=== PATIENT | male | born 1985 | race Caucasian/White ===

== ENCOUNTER 2017-09-29 12:03 | Emergency (ER) | payer MEDICARE, MEDICAID ==
[~2017-09-29] VITALS: Ht 172.7 cm; Wt 54.4 kg
[~2017-09-29 12:03] MED LIST: GABA-549 PO; HYDR-385 PO; INSU100V24 SQ; KET10 PO; LANI SUBQ; METR-1 PO; OMEP40CA48 PO; ONDA4TAB PO; PROM25SU9 RC; SUCR1TAB85 PO
[2017-09-29] MEDS ORDERED: NS(*) 0.9% 1000 ML BAG 1,000 ML IV ONE (12:09)
--- NOTE | 2017-09-29 12:09 | ER Report ---
History and Physical Time Seen By MD: 12:09 [facility] CHIEF COMPLAINT: Nausea, vomiting, diarrhea HISTORY OF PRESENT ILLNESS: 32-year-old male patient presents to emergency room with complaint of nausea, vomiting and diarrhea. Patient states that this started this morning. He states he's been having vomiting as well as diarrhea. He states that he does have a history of diabetes and is concerned that he is having some flareup of his gastroparesis. Patient states that he's not had any fevers or chills. He states that he has not taken any medication for this. He states that he ate his roommates cooking last night, which was a roast carrots which were well cooked. REVIEW OF SYSTEMS: Respiratory: No cough, no dyspnea. Cardiovascular: No chest pain, no palpitations. Gastrointestinal: As noted above Musculoskeletal: No back pain. Allergies: Coded Allergies: acetaminophen (Verified Allergy, Unknown, 09/29/17) hydrocodone (Verified Allergy, Unknown, 09/29/17) oxycodone (Verified Allergy, Unknown, 09/29/17) Uncoded Allergies: beestings (Adverse Reaction, Unknown, 08/11/17) Home Meds Active Scripts Promethazine Hcl (PROMETHAZINE HCL) 25 Mg Tablet, 25 MG PO Q8H Y for NAUSEA/ VOMITING, #12 TAB Prov:ELIZABETH CONNORS [facility] 09/29/17 Ondansetron (ZOFRAN ODT) 4 Mg Tab.rapdis, 4 MG PO Q6H Y for NAUSEA/VOMITING, # 20 TAB.JANIE Prov:ELIZABETH CONNORS [facility] 09/29/17 Reported Medications Insulin Glargine (LANTUS) 100 Unit/Ml Soln, 34 UNIT SUBQ, ML 08/11/17 Insulin Lispro (HUMALOG) 100 Unit/1 Ml Vial, 100 UNIT SQ, VIAL 08/11/17 Gabapentin (GABAPENTIN) 300 Mg Capsule, 300 MG PO TID, CAPSULE 08/11/17 Discontinued Scripts Omeprazole (OMEPRAZOLE) 40 Mg Capsule.dr, 40 MG PO QDAY, #30 CAP Prov:ELIZABETH CONNORS [facility] 08/12/17 Sucralfate (CARAFATE) 1 Gm Tablet, 1 GM PO QID, #60 TAB Take before meals and at bedtime. Crush the tablet and mix with water before taking. Prov:ELIZABETH CONNORS [facility] 08/12/17 Promethazine Hcl (PROMETHAZINE HCL) 25 Mg Supp.rect, 25 MG RC Q8H Y for NAUSEA/ VOMITING, #12 SUPP.RECT Prov:ELIZABETH CONNORS [facility] 08/12/17 Ketorolac Tromethamine (KETOROLAC TROMETHAMINE) 10 Mg Tab, 10 MG PO Q6H, #20 TAB Prov:ELIZABETH CONNORS [facility] 08/12/17 Metronidazole (FLAGYL) 500 Mg Tablet, 500 MG PO TID, #30 TAB Prov:ELIZABETH CONNORS [facility] 08/12/17 Hydrocodone Bit/Acetaminophen (HYDROCODON-ACETAMINOPHEN 5-325) 1 Each Tablet, 1 EACH PO Q4-6H Y for PAIN, #12 TAB Prov:ELIZABETH CONNORS [facility] 08/11/17 Ondansetron (ZOFRAN ODT) 4 Mg Tab.rapdis, 4 MG PO Q6H Y for NAUSEA/VOMITING, # 20 TAB.JANIE Prov:ELIZABETH CONNORS [facility] 08/11/17 Past Medical/Surgical History Patient has a past medical history of diabetes, gastroparesis, substance abuse. Patient has a surgical history of right hand surgery. Reviewed Nurses Notes: Yes Hx Substance Use Disorder: Yes Hx Alcohol Use: No Constitutional Vital Sign - Last 24 Hours 09/29/17 09/29/17 09/29/17 09/29/17 12:03 12:10 12:15 12:18 Temp 96.1 Pulse ??? 98 98 Resp 22 B/P (MAP) 161/103 161/103 (122) Pulse Ox 98 99 O2 Delivery Room Air 09/29/17 09/29/17 09/29/17 09/29/17 12:32 12:33 12:48 13:00 Pulse 100 97 Resp 7 B/P (MAP) 143/101 (115) ???/??? (1665) Pulse Ox 97 83 09/29/17 09/29/17 09/29/17 09/29/17 13:03 13:18 13:30 13:31 Pulse ??? 96 B/P (MAP) 163/112 (129) 159/105 (123) Pulse Ox 93 09/29/17 13:34 Temp 97.7 Intake and Output 09/29/17 09/29/17 09/30/17 15:00 23:00 07:00 Intake Total 1000 ml Balance 1000 ml Physical Exam General Appearance: The patient is alert, has no immediate need for airway protection and no current signs of toxicity. Respiratory: Chest is non tender, lungs are clear to auscultation. Cardiac: regular rate and rhythm Gastrointestinal: Abdomen is soft and diffusely tender, no masses, bowel sounds normal. Musculoskeletal: Neck: Neck is supple and non tender. Extremities have full range of motion and are non tender. Skin: No rashes or lesions. DIFFERENTIAL DIAGNOSIS: After history and physical exam differential diagnosis was considered for abdominal pain including but not limited to appendicitis, cholecystitis, gastritis and urinary tract infection. Medical Decision Making Data Points Result Diagram: 09/29/17 1230 09/29/17 1230 Laboratory Hematology Test 09/29/17 12:13 09/29/17 12:30 09/29/17 12:35 Urine Color Yellow Urine Clarity Clear Urine pH 6.0 pH (4.8-9.5) Urine Specific [place] 1.036 Urine Protein 100 mg/dL (NEGATIVE) Urine Glucose (UA) 500 mg/dL (NEGATIVE) Urine Ketones 20 mg/dL (NEGATIVE) Urine Blood Small (NEGATIVE) Urine Nitrite Negative (NEGATIVE) Urine Bilirubin Negative (NEGATIVE) Urine Urobilinogen Negative mg/dL (0.2-1.9) Urine Leukocyte Esterase Negative (NEGATIVE) Urine RBC 4 /HPF (0-2/HPF) Urine WBC 2 /HPF (0-5/HPF) Urine Squamous Epithelial Cells Few /LPF (</=FEW) Urine Bacteria Negative /HPF (NONE-FEW) Urine Mucus None /HPF (NONE-FEW) Red Blood Count 5.44 M/uL (4.00-5.60) Mean Corpuscular Volume 92.2 fL (80.0-96.0) Mean Corpuscular Hemoglobin 32.3 pg (26.0-33.0) Mean Corpuscular Hemoglobin Concent 35.0 g/dL (32.0-36.0) Red Cell Distribution Width 12.9 % (11.5-14.5) Mean Platelet Volume 7.8 fL (7.2-11.1) Neutrophils (%) (Auto) 77.9 % (39.4-72.5) Lymphocytes (%) (Auto) 16.8 % (17.6-49.6) Monocytes (%) (Auto) 4.0 % (4.1-12.4) Eosinophils (%) (Auto) 0.5 % (0.4-6.7) Basophils (%) (Auto) 0.8 % (0.3-1.4) Nucleated RBC Relative Count (auto) 0.1 /100WBC Neutrophils # (Auto) 7.0 K/uL (2.0-7.4) Lymphocytes # (Auto) 1.5 K/uL (1.3-3.6) Monocytes # (Auto) 0.4 K/uL (0.3-1.0) Eosinophils # (Auto) 0.0 K/uL (0.0-0.5) Basophils # (Auto) 0.1 K/uL (0.0-0.1) Nucleated RBC Absolute Count (auto) 0.01 K/uL Sodium Level 141 mmol/L (137-145) Potassium Level 3.8 mmol/L (3.5-5.0) Chloride Level 100 mmol/L (98-107) Carbon Dioxide Level 28 mmol/L (22-30) Blood Urea Nitrogen 12 mg/dl (9-21) Creatinine 0.60 mg/dl (0.66-1.25) Glomerular Filtration Rate Calc > 60.0 Random Glucose 259 mg/dl (75-110) Osmolality 300 mOSM/K (275-295) Calcium Level 9.8 mg/dl (8.4-10.2) Total Bilirubin 0.7 mg/dl (0.2-1.3) Aspartate Amino Transf (AST/SGOT) 36 U/L (0-35) Alanine Aminotransferase (ALT/SGPT) 45 U/L (0-56) Alkaline Phosphatase 83 U/L (0-126) Total Protein 8.1 gm/dl (6.3-8.2) Albumin 4.5 g/dl (3.5-5.0) Urine Opiates Screen Negative Urine Barbiturates Screen Negative Ur Tricyclic Antidepressants Screen Negative Urine Phencyclidine Screen Negative Urine Amphetamines Screen Negative Urine Benzodiazepines Screen Negative Urine Cocaine Screen Negative Urine Cannabinoids Screen Positive Acetone, Qualitative Negative Blood Gas Puncture Site Left radial Blood Gas Patient Temperature 96.1 DEGREES Arterial Blood pH 7.45 (7.35-7.45) Arterial Blood Partial Pressure CO2 26 mmHg (32-37) Arterial Blood Partial Pressure O2 78 mmHg (60-80) Arterial Blood HCO3 19 mmol/L (20-26) Arterial Blood Oxygen Saturation 97 % (92-100) Arterial Blood Base Excess -6.0 mmol/L Boy Test Acceptable Oxygen Liters/Minute Room air Chemistry Test 09/29/17 12:13 09/29/17 12:30 09/29/17 12:35 Urine Color Yellow Urine Clarity Clear Urine pH 6.0 pH (4.8-9.5) Urine Specific [place] 1.036 Urine Protein 100 mg/dL (NEGATIVE) Urine Glucose (UA) 500 mg/dL (NEGATIVE) Urine Ketones 20 mg/dL (NEGATIVE) Urine Blood Small (NEGATIVE) Urine Nitrite Negative (NEGATIVE) Urine Bilirubin Negative (NEGATIVE) Urine Urobilinogen Negative mg/dL (0.2-1.9) Urine Leukocyte Esterase Negative (NEGATIVE) Urine RBC 4 /HPF (0-2/HPF) Urine WBC 2 /HPF (0-5/HPF) Urine Squamous Epithelial Cells Few /LPF (</=FEW) Urine Bacteria Negative /HPF (NONE-FEW) Urine Mucus None /HPF (NONE-FEW) White Blood Count 9.0 k/uL (4.5-11.0) Red Blood Count 5.44 M/uL (4.00-5.60) Hemoglobin 17.6 g/dL (14.0-18.0) Hematocrit 50.1 % (42.0-52.0) Mean Corpuscular Volume 92.2 fL (80.0-96.0) Mean Corpuscular Hemoglobin 32.3 pg (26.0-33.0) Mean Corpuscular Hemoglobin Concent 35.0 g/dL (32.0-36.0) Red Cell Distribution Width 12.9 % (11.5-14.5) Platelet Count 322 K/uL (150-450) Mean Platelet Volume 7.8 fL (7.2-11.1) Neutrophils (%) (Auto) 77.9 % (39.4-72.5) Lymphocytes (%) (Auto) 16.8 % (17.6-49.6) Monocytes (%) (Auto) 4.0 % (4.1-12.4) Eosinophils (%) (Auto) 0.5 % (0.4-6.7) Basophils (%) (Auto) 0.8 % (0.3-1.4) Nucleated RBC Relative Count (auto) 0.1 /100WBC Neutrophils # (Auto) 7.0 K/uL (2.0-7.4) Lymphocytes # (Auto) 1.5 K/uL (1.3-3.6) Monocytes # (Auto) 0.4 K/uL (0.3-1.0) Eosinophils # (Auto) 0.0 K/uL (0.0-0.5) Basophils # (Auto) 0.1 K/uL (0.0-0.1) Nucleated RBC Absolute Count (auto) 0.01 K/uL Glomerular Filtration Rate Calc > 60.0 Osmolality 300 mOSM/K (275-295) Calcium Level 9.8 mg/dl (8.4-10.2) Total Bilirubin 0.7 mg/dl (0.2-1.3) Aspartate Amino Transf (AST/SGOT) 36 U/L (0-35) Alanine Aminotransferase (ALT/SGPT) 45 U/L (0-56) Alkaline Phosphatase 83 U/L (0-126) Total Protein 8.1 gm/dl (6.3-8.2) Albumin 4.5 g/dl (3.5-5.0) Urine Opiates Screen Negative Urine Barbiturates Screen Negative Ur Tricyclic Antidepressants Screen Negative Urine Phencyclidine Screen Negative Urine Amphetamines Screen Negative Urine Benzodiazepines Screen Negative Urine Cocaine Screen Negative Urine Cannabinoids Screen Positive Acetone, Qualitative Negative Blood Gas Puncture Site Left radial Blood Gas Patient Temperature 96.1 DEGREES Arterial Blood pH 7.45 (7.35-7.45) Arterial Blood Partial Pressure CO2 26 mmHg (32-37) Arterial Blood Partial Pressure O2 78 mmHg (60-80) Arterial Blood HCO3 19 mmol/L (20-26) Arterial Blood Oxygen Saturation 97 % (92-100) Arterial Blood Base Excess -6.0 mmol/L Boy Test Acceptable Oxygen Liters/Minute Room air Toxicology Test 09/29/17 12:30 Urine Opiates Screen Negative Urine Barbiturates Screen Negative Ur Tricyclic Antidepressants Screen Negative Urine Phencyclidine Screen Negative Urine Amphetamines Screen Negative Urine Benzodiazepines Screen Negative Urine Cocaine Screen Negative Urine Cannabinoids Screen Positive Acetone, Qualitative Negative Urinalysis Test 09/29/17 12:13 Urine Color Yellow Urine Clarity Clear Urine pH 6.0 pH (4.8-9.5) Urine Specific [place] 1.036 Urine Protein 100 mg/dL (NEGATIVE) Urine Glucose (UA) 500 mg/dL (NEGATIVE) Urine Ketones 20 mg/dL (NEGATIVE) Urine Blood Small (NEGATIVE) Urine Nitrite Negative (NEGATIVE) Urine Bilirubin Negative (NEGATIVE) Urine Urobilinogen Negative mg/dL (0.2-1.9) Urine Leukocyte Esterase Negative (NEGATIVE) Urine RBC 4 /HPF (0-2/HPF) Urine WBC 2 /HPF (0-5/HPF) Urine Squamous Epithelial Cells Few /LPF (</=FEW) Urine Bacteria Negative /HPF (NONE-FEW) Urine Mucus None /HPF (NONE-FEW) EKG/Imaging Imaging ACUTE ABDOMEN SERIES 3 VIEW Indication: n/v/d Comparison: None. Findings: Lungs are clear. Heart size and the pulmonary vasculature are normal. Normal bowel gas pattern is seen. Bones are unremarkable. IMPRESSION: 1. Normal chest radiograph. 2. Normal abdomen and pelvis radiograph. Report Dictated By: Esteban Zhu at 09/29/2017 2:28 PM Report E-Signed By: Esteban Zhu at 09/29/2017 2:29 PM ED Course/Re-evaluation ED Course Patient was admitted to exam room, history and physical were obtained. Differential diagnoses were considered. On examination patient had diffuse tenderness, bowel sounds were active. A CBC, CMP, urinalysis, acute abdominal x- ray, osmolality, acetone, ABG, bedside glucose were done. Patient had a bedside glucose of 240, CBC, CMP, urinalysis were unremarkable. Osmolality was slightly elevated at 300, acetone was negative, acute abdominal x-ray showed no acute findings. Patient received 2 doses of Zofran while here in the emergency room. Patient requested narcotic pain medication on numerous occasions. I was unable to ascertain a cause of his pain and so opted to go ahead and treat with antibiotics and fluids. Patient received a liter of normal saline here in the emergency room. The patient will be discharged with what appears to be a gastroenteritis. Patient is to be on a clear liquid diet, get plenty of rest, increase fluid intake. He is to follow-up with his primary care provider in the next week. Patient verbalized understanding and agreement with plan. Decision to Disposition Date: Sep 29, 2017 Decision to Disposition Time: 14:12 Depart Departure Latest Vital Signs Vital Signs Date Time Temp Pulse Resp B/P (MAP) Pulse Ox O2 Delivery O2 Flow Rate FiO2 09/29/17 13:34 97.7 09/29/17 13:31 159/105 (123) 09/29/17 13:18 96 93 09/29/17 12:48 7 09/29/17 12:10 Room Air Impression: Primary Impression: Gastroenteritis Condition: Improved Disposition: HOME OR SELF-CARE New Scripts Promethazine Hcl (PROMETHAZINE HCL) 25 Mg Tablet 25 MG PO Q8H Y for NAUSEA/VOMITING, #12 TAB Prov: ELIZABETH CONNORS 09/29/17 Ondansetron (ZOFRAN ODT) 4 Mg Tab.rapdis 4 MG PO Q6H Y for NAUSEA/VOMITING, #20 TAB.JANIE Prov: ELIZABETH CONNORS 09/29/17 Patient Instructions: Gastroenteritis (ED) Additional Instructions: Increase fluid intake. Clear liquid diet for the next 24-48 hours. After that you may advance diet as tolerated starting with complex carbohydrates ; rice, bread or pasta. Follow up with your primary care provider in the next week. Return to the ER if condition worsens. You may take over the counter Pepto Bismol as needed for cramping, diarrhea and discomfort. ELIZABETH CONNORS Sep 29, 2017 12:09
[2017-09-29] MEDS ORDERED: ONDANSETRON 4 MG/2 ML VIAL IVP ONE ×2 (12:35→14:05)
[2017-09-29 12:49] LABS: PLATELET COUNT, AUTOMATED 322 K/uL (150-450)
[2017-09-29 13:31] VITALS: BP 159/105
[2017-09-29] MEDS ORDERED: ONDA4TAB PO (14:13)
[2017-09-29] MEDS ORDERED: PROM-110 PO (14:13)
--- NOTE | 2017-09-29 14:34 | RADIOLOGY IMAGING REPORT ---
FACILITY: [facility] [place] PATIENT NAME: Terrence Carson : 1985 MR: [id number] V: [id number] EXAM DATE: ORDERING PHYSICIAN: ELIZABETH CONNORS TECHNOLOGIST: Location: [facility] [place] Patient: Terrence Carson : 1985 Visit/Account:[id number] Date of Sevice: 09/29/2017 ACUTE ABDOMEN SERIES 3 VIEW Indication: n/v/d Comparison: None. Findings: Lungs are clear. Heart size and the pulmonary vasculature are normal. Normal bowel gas pattern is seen. Bones are unremarkable. IMPRESSION: 1. Normal chest radiograph. 2. Normal abdomen and pelvis radiograph. Report Dictated By: Esteban Zhu at 09/29/2017 2:28 PM Report E-Signed By: Esteban Zhu at 09/29/2017 2:29 PM WSN:[id number]
== END 2017-09-29 14:35 | disposition home or self-care (01) ==
LOC: ER 12:39
DX: K52.9 Noninfective gastroenteritis and colitis, unspecified (principal)
CPT/HCPCS: 36600; 74022; 80305; 81001; 82009; 82803; 83930; 85025; 87088; 96361; 96374; 96375; 96376; 99284; J2405; J7030; 82040; 82247; 82310; 82374; 82435; 82565; 82947; 84075; 84132; 84155; 84295; 84450; 84460; 84520

== ENCOUNTER 2017-10-01 21:44 | Inpatient (IN) | payer MEDICARE, MEDICAID ==
[~2017-10-01] VITALS: Ht 177.8 cm; Wt 54.9 kg
[~2017-10-01 21:44] MED LIST changes: +PROM-110 PO
--- NOTE | 2017-10-01 21:47 | ER Report ---
History and Physical Time Seen By MD: 21:46 HPI/ROS CHIEF COMPLAINT: Nausea, vomiting, insulin-dependent diabetic HISTORY OF PRESENT ILLNESS: 32-year-old male presents ambulatory to the ER complaining of continued vomiting. He's been taking Zofran without improvement. He was seen here on 09/29/17. Diagnosed with gastroenteritis. Patient is insulin dependent diabetic with a history of gastroparesis. Patient states his sugars at home or in the 200s. Patient states the promethazine and Zofran have not been controlling his nausea. Patient denies fevers or hematemesis. Patient notes decreased urine output REVIEW OF SYSTEMS: Respiratory: No cough, no dyspnea. Cardiovascular: No chest pain, no palpitations. Gastrointestinal: As above Musculoskeletal: No back pain. Allergies: Coded Allergies: acetaminophen (Verified Allergy, Unknown, 10/02/17) hydrocodone (Verified Allergy, Unknown, 10/02/17) oxycodone (Verified Allergy, Unknown, 10/02/17) Uncoded Allergies: beestings (Adverse Reaction, Unknown, 08/11/17) Home Meds Active Scripts Promethazine Hcl (PROMETHAZINE HCL) 25 Mg Tablet, 25 MG PO Q8H Y for NAUSEA/ VOMITING, #12 TAB Prov:ELIZABETH CONNORS [facility] 09/29/17 Ondansetron (ZOFRAN ODT) 4 Mg Tab.rapdis, 4 MG PO Q6H Y for NAUSEA/VOMITING, # 20 TAB.JANIE Prov:ELIZABETH CONNORS [facility] 09/29/17 Reported Medications Insulin Lispro (HUMALOG) 100 Unit/1 Ml Vial, 0 SQ Y for SLIDING SCALE INSULIN, VIAL takes Humalog Insulin at Home as per SS 10/02/17 Insulin Glargine (LANTUS) 100 Unit/Ml Soln, 34 UNIT SUBQ QDAY, ML MIDMORNING 10/02/17 Gabapentin (GABAPENTIN) 300 Mg Capsule, 300 MG PO TID, CAPSULE 08/11/17 Discontinued Scripts Omeprazole (OMEPRAZOLE) 40 Mg Capsule.dr, 40 MG PO QDAY, #30 CAP Prov:ELIZABETH CONNORS [facility] 08/12/17 Sucralfate (CARAFATE) 1 Gm Tablet, 1 GM PO QID, #60 TAB Take before meals and at bedtime. Crush the tablet and mix with water before taking. Prov:ELIZABETH CONNORS [facility] 08/12/17 Promethazine Hcl (PROMETHAZINE HCL) 25 Mg Supp.rect, 25 MG RC Q8H Y for NAUSEA/ VOMITING, #12 SUPP.RECT Prov:ELIZABETH CONNORS [facility] 08/12/17 Ketorolac Tromethamine (KETOROLAC TROMETHAMINE) 10 Mg Tab, 10 MG PO Q6H, #20 TAB Prov:ELIZABETH CONNORS [facility] 08/12/17 Metronidazole (FLAGYL) 500 Mg Tablet, 500 MG PO TID, #30 TAB Prov:ELIZABETH CONNORS [facility] 08/12/17 Hydrocodone Bit/Acetaminophen (HYDROCODON-ACETAMINOPHEN 5-325) 1 Each Tablet, 1 EACH PO Q4-6H Y for PAIN, #12 TAB Prov:ELIZABETH CONNORS [facility] 08/11/17 Ondansetron (ZOFRAN ODT) 4 Mg Tab.rapdis, 4 MG PO Q6H Y for NAUSEA/VOMITING, # 20 TAB.JANIE Prov:ELIZABETH CONNORS [facility] 08/11/17 Past Medical/Surgical History Patient has a past medical history of diabetes, gastroparesis, substance abuse. Patient has a surgical history of right hand surgery. Reviewed Nurses Notes: Yes Old Medical Records Reviewed: Yes Hx Substance Use Disorder: Yes Hx Alcohol Use: No Constitutional Vital Sign - Last 24 Hours 10/01/17 10/01/17 10/01/17 10/01/17 21:48 21:48 22:14 22:44 Pulse 137 126 128 Resp 22 B/P (MAP) 155/129 155/129 (138) Pulse Ox 96 97 94 10/01/17 10/01/17 10/01/17 10/01/17 22:49 23:16 23:19 23:30 Pulse 128 124 B/P (MAP) 158/108 (125) 159/106 (123) Pulse Ox 95 96 10/01/17 10/02/17 10/02/17 10/02/17 23:49 00:00 00:19 00:30 Pulse 122 129 B/P (MAP) 160/103 (122) 160/101 (120) Pulse Ox 96 96 10/02/17 10/02/17 10/02/17 00:35 01:00 01:05 Pulse 125 128 B/P (MAP) 153/103 (120) Pulse Ox 95 97 Physical Exam Vital signs stable, afebrile, pulse ox normal General Appearance: The patient is alert, has no immediate need for airway protection and no current signs of toxicity. Moderate distress, rapid breathing HEENT: Pupils equal and round no injection. TMs normal, oropharynx with dry mucous membranes, mild erythema, fruity odor, very poor dentition,? Previous substance abuse Respiratory: Chest is non tender, lungs are clear to auscultation. Cardiac: regular rate and rhythm Gastrointestinal: Abdomen is soft, mild epigastric tenderness, no masses, bowel sounds normal. Musculoskeletal: Neck: Neck is supple and non tender. No JVD, no lymphadenopathy Extremities have full range of motion and are non tender. Skin: No rashes or lesions. DIFFERENTIAL DIAGNOSIS: After history and physical exam differential diagnosis was considered for abdominal pain including but not limited to appendicitis, cholecystitis, gastritis, diabetic ketoacidosis and urinary tract infection. Medical Decision Making Data Points Result Diagram: 10/01/17 2213 10/02/17 0150 Laboratory Hematology Test 10/01/17 22:13 Red Blood Count 5.77 M/uL (4.00-5.60) Mean Corpuscular Volume 94.1 fL (80.0-96.0) Mean Corpuscular Hemoglobin 32.1 pg (26.0-33.0) Mean Corpuscular Hemoglobin Concent 34.1 g/dL (32.0-36.0) Red Cell Distribution Width 12.9 % (11.5-14.5) Mean Platelet Volume 7.5 fL (7.2-11.1) Neutrophils (%) (Auto) 89.8 % (39.4-72.5) Lymphocytes (%) (Auto) 6.9 % (17.6-49.6) Monocytes (%) (Auto) 3.1 % (4.1-12.4) Eosinophils (%) (Auto) 0.0 % (0.4-6.7) Basophils (%) (Auto) 0.2 % (0.3-1.4) Nucleated RBC Relative Count (auto) 0.0 /100WBC Neutrophils # (Auto) 12.6 K/uL (2.0-7.4) Lymphocytes # (Auto) 1.0 K/uL (1.3-3.6) Monocytes # (Auto) 0.4 K/uL (0.3-1.0) Eosinophils # (Auto) 0.0 K/uL (0.0-0.5) Basophils # (Auto) 0.0 K/uL (0.0-0.1) Nucleated RBC Absolute Count (auto) 0.00 K/uL Urine Color Straw Urine Clarity Clear Urine pH 5.0 pH (4.8-9.5) Urine Specific [place] 1.025 Urine Protein 100 mg/dL (NEGATIVE) Urine Glucose (UA) 500 mg/dL (NEGATIVE) Urine Ketones 80 mg/dL (NEGATIVE) Urine Blood Moderate (NEGATIVE) Urine Nitrite Negative (NEGATIVE) Urine Bilirubin Negative (NEGATIVE) Urine Urobilinogen Negative mg/dL (0.2-1.9) Urine Leukocyte Esterase Negative (NEGATIVE) Urine RBC 1 /HPF (0-2/HPF) Urine WBC 1 /HPF (0-5/HPF) Urine Squamous Epithelial Cells None /LPF (</=FEW) Urine Bacteria Negative /HPF (NONE-FEW) Urine Mucus None /HPF (NONE-FEW) Total Bilirubin 0.9 mg/dl (0.2-1.3) Aspartate Amino Transf (AST/SGOT) 21 U/L (0-35) Alanine Aminotransferase (ALT/SGPT) 40 U/L (0-56) Alkaline Phosphatase 100 U/L (0-126) C-Reactive Protein < 0.5 mg/dl (<1.0) Total Protein 8.7 gm/dl (6.3-8.2) Albumin 5.2 g/dl (3.5-5.0) Amylase Level 88 U/L (0-110) Lipase 155 U/L (23-300) Chemistry Test 10/01/17 22:13 White Blood Count 14.0 k/uL (4.5-11.0) Red Blood Count 5.77 M/uL (4.00-5.60) Hemoglobin 18.5 g/dL (14.0-18.0) Hematocrit 54.3 % (42.0-52.0) Mean Corpuscular Volume 94.1 fL (80.0-96.0) Mean Corpuscular Hemoglobin 32.1 pg (26.0-33.0) Mean Corpuscular Hemoglobin Concent 34.1 g/dL (32.0-36.0) Red Cell Distribution Width 12.9 % (11.5-14.5) Platelet Count 367 K/uL (150-450) Mean Platelet Volume 7.5 fL (7.2-11.1) Neutrophils (%) (Auto) 89.8 % (39.4-72.5) Lymphocytes (%) (Auto) 6.9 % (17.6-49.6) Monocytes (%) (Auto) 3.1 % (4.1-12.4) Eosinophils (%) (Auto) 0.0 % (0.4-6.7) Basophils (%) (Auto) 0.2 % (0.3-1.4) Nucleated RBC Relative Count (auto) 0.0 /100WBC Neutrophils # (Auto) 12.6 K/uL (2.0-7.4) Lymphocytes # (Auto) 1.0 K/uL (1.3-3.6) Monocytes # (Auto) 0.4 K/uL (0.3-1.0) Eosinophils # (Auto) 0.0 K/uL (0.0-0.5) Basophils # (Auto) 0.0 K/uL (0.0-0.1) Nucleated RBC Absolute Count (auto) 0.00 K/uL Urine Color Straw Urine Clarity Clear Urine pH 5.0 pH (4.8-9.5) Urine Specific [place] 1.025 Urine Protein 100 mg/dL (NEGATIVE) Urine Glucose (UA) 500 mg/dL (NEGATIVE) Urine Ketones 80 mg/dL (NEGATIVE) Urine Blood Moderate (NEGATIVE) Urine Nitrite Negative (NEGATIVE) Urine Bilirubin Negative (NEGATIVE) Urine Urobilinogen Negative mg/dL (0.2-1.9) Urine Leukocyte Esterase Negative (NEGATIVE) Urine RBC 1 /HPF (0-2/HPF) Urine WBC 1 /HPF (0-5/HPF) Urine Squamous Epithelial Cells None /LPF (</=FEW) Urine Bacteria Negative /HPF (NONE-FEW) Urine Mucus None /HPF (NONE-FEW) Total Bilirubin 0.9 mg/dl (0.2-1.3) Aspartate Amino Transf (AST/SGOT) 21 U/L (0-35) Alanine Aminotransferase (ALT/SGPT) 40 U/L (0-56) Alkaline Phosphatase 100 U/L (0-126) C-Reactive Protein < 0.5 mg/dl (<1.0) Total Protein 8.7 gm/dl (6.3-8.2) Albumin 5.2 g/dl (3.5-5.0) Amylase Level 88 U/L (0-110) Lipase 155 U/L (23-300) Urinalysis Test 10/01/17 22:13 Urine Color Straw Urine Clarity Clear Urine pH 5.0 pH (4.8-9.5) Urine Specific [place] 1.025 Urine Protein 100 mg/dL (NEGATIVE) Urine Glucose (UA) 500 mg/dL (NEGATIVE) Urine Ketones 80 mg/dL (NEGATIVE) Urine Blood Moderate (NEGATIVE) Urine Nitrite Negative (NEGATIVE) Urine Bilirubin Negative (NEGATIVE) Urine Urobilinogen Negative mg/dL (0.2-1.9) Urine Leukocyte Esterase Negative (NEGATIVE) Urine RBC 1 /HPF (0-2/HPF) Urine WBC 1 /HPF (0-5/HPF) Urine Squamous Epithelial Cells None /LPF (</=FEW) Urine Bacteria Negative /HPF (NONE-FEW) Urine Mucus None /HPF (NONE-FEW) ED Course/Re-evaluation Clinical Indication for ER IV: Hydration, IV Access ED Course Patient was admitted to an examination room. H&P was done. The differential diagnosis was considered. Patient with intractable vomiting. He's insulin- dependent diabetic. Diagnostic studies returned with gross hyperglycemia. 436. His bicarbonate is low to 10. He is consistent with DKA. His urinalysis shows ketones. Patient's treated with IV fluid hydration 1 L normal saline bolus, Zofran, Phenergan and fentanyl. Patient's given 10 units of regular insulin IV push. Repeat glucose in one hour shows glucose down to 362. An insulin drip was initiated at 5 units per hour. Patient was given a 2nd bolus of 1 L of normal saline. Repeat basic metabolic profile and venous blood gas show pH of 7.25, showing mild acidosis. A chest x-ray was performed to rule out pneumonia. His white blood cell count is mildly elevated to 14,000. 10/02/2017 1:11:45 am case discussed with Dr. Andria Hamilton hospitalist excepts the patient for admission to ICU Decision to Disposition Date: Oct 01, 2017 Decision to Disposition Time: 23:30 Critical Care Time I spent a total of 60 minutes of critical care time in obtaining history, performing a physical exam, bedside monitoring of interventions, collecting and interpreting tests and discussion with consultants but not including time spent performing procedures. Depart Departure Latest Vital Signs Vital Signs Date Time Temp Pulse Resp B/P (MAP) Pulse Ox O2 Delivery O2 Flow Rate FiO2 10/02/17 01:05 128 97 10/02/17 01:00 153/103 (120) 10/01/17 21:48 22 Impression: Primary Impression: DKA (diabetic ketoacidoses) Additional Impressions: Nausea & vomiting History of diabetic gastroparesis Condition: Improved Disposition: Admitted from ER Problem Qualifiers Primary Impression: DKA (diabetic ketoacidoses) Diabetes mellitus type: type 1 Diabetes mellitus complication detail: without coma Qualified Codes: E10.10 - Type 1 diabetes mellitus with ketoacidosis without coma Additional Impressions: Nausea & vomiting Vomiting type: unspecified Vomiting Intractability: intractable Qualified Codes: R11.2 - Nausea with vomiting, unspecified NOELLE DE LA CRUZ DO Oct 01, 2017 21:47
[2017-10-01] MEDS ORDERED: NS(*) 0.9% 1000 ML BAG 1,000 ML IV ONE (22:08)
[2017-10-01] MEDS ORDERED: ONDANSETRON 4 MG/2 ML VIAL IVP ONE (22:10)
[2017-10-01] MEDS ORDERED: PROMETHAZINE 25 MG/ML 1 ML AMP IVP ONE (22:10)
[2017-10-01] MEDS ORDERED: fentaNYL CITR 100 MCG/2 ML AMP IVP ONE (22:10)
[2017-10-01 22:21] LABS: PLATELET COUNT, AUTOMATED 367 K/uL (150-450)
[2017-10-01] MEDS ORDERED: INSU HUM REG 100 U/ML(ER ONLY) 10 ML VIAL IVP ONE (23:35)
[2017-10-02] VITALS (21 sets, daily range): BP systolic 105–170; BP diastolic 77–117; Ht 177.8 cm; Wt 54.9 kg
[2017-10-02] MEDS ORDERED: INS HUM REG* 100 U/ML(ER ONLY) 100 UNIT in NS(*) 0.9% 100 ML BAG 99 ML IV SCH ×3 (01:10→05:30)
[2017-10-02] MEDS ORDERED: NS(*) 0.9% 100 ML BAG 100 ML ONE (01:22)
[2017-10-02] MEDS ORDERED: NS(*) 0.9% 1000 ML BAG 1,000 ML IV ONE (01:25)
[2017-10-02] MEDS ORDERED: SODIUM BICAR(* 8.4% 50 ML SYR 50 ML SYR IVP ONE (02:25)
--- NOTE | 2017-10-02 02:29 | RADIOLOGY IMAGING REPORT ---
FACILITY: [facility] PATIENT NAME: Terrence Carson : 1985 MR: [id number] V: [id number] EXAM DATE: ORDERING PHYSICIAN: NOELLE DE LA CRUZ [place]CHN[place] [facility] [place] : 1985 Visit/Account:[id number] Date of Sevice: 10/02/2017 CHEST SINGLE AP Additional pertinent History: DKA COMPARISON STUDIES: none FINDINGS: Support lines and catheters: None Lungs and Pleura: Lung [place] well expanded with no infiltrates or consolidations. No parenchymal ma ss lesions are seen. There are no effusions Heart and vasculature: Negative. Atiya and Mediastinum: Negative. Bones and Chest wall: Negative. Upper Abdomen: Negative. IMPRESSION: 1. Negative chest for acute cardiopulmonary disease Report Dictated By: Crow Herndon MD at 10/02/2017 2:20 AM Report E-Signed By: Crow Herndon MD at 10/02/2017 2:24 AM WSN:[id number]
[2017-10-02] MEDS ORDERED: fentaNYL CITR 100 MCG/2 ML AMP IVP PRN (02:40)
[2017-10-02] MEDS ORDERED: KCL/NS* 20 MEQ/1000 ML PREMIX 1,000 ML IV ONE (03:25)
[2017-10-02] MEDS ORDERED: INSULIN HUM REG 100 UN/ML 3 ML 100 UNIT in NS(*) 0.9% 100 ML BAG 100 ML IV SCH (03:32)
[2017-10-02] MEDS ORDERED: HYDROmorphone HCL 2 MG/ML SDV IVP PRN ×2 (03:35→08:25)
[2017-10-02] MEDS ORDERED: PROMETHAZINE 25 MG/ML 1 ML AMP IVP PRN ×2 (03:40→21:10)
[2017-10-02] MEDS ORDERED: ONDANSETRON 4 MG/2 ML VIAL IVP PRN (03:40)
[2017-10-02] MEDS ORDERED: INFLUENZA VIRUS VAC 0.5 ML SYR IM ONLY ONE (03:45)
[2017-10-02] MEDS ORDERED: LANI SUBQ (04:01)
[2017-10-02] MEDS ORDERED: INSU100V24 SQ (04:06)
--- NOTE | 2017-10-02 04:13 | History & Physical ---
History of Present Illness Chief Complaint The patient is a 32 year old male with PMH significant for type I DM with complications including neuropathy (legs) and gastroparesis. He presents with several days of intractable nausea and vomiting. History of Present Illness The patient was diagnosed with type I DM at age 13. He has developed complications including gastroparesis and neuropathy of his lower extremities. He has had multiple hospitalizations for DKA in the past. He currently uses Lantus 34 units mid morning and Humalog per sliding scale before meals. The patient recently moved to [place] from [place]. He states that he has been using marijuana daily for treatment of chronic pain. He denies any history of other substance use or abuse. He states he only uses pain medications when he is in the hospital with DKA. He does not drink alcohol. He is on Medicare and has been disabled due to his diabetes and neuropathy. He has not yet established with a primary care provider in [place]. The patient notes that he developed nausea and vomiting 2-3 days ago. He was seen in [facility] 234 BEDS AT THE [facility] ER on 09/29 and sent home with Phenergan and Zofran. He states these medications have not controlled his nausea and vomiting. He has had upper abdominal pain as well. He has not been able to eat or drink and has noticed decreased urine output. He has not had fever or chills. He has not had hematemesis. He denies diarrhea or melena. History Problems: (1) Wrist fracture, right Comment: With ORIF, pinning. Pins subsequently removed. (2) Diabetic neuropathy Status: Chronic (3) Diabetic gastroparesis Status: Chronic (4) Type I diabetes mellitus Status: Chronic Home Meds Active Scripts Promethazine Hcl (PROMETHAZINE HCL) 25 Mg Tablet, 25 MG PO Q8H Y for NAUSEA/ VOMITING, #12 TAB Prov:ELIZABETH CONNORS [facility] 09/29/17 Ondansetron (ZOFRAN ODT) 4 Mg Tab.rapdis, 4 MG PO Q6H Y for NAUSEA/VOMITING, # 20 TAB.JANIE Prov:ELIZABETH CONNORS [facility] 09/29/17 Reported Medications Insulin Glargine (LANTUS) 100 Unit/Ml Soln, 34 UNIT SUBQ, ML 08/11/17 Insulin Lispro (HUMALOG) 100 Unit/1 Ml Vial, 100 UNIT SQ, VIAL 11/11/17 Gabapentin (GABAPENTIN) 300 Mg Capsule, 300 MG PO TID, CAPSULE 08/11/17 Discontinued Scripts Omeprazole (OMEPRAZOLE) 40 Mg Capsule.dr, 40 MG PO QDAY, #30 CAP Prov:ELIZABETH CONNORS [facility] 08/12/17 Sucralfate (CARAFATE) 1 Gm Tablet, 1 GM PO QID, #60 TAB Take before meals and at bedtime. Crush the tablet and mix with water before taking. Prov:ELIZABETH CONNORS [facility] 08/12/17 Promethazine Hcl (PROMETHAZINE HCL) 25 Mg Supp.rect, 25 MG RC Q8H Y for NAUSEA/ VOMITING, #12 SUPP.RECT [facility] 08/12/17 Ketorolac Tromethamine (KETOROLAC TROMETHAMINE) 10 Mg Tab, 10 MG PO Q6H, #20 TAB Prov:ELIZABETH CONNORS [facility] 08/12/17 Metronidazole (FLAGYL) 500 Mg Tablet, 500 MG PO TID, #30 TAB [facility] 08/12/17 Hydrocodone Bit/Acetaminophen (HYDROCODON-ACETAMINOPHEN 5-325) 1 Each Tablet, 1 EACH PO Q4-6H Y for PAIN, #12 TAB Prov:ELIZABETH CONNORS [facility] 08/11/17 Ondansetron (ZOFRAN ODT) 4 Mg Tab.rapdis, 4 MG PO Q6H Y for NAUSEA/VOMITING, # 20 TAB.JANIE Prov:ELIZABETH CONNORS [facility] 08/11/17 Allergies: Coded Allergies: acetaminophen (Verified Allergy, Unknown, 10/02/17) hydrocodone (Verified Allergy, Unknown, 10/02/17) oxycodone (Verified Allergy, Unknown, 10/02/17) Uncoded Allergies: beestings (Adverse Reaction, Unknown, 08/11/17) Patient History: CVA FATHER (STROKE), MOTHER (STROKE) Diabetes mellitus type II FATHER (STROKE), MOTHER (STROKE) Hx Smoking: Yes Smoking Status: Former Smoker Tobacco Used: Cigarette Hx Alcohol Use: No Hx Substance Use Disorder: No Social Drug Use: Currently Social Drugs: Marijuana (Daily for chronic neuropathic pain.) History of IV Drug Use: No Review of Systems All Systems Reviewed/Normal: Yes, Except as Noted Constitutional: No Chills Neurological: Weakness Cardiovascular: No Chest Pain Respiratory: No Shortness of Breath Gastrointestinal: Nausea, Vomiting, No Diarrhea, No Hematemesis Genitourinary: No Dysuria Musculoskeletal: Pain (Neuropathic pain, LE.) Psychiatric: No Depression Exam Vital Signs Vital Signs Date Time Temp Pulse Resp B/P (MAP) Pulse Ox O2 Delivery O2 Flow Rate FiO2 10/02/17 02:55 98.3 133 20 170/117 (134) 96 Room Air General Appearance: Alert, Awake, Other (Appears ill.) Eyes: PERRLA ENT: Other (Missing several teeth.) Neck: No Masses Cardiovascular: Other (Tachycardic, regular.) Respiratory: Clear to Auscultation (Anteriorly.) Chest: Other (Negative except for tattoos.) GI: Other (Abdomen soft, diffusely tender to palpation without masses or organomegaly.) Lymph: Cervical Nodes Benign Extremities: Warm, Perfused, Other (R foot with callous/scab over bony prominence laterally. No redness or drainage.) Integumentary: Skin Intact without Lesion / Mass, Other (Multiple tattoos.) Psych: Appropriate Mood & Affect Medical Decision Making Data Points Result Diagram: 10/01/17221210/02/17 0150 Item Value Date Time Blood Gas Patient Temperature 98.1 DEGREES 10/02/17 0120 Venous Blood pH 7.25 L 10/02/17 0120 Venous Blood Partial Pressure CO2 26 mmHg 10/02/17 0120 Venous Blood Partial Pressure O2 52 mmHg 10/02/17 0120 Venous Blood HCO3 12 mmol/L 10/02/17 0120 Venous Blood Oxygen Saturation 82 % 10/02/17 0120 Venous Blood Base Excess -16 mmol/L 10/02/17 0120 Oxygen Liters/Minute Room air 10/02/17 0120 Urine Color Straw 10/01/172212 Urine Clarity Clear 10/01/172212 Urine pH 5.0 pH 10/01/17 221 Urine Specific [place] 1.025 10/01/172212 Urine Protein 100 mg/dL 10/01/172212 Urine Glucose (UA) 500 mg/dL 10/01/172212 Urine Ketones 80 mg/dL H 10/01/172212 Urine Blood Moderate 10/01/172212 Urine Nitrite Negative 10/01/172212 Urine Bilirubin Negative 10/01/172212 Urine Urobilinogen Negative mg/dL 10/01/172212 Urine Leukocyte Esterase Negative 10/01/172212 Urine RBC 1 /HPF 10/01/172212 Urine WBC 1 /HPF 10/01/172212 Urine Squamous Epithelial Cells None /LPF 10/01/172212 Urine Bacteria Negative /HPF 10/01/172212 Urine Mucus None /HPF 10/01/172212 [facility] *LIVE* [address] [place] [address] WAN RILEY M.D., DIRECTOR OF LABORATORY SERVICES AQUILES BUSBY M.D., PATHOLOGIST RUN DATE: 10/01/17 Specimen Inquiry Report PAGE 1 RUN TIME: 1526 PATIENT: TERRENCE CARSON ACCT: [id number] LOC: [facility] U : [id number] AGE/SX: 32/M ROOM: REG : 09/29/[address]: ELIZABETH CONNORS : 1985 BED: DIS : STATUS: ERIC ALEXANDER TLOC: SPEC #: [id number] SLOAN: 09/29/17-1213 STATUS: COMP REQ #: [id number] RECD: 09/29/17-[address]: ELIZABETH CONNORS SOURCE: CCMS ENTR: 09/29/17-[address]: SPDES: ORDERED: CULT URINE Procedure Result Verified URINE CULTURE Final 10/01/17-1526 NO GROWTH AFTER 2 DAYS END OF REPORT EKG / Imaging Monitor Interpretation: Sinus Tachycardia [place] [facility] [place] NAME: Terrence Carson : 1985 MR: [id number] V: [id number] EXAM DATE: ORDERING PHYSICIAN: NOELLE DE LA CRUZ TECHNOLOGIST: Location: [facility] [place] Patient: Terrence Carson : 1985 Visit/Account:[id number] Date of Sevice: 10/02/2017 CHEST SINGLE AP Additional pertinent History: DKA COMPARISON STUDIES: none FINDINGS: Support lines and catheters: None Lungs and Pleura: Lung [place] well expanded with no infiltrates or consolidations. No parenchymal mass lesions are seen. There are no effusions Heart and vasculature: Negative. Atiya and Mediastinum: Negative. Bones and Chest wall: Negative. Upper Abdomen: Negative. IMPRESSION: 1. Negative chest for acute cardiopulmonary disease Report Dictated By: Crow Herndon MD at 10/02/2017 2:20 AM Report E-Signed By: Crow Herndon MD at 10/02/2017 2:24 AM WSN:[id number] Pre-Admit Course ED Medications Reviewed. Multiple. See ER record. Medical Record Review: Yes Assessment and Plan Problems: (1) DKA (diabetic ketoacidoses) Status: Acute Assessment & Plan: Will place in ICU and aggressively hydrate with NS/KCl 20meq at 200 ml/hr. Hourly glucose checks. When glucose falls below 200, switch fluid to D51/2NS with KCl 20meq until acidosis has resolved. Place on insulin gtt. Recheck BMP q 4 hours to monitor electrolytes and CO2. Place on telemetry. (2) Nausea & vomiting Status: Acute Assessment & Plan: Will order IV promethazine and Zofran prn. Dilaudid prn for abdominal discomfort. (3) Type I diabetes mellitus Status: Chronic Assessment & Plan: Hold Lantus for now. Continue insulin gtt. (4) Diabetic gastroparesis Status: Chronic Assessment & Plan: Phenergan and Zofran prn. (5) Diabetic neuropathy Status: Chronic Assessment & Plan: Hold gabapentin for now as the patient is NPO. Dilaudid prn for pain. (6) Hiccups Status: Acute Assessment & Plan: Will monitor for now. If persistent, consider a dose of Thorazine. Time Spent on Plan of Care: < 30 min Venous Thromboembolism VTE Risk Physician Assess for VTE Risk: Yes Patient's VTE Risk: Low VTE Diagnostic Test 2 Days Prior to Admit: No Antithrombotics Is Pt On Any Antithrombotics?: Yes Exam Sepsis Risk: No Definite Risk Problem Qualifiers (1) DKA (diabetic ketoacidoses): Diabetes mellitus type: type 1 Diabetes mellitus complication detail: without coma Qualified Codes: E10.10 - Type 1 diabetes mellitus with ketoacidosis without coma (2) Nausea & vomiting: Vomiting type: unspecified Vomiting Intractability: intractable Qualified Codes: R11.2 - Nausea with vomiting, unspecified (3) Type I diabetes mellitus: Diabetes mellitus complication status: with neurologic complications Diabetes mellitus complication detail: with polyneuropathy Qualified Codes: E10.42 - Type 1 diabetes mellitus with diabetic polyneuropathy (4) Diabetic neuropathy: Diabetes mellitus type: type 1 BRADLEY FRANCOIS MD Oct 02, 2017 04:13
[2017-10-02] MEDS ORDERED: KCL/D1/2NS 20 MEQ 1000 ML 1,000 ML IV SCH (04:30)
[2017-10-02 06:48] LABS: PLATELET COUNT, AUTOMATED 315 K/uL (150-450)
[2017-10-02] MEDS ORDERED: INSULIN HUM LISPRO 100 UN/ML 3 ML VIAL SUBQ PRN (08:15)
[2017-10-02] MEDS ORDERED: NS 0.9% 50 ML VIAL 50 ML ONE (08:48)
[2017-10-02] MEDS ORDERED: IOPAMIDOL 76% 75 ML INFUS BTL 75 ML ONE (08:48)
[2017-10-02] MEDS: ENOXAPARIN 40 MG/0.4ML SYR SC SCH (09:30)
[2017-10-02] MEDS: INSULIN GLARGINE 100 U/ML 3 ML PEN SUBQ SCH (09:30)
[2017-10-02] MEDS: GABAPENTIN 300 MG CAP PO SCH ×3 (09:35→20:01)
--- NOTE | 2017-10-02 11:14 | RADIOLOGY IMAGING REPORT ---
[facility] PATIENT NAME: Terrence Carson : 1985 MR: [id number] V: [id number] EXAM DATE: ORDERING PHYSICIAN: YOAV MCLEOD TECHNOLOGIST: [place] [facility] [place] Terrence Carson : 1985 Visit/Account:[id number] Date of Sevice: 10/02/2017 ABDOMEN/PELVIS WITH and without CONTRAST HISTORY: abd pain TECHNIQUE: Pre and post administration of IV contrast contiguous axial images acquired through the ab domen/pelvis. Coronal and sagittal reformatting also performed. Dose Lowering Technique One of the following dose optimization techniques was utilized in the performance of this exam: Autom ated exposure control; adjustment of the mA and/or kV according to the patient's size; or use of an i terative reconstruction technique. Specific details can be referenced in the facility's radiology C T exam operational policy. The examination was performed with and without contrast however on the noncontrast portion examinatio n there was an extensive amount of contrast in the renal collecting systems and ureters bilaterally. This may have been secondary to a test injection of contrast or possibly related to a prior study. Clinical correlation needed CONTRAST: 75 mL Isovue-370 COMPARISON: August 12, 2017 FINDINGS: Visualized lung bases: Negative. Hepatobiliary: Negative. Spleen: Negative. Adrenals: Negative. Pancreas: Pancreas appears small Kidneys ureters or bladder: Negative. Genitalia: Negative. GI: The colon appears decompressed therefore not ideally evaluated particularly in the absence of or al contrast. . The appendix is visualized and does not appear inflamed. Vessels/spaces/nodes: Negative. Bones/soft tissues: Mild disc space narrowing L5-S1 moderate disc space narrowing T9-10 Additional findings: None pertinent. IMPRESSION: The appendix is visualized and does not appear inflamed The colon appears decompressed although not ideally evaluated particularly in the absence of oral con trast Report Dictated By: Danielle Lozano MD at 10/02/2017 10:09 AM Report E-Signed By: Danielle Lozano MD at 10/02/2017 11:10 AM WSN:[id number]
--- NOTE | 2017-10-02 11:47 | RADIOLOGY IMAGING REPORT ---
FACILITY: [facility] [place] PATIENT NAME: Terrence Carson : 1985 MR: [id number] V: [id number] EXAM DATE: ORDERING PHYSICIAN: YOAV MCLEOD TECHNOLOGIST: Location: [facility] Patient: Terrence Carson : 1985 Visit/Account:[id number] Date of Sevice: 10/02/2017 ABDOMEN/PELVIS WITH and without CONTRAST HISTORY: abd pain TECHNIQUE: Pre and post administration of IV contrast contiguous axial images acquired through the ab domen/pelvis. Coronal and sagittal reformatting also performed. Dose Lowering Technique One of the following dose optimization techniques was utilized in the performance of this exam: Autom ated exposure control; adjustment of the mA and/or kV according to the patient's size; or use of an i terative reconstruction technique. Specific details can be referenced in the facility's radiology C T exam operational policy. The examination was performed with and without contrast however on the noncontrast portion examinatio n there was an extensive amount of contrast in the renal collecting systems and ureters bilaterally. This may have been secondary to a test injection of contrast or possibly related to a prior study. Clinical correlation needed CONTRAST: 75 mL Isovue-370 COMPARISON: August 12, 2017 FINDINGS: Visualized lung bases: Negative. Hepatobiliary: Negative. Spleen: Negative. Adrenals: Negative. Pancreas: Pancreas appears small Kidneys ureters or bladder: Negative. Genitalia: Negative. GI: The colon appears decompressed therefore not ideally evaluated particularly in the absence of or al contrast. . The appendix is visualized and does not appear inflamed. Vessels/spaces/nodes: Negative. Bones/soft tissues: Mild disc space narrowing L5-S1 moderate disc space narrowing T9-10 Additional findings: None pertinent. IMPRESSION: The appendix is visualized and does not appear inflamed The colon appears decompressed although not ideally evaluated particularly in the absence of oral con trast Report Dictated By: Danielle Lozano MD at 10/02/2017 10:09 AM Report E-Signed By: Danielle Lozano MD at 10/02/2017 11:10 AM WSN:RG
--- NOTE | 2017-10-02 13:54 | Hospitalist Progress Note ---
Subjective Progress Notes Subjective He is reporting continued RUQ pain. No more vomiting. Physical Exam Vital Signs Date Time Temp Pulse Resp B/P (MAP) Pulse Ox O2 Delivery O2 Flow Rate FiO2 10/02/17 13:02 122 16 149/112 (124) 99 Nasal Cannula 1.0 10/02/17 11:00 97.9 Intake and Output 10/03/17 07:00 Intake Total 1110 ml Output Total 675 ml Balance 435 ml Intake Oral 720 ml IV Total 390 ml Output Urine Total 675 ml # Voids 2 General Appearance: Alert, Awake, No Acute Distress Cardiovascular: Other (Tachy, regular.) Respiratory: Clear to Auscultation GI: Other (Soft, non-distended. Voluntary guarding on LUQ with palpation. ) Result Diagram: 10/02/17 0642 10/02/17 06 Monitor Interpretation: Sinus Tachycardia Assessment and Plan Problems: (1) DKA (diabetic ketoacidoses) Status: Acute Assessment & Plan: Much improved with hydration and IV insulin. AG is closed. Will switch back to Lantus and SSI. Will follow closely. (2) Nausea & vomiting Status: Acute Assessment & Plan: Etiology unclear. The CT of the abd/pelvis is without any acute abnormalities. He is reporting severe LUQ pain. If the pain persists, will ask surgery to evaluate. Will start Protonix and try prn GI cocktail. Will check an H. Pylori. (3) Type I diabetes mellitus Status: Chronic Assessment & Plan: Restart Lantus as above. (4) Diabetic gastroparesis Status: Chronic Assessment & Plan: Phenergan and Zofran prn. (5) Diabetic neuropathy Status: Chronic Assessment & Plan: Restart Gabapentin (6) Hiccups Status: Acute Assessment & Plan: Will monitor for now. If persistent, consider a dose of Thorazine. Exam Sepsis Risk: No Definite Risk Problem Qualifiers (1) DKA (diabetic ketoacidoses): Diabetes mellitus type: type 1 Diabetes mellitus complication detail: without coma Qualified Codes: E10.10 - Type 1 diabetes mellitus with ketoacidosis without coma (2) Nausea & vomiting: Vomiting type: unspecified Vomiting Intractability: intractable Qualified Codes: R11.2 - Nausea with vomiting, unspecified (3) Type I diabetes mellitus: Diabetes mellitus complication status: with neurologic complications Diabetes mellitus complication detail: with polyneuropathy Qualified Codes: E10.42 - Type 1 diabetes mellitus with diabetic polyneuropathy (4) Diabetic neuropathy: Diabetes mellitus type: type 1 YOAV MCLEOD MD Oct 02, 2017 13:54
[2017-10-02] MEDS ORDERED: GI COCKTAIL 60 ML BTL PO PRN (13:55)
[2017-10-02] MEDS ORDERED: PANTOPRAZOLE SOD 40 MG IV VIAL IVP ONE (13:55)
--- NOTE | 2017-10-02 16:21 | Medical Nutrition Therapy ---
Nutrition Anthropometrics Height (Inches): 70.00 Height (Calculated Centimeters: 177.703670 Weight (Pounds): 121 Weight (Calculated Kilograms): 54.885 BMI Calculated: 17.36 Karl Nutrition Score: Probably Inadequate Karl Nutrition Risk Score: 21 Dietary Referral Nutrition Risk Factors: Nutrition Risk Comment: Physical Findings Physical Appearance: Underweight BMI<19 Skin Appearance Skin Appearance: Edema Edema Location Modifier: Edema Location: Type of Edema: Degree of Edema: Gastrointestinal Symptoms GI Symtoms: Nausea Tube Present: Bowel Sounds: Recent Bowel Pattern: Stool Characteristics: Nutritional Diagnosis Nutritional Risk Acuity 1: %IBW < 74% Nutritional Risk Acuity 2: DKA Nutritional Risk Acuity 3: Nausea Past Medical History: gastroparesis, neuropathy, type 1 DM, DKA Nutritional Acuity: 1-High Nutrition Diagnosis: Altered GI Function Nutrition Etiology: Physiological Causes Nutrition Problem/Etiology/Sym: Altered GI function r/t diabetic related gastroparesis AEB abd pain and vomiting. Energy Requirement: 1950 ([place] [employer] Jeor) Protein Requirement: 55 (1 g/g) Fluid Requirement: 1620 (30 ml/kg) Diet Type: Diabetic Nutrition Intervention: Cont diet as ordered, Encourage intake Diet Comment To RSA: PLEASE OFFER DIABETIC NUTR SUPPLEMENT Nutritional Education Nutrition Education Topic: Other (Gastroparesis diet) Learning Readiness: Interested Teaching Methods: Discussion, Handout Response to Teaching: Verbalize understanding Teaching Recipient: Patient Nutrition Counseling: Provided pt with gastroparesis diet education. Discussed liquid diet during flare ups and pointed out foods to avoid such as high fat/high fiber foods. Nutrition Monitoring & Eval Nutrition Goals: Eat 50-100% Meal RD Patient Assessment Time: [address] Assessment Type: RD Assessment Patient Nutrition Acuity: 1-High Follow Up Date: Oct 04, 2017 Nutritional Comment: 10/02/17 Pt admitted for continued vomiting and hyperglycemia of 436. Diagnosed with DKA. Pt is type 1 diabetic on insulin with hx of DKA. Pt is NPO for now, but will offer nutr supplements as diet progresses. Pt is underweight with BMI of 17. Has dx gastoparesis. Notable labs include BUN 31 and glucose 204. Alb and total pro WNL. Will continue to monitor and encourage intake when diet progresses. 10/02 Spoke to pt in his room. Provided gastroparesis education and discussed possibility of insulin pump. Pt states wt has always been around 120 lbs and he hasn't noticed any loss recently. Pt carb counts and eats what he can tolerate due to gastroparesis. Pt was willing to try diabetic nutrition supplement. Diet also upgraded to ADA. Will continue to offer supplement and encourage intake. PIYUSH MENESES Oct 02, 2017 15:52
[2017-10-02] MEDS: traMADol 50 MG TAB PO PRN ×2 (17:26→22:54)
[2017-10-03 04:24] VITALS: BP 121/82
[2017-10-03 06:56] LABS: PLATELET COUNT, AUTOMATED 278 K/uL (150-450)
[2017-10-03 07:11] VITALS: BP 141/94
[2017-10-03] MEDS: GABAPENTIN 300 MG CAP PO SCH (07:49)
[2017-10-03] MEDS: ENOXAPARIN 40 MG/0.4ML SYR SC SCH (07:49)
[2017-10-03] MEDS: INSULIN GLARGINE 100 U/ML 3 ML PEN SUBQ SCH (08:22)
[2017-10-03] MEDS ORDERED: PANTOPRAZOLE SOD 40 MG TABEC PO SCH (09:00)
[2017-10-03] MEDS ORDERED: PANT40TA65 PO (10:06)
[2017-10-03] MEDS ORDERED: METO5TAB75 PO (10:06)
--- NOTE | 2017-10-03 10:17 | Hospitalist Depart ---
Discharge Summary Reason for Hosp/Final Diag: (1) DKA (diabetic ketoacidoses) Status: Acute Hospital Course & Plan: He was initially admitted to the ICU and placed on IV hydration and IV insulin. His acidosis/anion gap closed. His nausea and vomiting resolved. He was able to begin taking oral food and fluids. We did switch back to subcutaneous Lantus and SSI, which he tolerated well. (2) Type I diabetes mellitus Status: Chronic Hospital Course & Plan: He will restart his usual regimen with Lantus and Humalog. (3) Nausea & vomiting Status: Acute Hospital Course & Plan: CT of the abd/pelvis is without any acute abnormalities. He reported LUQ pain. We started Protonix and GI cocktail with some improvements. He does have a history of gastroparesis, but has not been on any treatment up to this point. We will have him do a trial with Reglan 5mg PO TID with meals. (4) Diabetic gastroparesis Status: Chronic Hospital Course & Plan: Will DC Phenergan and Zofran. He will try Reglan 5mg PO TID with meals. (5) Diabetic neuropathy Status: Chronic Hospital Course & Plan: Continue Gabapentin. Departure Weight (Pounds): 121 Result Diagram: 10/03/17 0640 10/03/17 0640 Item Value Date Time Blood Gas Patient Temperature 98.1 DEGREES 10/02/17 0120 Venous Blood pH 7.25 L 10/02/17 0120 Venous Blood Partial Pressure CO2 26 mmHg 10/02/17 0120 Venous Blood Partial Pressure O2 52 mmHg 10/02/17 0120 Venous Blood HCO3 12 mmol/L 10/02/17 0120 Venous Blood Oxygen Saturation 82 % 10/02/17 0120 Venous Blood Base Excess -16 mmol/L 10/02/17 0120 Oxygen Liters/Minute Room air 10/02/17 0120 Sodium Level 139 mmol/L 10/01/17 2213 Potassium Level 5.3 mmol/L H 10/01/17 2213 Chloride Level 99 mmol/L 10/01/17 2213 Carbon Dioxide Level 10 mmol/L *L 10/01/17 2213 Blood Urea Nitrogen 34 mg/dl H 10/01/17 2213 Creatinine 1.00 mg/dl 10/01/17 2213 Glomerular Filtration Rate Calc > 60.0 10/01/17 221 Random Glucose 437 mg/dl H 10/01/173 Calcium Level 10.2 mg/dl 10/01/17 2213 Aspartate Amino Transf (AST/SGOT) 21 U/L 10/01/17 2213 Total Bilirubin 0.9 mg/dl 10/01/17 2213 Alanine Aminotransferase (ALT/SGPT) 40 U/L 10/01/173 Alkaline Phosphatase 100 U/L 10/01/173 C-Reactive Protein < 0.5 mg/dl 10/01/17 2213 Total Protein 8.7 gm/dl H 10/01/17 2213 Albumin 5.2 g/dl H 10/01/173 Amylase Level 88 U/L 10/01/17 2213 Lipase 155 U/L 10/01/17 2213 Sodium Level 142 mmol/L 10/02/17 0642 Potassium Level 4.6 mmol/L 10/02/17 0642 Chloride Level 110 mmol/L H 10/02/17 0642 Carbon Dioxide Level 21 mmol/L L 10/02/17 0642 Blood Urea Nitrogen 31 mg/dl H 10/02/17 0642 Creatinine 0.80 mg/dl 10/02/17 0642 Glomerular Filtration Rate Calc > 60.0 10/02/17 0642 Random Glucose 204 mg/dl H 10/02/17 0642 Calcium Level 8.9 mg/dl 10/02/17 0642 Total Bilirubin 0.7 mg/dl 10/02/17 0642 Aspartate Amino Transf (AST/SGOT) 14 U/L 10/02/17 0642 Alanine Aminotransferase (ALT/SGPT) 34 U/L 10/02/17 0642 Alkaline Phosphatase 71 U/L 10/02/17 0642 Total Protein 6.3 gm/dl 10/02/17 0642 Albumin 3.6 g/dl 10/02/17 0642 Urine Color Straw 10/01/173 Urine Clarity Clear 10/01/172212 Urine pH 5.0 pH 10/01/173 Urine Specific [place] 1.025 10/01/173 Urine Protein 100 mg/dL 10/01/172212 Urine Glucose (UA) 500 mg/dL 10/01/17 2213 Urine Ketones 80 mg/dL H 10/01/173 Urine Nitrite Negative 10/01/172212 Urine Blood Moderate 1/1/18 2213 Urine Bilirubin Negative 10/01/17 2213 Urine Urobilinogen Negative mg/dL 10/01/17 2213 Urine Leukocyte Esterase Negative 10/01/173 Urine RBC 1 /HPF 10/01/173 Urine WBC 1 /HPF 10/01/173 Urine Bacteria Negative /HPF 10/01/17 2213 Urine Mucus None /HPF 10/01/17 2213 Urine Squamous Epithelial Cells None /LPF 10/01/17 2213 White Blood Count 14.0 k/uL H 10/01/17 2213 Hemoglobin 18.5 g/dL H 10/01/17 2213 Hematocrit 54.3 % H 10/01/17 2213 Platelet Count 367 K/uL 10/01/17 2213 Platelet Count 315 K/uL 10/02/17 0642 Hematocrit 46.9 % 10/02/17 0642 Hemoglobin 16.4 g/dL 10/02/17 0642 White Blood Count 14.3 k/uL H 10/02/17 0642 Imaging PATIENT NAME: Terrence Carson : 1985 MR: [id number] V: [id number] EXAM DATE: ORDERING PHYSICIAN: YOAV MCLEOD TECHNOLOGIST: Location: [facility] Patient: Terrence Carson : 1985 Visit/Account:[id number] Date of Sevice: 10/02/2017 ABDOMEN/PELVIS WITH and without CONTRAST HISTORY: abd pain TECHNIQUE: Pre and post administration of IV contrast contiguous axial images acquired through the abdomen/pelvis. Coronal and sagittal reformatting also performed. Dose Lowering Technique One of the following dose optimization techniques was utilized in the performance of this exam: Automated exposure control; adjustment of the mA and/ or kV according to the patient's size; or use of an iterative reconstruction technique. Specific details can be referenced in the facility's radiology CT exam operational policy. The examination was performed with and without contrast however on the noncontrast portion examination there was an extensive amount of contrast in the renal collecting systems and ureters bilaterally. This may have been secondary to a test injection of contrast or possibly related to a prior study. Clinical correlation needed CONTRAST: 75 mL Isovue-370 COMPARISON: August 12, 2017 FINDINGS: Visualized lung bases: Negative. Hepatobiliary: Negative. Spleen: Negative. Adrenals: Negative. Pancreas: Pancreas appears small Kidneys ureters or bladder: Negative. Genitalia: Negative. GI: The colon appears decompressed therefore not ideally evaluated particularly in the absence of oral contrast. . The appendix is visualized and does not appear inflamed. Vessels/spaces/nodes: Negative. Bones/soft tissues: Mild disc space narrowing L5-S1 moderate disc space narrowing T9-10 Additional findings: None pertinent. IMPRESSION: The appendix is visualized and does not appear inflamed The colon appears decompressed although not ideally evaluated particularly in the absence of oral contrast Report Dictated By: Danielle Lozano MD at 10/02/2017 10:09 AM Report E-Signed By: Danielle Lozano MD at 10/02/2017 11:10 AM WSN:[id number] PATIENT NAME: Terrence Carosn : 1985 MR: [id number] V: [id number] EXAM DATE: ORDERING PHYSICIAN: NOELLE DE LA CRUZ TECHNOLOGIST: Location: [facility] Patient: Terrence Carson : 1985 Visit/Account:[id number] Date of Sevice: 10/02/2017 CHEST SINGLE AP Additional pertinent History: DKA COMPARISON STUDIES: none FINDINGS: Support lines and catheters: None Lungs and Pleura: Lung [place] well expanded with no infiltrates or consolidations. No parenchymal mass lesions are seen. There are no effusions Heart and vasculature: Negative. Atiya and Mediastinum: Negative. Bones and Chest wall: Negative. Upper Abdomen: Negative. IMPRESSION: 1. Negative chest for acute cardiopulmonary disease Report Dictated By: Crow Herndon MD at 10/02/2017 2:20 AM Report E-Signed By: Crow Herndon MD at 10/02/2017 2:24 AM WSN:[id number] Condition: Improved Discharge: Home, Self Care Follow-Up Labs: Finger Sticks (QID (AC and HS) - keep diary and bring to all appointments.) Time Spent: > 30 min Discharge Instructions Home Meds Active Scripts Pantoprazole Sodium (PANTOPRAZOLE SODIUM) 40 Mg Tablet., 40 MG PO QDAY, #14 TAB 1 Refill Prov:LEIGH FRANCOIS MD 10/03/17 Metoclopramide Hcl (METOCLOPRAMIDE HCL) 5 Mg Tablet, 5 MG PO TIDAC Y for nausea/ pain, #30 TAB 1 Refill Prov:LEIGH FRANCOIS MD 10/03/17 Reported Medications Insulin Lispro (HUMALOG) 100 Unit/1 Ml Vial, 0 SQ Y for SLIDING SCALE INSULIN, VIAL takes Humalog Insulin at Home as per SS 10/02/17 Insulin Glargine (LANTUS) 100 Unit/Ml Soln, 34 UNIT SUBQ QDAY, ML MIDMORNING 10/02/17 Gabapentin (GABAPENTIN) 300 Mg Capsule, 300 MG PO TID, CAPSULE 08/11/17 Discontinued Scripts Promethazine Hcl (PROMETHAZINE HCL) 25 Mg Tablet, 25 MG PO Q8H Y for NAUSEA/ VOMITING, #12 TAB Prov:[facility] 09/29/17 Ondansetron (ZOFRAN ODT) 4 Mg Tab.rapdis, 4 MG PO Q6H Y for NAUSEA/VOMITING, # 20 TAB.JANIE Prov:[facility] 09/29/17 Omeprazole (OMEPRAZOLE) 40 Mg Capsule.dr, 40 MG PO QDAY, #30 CAP Prov:[facility] 08/12/17 Sucralfate (CARAFATE) 1 Gm Tablet, 1 GM PO QID, #60 TAB Take before meals and at bedtime. Crush the tablet and mix with water before taking. Prov:[facility] 08/12/17 Promethazine Hcl (PROMETHAZINE HCL) 25 Mg Supp.rect, 25 MG RC Q8H Y for NAUSEA/ VOMITING, #12 SUPP.RECT Prov:[facility] 08/12/17 Ketorolac Tromethamine (KETOROLAC TROMETHAMINE) 10 Mg Tab, 10 MG PO Q6H, #20 TAB Prov:[facility] 08/12/17 Metronidazole (FLAGYL) 500 Mg Tablet, 500 MG PO TID, #30 TAB Prov:[facility] 08/12/17 Hydrocodone Bit/Acetaminophen (HYDROCODON-ACETAMINOPHEN 5-325) 1 Each Tablet, 1 EACH PO Q4-6H Y for PAIN, #12 TAB Prov:[facility] 08/11/17 Ondansetron (ZOFRAN ODT) 4 Mg Tab.rapdis, 4 MG PO Q6H Y for NAUSEA/VOMITING, # 20 TAB.JANIE Prov:[facility] 08/11/17 Diet: Diabetic Activity: As Tolerated, No Exertion Special Instructions: Follow up with Internal Medicine or Family Practice Provider of choice in next 5-10 days. Return to ER if any problems. Venous Thromboembolism Antithrombotics Is Pt On Any Antithrombotics?: Yes Problem Qualifiers (1) DKA (diabetic ketoacidoses): Diabetes mellitus type: type 1 Diabetes mellitus complication detail: without coma Qualified Codes: E10.10 - Type 1 diabetes mellitus with ketoacidosis without coma (2) Type I diabetes mellitus: Diabetes mellitus complication status: with neurologic complications Diabetes mellitus complication detail: with polyneuropathy Qualified Codes: E10.42 - Type 1 diabetes mellitus with diabetic polyneuropathy (3) Nausea & vomiting: Vomiting type: unspecified Vomiting Intractability: intractable Qualified Codes: R11.2 - Nausea with vomiting, unspecified (4) Diabetic neuropathy: Diabetes mellitus type: type 1 LEIGH FRANCOIS MD Oct 03, 2017 10:17
== END 2017-10-03 11:05 | disposition home or self-care (01) | DRG 639 ==
LOC: ER 21:59 → ICU 10-02 01:07 → MED 10-02 13:40
PROVIDERS: ADMIT Internal Medicine; ATTEND Internal Medicine
DX: E10.10 Type 1 diabetes mellitus with ketoacidosis without coma (principal); E10.43 Type 1 diabetes mellitus with diabetic autonomic (poly)neuropathy; K31.84 Gastroparesis; R06.6 Hiccough; Z79.4 Long term (current) use of insulin; Z88.5 Allergy status to narcotic agent; Z88.8 Allergy status to other drugs, medicaments and biological substances; Z87.891 Personal history of nicotine dependence
CPT/HCPCS: 36415; 36416; 36600; 71045; 74022; 74177; 80305; 81001; 82009; 82040; 82150; 82247; 82310; 82374; 82435; 82565; 82803; 82947; 82948; 83690; 83930; 84075; 84132; 84155; 84295; 84450; 84460; 84520; 85025; 86140; 87088; 96361; 96365; 96374; 96375; 96376; 99284; 99285; 99291; C9113; J1170; J1650; J1815; J2405; J2550; J3010; J3480; J7030; J7050; Q9967

== ENCOUNTER 2017-10-07 18:51 | Emergency (ER) | payer MEDICARE, MEDICAID ==
[2017-10-02 08:32] VITALS: Ht 172.7 cm; Wt 58.1 kg
[~2017-10-07] VITALS: Ht 172.7 cm; Wt 58.1 kg
[~2017-10-07 18:51] MED LIST changes: +METO5TAB75 PO; +PANT40TA65 PO
--- NOTE | 2017-10-07 18:55 | ER Report ---
History and Physical Time Seen By MD: 18:53 HPI/ROS CHIEF COMPLAINT: Vomiting HISTORY OF PRESENT ILLNESS: 32-year-old male presents to the ER with vomiting since this morning. Patient states he ate sushi last night. He is an insulin- dependent diabetic, recently admitted for DKA to the ICU back on 10/02/17 for 2 days. Patient states her sugars have been good. He last checked her sugar this morning at 165. Patient doesn't think he is in DKA. REVIEW OF SYSTEMS: Respiratory: No cough, no dyspnea. Cardiovascular: No chest pain, no palpitations. Gastrointestinal: As above Musculoskeletal: No back pain. Allergies: Coded Allergies: acetaminophen (Verified Allergy, Unknown, 10/07/17) hydrocodone (Verified Allergy, Unknown, 10/07/17) oxycodone (Verified Allergy, Unknown, 10/07/17) Uncoded Allergies: beestings (Adverse Reaction, Unknown, 08/11/17) Home Meds Active Scripts Promethazine Hcl (PROMETHAZINE HCL) 25 Mg Tablet, 25 MG PO Q8H Y for NAUSEA/ VOMITING, #10 TAB Prov:NOELLE DE LA CRUZ DO 10/07/17 Ondansetron (ZOFRAN ODT) 4 Mg Tab.rapdis, 4 MG PO Q6H Y for NAUSEA/VOMITING, # 10 TAB.JANIE Prov:NOELLE DE LA CRUZ DO 10/07/17 Reported Medications Insulin Lispro (HUMALOG) 100 Unit/1 Ml Vial, 0 SQ Y for SLIDING SCALE INSULIN, VIAL takes Humalog Insulin at Home as per SS 10/02/17 Insulin Glargine (LANTUS) 100 Unit/Ml Soln, 34 UNIT SUBQ QDAY, ML MIDMORNING 10/02/17 Gabapentin (GABAPENTIN) 300 Mg Capsule, 300 MG PO TID, CAPSULE 08/11/17 Discontinued Scripts Pantoprazole Sodium (PANTOPRAZOLE SODIUM) 40 Mg Tablet.dr, 40 MG PO QDAY, #14 TAB 1 Refill Prov:LEIGH FRANCOIS MD 10/03/17 Metoclopramide Hcl (METOCLOPRAMIDE HCL) 5 Mg Tablet, 5 MG PO TIDAC Y for nausea/ pain, #30 TAB 1 Refill Prov:LEIGH FRANCOIS MD 10/03/17 Promethazine Hcl (PROMETHAZINE HCL) 25 Mg Tablet, 25 MG PO Q8H Y for NAUSEA/ VOMITING, #12 TAB Prov:ELIZABETH CONNORS [employer] 09/29/17 Ondansetron (ZOFRAN ODT) 4 Mg Tab.rapdis, 4 MG PO Q6H Y for NAUSEA/VOMITING, # 20 TAB.JANIE Prov:ELIZABETH CONNORS [employer] 09/29/17 Past Medical/Surgical History DKA, history of substance abuse Reviewed Nurses Notes: Yes Old Medical Records Reviewed: Yes Hx Smoking: Yes Smoking Status: Former Smoker Hx Substance Use Disorder: Yes Hx Alcohol Use: No Constitutional Vital Sign - Last 24 Hours 10/07/17 10/07/17 10/07/17 10/07/17 18:56 19:06 19:21 19:30 Temp 97.9 Pulse 126 118 118 Resp 24 B/P (MAP) 156/102 (120) Pulse Ox 99 96 90 O2 Delivery Room Air 10/07/17 10/07/17 10/07/17 10/07/17 19:36 19:37 19:51 20:00 Pulse 113 ??? B/P (MAP) 153/104 (120) Pulse Ox 97 100 O2 Flow Rate 2.0 10/07/17 10/07/17 10/07/17 10/07/17 20:06 20:11 20:26 20:30 Pulse 114 113 115 B/P (MAP) 147/103 (118) Pulse Ox 100 99 93 10/07/17 10/07/17 10/07/17 20:35 20:50 21:00 Pulse 116 118 85 Resp 16 B/P (MAP) 145/88 (107) Pulse Ox 93 91 92 O2 Delivery Room Air Physical Exam General Appearance: The patient is alert, has no immediate need for airway protection and no current signs of toxicity. Vital signs stable, afebrile, pulse ox normal HEENT: Pupils equal and round no injection. Oropharynx with mild erythema, no exudate or petechiae Respiratory: Chest is non tender, lungs are clear to auscultation. Cardiac: regular rate and rhythm Gastrointestinal: Abdomen is soft, mild left upper quadrant tenderness, no rebound or guarding, no masses, bowel sounds normal. Musculoskeletal: Neck: Neck is supple and non tender. Extremities have full range of motion and are non tender. Skin: No rashes or lesions. DIFFERENTIAL DIAGNOSIS: After history and physical exam differential diagnosis was considered for abdominal pain including but not limited to appendicitis, cholecystitis, gastritis, gastritis, viral syndrome, food poisoning, DKA and urinary tract infection. Medical Decision Making Data Points Result Diagram: 10/07/17191310/07/171913 Laboratory Hematology Test 10/07/17 19:14 10/07/17 20:16 Red Blood Count 5.59 M/uL (4.00-5.60) Mean Corpuscular Volume 91.3 fL (80.0-96.0) Mean Corpuscular Hemoglobin 31.6 pg (26.0-33.0) Mean Corpuscular Hemoglobin Concent 34.6 g/dL (32.0-36.0) Red Cell Distribution Width 12.8 % (11.5-14.5) Mean Platelet Volume 7.8 fL (7.2-11.1) Neutrophils (%) (Auto) 89.5 % (39.4-72.5) Lymphocytes (%) (Auto) 6.7 % (17.6-49.6) Monocytes (%) (Auto) 3.2 % (4.1-12.4) Eosinophils (%) (Auto) 0.2 % (0.4-6.7) Basophils (%) (Auto) 0.4 % (0.3-1.4) Nucleated RBC Relative Count (auto) 0.0 /100WBC Neutrophils # (Auto) 14.6 K/uL (2.0-7.4) Lymphocytes # (Auto) 1.1 K/uL (1.3-3.6) Monocytes # (Auto) 0.5 K/uL (0.3-1.0) Eosinophils # (Auto) 0.0 K/uL (0.0-0.5) Basophils # (Auto) 0.1 K/uL (0.0-0.1) Nucleated RBC Absolute Count (auto) 0.00 K/uL Venous Blood pH 7.44 (7.31-7.41) Sodium Level 141 mmol/L (137-145) Potassium Level 3.7 mmol/L (3.5-5.0) Chloride Level 103 mmol/L (98-107) Carbon Dioxide Level 25 mmol/L (22-30) Blood Urea Nitrogen 14 mg/dl (9-21) Creatinine 0.60 mg/dl (0.66-1.25) Glomerular Filtration Rate Calc > 60.0 Random Glucose 163 mg/dl (75-110) Calcium Level 9.4 mg/dl (8.4-10.2) Total Bilirubin 0.6 mg/dl (0.2-1.3) Aspartate Amino Transf (AST/SGOT) 25 U/L (0-35) Alanine Aminotransferase (ALT/SGPT) 40 U/L (0-56) Alkaline Phosphatase 74 U/L (0-126) Total Protein 7.3 gm/dl (6.3-8.2) Albumin 4.1 g/dl (3.5-5.0) Amylase Level 112 U/L (0-110) Lipase 21 U/L (23-300) Urine Color Yellow Urine Clarity Slightly-cloudy Urine pH 7.0 pH (4.8-9.5) Urine Specific [place] 1.027 Urine Protein 500 mg/dL (NEGATIVE) Urine Glucose (UA) 500 mg/dL (NEGATIVE) Urine Ketones 80 mg/dL (NEGATIVE) Urine Blood Negative (NEGATIVE) Urine Nitrite Negative (NEGATIVE) Urine Bilirubin Negative (NEGATIVE) Urine Urobilinogen Negative mg/dL (0.2-1.9) Urine Leukocyte Esterase Negative (NEGATIVE) Urine RBC 8 /HPF (0-2/HPF) Urine WBC 1 /HPF (0-5/HPF) Urine Squamous Epithelial Cells None /LPF (</=FEW) Urine Bacteria Negative /HPF (NONE-FEW) Urine Mucus Few /HPF (NONE-FEW) Urine Opiates Screen Negative Urine Barbiturates Screen Positive Ur Tricyclic Antidepressants Screen Negative Urine Phencyclidine Screen Negative Urine Amphetamines Screen Negative Urine Benzodiazepines Screen Negative Urine Cocaine Screen Negative Urine Cannabinoids Screen Positive Chemistry Test 10/07/17 19:14 10/07/17 20:16 White Blood Count 16.3 k/uL (4.5-11.0) Red Blood Count 5.59 M/uL (4.00-5.60) Hemoglobin 17.7 g/dL (14.0-18.0) Hematocrit 51.0 % (42.0-52.0) Mean Corpuscular Volume 91.3 fL (80.0-96.0) Mean Corpuscular Hemoglobin 31.6 pg (26.0-33.0) Mean Corpuscular Hemoglobin Concent 34.6 g/dL (32.0-36.0) Red Cell Distribution Width 12.8 % (11.5-14.5) Platelet Count 316 K/uL (150-450) Mean Platelet Volume 7.8 fL (7.2-11.1) Neutrophils (%) (Auto) 89.5 % (39.4-72.5) Lymphocytes (%) (Auto) 6.7 % (17.6-49.6) Monocytes (%) (Auto) 3.2 % (4.1-12.4) Eosinophils (%) (Auto) 0.2 % (0.4-6.7) Basophils (%) (Auto) 0.4 % (0.3-1.4) Nucleated RBC Relative Count (auto) 0.0 /100WBC Neutrophils # (Auto) 14.6 K/uL (2.0-7.4) Lymphocytes # (Auto) 1.1 K/uL (1.3-3.6) Monocytes # (Auto) 0.5 K/uL (0.3-1.0) Eosinophils # (Auto) 0.0 K/uL (0.0-0.5) Basophils # (Auto) 0.1 K/uL (0.0-0.1) Nucleated RBC Absolute Count (auto) 0.00 K/uL Venous Blood pH 7.44 (7.31-7.41) Glomerular Filtration Rate Calc > 60.0 Calcium Level 9.4 mg/dl (8.4-10.2) Total Bilirubin 0.6 mg/dl (0.2-1.3) Aspartate Amino Transf (AST/SGOT) 25 U/L (0-35) Alanine Aminotransferase (ALT/SGPT) 40 U/L (0-56) Alkaline Phosphatase 74 U/L (0-126) Total Protein 7.3 gm/dl (6.3-8.2) Albumin 4.1 g/dl (3.5-5.0) Amylase Level 112 U/L (0-110) Lipase 21 U/L (23-300) Urine Color Yellow Urine Clarity Slightly-cloudy Urine pH 7.0 pH (4.8-9.5) Urine Specific [place] 1.027 Urine Protein 500 mg/dL (NEGATIVE) Urine Glucose (UA) 500 mg/dL (NEGATIVE) Urine Ketones 80 mg/dL (NEGATIVE) Urine Blood Negative (NEGATIVE) Urine Nitrite Negative (NEGATIVE) Urine Bilirubin Negative (NEGATIVE) Urine Urobilinogen Negative mg/dL (0.2-1.9) Urine Leukocyte Esterase Negative (NEGATIVE) Urine RBC 8 /HPF (0-2/HPF) Urine WBC 1 /HPF (0-5/HPF) Urine Squamous Epithelial Cells None /LPF (</=FEW) Urine Bacteria Negative /HPF (NONE-FEW) Urine Mucus Few /HPF (NONE-FEW) Urine Opiates Screen Negative Urine Barbiturates Screen Positive Ur Tricyclic Antidepressants Screen Negative Urine Phencyclidine Screen Negative Urine Amphetamines Screen Negative Urine Benzodiazepines Screen Negative Urine Cocaine Screen Negative Urine Cannabinoids Screen Positive Toxicology Test 10/07/17 20:16 Urine Opiates Screen Negative Urine Barbiturates Screen Positive Ur Tricyclic Antidepressants Screen Negative Urine Phencyclidine Screen Negative Urine Amphetamines Screen Negative Urine Benzodiazepines Screen Negative Urine Cocaine Screen Negative Urine Cannabinoids Screen Positive Urinalysis Test 10/07/17 20:16 Urine Color Yellow Urine Clarity Slightly-cloudy Urine pH 7.0 pH (4.8-9.5) Urine Specific [place] 1.027 Urine Protein 500 mg/dL (NEGATIVE) Urine Glucose (UA) 500 mg/dL (NEGATIVE) Urine Ketones 80 mg/dL (NEGATIVE) Urine Blood Negative (NEGATIVE) Urine Nitrite Negative (NEGATIVE) Urine Bilirubin Negative (NEGATIVE) Urine Urobilinogen Negative mg/dL (0.2-1.9) Urine Leukocyte Esterase Negative (NEGATIVE) Urine RBC 8 /HPF (0-2/HPF) Urine WBC 1 /HPF (0-5/HPF) Urine Squamous Epithelial Cells None /LPF (</=FEW) Urine Bacteria Negative /HPF (NONE-FEW) Urine Mucus Few /HPF (NONE-FEW) ED Course/Re-evaluation Clinical Indication for ER IV: Hydration, IV Access ED Course Patient was admitted to an examination room. H&P was done. The dental diagnoses was considered. On clinical examination. Patient has mild left upper quadrant tenderness. He's been vomiting likely secondary to consuming sushi last night. His doctor tox screen is positive for cannabis and barbiturates. Patient's medicated with IV Zofran and Phenergan with improvement of his vomiting. His venous pH shows no evidence of acidosis. His bicarbonate is normal. His glucose is 165. His urinalysis does show some ketones and glucose. But I do not think he is in DKA. Patient's discharged home and advised clear liquid diet. He is to closely monitor his glucoses. He is given a prescription for Zofran and Phenergan to control his nausea and vomiting. Decision to Disposition Date: Oct 07, 2017 Decision to Disposition Time: 21:55 Depart Departure Latest Vital Signs Vital Signs Date Time Temp Pulse Resp B/P (MAP) Pulse Ox O2 Delivery O2 Flow Rate FiO2 10/07/17 21:00 85 16 145/88 (107) 92 Room Air 10/07/17 19:37 2.0 10/07/17 18:56 97.9 Impression: Primary Impression: Food poisoning Additional Impression: Vomiting Condition: Improved Disposition: HOME OR SELF-CARE Referrals: RAVIN CHAMBERS MD, FARRUKH MD New Scripts Promethazine Hcl (PROMETHAZINE HCL) 25 Mg Tablet 25 MG PO Q8H Y for NAUSEA/VOMITING, #10 TAB Prov: NOELLE DE LA CRUZ DO 10/07/17 Ondansetron (ZOFRAN ODT) 4 Mg Tab.rapdis 4 MG PO Q6H Y for NAUSEA/VOMITING, #10 TAB.JANIE Prov: NOELLE DE LA CRUZ DO 10/07/17 Patient Instructions: Clear Liquid Diet (ED), Food Poisoning (ED) Additional Instructions: Follow clear liquid diet for 24 hours Follow-up with your primary care if unimproved in 2-3 days Return to the ER for any worsening Problem Qualifiers Primary Impression: Food poisoning Encounter type: initial encounter Injury intent: accidental or unintentional Qualified Codes: T62.91XA - Toxic effect of unspecified noxious substance eaten as food, accidental (unintentional), initial encounter Additional Impression: Vomiting Vomiting type: unspecified Vomiting Intractability: non-intractable Nausea presence: with nausea Qualified Codes: R11.2 - Nausea with vomiting, unspecified NOELLE DE LA CRUZ DO Oct 07, 2017 18:55
[2017-10-07] MEDS ORDERED: NS(*) 0.9% 1000 ML BAG 1,000 ML IV ONE (18:58)
[2017-10-07] MEDS ORDERED: ONDANSETRON 4 MG/2 ML VIAL IVP ONE (19:00)
[2017-10-07] MEDS ORDERED: PROMETHAZINE 25 MG/ML 1 ML AMP IVP ONE (19:00)
[2017-10-07 19:19] LABS: PLATELET COUNT, AUTOMATED 316 K/uL (150-450)
[2017-10-07] MEDS ORDERED: fentaNYL CITR 100 MCG/2 ML AMP IVP ONE (19:20)
[2017-10-07] MEDS ORDERED: ONDA4TAB PO (20:51)
[2017-10-07] MEDS ORDERED: PROM-110 PO (20:51)
[2017-10-07] MEDS ORDERED: ONDANSETRON 4 MG ODT TH SL ONE (20:55)
[2017-10-07] MEDS ORDERED: PROMETHAZINE HCL 25 MG TAB TH 2 TAB/BOTTLE PO ONE (20:55)
[2017-10-07 21:00] VITALS: BP 145/88
== END 2017-10-07 20:58 | disposition home or self-care (01) ==
LOC: ER 18:56
DX: T62.91XA Toxic effect of unspecified noxious substance eaten as food, accidental (unintentional), initial encounter (principal)
CPT/HCPCS: 36415; 80305; 81001; 82150; 82800; 83690; 85025; 96361; 96374; 96375; 99284; J2405; J2550; J3010; J7030; Q0162; 82040; 82247; 82310; 82374; 82435; 82565; 82947; 84075; 84132; 84155; 84295; 84450; 84460; 84520; S0119

== ENCOUNTER 2017-10-10 05:51 | Emergency (ER) | payer MEDICARE, MEDICAID ==
[2017-10-02 08:32] VITALS: Ht 172.7 cm; Wt 58.1 kg
[~2017-10-10] VITALS: Ht 172.7 cm; Wt 58.1 kg
--- NOTE | 2017-10-10 05:55 | ER Report ---
History and Physical Time Seen By MD: 05:55 HPI/ROS CHIEF COMPLAINT: Vomiting and abdominal pain HISTORY OF PRESENT ILLNESS: 32-year-old type I diabetic presents with sudden onset of epigastric pain and vomiting since approximately 2 AM. Patient was seen on 10/07/17 with similar presentation. He was admitted on 10/02/17 with DKA and vomiting. At that time with left upper quadrant abdominal pain. Patient admits he was feeling well all day yesterday. The impression on 10/07/17 was that the patient had food poisoning from eating sushi the night before. There is a concern that the patient has a history of substance abuse. That he is coming in, drug-seeking. Drug tox screen on 10/07/17 visit was positive for barbiturates and cannabis. REVIEW OF SYSTEMS: Respiratory: No cough, no dyspnea. Cardiovascular: No chest pain, no palpitations. Gastrointestinal: As above Musculoskeletal: No back pain. Allergies: Coded Allergies: acetaminophen (Verified Allergy, Unknown, 10/10/17) hydrocodone (Verified Allergy, Unknown, 10/10/17) oxycodone (Verified Allergy, Unknown, 10/10/17) Uncoded Allergies: beestings (Adverse Reaction, Unknown, 08/11/17) Home Meds Active Scripts Metoclopramide Hcl (METOCLOPRAMIDE HCL) 10 Mg Tablet, 10 MG PO QID Y for NAUSEA/ VOMITING, #12 Prov:NOELLE DE LA CRUZ DO 10/10/17 Promethazine Hcl (PROMETHAZINE HCL) 25 Mg Tablet, 25 MG PO Q8H Y for NAUSEA/ VOMITING, #10 TAB Prov:NOELLE DE LA CRUZ DO 10/07/17 Ondansetron (ZOFRAN ODT) 4 Mg Tab.rapdis, 4 MG PO Q6H Y for NAUSEA/VOMITING, # 10 TAB.JANIE Prov:NOELLE DE LA CRUZ DO 10/07/17 Reported Medications Insulin Lispro (HUMALOG) 100 Unit/1 Ml Vial, 0 SQ Y for SLIDING SCALE INSULIN, VIAL takes Humalog Insulin at Home as per SS 10/02/17 Insulin Glargine (LANTUS) 100 Unit/Ml Soln, 34 UNIT SUBQ QDAY, ML MIDMORNING 10/02/17 Gabapentin (GABAPENTIN) 300 Mg Capsule, 300 MG PO TID, CAPSULE 08/11/17 Discontinued Scripts Pantoprazole Sodium (PANTOPRAZOLE SODIUM) 40 Mg Tablet.dr, 40 MG PO QDAY, #14 TAB 1 Refill Prov:LEIGH FRANCOIS MD 10/03/17 Metoclopramide Hcl (METOCLOPRAMIDE HCL) 5 Mg Tablet, 5 MG PO TIDAC Y for nausea/ pain, #30 TAB 1 Refill Prov:LEIGH FRANCOIS MD 10/03/17 Past Medical/Surgical History Patient has a past medical history of diabetes, gastroparesis, substance abuse. Patient has a surgical history of right hand surgery. Reviewed Nurses Notes: Yes Old Medical Records Reviewed: Yes Hx Smoking: Yes Smoking Status: Former Smoker Hx Substance Use Disorder: No Hx Alcohol Use: No Constitutional Vital Sign - Last 24 Hours 10/10/17 10/10/17 10/10/17 10/10/17 05:58 06:00 06:15 06:20 Temp 97.5 Pulse 115 119 104 105 Resp 20 B/P (MAP) 149/126 162/118 (133) Pulse Ox 98 99 90 91 O2 Delivery Room Air 10/10/17 10/10/17 10/10/17 10/10/17 06:30 06:35 06:42 06:50 Pulse 101 102 103 Resp 14 B/P (MAP) 158/103 (121) 158/103 (121) Pulse Ox 92 92 93 O2 Delivery Room Air 10/10/17 10/10/17 10/10/17 07:00 07:05 07:14 Pulse 103 B/P (MAP) 156/103 (120) 151/108 (122) Pulse Ox 92 Physical Exam General Appearance: The patient is alert, has no immediate need for airway protection and no current signs of toxicity. HEENT: Pupils equal and round no injection. Oropharynx with mild redness, no exudate or petechiae, mucous. Membranes are moist, teeth are in advanced state of dental decay consistent with substance abuse Respiratory: Chest is non tender, lungs are clear to auscultation. Cardiac: regular rate and rhythm Gastrointestinal: Abdomen is soft and non tender, no masses, bowel sounds normal. Musculoskeletal: Neck: Neck is supple and non tender. Extremities have full range of motion and are non tender. Skin: No rashes or lesions. DIFFERENTIAL DIAGNOSIS: After history and physical exam differential diagnosis was considered for abdominal pain including but not limited to appendicitis, cholecystitis, gastritis, gastroparesis, gastroenteritis, food poisoning, substance withdrawal, and urinary tract infection. Medical Decision Making Data Points Result Diagram: 10/10/17 0606 10/10/17 0606 Laboratory Hematology Test 10/10/17 05:56 10/10/17 06:05 10/10/17 06:06 10/10/17 06:26 Urine Color Yellow Urine Clarity Clear Urine pH 8.0 pH (4.8-9.5) Urine Specific [place] 1.031 Urine Protein 100 mg/dL (NEGATIVE) Urine Glucose (UA) 500 mg/dL (NEGATIVE) Urine Ketones 20 mg/dL (NEGATIVE) Urine Blood Negative (NEGATIVE) Urine Nitrite Negative (NEGATIVE) Urine Bilirubin Negative (NEGATIVE) Urine Urobilinogen Negative mg/dL (0.2-1.9) Urine Leukocyte Esterase Negative (NEGATIVE) Urine RBC 3 /HPF (0-2/HPF) Urine WBC 4 /HPF (0-5/HPF) Urine Squamous Epithelial Cells None /LPF (</=FEW) Urine Bacteria Negative /HPF (NONE-FEW) Urine Mucus None /HPF (NONE-FEW) Whole Blood Glucose 253 mg/DL (75-110) Red Blood Count 5.84 M/uL (4.00-5.60) Mean Corpuscular Volume 91.7 fL (80.0-96.0) Mean Corpuscular Hemoglobin 31.8 pg (26.0-33.0) Mean Corpuscular Hemoglobin Concent 34.6 g/dL (32.0-36.0) Red Cell Distribution Width 12.6 % (11.5-14.5) Mean Platelet Volume 7.2 fL (7.2-11.1) Neutrophils (%) (Auto) 78.9 % (39.4-72.5) Lymphocytes (%) (Auto) 13.7 % (17.6-49.6) Monocytes (%) (Auto) 5.9 % (4.1-12.4) Eosinophils (%) (Auto) 1.0 % (0.4-6.7) Basophils (%) (Auto) 0.5 % (0.3-1.4) Nucleated RBC Relative Count (auto) 0.1 /100WBC Neutrophils # (Auto) 8.6 K/uL (2.0-7.4) Lymphocytes # (Auto) 1.5 K/uL (1.3-3.6) Monocytes # (Auto) 0.6 K/uL (0.3-1.0) Eosinophils # (Auto) 0.1 K/uL (0.0-0.5) Basophils # (Auto) 0.1 K/uL (0.0-0.1) Nucleated RBC Absolute Count (auto) 0.01 K/uL Sodium Level 135 mmol/L (137-145) Potassium Level 3.6 mmol/L (3.5-5.0) Chloride Level 97 mmol/L (98-107) Carbon Dioxide Level 28 mmol/L (22-30) Blood Urea Nitrogen 9 mg/dl (9-21) Creatinine 0.60 mg/dl (0.66-1.25) Glomerular Filtration Rate Calc > 60.0 Random Glucose 253 mg/dl (75-110) Calcium Level 9.4 mg/dl (8.4-10.2) Total Bilirubin 0.8 mg/dl (0.2-1.3) Aspartate Amino Transf (AST/SGOT) 23 U/L (0-35) Alanine Aminotransferase (ALT/SGPT) 40 U/L (0-56) Alkaline Phosphatase 77 U/L (0-126) C-Reactive Protein < 0.5 mg/dl (<1.0) Total Protein 7.4 gm/dl (6.3-8.2) Albumin 4.2 g/dl (3.5-5.0) Amylase Level 121 U/L (0-110) Lipase 31 U/L (23-300) Venous Blood pH 7.45 (7.31-7.41) Chemistry Test 10/10/17 05:56 10/10/17 06:05 10/10/17 06:06 10/10/17 06:26 Urine Color Yellow Urine Clarity Clear Urine pH 8.0 pH (4.8-9.5) Urine Specific [place] 1.031 Urine Protein 100 mg/dL (NEGATIVE) Urine Glucose (UA) 500 mg/dL (NEGATIVE) Urine Ketones 20 mg/dL (NEGATIVE) Urine Blood Negative (NEGATIVE) Urine Nitrite Negative (NEGATIVE) Urine Bilirubin Negative (NEGATIVE) Urine Urobilinogen Negative mg/dL (0.2-1.9) Urine Leukocyte Esterase Negative (NEGATIVE) Urine RBC 3 /HPF (0-2/HPF) Urine WBC 4 /HPF (0-5/HPF) Urine Squamous Epithelial Cells None /LPF (</=FEW) Urine Bacteria Negative /HPF (NONE-FEW) Urine Mucus None /HPF (NONE-FEW) Whole Blood Glucose 253 mg/DL (75-110) White Blood Count 10.9 k/uL (4.5-11.0) Red Blood Count 5.84 M/uL (4.00-5.60) Hemoglobin 18.6 g/dL (14.0-18.0) Hematocrit 53.6 % (42.0-52.0) Mean Corpuscular Volume 91.7 fL (80.0-96.0) Mean Corpuscular Hemoglobin 31.8 pg (26.0-33.0) Mean Corpuscular Hemoglobin Concent 34.6 g/dL (32.0-36.0) Red Cell Distribution Width 12.6 % (11.5-14.5) Platelet Count 363 K/uL (150-450) Mean Platelet Volume 7.2 fL (7.2-11.1) Neutrophils (%) (Auto) 78.9 % (39.4-72.5) Lymphocytes (%) (Auto) 13.7 % (17.6-49.6) Monocytes (%) (Auto) 5.9 % (4.1-12.4) Eosinophils (%) (Auto) 1.0 % (0.4-6.7) Basophils (%) (Auto) 0.5 % (0.3-1.4) Nucleated RBC Relative Count (auto) 0.1 /100WBC Neutrophils # (Auto) 8.6 K/uL (2.0-7.4) Lymphocytes # (Auto) 1.5 K/uL (1.3-3.6) Monocytes # (Auto) 0.6 K/uL (0.3-1.0) Eosinophils # (Auto) 0.1 K/uL (0.0-0.5) Basophils # (Auto) 0.1 K/uL (0.0-0.1) Nucleated RBC Absolute Count (auto) 0.01 K/uL Glomerular Filtration Rate Calc > 60.0 Calcium Level 9.4 mg/dl (8.4-10.2) Total Bilirubin 0.8 mg/dl (0.2-1.3) Aspartate Amino Transf (AST/SGOT) 23 U/L (0-35) Alanine Aminotransferase (ALT/SGPT) 40 U/L (0-56) Alkaline Phosphatase 77 U/L (0-126) C-Reactive Protein < 0.5 mg/dl (<1.0) Total Protein 7.4 gm/dl (6.3-8.2) Albumin 4.2 g/dl (3.5-5.0) Amylase Level 121 U/L (0-110) Lipase 31 U/L (23-300) Venous Blood pH 7.45 (7.31-7.41) Urinalysis Test 10/10/17 05:56 Urine Color Yellow Urine Clarity Clear Urine pH 8.0 pH (4.8-9.5) Urine Specific [place] 1.031 Urine Protein 100 mg/dL (NEGATIVE) Urine Glucose (UA) 500 mg/dL (NEGATIVE) Urine Ketones 20 mg/dL (NEGATIVE) Urine Blood Negative (NEGATIVE) Urine Nitrite Negative (NEGATIVE) Urine Bilirubin Negative (NEGATIVE) Urine Urobilinogen Negative mg/dL (0.2-1.9) Urine Leukocyte Esterase Negative (NEGATIVE) Urine RBC 3 /HPF (0-2/HPF) Urine WBC 4 /HPF (0-5/HPF) Urine Squamous Epithelial Cells None /LPF (</=FEW) Urine Bacteria Negative /HPF (NONE-FEW) Urine Mucus None /HPF (NONE-FEW) ED Course/Re-evaluation Clinical Indication for ER IV: Hydration, IV Access ED Course Patient was admitted to an examination room. H&P was done. The differential diagnoses was considered. On clinical examination. Patient has profuse vomiting. He is a diabetic with a history of gastroparesis. Patient notes no inciting factors. Patient was recently admitted for DKA. Diagnostic laboratory studies show no evidence of DKA. History with IV fluids, Zofran, Phenergan, Toradol. He's discharged home with a prescription for Reglan in addition to the prescription he was given a week ago for Zofran and Phenergan. He is advised clear liquid diet for 24 hours. He is advised to watch his sugars closely. Patient is encouraged to follow-up with his primary care for better management of his diabetes. This is his 3rd visit in approximately 2 weeks. His tox screen from 3 days ago showed cannabis and barbiturates. Patient has a history of substance abuse. Decision to Disposition Date: Oct 10, 2017 Decision to Disposition Time: 06:46 Depart Departure Latest Vital Signs Vital Signs Date Time Temp Pulse Resp B/P (MAP) Pulse Ox O2 Delivery O2 Flow Rate FiO2 10/10/17 07:14 151/108 (122) 10/10/17 07:05 103 92 10/10/17 06:42 14 Room Air 10/10/17 05:58 97.5 Impression: Primary Impression: Vomiting Additional Impressions: Abdominal pain Diabetic gastroparesis Type I diabetes mellitus Condition: Improved Disposition: HOME OR SELF-CARE New Scripts Metoclopramide Hcl (METOCLOPRAMIDE HCL) 10 Mg Tablet 10 MG PO QID Y for NAUSEA/VOMITING, #12 Prov: NOELLE DE LA CRUZ DO 10/10/17 Patient Instructions: Acute Nausea and Vomiting (ED), Gastroparesis (ED) Additional Instructions: Follow-up with your primary care physician Problem Qualifiers Primary Impression: Vomiting Vomiting type: unspecified Vomiting Intractability: unspecified Nausea presence: with nausea Qualified Codes: R11.2 - Nausea with vomiting, unspecified Additional Impressions: Abdominal pain Abdominal location: epigastric Qualified Codes: R10.13 - Epigastric pain Type I diabetes mellitus Diabetes mellitus complication status: with unspecified complications Qualified Codes: E10.8 - Type 1 diabetes mellitus with unspecified complications NOELLE DE LA CRUZ DO Oct 10, 2017 05:55
[2017-10-10] MEDS ORDERED: NS(*) 0.9% 1000 ML BAG 1,000 ML IV ONE (06:00)
[2017-10-10] MEDS ORDERED: PROMETHAZINE 25 MG/ML 1 ML AMP IVP ONE (06:00)
[2017-10-10] MEDS ORDERED: ONDANSETRON 4 MG/2 ML VIAL IVP ONE (06:00)
[2017-10-10] MEDS ORDERED: LIDOCAINE 2% VISC SLN 15ML UDC PO ONE (06:10)
[2017-10-10] MEDS ORDERED: MAG HYD/AL HYD/SIMETH 30ML UDC PO ONE (06:10)
[2017-10-10] MEDS ORDERED: KETOROLAC 30 MG/ML VIAL IVP ONE (06:10)
[2017-10-10 06:17] LABS: PLATELET COUNT, AUTOMATED 363 K/uL (150-450)
[2017-10-10] MEDS ORDERED: METO-224 PO (06:48)
[2017-10-10 07:14] VITALS: BP 151/108
== END 2017-10-10 07:19 | disposition home or self-care (01) ==
LOC: ER 05:59
DX: E10.43 Type 1 diabetes mellitus with diabetic autonomic (poly)neuropathy (principal); K31.84 Gastroparesis
CPT/HCPCS: 36415; 36416; 81001; 82150; 82800; 82948; 83690; 85025; 86140; 96361; 96374; 96375; 99283; A9270; J1885; J2405; J2550; J7030; 82040; 82247; 82310; 82374; 82435; 82565; 82947; 84075; 84132; 84155; 84295; 84450; 84460; 84520

== ENCOUNTER 2017-10-10 13:39 | Emergency (ER) | payer MEDICARE, MEDICAID ==
[2017-10-02 08:32] VITALS: BMI 17.4
[~2017-10-10 13:39] MED LIST changes: +METO-224 PO
[2017-10-10] MEDS ORDERED: ONDANSETRON 4 MG ODT TABDP SL ONE (14:00)
--- NOTE | 2017-10-10 14:02 | ER Report ---
History and Physical Time Seen By MD: 13:55 Hx. of Stated Complaint: Patient reporting vominting. HPI/ROS CHIEF COMPLAINT: Persistent vomiting HISTORY OF PRESENT ILLNESS: 32-year-old male comes emergency Department today with a complaint of persistent vomiting was discharged 5 hours ago this is 4th visit in the last 10 days all for vomiting he is been has a history of DKA in the past he was medically cleared prior to presentation and his last visit without having DKA was discharged with prescription for by mouth antibiotics primary care follow-up and none of his visits as he ever follow-up with primary care he failed to fill his prescription this morning when normal cup vomiting a few more times and came back to the emergency room. Patient is nonlocalized non- focal abdominal pain or discomfort no additional complaints noted REVIEW OF SYSTEMS: Respiratory: No cough, no dyspnea. Cardiovascular: No chest pain, no palpitations. Gastrointestinal: Vomiting mild abdominal pain Musculoskeletal: No back pain. Remainder of the 14 system rev: Yes Allergies: Coded Allergies: acetaminophen (Verified Allergy, Unknown, 10/10/17) hydrocodone (Verified Allergy, Unknown, 10/10/17) oxycodone (Verified Allergy, Unknown, 10/10/17) Uncoded Allergies: beestings (Adverse Reaction, Unknown, 08/11/17) Home Meds Active Scripts Metoclopramide Hcl (METOCLOPRAMIDE HCL) 10 Mg Tablet, 10 MG PO QID Y for NAUSEA/ VOMITING, #12 Prov:DOROTHYNOELLE DO 10/10/17 Promethazine Hcl (PROMETHAZINE HCL) 25 Mg Tablet, 25 MG PO Q8H Y for NAUSEA/ VOMITING, #10 TAB Prov:NOELLE DE LA CRUZ DO 10/07/17 Ondansetron (ZOFRAN ODT) 4 Mg Tab.rapdis, 4 MG PO Q6H Y for NAUSEA/VOMITING, # 10 TAB.JANIE Prov:NOELLE DE LA CRUZ DO 10/07/17 Reported Medications Insulin Lispro (HUMALOG) 100 Unit/1 Ml Vial, 0 SQ Y for SLIDING SCALE INSULIN, VIAL takes Humalog Insulin at Home as per SS 10/02/17 Insulin Glargine (LANTUS) 100 Unit/Ml Soln, 34 UNIT SUBQ QDAY, ML MIDMORNING 10/02/17 Gabapentin (GABAPENTIN) 300 Mg Capsule, 300 MG PO TID, CAPSULE 08/11/17 Discontinued Scripts Pantoprazole Sodium (PANTOPRAZOLE SODIUM) 40 Mg Tablet.dr, 40 MG PO QDAY, #14 TAB 1 Refill Prov:LEIGH FRANCOIS MD 10/03/17 Metoclopramide Hcl (METOCLOPRAMIDE HCL) 5 Mg Tablet, 5 MG PO TIDAC Y for nausea/ pain, #30 TAB 1 Refill Prov:LEIGH FRANCOIS MD 10/03/17 Promethazine Hcl (PROMETHAZINE HCL) 25 Mg Tablet, 25 MG PO Q8H Y for NAUSEA/ VOMITING, #12 TAB Prov:ELIZABETH CONNORS [facility] 09/29/17 Ondansetron (ZOFRAN ODT) 4 Mg Tab.rapdis, 4 MG PO Q6H Y for NAUSEA/VOMITING, # 20 TAB.JANIE Prov:ELIZABETH CONNORS [facility] 09/29/17 Reviewed Nurses Notes: Yes Hx Smoking: Yes Smoking Status: Former Smoker Hx Substance Use Disorder: No Hx Alcohol Use: No Constitutional Vital Sign - Last 24 Hours 10/10/17 10/10/17 10/10/17 10/10/17 13:51 13:53 13:54 13:59 Temp 97.9 Pulse 116 117 106 Resp 20 B/P (MAP) 151/123 (132) 151/123 Pulse Ox 98 98 84 O2 Delivery Room Air 10/10/17 10/10/17 10/10/17 10/10/17 14:09 14:19 14:24 14:29 Pulse 104 103 101 102 Pulse Ox 90 89 90 91 10/10/17 14:34 Pulse 101 Pulse Ox 92 Physical Exam General Appearance: [The patient is alert, has no immediate need for airway protection and no current signs of toxicity.] [ ] Eyes: Pupils equal and round no injection. Respiratory: Chest is non tender, lungs are clear to auscultation. Cardiac: regular rate and rhythm [ ] Gastrointestinal: Abdomen is soft and non tender, no masses, bowel sounds normal. Musculoskeletal: Neck: Neck is supple and non tender. Extremities have full range of motion and are non tender. Skin: No rashes or lesions. [ ] DIFFERENTIAL DIAGNOSIS: After history and physical exam differential diagnosis was considered for chronic vomiting cyclical vomiting DKA Medical Decision Making Data Points Result Diagram: 10/10/17 1408 10/10/17 1408 Laboratory Hematology Test 1/10/18 14:08 Red Blood Count 5.73 M/uL (4.00-5.60) Mean Corpuscular Volume 91.4 fL (80.0-96.0) Mean Corpuscular Hemoglobin 32.4 pg (26.0-33.0) Mean Corpuscular Hemoglobin Concent 35.5 g/dL (32.0-36.0) Red Cell Distribution Width 12.8 % (11.5-14.5) Mean Platelet Volume 7.6 fL (7.2-11.1) Neutrophils (%) (Auto) 75.6 % (39.4-72.5) Lymphocytes (%) (Auto) 17.2 % (17.6-49.6) Monocytes (%) (Auto) 4.9 % (4.1-12.4) Eosinophils (%) (Auto) 1.2 % (0.4-6.7) Basophils (%) (Auto) 1.1 % (0.3-1.4) Nucleated RBC Relative Count (auto) 0.0 /100WBC Neutrophils # (Auto) 8.5 K/uL (2.0-7.4) Lymphocytes # (Auto) 1.9 K/uL (1.3-3.6) Monocytes # (Auto) 0.5 K/uL (0.3-1.0) Eosinophils # (Auto) 0.1 K/uL (0.0-0.5) Basophils # (Auto) 0.1 K/uL (0.0-0.1) Nucleated RBC Absolute Count (auto) 0.00 K/uL Sodium Level 137 mmol/L (137-145) Potassium Level 4.1 mmol/L (3.5-5.0) Chloride Level 99 mmol/L (98-107) Carbon Dioxide Level 27 mmol/L (22-30) Blood Urea Nitrogen 10 mg/dl (9-21) Creatinine 0.70 mg/dl (0.66-1.25) Glomerular Filtration Rate Calc > 60.0 Random Glucose 234 mg/dl (75-110) Calcium Level 8.9 mg/dl (8.4-10.2) Total Bilirubin 0.8 mg/dl (0.2-1.3) Aspartate Amino Transf (AST/SGOT) 25 U/L (0-35) Alanine Aminotransferase (ALT/SGPT) 36 U/L (0-56) Alkaline Phosphatase 75 U/L (0-126) Total Protein 7.3 gm/dl (6.3-8.2) Albumin 4.0 g/dl (3.5-5.0) Chemistry Test 10/10/17 14:08 White Blood Count 11.3 k/uL (4.5-11.0) Red Blood Count 5.73 M/uL (4.00-5.60) Hemoglobin 18.6 g/dL (14.0-18.0) Hematocrit 52.4 % (42.0-52.0) Mean Corpuscular Volume 91.4 fL (80.0-96.0) Mean Corpuscular Hemoglobin 32.4 pg (26.0-33.0) Mean Corpuscular Hemoglobin Concent 35.5 g/dL (32.0-36.0) Red Cell Distribution Width 12.8 % (11.5-14.5) Platelet Count 349 K/uL (150-450) Mean Platelet Volume 7.6 fL (7.2-11.1) Neutrophils (%) (Auto) 75.6 % (39.4-72.5) Lymphocytes (%) (Auto) 17.2 % (17.6-49.6) Monocytes (%) (Auto) 4.9 % (4.1-12.4) Eosinophils (%) (Auto) 1.2 % (0.4-6.7) Basophils (%) (Auto) 1.1 % (0.3-1.4) Nucleated RBC Relative Count (auto) 0.0 /100WBC Neutrophils # (Auto) 8.5 K/uL (2.0-7.4) Lymphocytes # (Auto) 1.9 K/uL (1.3-3.6) Monocytes # (Auto) 0.5 K/uL (0.3-1.0) Eosinophils # (Auto) 0.1 K/uL (0.0-0.5) Basophils # (Auto) 0.1 K/uL (0.0-0.1) Nucleated RBC Absolute Count (auto) 0.00 K/uL Glomerular Filtration Rate Calc > 60.0 Calcium Level 8.9 mg/dl (8.4-10.2) Total Bilirubin 0.8 mg/dl (0.2-1.3) Aspartate Amino Transf (AST/SGOT) 25 U/L (0-35) Alanine Aminotransferase (ALT/SGPT) 36 U/L (0-56) Alkaline Phosphatase 75 U/L (0-126) Total Protein 7.3 gm/dl (6.3-8.2) Albumin 4.0 g/dl (3.5-5.0) ED Course/Re-evaluation ED Course ED clinical course 32-year-old male returns for his 4th visit for vomiting patient is not in DKA he had labs drawn this morning repeat labs drawn this afternoon he has not vomited since his arrival here he is not fill his prescriptions as private previously ordered he has never followed up with primary care advised him to follow up with primary care advised him to fill his prescriptions as ordered and to follow accordingly Decision to Disposition Date: Oct 10, 2017 Decision to Disposition Time: 15:22 Depart Departure Latest Vital Signs Vital Signs Date Time Temp Pulse Resp B/P (MAP) Pulse Ox O2 Delivery O2 Flow Rate FiO2 10/10/17 14:34 101 92 10/10/17 13:53 97.9 20 151/123 Room Air Impression: Primary Impression: Vomiting Condition: Improved Disposition: HOME OR SELF-CARE Referrals: GALE KLEIN DNP, PRINCIPAL ACCOUNTS CLERK-BC 5 Days Patient Instructions: Acute Nausea and Vomiting (DC) ROSANNE MELISSA MD Oct 10, 2017 14:02
[2017-10-10 14:21] LABS: PLATELET COUNT, AUTOMATED 349 K/uL (150-450)
[2017-10-10 15:24] VITALS: BP 109/86
== END 2017-10-10 15:30 | disposition home or self-care (01) ==
LOC: ER 13:51
DX: R11.10 Vomiting, unspecified (principal)
CPT/HCPCS: 36415; 85025; 99283; Q0162; 82040; 82247; 82310; 82374; 82435; 82565; 82947; 84075; 84132; 84155; 84295; 84450; 84460; 84520; S0119

== ENCOUNTER → 2017-10-16 | Outpatient (CLI) | payer MEDICARE, MEDICAID ==
[2017-10-02 08:32] VITALS: BMI 17.4
[2017-10-16 16:07] LABS: PLATELET COUNT, AUTOMATED 299 K/uL (150-450)
== END ==
LOC: LAB 15:21
PROVIDERS: ATTEND Nurse Practitioner Primary Care
DX: R10.9 Unspecified abdominal pain (principal); R11.2 Nausea with vomiting, unspecified
CPT/HCPCS: 36415; 82040; 82150; 82247; 82310; 82374; 82435; 82565; 82947; 83010; 83516; 83690; 84075; 84132; 84155; 84295; 84450; 84460; 84520; 85025

== ENCOUNTER → 2017-10-18 | Outpatient (CLI) | payer MEDICARE, MEDICAID ==
[2017-10-02 08:32] VITALS: BMI 17.4
== END ==
LOC: LAB 08:29
PROVIDERS: ATTEND Nurse Practitioner Primary Care
DX: E10.9 Type 1 diabetes mellitus without complications (principal)
CPT/HCPCS: 36415; 82465; 83036; 83718; 84478

== ENCOUNTER 2017-10-19 08:00 | Outpatient (RCR) | payer MEDICARE, MEDICAID ==
[2017-10-02 08:32] VITALS: BMI 17.4
--- NOTE | 2017-10-25 15:29 | Transitional Care Management ---
Assessment Visit Type: Telephone Visit Spoke with: Terrence Cardiac: WNL Respiratory: WNL GI: Nutrition: WNL Except GI Comment: 10/25 Continual nausea and abdominal pain. blood sugars are in the low 200's, which he states is where they usually run. Wt Gain/Loss: WNL Weight Comment: 10/25 Losing weight, because he can't eat due to the nausea, and eating increases the pain. 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 He is catious of them and moves safely. Integumentary: WNL Feeling of Well Being: WNL Except Feeling of Well Being Comment: 10/25 He is very upset, says the hospital is treating him like "some kind of druggy". Socialization: WNL Pain/Management: WNL Except Pain/Management Comment: 10/25 Abdominal pain is continual, and aggrevated by eating. Scheduled Follow-Up with Provi: Yes (10/[address] Bacon on 10/[address] Schwab on 11/06) Primary Care Provider Visits: Yes (10/[address] Bacon) Needed or Pending Tests: Yes Following Discharge Instructio: Yes TCM Discharge Criteria Transitional Care Comment: 10/25 Initial contact, he was very upset by the letter from the hospital, "I am being treated like some kind of druggy". After talking through that, we discussed his medical issues, and the current plans for diagnosis and treatment. I explained the transitional care role, and he was grateful. He is agreeable to follow up calls. I let him know we would call after his next appt with Dr Klein on 10/31, and provided our office number if he has questions. Copies to: GALE KLEIN DNP, PIE FILLER-BC MATTY PEACOCK Oct 25, 2017 15:29
--- NOTE | 2017-11-01 13:11 | Transitional Care Management ---
Assessment Cardiac: WNL Respiratory: WNL GI: Nutrition: WNL Except GI Comment: 10/25 Continual nausea and abdominal pain. blood sugars are in the low 200's, which he states is where they usually run. Wt Gain/Loss: WNL Weight Comment: 10/25 Losing weight, because he can't eat due to the nausea, and eating increases the pain. 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 He is catious of them and moves safely. Integumentary: WNL Feeling of Well Being: WNL Except Feeling of Well Being Comment: 10/25 He is very upset, says the hospital is treating him like "some kind of druggy". Socialization: WNL Pain/Management: WNL Except Pain/Management Comment: 10/25 Abdominal pain is continual, and aggrevated by eating. Scheduled Follow-Up with Provi: Yes (10/[address] Bacon on 10/[address] Schwab on 11/06) Primary Care Provider Visits: Yes (10/[address] Bacon) Needed or Pending Tests: Yes Following Discharge Instructio: Yes TCM Discharge Criteria Transitional Care Comment: 10/25 Initial contact, he was very upset by the letter from the hospital, "I am being treated like some kind of druggy". After talking through that, we discussed his medical issues, and the current plans for diagnosis and treatment. I explained the transitional care role, and he was grateful. He is agreeable to follow up calls. I let him know we would call after his next appt with Dr Klein on 10/31, and provided our office number if he has questions. 11/01 Unable to contact X2 attempts. Copies to: GALE KLEIN DNP, POULTRY HUSBANDMAN-BC DEVANTE SANABRIA Nov 01, 2017 13:11
--- NOTE | 2017-11-02 16:30 | Transitional Care Management ---
Assessment Visit Type: Telephone Visit Spoke with: Terrence Cardiac: WNL Respiratory: WNL GI: Nutrition: WNL Except GI Comment: 10/25 Continual nausea and abdominal pain. blood sugars are in the low 200's, which he states is where they usually run. 2/2 review A1C 8.9, not eating much, drinks broths and Ensure. had episode of low bs, felt multiple s/s and states he didn't eat much at hs . Suggest small meals, blended food, less fat. Denies soda etoh or smoking. Recomend he ask for diet consult if needed after testing Wt Gain/Loss: WNL Weight Comment: 10/25 Losing weight, because he can't eat due to the nausea, and eating increases the pain. 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 He is catious of them and moves safely. Integumentary: WNL Feeling of Well Being: WNL Except Feeling of Well Being Comment: 10/25 He is very upset, says the hospital is treating him like "some kind of druggy". Socialization: WNL Pain/Management: WNL Except Pain/Management Comment: 10/25 Abdominal pain is continual, and aggrevated by eating. 2/2 states "feels pretty good" but has intermit abd pain, N,V Scheduled Follow-Up with Provi: Yes (10/[address] Bacon on 10/[address] Schwab on 11/06) Primary Care Provider Visits: Yes (10/[address] Bacon) Questions for Future PCP Visit: tx for gastroparesis, need for frame aligner Needed or Pending Tests: Yes Following Discharge Instructio: Yes TCM Discharge Criteria Disease Management/Concern/Wha: s/s hypoglycemia with poor po intake Transitional Care Comment: 10/25 Initial contact, he was very upset by the letter from the hospital, "I am being treated like some kind of druggy". After talking through that, we discussed his medical issues, and the current plans for diagnosis and treatment. I explained the transitional care role, and he was grateful. He is agreeable to follow up calls. I let him know we would call after his next appt with Dr Alarcon on 10/31, and provided our office number if he has questions. 11/01 Unable to contact X2 attempts. 11/02 states been a DM since `13yo. know s/s low bs and management. review info for gastroparesis to include frequent small meals/intake, blended foods. less fat (check fat in Ensure) has f/u with Josselin 11/06 to plan testing MACARIO OBRIEN Nov 02, 2017 16:30
--- NOTE | 2017-11-10 13:19 | Transitional Care Management ---
Assessment Visit Type: Telephone Visit Spoke with: Terrence Cardiac: WNL Respiratory: WNL GI: Nutrition: WNL Except GI Comment: 10/25 Continual nausea and abdominal pain. blood sugars are in the low 200's, which he states is where they usually run. 11/02 review A1C 8.9, not eating much, drinks broths and Ensure. had episode of low bs, felt multiple s/s and states he didn't eat much at hs . Suggest small meals, blended food, less fat. Denies soda etoh or smoking. Recomend he ask for diet consult if needed after testing 11/10 Pain and nausea have reduced since seeing Dr Yates. He is able to eat more. Wt Gain/Loss: WNL Weight Comment: 10/25 Losing weight, because he can't eat due to the nausea, and eating increases the pain. 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 He is catious of them and moves safely. Integumentary: WNL Feeling of Well Being: WNL Except Feeling of Well Being Comment: 10/25 He is very upset, says the hospital is treating him like "some kind of druggy". 11/10 "There is a light at the end of the tunnel, and it is getting brighter." He is very excited that improvements have been made in his symptoms. Socialization: WNL Pain/Management: WNL Except Pain/Management Comment: 10/25 Abdominal pain is continual, and aggrevated by eating. 11/02 states "feels pretty good" but has intermit abd pain, N,V Scheduled Follow-Up with Provi: Yes (11/10 Upper GI with small bowel series and Gallbladder US ordered for 11/12) Primary Care Provider Visits: Yes (10/[address] Bacon) Questions for Future PCP Visit: 11/02 tx for gastroparesis, need for medical technologist clinical Needed or Pending Tests: Yes Following Discharge Instructio: Yes TCM Discharge Criteria Disease Management/Concern/Wha: s/s hypoglycemia with poor po intake Transitional Care Comment: 10/25 Initial contact, he was very upset by the letter from the hospital, "I am being treated like some kind of druggy". After talking through that, we discussed his medical issues, and the current plans for diagnosis and treatment. I explained the transitional care role, and he was grateful. He is agreeable to follow up calls. I let him know we would call after his next appt with Dr Klein on 10/31, and provided our office number if he has questions. 11/01 Unable to contact X2 attempts. 11/02 states been a DM since `13yo. know s/s low bs and management. review info for gastroparesis to include frequent small meals/intake, blended foods. 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 He has procedures scheduled for 11/12. I will call him on 11/13 to follow up. Copies to: GALE KLEIN DNP, KITCHEN CLERK-BC; BRANDY YATES MD, MICHAEL K Nov 10, 2017 13:19
--- NOTE | 2017-11-13 10:20 | Transitional Care Management ---
Assessment Visit Type: Telephone Visit Cardiac: WNL Respiratory: WNL GI: Nutrition: WNL Except GI Comment: 10/25 Continual nausea and abdominal pain. blood sugars are in the low 200's, which he states is where they usually run. 11/02 review A1C 8.9, not eating much, drinks broths and Ensure. had episode of low bs, felt multiple s/s and states he didn't eat much at hs . Suggest small meals, blended food, less fat. Denies soda etoh or smoking. Recomend he ask for diet consult if needed after testing 11/10 Pain and nausea have reduced since seeing Dr Schwab. He is able to eat more. Wt Gain/Loss: WNL Weight Comment: 10/25 Losing weight, because he can't eat due to the nausea, and eating increases the pain. 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 He is catious of them and moves safely. Integumentary: WNL Feeling of Well Being: WNL Except Feeling of Well Being Comment: 10/25 He is very upset, says the hospital is treating him like "some kind of druggy". 11/10 "There is a light at the end of the tunnel, and it is getting brighter." He is very excited that improvements have been made in his symptoms. Socialization: WNL Pain/Management: WNL Except Pain/Management Comment: 10/25 Abdominal pain is continual, and aggrevated by eating. 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 After talking through that, we discussed his medical issues, and the current plans for diagnosis and treatment. I explained the transitional care role, and he was grateful. He is agreeable to follow up calls. I let him know we would call after his next appt with Dr Alarcon on 10/31, and provided our office number if he has questions. 11/01 Unable to contact X2 attempts. 11/02 states been a DM since `13yo. know s/s low bs and management. review info for gastroparesis to include frequent small meals/intake, blended foods. 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 He has procedures scheduled for 11/12. I will call him on 11/13 to follow up. 11/13 Unable to contact. MATTY PEACOCK Nov 13, 2017 10:20
[2017-11-15] MEDS ORDERED: PROM-110 PO (14:02)
[2017-11-21] MEDS ORDERED: INSU100I30 SUBQ (11:16)
--- NOTE | 2017-11-24 13:56 | Transitional Care Management ---
Assessment Cardiac: WNL Respiratory: WNL GI: Nutrition: WNL Except GI Comment: 10/25 Continual nausea and abdominal pain. blood sugars are in the low 200's, which he states is where they usually run. 2 review A1C 8.9, not eating much, drinks broths and Ensure. had episode of low bs, felt multiple s/s and states he didn't eat much at hs . Suggest small meals, blended food, less fat. Denies soda etoh or smoking. Recomend he ask for diet consult if needed after testing 11/10 Pain and nausea have reduced since seeing Dr Yates. He is able to eat more. 11/24 pain has decreased to tolerable. Has been able to tolerate his diabetic diet. Wt Gain/Loss: WNL Weight Comment: 10/25 Losing weight, because he can't eat due to the nausea, and eating increases the pain. 11/10 He has gained 4 pounds in the last two weeks/ 11/24 maintaining weight. Has been eating and feels somewhat better. 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 He is catious of them and moves safely. Integumentary: WNL Feeling of Well Being: WNL Except Feeling of Well Being Comment: 10/25 He is very upset, says the hospital is treating him like "some kind of druggy". 11/10 "There is a light at the end of the tunnel, and it is getting brighter." He is very excited that improvements have been made in his symptoms. Socialization: WNL Pain/Management: WNL Except Pain/Management Comment: 10/25 Abdominal pain is continual, and aggrevated by eating. 11/02 states "feels pretty good" but has intermit abd pain, N,11/24 Pain has improved and does have intermittant pain but is tolerable. 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 Disease Management/Concern/Wha: s/s hypoglycemia with poor po intake 11/24 went over red flags of hypo/hyperglycemia and he states he is aware as he has been a diabetic for a long tie. Transitional Care Comment: 10/25 Initial contact, he was very upset by the letter from the hospital, "I am being treated like some kind of druggy". After talking through that, we discussed his medical issues, and the current plans for diagnosis and treatment. I explained the transitional care role, and he was grateful. He is agreeable to follow up calls. I let him know we would call after his next appt with Dr Alarcon on 10/31, and provided our office number if he has questions. 11/01 Unable to contact X2 attempts. 11/02 states been a DM since `13yo. know s/s low bs and management. review info for gastroparesis to include frequent small meals/intake, blended foods. 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 He has procedures scheduled for 11/12. I will call him on 11/13 to follow up. 11/13 Unable to contact. 11/22 unable to contact 11/24 states he's " doing pretty good" pain is tolerable. Doesn't see Dr until December 12. Enc him to call Dr Yates if he has any quetions. Copies to: BRANDY YATES MD, JOAN Nov 24, 2017 13:56
--- NOTE | 2017-12-01 13:51 | Transitional Care Management ---
Assessment Visit Type: Telephone Visit Spoke with: Terrence Cardiac: WNL Respiratory: WNL GI: Nutrition: WNL Except GI Comment: 10/25 Continual nausea and abdominal pain. blood sugars are in the low 200's, which he states is where they usually run. 2 review A1C 8.9, not eating much, drinks broths and Ensure. had episode of low bs, felt multiple s/s and states he didn't eat much at hs . Suggest small meals, blended food, less fat. Denies soda etoh or smoking. Recomend he ask for diet consult if needed after testing 11/10 Pain and nausea have reduced since seeing Dr Schwab. He is able to eat more. 11/24 pain has decreased to tolerable. Has been able to tolerate his diabetic diet. 3/ Reduced nausea, no vomiting. Wt Gain/Loss: WNL Weight Comment: 10/25 Losing weight, because he can't eat due to the nausea, and eating increases the pain. 11/10 He has gained 4 pounds in the last two weeks/ 11/24 maintaining weight. Has been eating and feels somewhat better. 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 He is catious of them and moves safely. Integumentary: WNL Feeling of Well Being: WNL Except Feeling of Well Being Comment: 10/25 He is very upset, says the hospital is treating him like "some kind of druggy". 11/10 "There is a light at the end of the tunnel, and it is getting brighter." He is very excited that improvements have been made in his symptoms. Socialization: WNL Pain/Management: WNL Except Pain/Management Comment: 10/25 Abdominal pain is continual, and aggrevated by eating. 11/02 states "feels pretty good" but has intermit abd pain, N, 11/24 Pain hasimproved and does have intermittant pain but is tolerable. "Nothing like I was having" 3/3 minimal pain. 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 Disease Management/Concern/Wha: s/s hypoglycemia with poor po intake 11/24 went over red flags of hypo/hyperglycemia and he states he is aware as he has been a diabetic for a long tie. Transitional Care Comment: 10/25 Initial contact, he was very upset by the letter from the hospital, "I am being treated like some kind of druggy". After talking through that, we discussed his medical issues, and the current plans for diagnosis and treatment. I explained the transitional care role, and he was grateful. He is agreeable to follow up calls. I let him know we would call after his next appt with Dr Alarcon on 10/31, and provided our office number if he has questions. 11/01 Unable to contact X2 attempts. / states been a DM since `13yo. know s/s low bs and management. review info for gastroparesis to include frequent small meals/intake, blended foods. 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 He has procedures scheduled for 11/12. I will call him on 11/13 to follow up. 11/13 Unable to contact. 11/22 unable to contact 11/24 states he's " doing pretty good" pain is tolerable. Doesn't see Dr until December 12. Enc him to call Dr Schwab if he has any quetions. 12/01 Blood sugars stable, reduced pain and nausea, no vomiting. MATTY PEACOCK Dec 01, 2017 13:50
--- NOTE | 2017-12-08 13:26 | Transitional Care Management ---
Assessment Cardiac: WNL Respiratory: WNL GI: Nutrition: WNL Except GI Comment: 10/25 Continual nausea and abdominal pain. blood sugars are in the low 200's, which he states is where they usually run. 11/02 review A1C 8.9, not eating much, drinks broths and Ensure. had episode of low bs, felt multiple s/s and states he didn't eat much at hs . Suggest small meals, blended food, less fat. Denies soda etoh or smoking. Recomend he ask for diet consult if needed after testing 11/10 Pain and nausea have reduced since seeing Dr Schwab. He is able to eat more. 11/24 pain has decreased to tolerable. Has been able to tolerate his diabetic diet. 12/01 Reduced nausea, no vomiting. 12/08 Home on 25Unit of Lantus, states hes back on 38 Unit but has not seen MD. Woke up with BS 300 felt sick and vomiting. Denies sweets recently but getting over cold, no other s/s infection, took his insulin and isnow shaky with BS 67, will eat now. Wt Gain/Loss: WNL Weight Comment: 10/25 Losing weight, because he can't eat due to the nausea, and eating increases the pain. 11/10 He has gained 4 pounds in the last two weeks/ 11/24 maintaining weight. Has been eating and feels somewhat better. 12/08 able to eat more and is drinking more ensure as able. 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 He is catious of them and moves safely. Integumentary: WNL Feeling of Well Being: WNL Except Feeling of Well Being Comment: 10/25 He is very upset, says the hospital is treating him like "some kind of druggy". 11/10 "There is a light at the end of the tunnel, and it is getting brighter." He is very excited that improvements have been made in his symptoms. Socialization: WNL Pain/Management: WNL Except Pain/Management Comment: 10/25 Abdominal pain is continual, and aggrevated by eating. 11/02 states "feels pretty good" but has intermit abd pain, N, 11/24 Pain hasimproved and does have intermittant pain but is tolerable. "Nothing like I was having" minimal pain. 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 Disease Management/Concern/Wha: s/s hypoglycemia with poor po intake 11/24 went over red flags of hypo/hyperglycemia and he states he is aware as he has been a diabetic for a long time. Transitional Care Comment: 10/25 Initial contact, he was very upset by the letter from the hospital, "I am being treated like some kind of druggy". After talking through that, we discussed his medical issues, and the current plans for diagnosis and treatment. I explained the transitional care role, and he was grateful. He is agreeable to follow up calls. I let him know we would call after his next appt with Dr Alarcon on 10/31, and provided our office number if he has questions. 11/01 Unable to contact X2 attempts. / states been a DM since `13yo. know s/s low bs and management. review info for gastroparesis to include frequent small meals/intake, blended foods. 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 He has procedures scheduled for 11/12. I will call him on 11/13 to follow up. 11/13 Unable to contact. 11/22 unable to contact 11/24 states he's " doing pretty good" pain is tolerable. Doesn't see Dr until December 12. Enc him to call Dr Schwab if he has any quetions. 12/01 Blood sugars stable, reduced pain and nausea, no vomiting. 12/08 still with abd pain but considerably less, will f/u 12/11 with Josselin for further tx. BS 300 to 67 today; took insulin this am but then unable to eat. Is drinking ensure now and without nausea. reports was feeling better and more stable until ks bs today MACARIO OBRIEN Dec 08, 2017 13:26
[2017-12-10] MEDS ORDERED: ONDA4TAB PO (01:47)
--- NOTE | 2017-12-11 13:00 | Transitional Care Management ---
Assessment Visit Type: Telephone Visit Spoke with: Trev Cardiac: WNL Respiratory: WNL GI: Nutrition: WNL Except GI Comment: 10/25 Continual nausea and abdominal pain. blood sugars are in the low 200's, which he states is where they usually run. 11/02 review A1C 8.9, not eating much, drinks broths and Ensure. had episode of low bs, felt multiple s/s and states he didn't eat much at hs . Suggest small meals, blended food, less fat. Denies soda etoh or smoking. Recomend he ask for diet consult if needed after testing 11/10 Pain and nausea have reduced since seeing Dr Schwab. He is able to eat more. 11/24 pain has decreased to tolerable. Has been able to tolerate his diabetic diet. 12/01 Reduced nausea, no vomiting. 12/08 Home on 25Unit of Lantus, states hes back on 38 Unit but has not seen MD. Woke up with BS 300 felt sick and vomiting. Denies sweets recently but getting over cold, no other s/s infection, took his insulin and isnow bobbyky with BS 67, will eat now. 12/11 Went to ER on 12/09 for hyperglycemia, abd pain. States he was still nauseated at [place] and has been unable to eat since then. BS were less than 200 yesterday but he has vomiting even after just sips of water. Has EGD tomorrow with Josselin Wt Gain/Loss: WNL Weight Comment: 10/25 Losing weight, because he can't eat due to the nausea, and eating increases the pain. 11/10 He has gained 4 pounds in the last two weeks/ 11/24 maintaining weight. Has been eating and feels somewhat better. 12/08 able to eat more and is drinking more ensure as able. Constipation?: No : WNL Except Comment: 12/11 dark. 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 He is catious of them and moves safely. Integumentary: WNL Feeling of Well Being: WNL Except Feeling of Well Being Comment: 10/25 He is very upset, says the hospital is treating him like "some kind of druggy". 11/10 "There is a light at the end of the tunnel, and it is getting brighter." He is very excited that improvements have been made in his symptoms. 12/11 states he feels so bad he doesn't know what to do. feels like he cant go back to ER Socialization: WNL Pain/Management: WNL Except Pain/Management Comment: 10/25 Abdominal pain is continual, and aggrevated by eating. 11/02 states "feels pretty good" but has intermit abd pain, N, 11/24 Pain hasimproved and does have intermittant pain but is tolerable. "Nothing like I was having" minimal pain. 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 Disease Management/Concern/Wha: s/s hypoglycemia with poor po intake 11/24 went over red flags of hypo/hyperglycemia and he states he is aware as he has been a diabetic for a long time. Transitional Care Comment: 10/25 Initial contact, he was very upset by the letter from the hospital, "I am being treated like some kind of druggy". After talking through that, we discussed his medical issues, and the current plans for diagnosis and treatment. I explained the transitional care role, and he was grateful. He is agreeable to follow up calls. I let him know we would call after his next appt with Dr Alarcon on 10/31, and provided our office number if he has questions. 11/01 Unable to contact X2 attempts. 2/2 states been a DM since `13yo. know s/s low bs and management. review info for gastroparesis to include frequent small meals/intake, blended foods. 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 He has procedures scheduled for 2/12. I will call him on 11/13 to follow up. 11/13 Unable to contact. 11/22 unable to contact 11/24 states he's " doing pretty good" pain is tolerable. Doesn't see Dr until December 12. Enc him to call Dr Schwab if he has any quetions. 12/01 Blood sugars stable, reduced pain and nausea, no vomiting. 12/08 still with abd pain but considerably less, will f/u 12/11 with Josselin for further tx. BS 300 to 67 today; took insulin this am but then unable to eat. Is drinking ensure now and without nausea. reports was feeling better and more stable until hi bs today 12/11 reports still nauseated and vomiting with attempts even to drink water. he has cont. pain. Gave him number for Dorian and ivan to call today for sick day appt to be seen in clinic since he doesn't think he can go to ER. Asked him if he knew the pot inceasednausea and vomiting like the ER MD told him and he stated it helped himmuch more than the meds he was given. MACARIO OBRIEN Dec 11, 2017 13:00
[2017-12-11] MEDS ORDERED: FAMO20TA28 PO (16:31)
[2017-12-12] MEDS ORDERED: SUCR1ORA13 PO (08:30)
[2017-12-12] MEDS ORDERED: PANT40TA65 PO (08:30)
--- NOTE | 2017-12-17 12:29 | Transitional Care Management ---
Assessment Visit Type: Telephone Visit Spoke with: Terrence Cardiac: WNL Respiratory: WNL GI: Nutrition: WNL Except GI Comment: 10/25 Continual nausea and abdominal pain. blood sugars are in the low 200's, which he states is where they usually run. 11/02 review A1C 8.9, not eating much, drinks broths and Ensure. had episode of low bs, felt multiple s/s and states he didn't eat much at hs . Suggest small meals, blended food, less fat. Denies soda etoh or smoking. Recomend he ask for diet consult if needed after testing 11/10 Pain and nausea have reduced since seeing Dr Yates. He is able to eat more. 11/24 pain has decreased to tolerable. Has been able to tolerate his diabetic diet. 12/01 Reduced nausea, no vomiting. 12/08 Home on 25Unit of Lantus, states hes back on 38 Unit but has not seen MD. Woke up with BS 300 felt sick and vomiting. Denies sweets recently but getting over cold, no other s/s infection, took his insulin and isnow shaky with BS 67, will eat now. 12/11 Went to ER on 12/09 for hyperglycemia, abd pain. States he was still nauseated at nd and has been unable to eat since then. BS were less than 200 yesterday but he has vomiting even after just sips of water. Has EGD tomorrow with Josselin 12/17 minimal N/V after starting Protonix and carafate. He is able to eat small meals. Wt Gain/Loss: WNL Weight Comment: 10/25 Losing weight, because he can't eat due to the nausea, and eating increases the pain. 11/10 He has gained 4 pounds in the last two weeks/ 11/24 maintaining weight. Has been eating and feels somewhat better. 12/08 able to eat more and is drinking more ensure as able. Constipation?: No : WNL Except Comment: 12/11 dark. 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 He is catious of them and moves safely. Integumentary: WNL Feeling of Well Being: WNL Except Feeling of Well Being Comment: 10/25 He is very upset, says the hospital is treating him like "some kind of druggy". 11/10 "There is a light at the end of the tunnel, and it is getting brighter." He is very excited that improvements have been made in his symptoms. 12/11 states he feels so bad he doesn't know what to do. feels like he cant go back to ER 12/17 He is excited that progress in his diagnosis and treatment is being made. Socialization: WNL Pain/Management: WNL Except Pain/Management Comment: 10/25 Abdominal pain is continual, and aggrevated by eating. 11/02 states "feels pretty good" but has intermit abd pain, N, 11/24 Pain hasimproved and does have intermittant pain but is tolerable. "Nothing like I was having" minimal pain. 12/11 increased abd pain 12/17 minimal pain. Scheduled Follow-Up with Provi: Yes (12/17 Hida scan tomorrow.) Primary Care Provider Visits: Yes (10/[address] Bacon) Questions for Future PCP Visit: 11/02 tx for gastroparesis, need for mop man Needed or Pending Tests: Yes Following Discharge Instructio: Yes TCM Discharge Criteria Medication Knowledge: 11/24 went over medications. Disease Management/Concern/Wha: s/s hypoglycemia with poor po intake 11/24 went over red flags of hypo/hyperglycemia and he states he is aware as he has been a diabetic for a long time. Transitional Care Comment: 10/25 Initial contact, he was very upset by the letter from the hospital, "I am being treated like some kind of druggy". After talking through that, we discussed his medical issues, and the current plans for diagnosis and treatment. I explained the transitional care role, and he was grateful. He is agreeable to follow up calls. I let him know we would call after his next appt with Dr Alarcon on 10/31, and provided our office number if he has questions. 11/01 Unable to contact X2 attempts. 2/2 states been a DM since `13yo. know s/s low bs and management. review info for gastroparesis to include frequent small meals/intake, blended foods. 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 He has procedures scheduled for 11/12. I will call him on 11/13 to follow up. 11/13 Unable to contact. 11/22 unable to contact 11/24 states he's " doing pretty good" pain is tolerable. Doesn't see Dr until December 12. Enc him to call Dr Yates if he has any quetions. 12/01 Blood sugars stable, reduced pain and nausea, no vomiting. 12/08 still with abd pain but considerably less, will f/u 12/11 with Josselin for further tx. BS 300 to 67 today; took insulin this am but then unable to eat. Is drinking ensure now and without nausea. reports was feeling better and more stable until hi bs today 12/11 reports still nauseated and vomiting with attempts even to drink water. he has cont. pain. Gave him number for Dorian and enc to call today for sick day appt to be seen in clinic since he doesn't think he can go to ER. Asked him if he knew the pot inceasednausea and vomiting like the ER MD told him and he stated it helped him much more than the meds he was given. 12/17 He is doing well, minimal N/V. Hida scan scheduled for tomorrow. Copies to: BRANDY YATES MD, MICHAEL K Dec 17, 2017 12:29
--- NOTE | 2017-12-26 16:19 | Transitional Care Management ---
Assessment Visit Type: Telephone Visit Spoke with: Terrence Cardiac: WNL Respiratory: WNL GI: Nutrition: WNL Except GI Comment: 10/25 Continual nausea and abdominal pain. blood sugars are in the low 200's, which he states is where they usually run. 11/02 review A1C 8.9, not eating much, drinks broths and Ensure. had episode of low bs, felt multiple s/s and states he didn't eat much at hs . Suggest small meals, blended food, less fat. Denies soda etoh or smoking. Recomend he ask for diet consult if needed after testing 11/10 Pain and nausea have reduced since seeing Dr Schwab. He is able to eat more. 11/24 pain has decreased to tolerable. Has been able to tolerate his diabetic diet. 12/01 Reduced nausea, no vomiting. 12/08 Home on 25Unit of Lantus, states hes back on 38 Unit but has not seen MD. Woke up with BS 300 felt sick and vomiting. Denies sweets recently but getting over cold, no other s/s infection, took his insulin and isnow shaky with BS 67, will eat now. 12/11 Went to ER on 12/09 for hyperglycemia, abd pain. States he was still nauseated at mt and has been unable to eat since then. BS were less than 200 yesterday but he has vomiting even after just sips of water. Has EGD tomorrow with Josselin 12/17 minimal N/V after starting Protonix and carafate. He is able to eat small meals. 3.28 Minimal N/V. He will try a gluten free diet for the next 30 days, then see Dr Schwab on 01/28 to discuss options. Wt Gain/Loss: WNL Weight Comment: 10/25 Losing weight, because he can't eat due to the nausea, and eating increases the pain. 11/10 He has gained 4 pounds in the last two weeks/ 11/24 maintaining weight. Has been eating and feels somewhat better. 12/08 able to eat more and is drinking more ensure as able. Constipation?: No : WNL Except Comment: 12/11 dark. 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 He is catious of them and moves safely. Integumentary: WNL Feeling of Well Being: WNL Except Feeling of Well Being Comment: 10/25 He is very upset, says the hospital is treating him like "some kind of druggy". 11/10 "There is a light at the end of the tunnel, and it is getting brighter." He is very excited that improvements have been made in his symptoms. 12/11 states he feels so bad he doesn't know what to do. feels like he cant go back to ER 12/17 He is excited that progress in his diagnosis and treatment is being made. Socialization: WNL Pain/Management: WNL Except Pain/Management Comment: 10/25 Abdominal pain is continual, and aggrevated by eating. 11/02 states "feels pretty good" but has intermit abd pain, N, 11/24 Pain hasimproved and does have intermittant pain but is tolerable. "Nothing like I was having" minimal pain. 12/11 increased abd pain 12/17 minimal pain. 12/26 Minimal pain Scheduled Follow-Up with Provi: Yes (12/[address] Schwab on 01/28, and will call Dr Alarcon for an appt this week.) Primary Care Provider Visits: Yes (10/[address] Bacon) Questions for Future PCP Visit: 11/02 tx for gastroparesis, need for rotary soil stabilizer Needed or Pending Tests: Yes Following Discharge Instructio: Yes TCM Discharge Criteria Medication Knowledge: 11/24 went over medications. Disease Management/Concern/Wha: s/s hypoglycemia with poor po intake 11/24 went over red flags of hypo/hyperglycemia and he states he is aware as he has been a diabetic for a long time. Transitional Care Comment: 10/25 Initial contact, he was very upset by the letter from the hospital, "I am being treated like some kind of druggy". After talking through that, we discussed his medical issues, and the current plans for diagnosis and treatment. I explained the transitional care role, and he was grateful. He is agreeable to follow up calls. I let him know we would call after his next appt with Dr Alarcon on 10/31, and provided our office number if he has questions. 11/01 Unable to contact X2 attempts. 2/2 states been a DM since `13yo. know s/s low bs and management. review info for gastroparesis to include frequent small meals/intake, blended foods. 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 He has procedures scheduled for 11/12. I will call him on 11/13 to follow up. 11/13 Unable to contact. 11/22 unable to contact 11/24 states he's " doing pretty good" pain is tolerable. Doesn't see Dr until December 12. Enc him to call Dr Schwab if he has any quetions. 12/01 Blood sugars stable, reduced pain and nausea, no vomiting. 12/08 still with abd pain but considerably less, will f/u 12/11 with Josselin for further tx. BS 300 to 67 today; took insulin this am but then unable to eat. Is drinking ensure now and without nausea. reports was feeling better and more stable until hi bs today 12/11 reports still nauseated and vomiting with attempts even to drink water. he has cont. pain. Gave him number for Dorian and enc to call today for sick day appt to be seen in clinic since he doesn't think he can go to ER. Asked him if he knew the pot inceasednausea and vomiting like the ER MD told him and he stated it helped him much more than the meds he was given. 12/17 He is doing well, minimal N/V. Hida scan scheduled for tomorrow. 12/26 Minimal symptoms, trying gluten free diet, I educated him on dietary changes affecting blood sugar, he will be vigilant. MATTY PEACOCK Dec 26, 2017 16:19
[2018-01-04] MEDS ORDERED: PROM-110 PO (19:20)
[2018-01-04] MEDS ORDERED: ONDA4TAB PO (19:20)
[2018-01-04] MEDS ORDERED: PROM50SU6 PR (19:20)
--- NOTE | 2018-01-07 13:57 | Transitional Care Management ---
Assessment Visit Type: Telephone Visit Spoke with: Trev Cardiac: WNL Respiratory: WNL GI: Nutrition: WNL Except GI Comment: 10/25 Continual nausea and abdominal pain. blood sugars are in the low 200's, which he states is where they usually run. 11/02 review A1C 8.9, not eating much, drinks broths and Ensure. had episode of low bs, felt multiple s/s and states he didn't eat much at hs . Suggest small meals, blended food, less fat. Denies soda etoh or smoking. Recomend he ask for diet consult if needed after testing 11/10 Pain and nausea have reduced since seeing Dr Schwab. He is able to eat more. 11/24 pain has decreased to tolerable. Has been able to tolerate his diabetic diet. 12/01 Reduced nausea, no vomiting. 12/08 Home on 25Unit of Lantus, states hes back on 38 Unit but has not seen MD. Woke up with BS 300 felt sick and vomiting. Denies sweets recently but getting over cold, no other s/s infection, took his insulin and isannette martell with BS 67, will eat now. 12/11 Went to ER on 12/09 for hyperglycemia, abd pain. States he was still nauseated at wa and has been unable to eat since then. BS were less than 200 yesterday but he has vomiting even after just sips of water. Has EGD tomorrow with Josselin 12/17 minimal N/V after starting Protonix and carafate. He is able to eat small meals. 3.28 Minimal N/V. He will try a gluten free diet for the next 30 days, then see Dr Schwab on 01/28 to discuss options. 01/07 Was in ER 01/04 and states hes feeling better finally today. is still on clearsmostly and just taking meds. BS get as low as the 70's and he can feel this then drinks more carb fluids. review gluten free diet and restrictions; states he will follow this until f/u wt Josselin. Wt Gain/Loss: WNL Weight Comment: 10/25 Losing weight, because he can't eat due to the nausea, and eating increases the pain. 11/10 He has gained 4 pounds in the last two weeks/ 11/24 maintaining weight. Has been eating and feels somewhat better. 12/08 able to eat more and is drinking more ensure as able. Constipation?: No : WNL Except Comment: 12/11 dark. 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 He is catious of them and moves safely. Integumentary: WNL Feeling of Well Being: WNL Except Feeling of Well Being Comment: 10/25 He is very upset, says the hospital is treating him like "some kind of druggy". 11/10 "There is a light at the end of the tunnel, and it is getting brighter." He is very excited that improvements have been made in his symptoms. 12/11 states he feels so bad he doesn't know what to do. feels like he cant go back to ER 12/17 He is excited that progress in his diagnosis and treatment is being made. 01/07 frustrated he still has abd pain, NVD prn Socialization: WNL Pain/Management: WNL Except Pain/Management Comment: 10/25 Abdominal pain is continual, and aggrevated by eating. 11/02 states "feels pretty good" but has intermit abd pain, N, 11/24 Pain hasimproved and does have intermittant pain but is tolerable. "Nothing like I was having" minimal pain. 12/11 increased abd pain 12/17 minimal pain. 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 checking ketones, having antiemetic available, standing order for fluids at [facility] Needed or Pending Tests: Yes Following Discharge Instructio: Yes TCM Discharge Criteria Medication Knowledge: 11/24 went over medications. Disease Management/Concern/Wha: s/s hypoglycemia with poor po intake 11/24 went over red flags of hypo/hyperglycemia and he states he is aware as he has been a diabetic for a long time. Transitional Care Comment: 10/25 Initial contact, he was very upset by the letter from the hospital, "I am being treated like some kind of druggy". After talking through that, we discussed his medical issues, and the current plans for diagnosis and treatment. I explained the transitional care role, and he was grateful. He is agreeable to follow up calls. I let him know we would call after his next appt with Dr Alarcon on 10/31, and provided our office number if he has questions. 11/01 Unable to contact X2 attempts. 11/02 states been a DM since `13yo. know s/s low bs and management. review info for gastroparesis to include frequent small meals/intake, blended foods. 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 He has procedures scheduled for 11/12. I will call him on 11/13 to follow up. 11/13 Unable to contact. 11/22 unable to contact 11/24 states he's " doing pretty good" pain is tolerable. Doesn't see Dr until December 12. Enc him to call Dr Schwab if he has any quetions. 12/01 Blood sugars stable, reduced pain and nausea, no vomiting. 12/08 still with abd pain but considerably less, will f/u 12/11 with Josselin for further tx. BS 300 to 67 today; took insulin this am but then unable to eat. Is drinking ensure now and without nausea. reports was feeling better and more stable until hi bs today 12/11 reports still nauseated and vomiting with attempts even to drink water. he has cont. pain. Gave him number for Dorian and ivan to call today for sick day appt to be seen in clinic since he doesn't think he can go to ER. Asked him if he knew the pot inceasednausea and vomiting like the ER MD told him and he stated it helped him much more than the meds he was given. 12/17 He is doing well, minimal N/V. Hida scan scheduled for tomorrow. 12/26 Minimal symptoms, trying gluten free diet, I educated him on dietary changes affecting blood sugar, he will be vigilant. 01/07 Symptoms persist. Will consider cholecystectomy at next visit to [facility] if sx not improved.Having low BS sincenot able to eat a lot and doing clear liquids.States taking protonix and carafate. Will make appt with LABEL MACHINE OPERATOR to discuss a sick day plan to avoid ER when symptoms recurr. MACARIO OBRIEN Jan 07, 2018 13:57
--- NOTE | 2018-01-14 14:00 | Transitional Care Management ---
Assessment Visit Type: Telephone Visit Spoke with: Terrence Cardiac: WNL Respiratory: WNL GI: Nutrition: WNL Except GI Comment: 10/25 Continual nausea and abdominal pain. blood sugars are in the low 200's, which he states is where they usually run. 11/02 review A1C 8.9, not eating much, drinks broths and Ensure. had episode of low bs, felt multiple s/s and states he didn't eat much at hs . Suggest small meals, blended food, less fat. Denies soda etoh or smoking. Recomend he ask for diet consult if needed after testing 11/10 Pain and nausea have reduced since seeing Dr Yates. He is able to eat more. 11/24 pain has decreased to tolerable. Has been able to tolerate his diabetic diet. 12/01 Reduced nausea, no vomiting. 12/08 Home on 25Unit of Lantus, states hes back on 38 Unit but has not seen MD. Woke up with BS 300 felt sick and vomiting. Denies sweets recently but getting over cold, no other s/s infection, took his insulin and islisandraw jasbir with BS 67, will eat now. 12/11 Went to ER on 12/09 for hyperglycemia, abd pain. States he was still nauseated at nc and has been unable to eat since then. BS were less than 200 yesterday but he has vomiting even after just sips of water. Has EGD tomorrow with Josselin 12/17 minimal N/V after starting Protonix and carafate. He is able to eat small meals. 3.28 Minimal N/V. He will try a gluten free diet for the next 30 days, then see Dr Yates on 01/28 to discuss options. 01/07 Was in ER / and states hes feeling better finally today. is still on clearsmostly and just taking meds. BS get as low as the 70's and he can feel this then drinks more carb fluids. review gluten free diet and restrictions; states he will follow this until f/u wth Josselin. 01/14 He was in the ER 01/09 for N/V. Symptoms have been manageable since. He is doing ok with the gluten free diet. Abstaining from marijuana for 30 days. F/U with Josselin on 01/28. Wt Gain/Loss: WNL Weight Comment: 10/25 Losing weight, because he can't eat due to the nausea, and eating increases the pain. 11/10 He has gained 4 pounds in the last two weeks/ 11/24 maintaining weight. Has been eating and feels somewhat better. 12/08 able to eat more and is drinking more ensure as able. Constipation?: No : WNL Except Comment: 12/11 dark. 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 He is catious of them and moves safely. Integumentary: WNL Feeling of Well Being: WNL Except Feeling of Well Being Comment: 10/25 He is very upset, says the hospital is treating him like "some kind of druggy". 11/10 "There is a light at the end of the tunnel, and it is getting brighter." He is very excited that improvements have been made in his symptoms. 12/11 states he feels so bad he doesn't know what to do. feels like he cant go back to ER 12/17 He is excited that progress in his diagnosis and treatment is being made. 01/07 frustrated he still has abd pain, NVD prn Socialization: WNL Pain/Management: WNL Except Pain/Management Comment: 10/25 Abdominal pain is continual, and aggrevated by eating. 11/02 states "feels pretty good" but has intermit abd pain, N, 11/24 Pain hasimproved and does have intermittant pain but is tolerable. "Nothing like I was having" minimal pain. 12/11 increased abd pain 12/17 minimal pain. 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 checking ketones, having antiemetic available, standing order for fluids at [facility] Following Discharge Instructio: Yes TCM Discharge Criteria Medication Knowledge: 11/24 went over medications. Disease Management/Concern/Wha: s/s hypoglycemia with poor po intake 11/24 went over red flags of hypo/hyperglycemia and he states he is aware as he has been a diabetic for a long time. Transitional Care Comment: 10/25 Initial contact, he was very upset by the letter from the hospital, "I am being treated like some kind of druggy". After talking through that, we discussed his medical issues, and the current plans for diagnosis and treatment. I explained the transitional care role, and he was grateful. He is agreeable to follow up calls. I let him know we would call after his next appt with Dr Alarcon on 10/31, and provided our office number if he has questions. 11/01 Unable to contact X2 attempts. 11/02 states been a DM since `13yo. know s/s low bs and management. review info for gastroparesis to include frequent small meals/intake, blended foods. 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 He has procedures scheduled for 11/12. I will call him on 11/13 to follow up. 11/13 Unable to contact. 11/22 unable to contact 11/24 states he's " doing pretty good" pain is tolerable. Doesn't see Dr until December 12. Enc him to call Dr Yates if he has any quetions. 12/01 Blood sugars stable, reduced pain and nausea, no vomiting. 12/08 still with abd pain but considerably less, will f/u 12/11 with Josselin for further tx. BS 300 to 67 today; took insulin this am but then unable to eat. Is drinking ensure now and without nausea. reports was feeling better and more stable until hi bs today 12/11 reports still nauseated and vomiting with attempts even to drink water. he has cont. pain. Gave him number for Dorian and ivan to call today for sick day appt to be seen in clinic since he doesn't think he can go to ER. Asked him if he knew the pot inceasednausea and vomiting like the ER MD told him and he stated it helped him much more than the meds he was given. 12/17 He is doing well, minimal N/V. Hida scan scheduled for tomorrow. 12/26 Minimal symptoms, trying gluten free diet, I educated him on dietary changes affecting blood sugar, he will be vigilant. 01/07 Symptoms persist. Will consider cholecystectomy at next visit to Josselin if sx not improved.Having low BS sincenot able to eat a lot and doing clear liquids.States taking protonix and carafate. Will make appt with HEATER OPERATOR to discuss a sick day plan to avoid ER when symptoms recurr. 01/14 N/V manageable with PRN meds. He is abstaining from Marijuana for 30 days to see if it affects his symptoms. He is eager for his appt with Dr Yates on 01/28, feeling answers and a successful plan are coming. We reviewed a gluten free diet. Copies to: GALE ALARCON DNP, HEATER OPERATOR-BC; BRANDY YATES MD, MICHAEL K Jan 14, 2018 14:00
[2018-01-15] MEDS ORDERED: SCOP1PAT16 TD (09:37)
[2018-01-25] MEDS ORDERED: INSU100I30 SUBQ (13:28)
[2018-01-25] MEDS ORDERED: GABA-547 PO (16:41)
--- NOTE | 2018-01-29 15:29 | Transitional Care Management ---
Assessment Cardiac: WNL Respiratory: WNL GI: Nutrition: WNL Except GI Comment: 10/25 Continual nausea and abdominal pain. blood sugars are in the low 200's, which he states is where they usually run. 11/02 review A1C 8.9, not eating much, drinks broths and Ensure. had episode of low bs, felt multiple s/s and states he didn't eat much at hs . Suggest small meals, blended food, less fat. Denies soda etoh or smoking. Recomend he ask for diet consult if needed after testing 11/10 Pain and nausea have reduced since seeing Dr Schwab. He is able to eat more. 11/24 pain has decreased to tolerable. Has been able to tolerate his diabetic diet. 12/01 Reduced nausea, no vomiting. 12/08 Home on 25Unit of Lantus, states hes back on 38 Unit but has not seen MD. Woke up with BS 300 felt sick and vomiting. Denies sweets recently but getting over cold, no other s/s infection, took his insulin and isannette martell with BS 67, will eat now. 12/11 Went to ER on 12/09 for hyperglycemia, abd pain. States he was still nauseated at dc and has been unable to eat since then. BS were less than 200 yesterday but he has vomiting even after just sips of water. Has EGD tomorrow with Josselin 12/17 minimal N/V after starting Protonix and carafate. He is able to eat small meals. 3.28 Minimal N/V. He will try a gluten free diet for the next 30 days, then see Dr Schwab on 01/28 to discuss options. 01/07 Was in ER 01/04 and states hes feeling better finally today. is still on clearsmostly and just taking meds. BS get as low as the 70's and he can feel this then drinks more carb fluids. review gluten free diet and restrictions; states he will follow this until f/u wt Josselin. 01/14 He was in the ER 01/09 for N/V. Symptoms have been manageable since. He is doing ok with the gluten free diet. Abstaining from marijuana for 30 days. F/U with Josselin on 01/28. Wt Gain/Loss: WNL Weight Comment: 10/25 Losing weight, because he can't eat due to the nausea, and eating increases the pain. 11/10 He has gained 4 pounds in the last two weeks/ 11/24 maintaining weight. Has been eating and feels somewhat better. 12/08 able to eat more and is drinking more ensure as able. Constipation?: No : WNL Except Comment: 12/11 dark. 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 He is catious of them and moves safely. Integumentary: WNL Feeling of Well Being: WNL Except Feeling of Well Being Comment: 10/25 He is very upset, says the hospital is treating him like "some kind of druggy". 11/10 "There is a light at the end of the tunnel, and it is getting brighter." He is very excited that improvements have been made in his symptoms. 12/11 states he feels so bad he doesn't know what to do. feels like he cant go back to ER 12/17 He is excited that progress in his diagnosis and treatment is being made. 01/07 frustrated he still has abd pain, NVD prn Socialization: WNL Pain/Management: WNL Except Pain/Management Comment: 10/25 Abdominal pain is continual, and aggrevated by eating. 11/02 states "feels pretty good" but has intermit abd pain, N, 11/24 Pain hasimproved and does have intermittant pain but is tolerable. "Nothing like I was having" minimal pain. 12/11 increased abd pain 12/17 minimal pain. 12/26 Minimal pain Scheduled Follow-Up with Provi: Yes (01/14He will see Dr Schwab on 01/28, and Dr Alarcon on 01/25) Primary Care Provider Visits: Yes Questions for Future PCP Visit: 11/02 tx for gastroparesis, need for engravings polisher 01/07 Sick day plan for home to avoid ER, i.e. checking ketones, having antiemetic available, standing order for fluids at [facility] Following Discharge Instructio: Yes TCM Discharge Criteria Medication Knowledge: 11/24 went over medications. Disease Management/Concern/Wha: s/s hypoglycemia with poor po intake 11/24 went over red flags of hypo/hyperglycemia and he states he is aware as he has been a diabetic for a long time. Transitional Care Comment: 10/25 Initial contact, he was very upset by the letter from the hospital, "I am being treated like some kind of druggy". After talking through that, we discussed his medical issues, and the current plans for diagnosis and treatment. I explained the transitional care role, and he was grateful. He is agreeable to follow up calls. I let him know we would call after his next appt with Dr Alarcon on 10/31, and provided our office number if he has questions. 11/01 Unable to contact X2 attempts. 11/02 states been a DM since `13yo. know s/s low bs and management. review info for gastroparesis to include frequent small meals/intake, blended foods. 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 He has procedures scheduled for 11/12. I will call him on 11/13 to follow up. 11/13 Unable to contact. 11/22 unable to contact 11/24 states he's " doing pretty good" pain is tolerable. Doesn't see Dr until December 12. Enc him to call Dr Schwab if he has any quetions. 12/01 Blood sugars stable, reduced pain and nausea, no vomiting. 12/08 still with abd pain but considerably less, will f/u 12/11 with Josselin for further tx. BS 300 to 67 today; took insulin this am but then unable to eat. Is drinking ensure now and without nausea. reports was feeling better and more stable until hi bs today 12/11 reports still nauseated and vomiting with attempts even to drink water. he has cont. pain. Gave him number for Dorian and ivan to call today for sick day appt to be seen in clinic since he doesn't think he can go to ER. Asked him if he knew the pot inceasednausea and vomiting like the ER MD told him and he stated it helped him much more than the meds he was given. 12/17 He is doing well, minimal N/V. Hida scan scheduled for tomorrow. 12/26 Minimal symptoms, trying gluten free diet, I educated him on dietary changes affecting blood sugar, he will be vigilant. 01/07 Symptoms persist. Will consider cholecystectomy at next visit to Josselin if sx not improved.Having low BS sincenot able to eat a lot and doing clear liquids.States taking protonix and carafate. Will make appt with [employer] ACCESS DEVELOPER to discuss a sick day plan to avoid ER when symptoms recurr. 01/14 N/V manageable with PRN meds. He is abstaining from Marijuana for 30 days to see if it affects his symptoms. He is eager for his appt with Dr Schwab on 01/28, feeling answers and a successful plan are coming. We reviewed a gluten free diet. 01/[address] Mercado yesterday and has an appt to have GB and Appendex removed on 02/07. He's feeling relieved and hopeful that will be the answer to his abd px. He is 1 wk without marjaunia but states he doesn't really notice any difference but he's ok with out it. Encouraged him to stay on the gluten free diet until past surgery and talking with Dr Miranda again. He was agreeable to that DEVANTE SANABRIA January 29, 2018 15:29
[2018-02-04] MEDS ORDERED: GABA-549 PO (09:37)
--- NOTE | 2018-02-05 13:11 | Transitional Care Management ---
Assessment Visit Type: Telephone Visit Spoke with: Terrence Cardiac: WNL Respiratory: WNL GI: Nutrition: WNL Except GI Comment: 10/25 Continual nausea and abdominal pain. blood sugars are in the low 200's, which he states is where they usually run. 11/02 review A1C 8.9, not eating much, drinks broths and Ensure. had episode of low bs, felt multiple s/s and states he didn't eat much at hs . Suggest small meals, blended food, less fat. Denies soda etoh or smoking. Recomend he ask for diet consult if needed after testing 11/10 Pain and nausea have reduced since seeing Dr Schwab. He is able to eat more. 11/24 pain has decreased to tolerable. Has been able to tolerate his diabetic diet. 12/01 Reduced nausea, no vomiting. 12/08 Home on 25Unit of Lantus, states hes back on 38 Unit but has not seen MD. Woke up with BS 300 felt sick and vomiting. Denies sweets recently but getting over cold, no other s/s infection, took his insulin and islisandraw jasbir with BS 67, will eat now. 12/11 Went to ER on 12/09 for hyperglycemia, abd pain. States he was still nauseated at wv and has been unable to eat since then. BS were less than 200 yesterday but he has vomiting even after just sips of water. Has EGD tomorrow with Josselin 12/17 minimal N/V after starting Protonix and carafate. He is able to eat small meals. 3.28 Minimal N/V. He will try a gluten free diet for the next 30 days, then see Dr Schwab on 01/28 to discuss options. 01/07 Was in ER / and states hes feeling better finally today. is still on clearsmostly and just taking meds. BS get as low as the 70's and he can feel this then drinks more carb fluids. review gluten free diet and restrictions; states he will follow this until f/u wth Josselin. 01/14 He was in the ER 01/09 for N/V. Symptoms have been manageable since. He is doing ok with the gluten free diet. Abstaining from marijuana for 30 days. F/U with Josselin on 01/28. 02/05 minimal N/V. Wt Gain/Loss: WNL Weight Comment: 10/25 Losing weight, because he can't eat due to the nausea, and eating increases the pain. 11/10 He has gained 4 pounds in the last two weeks/ 11/24 maintaining weight. Has been eating and feels somewhat better. 12/08 able to eat more and is drinking more ensure as able. Constipation?: No : WNL Except Comment: 12/11 dark. 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 He is catious of them and moves safely. Integumentary: WNL Feeling of Well Being: WN Except Feeling of Well Being Comment: 10/25 He is very upset, says the hospital is treating him like "some kind of druggy". 11/10 "There is a light at the end of the tunnel, and it is getting brighter." He is very excited that improvements have been made in his symptoms. 12/11 states he feels so bad he doesn't know what to do. feels like he cant go back to ER 12/17 He is excited that progress in his diagnosis and treatment is being made. 01/07 frustrated he still has abd pain, NVD prn 02/05 Nervous about 02/07 procedure. Socialization: WN Pain/Management: WN Except Pain/Management Comment: 10/25 Abdominal pain is continual, and aggrevated by eating. 11/02 states "feels pretty good" but has intermit abd pain, N, 11/24 Pain hasimproved and does have intermittant pain but is tolerable. "Nothing like I was having" minimal pain. 12/11 increased abd pain 12/17 minimal pain. 12/26 Minimal pain Scheduled Follow-Up with Provi: Yes (02/05 OR on 02/07 for appy and choli.) Primary Care Provider Visits: Yes Questions for Future PCP Visit: 11/02 tx for gastroparesis, need for car blocker 01/07 Sick day plan for home to avoid ER, i.e. checking ketones, having antiemetic available, standing order for fluids at [facility] Following Discharge Instructio: Yes TCM Discharge Criteria Medication Knowledge: 11/24 went over medications. Disease Management/Concern/Wha: s/s hypoglycemia with poor po intake 11/24 went over red flags of hypo/hyperglycemia and he states he is aware as he has been a diabetic for a long time. Transitional Care Comment: 10/25 Initial contact, he was very upset by the letter from the hospital, "I am being treated like some kind of druggy". After talking through that, we discussed his medical issues, and the current plans for diagnosis and treatment. I explained the transitional care role, and he was grateful. He is agreeable to follow up calls. I let him know we would call after his next appt with Dr Alarcon on 10/31, and provided our office number if he has questions. 11/01 Unable to contact X2 attempts. 11/02 states been a DM since `13yo. know s/s low bs and management. review info for gastroparesis to include frequent small meals/intake, blended foods. 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 He has procedures scheduled for 11/12. I will call him on 11/13 to follow up. 11/13 Unable to contact. 11/22 unable to contact 11/24 states he's " doing pretty good" pain is tolerable. Doesn't see Dr until December 12. Enc him to call Dr Schwab if he has any quetions. 12/01 Blood sugars stable, reduced pain and nausea, no vomiting. 12/08 still with abd pain but considerably less, will f/u 12/11 with Josselin for further tx. BS 300 to 67 today; took insulin this am but then unable to eat. Is drinking ensure now and without nausea. reports was feeling better and more stable until hi bs today 12/11 reports still nauseated and vomiting with attempts even to drink water. he has cont. pain. Gave him number for Dorian and ivan to call today for sick day appt to be seen in clinic since he doesn't think he can go to ER. Asked him if he knew the pot inceasednausea and vomiting like the ER MD told him and he stated it helped him much more than the meds he was given. 12/17 He is doing well, minimal N/V. Hida scan scheduled for tomorrow. 12/26 Minimal symptoms, trying gluten free diet, I educated him on dietary changes affecting blood sugar, he will be vigilant. 01/07 Symptoms persist. Will consider cholecystectomy at next visit to Josselin if sx not improved.Having low BS sincenot able to eat a lot and doing clear liquids.States taking protonix and carafate. Will make appt with MEDIC TECHNICIAN to discuss a sick day plan to avoid ER when symptoms recurr. 01/14 N/V manageable with PRN meds. He is abstaining from Marijuana for 30 days to see if it affects his symptoms. He is eager for his appt with Dr Schwab on 01/28, feeling answers and a successful plan are coming. We reviewed a gluten free diet. 01/[address] Mercado yesterday and has an appt to have GB and Appendex removed on 02/07. He's feeling relieved and hopeful that will be the answer to his abd px. He is 1 wk without marjaunia but states he doesn't really notice any difference but he's ok with out it. Encouraged him to stay on the gluten free diet until past surgery and talking with Dr Miranda again. He was agreeable to that 02/05 Following his diet and abstaining from marijuana, minimal N/V and pain. He is having his GB and appendix removed on 02/07. MATTY PEACOCK February 05, 2018 13:11
[2018-02-07] MEDS ORDERED: TRAM-420 PO (13:53)
[2018-02-07] MEDS ORDERED: DOCU-416 PO (13:53)
[2018-02-08] MEDS ORDERED: PROM-110 PO (13:36)
--- NOTE | 2018-02-11 14:35 | Transitional Care Management ---
Assessment Visit Type: Telephone Visit (02/11 Trev) Cardiac: WNL Respiratory: WNL GI: Nutrition: WNL Except GI Comment: 10/25 Continual nausea and abdominal pain. blood sugars are in the low 200's, which he states is where they usually run. 11/02 review A1C 8.9, not eating much, drinks broths and Ensure. had episode of low bs, felt multiple s/s and states he didn't eat much at hs . Suggest small meals, blended food, less fat. Denies soda etoh or smoking. Recomend he ask for diet consult if needed after testing 11/10 Pain and nausea have reduced since seeing Dr Yates. He is able to eat more. 11/24 pain has decreased to tolerable. Has been able to tolerate his diabetic diet. 12/01 Reduced nausea, no vomiting. 12/08 Home on 25Unit of Lantus, states hes back on 38 Unit but has not seen MD. Woke up with BS 300 felt sick and vomiting. Denies sweets recently but getting over cold, no other s/s infection, took his insulin and islisandraw bobbyky with BS 67, will eat now. 12/11 Went to ER on 12/09 for hyperglycemia, abd pain. States he was still nauseated at ar and has been unable to eat since then. BS were less than 200 yesterday but he has vomiting even after just sips of water. Has EGD tomorrow with Josselin 12/17 minimal N/V after starting Protonix and carafate. He is able to eat small meals. 3.28 Minimal N/V. He will try a gluten free diet for the next 30 days, then see Dr Yates on 01/28 to discuss options. 01/07 Was in ER 01/04 and states hes feeling better finally today. is still on clearsmostly and just taking meds. BS get as low as the 70's and he can feel this then drinks more carb fluids. review gluten free diet and restrictions; states he will follow this until f/u wt Josselin. 01/14 He was in the ER 01/09 for N/V. Symptoms have been manageable since. He is doing ok with the gluten free diet. Abstaining from marijuana for 30 days. F/U with Josselin on 01/28. 02/05 minimal N/V. 02/11 Pt had kat/appendectomy on 02/07 had been ER 2 post OR for NV but states he "has been feeling imporved the last several days and I hope to continue improving." Wt Gain/Loss: WNL Weight Comment: 10/25 Losing weight, because he can't eat due to the nausea, and eating increases the pain. 11/10 He has gained 4 pounds in the last two weeks/ 11/24 maintaining weight. Has been eating and feels somewhat better. 12/08 able to eat more and is drinking more ensure as able. Constipation?: No : WNL Except Comment: 12/11 dark. 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 He is catious of them and moves safely. 02/11 "trying to increase activity, wasnt't feeling very the first couple of days d/t nausea but feeling somewhat better" Integumentary: WNL Feeling of Well Being: WNL Except Feeling of Well Being Comment: 10/25 He is very upset, says the hospital is treating him like "some kind of druggy". 11/10 "There is a light at the end of the tunnel, and it is getting brighter." He is very excited that improvements have been made in his symptoms. 12/11 states he feels so bad he doesn't know what to do. feels like he cant go back to ER 12/17 He is excited that progress in his diagnosis and treatment is being made. 01/07 frustrated he still has abd pain, NVD prn 02/05 Nervous about 02/07 procedure. Socialization: WNL Pain/Management: WNL Except Pain/Management Comment: 10/25 Abdominal pain is continual, and aggrevated by eating. 11/02 states "feels pretty good" but has intermit abd pain, N, 11/24 Pain hasimproved and does have intermittant pain but is tolerable. "Nothing like I was having" minimal pain. 12/11 increased abd pain 12/17 minimal pain. 12/26 Minimal pain 02/11 "pain is improvimg. I'm trying really hard to be optimistic" Scheduled Follow-Up with Provi: Yes (02/05 OR on 02/07 for appy and choli. 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 checking ketones, having antiemetic available, standing order for fluids at [facility] Following Discharge Instructio: Yes TCM Discharge Criteria Medication Knowledge: 11/24 went over medications. Disease Management/Concern/Wha: s/s hypoglycemia with poor po intake 11/24 went over red flags of hypo/hyperglycemia and he states he is aware as he has been a diabetic for a long time. Transitional Care Comment: 10/25 Initial contact, he was very upset by the letter from the hospital, "I am being treated like some kind of druggy". After talking through that, we discussed his medical issues, and the current plans for diagnosis and treatment. I explained the transitional care role, and he was grateful. He is agreeable to follow up calls. I let him know we would call after his next appt with Dr Alarcon on 10/31, and provided our office number if he has questions. 11/01 Unable to contact X2 attempts. 11/02 states been a DM since `13yo. know s/s low bs and management. review info for gastroparesis to include frequent small meals/intake, blended foods. 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 He has procedures scheduled for 11/12. I will call him on 11/13 to follow up. 11/13 Unable to contact. 11/22 unable to contact 11/24 states he's " doing pretty good" pain is tolerable. Doesn't see Dr until December 12. Enc him to call Dr Yates if he has any quetions. 12/01 Blood sugars stable, reduced pain and nausea, no vomiting. 12/08 still with abd pain but considerably less, will f/u 12/11 with Josselin for further tx. BS 300 to 67 today; took insulin this am but then unable to eat. Is drinking ensure now and without nausea. reports was feeling better and more stable until hi bs today 12/11 reports still nauseated and vomiting with attempts even to drink water. he has cont. pain. Gave him number for Dorian and ivan to call today for sick day appt to be seen in clinic since he doesn't think he can go to ER. Asked him if he knew the pot inceasednausea and vomiting like the ER MD told him and he stated it helped him much more than the meds he was given. 12/17 He is doing well, minimal N/V. Hida scan scheduled for tomorrow. 12/26 Minimal symptoms, trying gluten free diet, I educated him on dietary changes affecting blood sugar, he will be vigilant. 01/07 Symptoms persist. Will consider cholecystectomy at next visit to Josselin if sx not improved.Having low BS sincenot able to eat a lot and doing clear liquids.States taking protonix and carafate. Will make appt with PLANT PROTECTION SUPERINTENDENT to discuss a sick day plan to avoid ER when symptoms recurr. 01/14 N/V manageable with PRN meds. He is abstaining from Marijuana for 30 days to see if it affects his symptoms. He is eager for his appt with Dr Yates on 01/28, feeling answers and a successful plan are coming. We reviewed a gluten free diet. 01/[address] Mercado yesterday and has an appt to have GB and Appendex removed on 02/07. He's feeling relieved and hopeful that will be the answer to his abd px. He is 1 wk without marjaunia but states he doesn't really notice any difference but he's ok with out it. Encouraged him to stay on the gluten free diet until past surgery and talking with Dr Miranda again. He was agreeable to that 02/05 Following his diet and abstaining from marijuana, minimal N/V and pain. He is having his GB and appendix removed on 02/07. 02/11 "Had a little rough start past OR but I think I'm improving at this time. Trying to eat soft frequent small amounts of meals" "Still not using marjiania_doing OK" Copies to: BRANDY YATES MD, JOAN February 11, 2018 14:35
--- NOTE | 2018-02-18 11:48 | Transitional Care Management ---
Assessment Visit Type: Telephone Visit Cardiac: WNL Respiratory: WNL GI: Nutrition: WNL Except GI Comment: 10/25 Continual nausea and abdominal pain. blood sugars are in the low 200's, which he states is where they usually run. 11/02 review A1C 8.9, not eating much, drinks broths and Ensure. had episode of low bs, felt multiple s/s and states he didn't eat much at hs . Suggest small meals, blended food, less fat. Denies soda etoh or smoking. Recomend he ask for diet consult if needed after testing 11/10 Pain and nausea have reduced since seeing Dr Schwab. He is able to eat more. 11/24 pain has decreased to tolerable. Has been able to tolerate his diabetic diet. 12/01 Reduced nausea, no vomiting. 12/08 Home on 25Unit of Lantus, states hes back on 38 Unit but has not seen MD. Woke up with BS 300 felt sick and vomiting. Denies sweets recently but getting over cold, no other s/s infection, took his insulin and islisandraw bobbyky with BS 67, will eat now. 12/11 Went to ER on 12/09 for hyperglycemia, abd pain. States he was still nauseated at dc and has been unable to eat since then. BS were less than 200 yesterday but he has vomiting even after just sips of water. Has EGD tomorrow with Josselin 12/17 minimal N/V after starting Protonix and carafate. He is able to eat small meals. 3.28 Minimal N/V. He will try a gluten free diet for the next 30 days, then see Dr Schwab on 01/28 to discuss options. 01/07 Was in ER 01/04 and states hes feeling better finally today. is still on clearsmostly and just taking meds. BS get as low as the 70's and he can feel this then drinks more carb fluids. review gluten free diet and restrictions; states he will follow this until f/u wt Josselin. 01/14 He was in the ER 01/09 for N/V. Symptoms have been manageable since. He is doing ok with the gluten free diet. Abstaining from marijuana for 30 days. F/U with Josselin on 01/28. 02/05 minimal N/V. 05/14 Pt had kat/appendectomy on 02/07 had been ER 2 post OR for NV but states he "has been feeling imporved the last several days and I hope to continue improving." 02/18 BS low 200's on average. Eating solids with occasional nausea Wt Gain/Loss: WNL Weight Comment: 10/25 Losing weight, because he can't eat due to the nausea, and eating increases the pain. 11/10 He has gained 4 pounds in the last two weeks/ 11/24 maintaining weight. Has been eating and feels somewhat better. 12/08 able to eat more and is drinking more ensure as able. Constipation?: No : WNL Except Comment: 12/11 dark. 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 He is catious of them and moves safely. 02/11 "trying to increase activity, wasnt't feeling very the first couple of days d/t nausea but feeling somewhat better" Integumentary: WNL Feeling of Well Being: WNL Except Feeling of Well Being Comment: 10/25 He is very upset, says the hospital is treating him like "some kind of druggy". 11/10 "There is a light at the end of the tunnel, and it is getting brighter." He is very excited that improvements have been made in his symptoms. 12/11 states he feels so bad he doesn't know what to do. feels like he cant go back to ER 12/17 He is excited that progress in his diagnosis and treatment is being made. 01/07 frustrated he still has abd pain, NVD prn 02/05 Nervous about 02/07 procedure. Socialization: WNL Pain/Management: WNL Except Pain/Management Comment: 10/25 Abdominal pain is continual, and aggrevated by eating. 11/02 states "feels pretty good" but has intermit abd pain, N, 11/24 Pain hasimproved and does have intermittant pain but is tolerable. "Nothing like I was having" minimal pain. 12/11 increased abd pain 12/17 minimal pain. 12/26 Minimal pain 02/11 "pain is improvimg. I'm trying really hard to be optimistic" Scheduled Follow-Up with Provi: Yes (02/05 OR on 02/07 for appy and choli. 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 checking ketones, having antiemetic available, standing order for fluids at [facility] Following Discharge Instructio: Yes TCM Discharge Criteria Medication Knowledge: 11/24 went over medications. Disease Management/Concern/Wha: s/s hypoglycemia with poor po intake 11/24 went over red flags of hypo/hyperglycemia and he states he is aware as he has been a diabetic for a long time. Transitional Care Comment: 10/25 Initial contact, he was very upset by the letter from the hospital, "I am being treated like some kind of druggy". After talking through that, we discussed his medical issues, and the current plans for diagnosis and treatment. I explained the transitional care role, and he was grateful. He is agreeable to follow up calls. I let him know we would call after his next appt with Dr Alarcon on 10/31, and provided our office number if he has questions. 11/01 Unable to contact X2 attempts. 2/ states been a DM since `13yo. know s/s low bs and management. review info for gastroparesis to include frequent small meals/intake, blended foods. 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 He has procedures scheduled for 11/12. I will call him on 11/13 to follow up. 11/13 Unable to contact. 11/22 unable to contact 11/24 states he's " doing pretty good" pain is tolerable. Doesn't see Dr until December 12. Enc him to call Dr Schwab if he has any quetions. 12/01 Blood sugars stable, reduced pain and nausea, no vomiting. 12/08 still with abd pain but considerably less, will f/u 12/11 with Josselin for further tx. BS 300 to 67 today; took insulin this am but then unable to eat. Is drinking ensure now and without nausea. reports was feeling better and more stable until hi bs today 12/11 reports still nauseated and vomiting with attempts even to drink water. he has cont. pain. Gave him number for Dorian and ivan to call today for sick day appt to be seen in clinic since he doesn't think he can go to ER. Asked him if he knew the pot inceasednausea and vomiting like the ER MD told him and he stated it helped him much more than the meds he was given. 12/17 He is doing well, minimal N/V. Hida scan scheduled for tomorrow. 12/26 Minimal symptoms, trying gluten free diet, I educated him on dietary changes affecting blood sugar, he will be vigilant. 01/07 Symptoms persist. Will consider cholecystectomy at next visit to Josselin if sx not improved.Having low BS sincenot able to eat a lot and doing clear liquids.States taking protonix and carafate. Will make appt with CAR PACKER to discuss a sick day plan to avoid ER when symptoms recurr. 01/14 N/V manageable with PRN meds. He is abstaining from Marijuana for 30 days to see if it affects his symptoms. He is eager for his appt with Dr Schwab on 01/28, feeling answers and a successful plan are coming. We reviewed a gluten free diet. 01/[address] Mercado yesterday and has an appt to have GB and Appendex removed on 02/07. He's feeling relieved and hopeful that will be the answer to his abd px. He is 1 wk without marjaunia but states he doesn't really notice any difference but he's ok with out it. Encouraged him to stay on the gluten free diet until past surgery and talking with Dr Miranda again. He was agreeable to that 02/05 Following his diet and abstaining from marijuana, minimal N/V and pain. He is having his GB and appendix removed on 02/07. 02/11 "Had a little rough start past OR but I think I'm improving at this time. Trying to eat soft frequent small amounts of meals" "Still not using marjiania_doing OK" 02/18 states nausea is rare and is eating better. BS 200's but will not try to control bettter until nausea is resolved to avoid hypoglycemic episodes. Will f/u after his next procedures. MACARIO OBRIEN February 18, 2018 11:48
--- NOTE | 2018-02-26 11:14 | Transitional Care Management ---
Assessment Visit Type: Telephone Visit (02/26 Trev) Cardiac: WNL Respiratory: WNL GI: Nutrition: WNL Except GI Comment: 10/25 Continual nausea and abdominal pain. blood sugars are in the low 200's, which he states is where they usually run. 11/02 review A1C 8.9, not eating much, drinks broths and Ensure. had episode of low bs, felt multiple s/s and states he didn't eat much at hs . Suggest small meals, blended food, less fat. Denies soda etoh or smoking. Recomend he ask for diet consult if needed after testing 11/10 Pain and nausea have reduced since seeing Dr Schwab. He is able to eat more. 11/24 pain has decreased to tolerable. Has been able to tolerate his diabetic diet. 12/01 Reduced nausea, no vomiting. 12/08 Home on 25Unit of Lantus, states hes back on 38 Unit but has not seen MD. Woke up with BS 300 felt sick and vomiting. Denies sweets recently but getting over cold, no other s/s infection, took his insulin and islisandraw bobbyky with BS 67, will eat now. 12/11 Went to ER on 12/09 for hyperglycemia, abd pain. States he was still nauseated at oh and has been unable to eat since then. BS were less than 200 yesterday but he has vomiting even after just sips of water. Has EGD tomorrow with Josselin 12/17 minimal N/V after starting Protonix and carafate. He is able to eat small meals. 3.28 Minimal N/V. He will try a gluten free diet for the next 30 days, then see Dr Schwab on 01/28 to discuss options. 01/07 Was in ER 01/04 and states hes feeling better finally today. is still on clearsmostly and just taking meds. BS get as low as the 70's and he can feel this then drinks more carb fluids. review gluten free diet and restrictions; states he will follow this until f/u wt Josselin. 01/14 He was in the ER 01/09 for N/V. Symptoms have been manageable since. He is doing ok with the gluten free diet. Abstaining from marijuana for 30 days. F/U with Josselin on 01/28. 02/05 minimal N/V. 02/11 Pt had kat/appendectomy on 02/07 had been ER 2 post OR for NV but states he "has been feeling imporved the last several days and I hope to continue improving." 02/18 BS low 200's on average. Eating solids with occasional nausea 02/26 Nauses much improved-ocassional nausea. Bs staying pretty stable/eating fairly well-trying to stay from fatty and fried foods. Wt Gain/Loss: WNL Weight Comment: 10/25 Losing weight, because he can't eat due to the nausea, and eating increases the pain. 11/10 He has gained 4 pounds in the last two weeks/ 11/24 maintaining weight. Has been eating and feels somewhat better. 12/08 able to eat more and is drinking more ensure as able. Constipation?: No : WNL Except Comment: 12/11 dark. 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 He is catious of them and moves safely. 02/11 "trying to increase activity, wasnt't feeling very the first couple of days d/t nausea but feeling somewhat better"02/26 Moving around alot as he is trying to remodel a home Integumentary: WNL Feeling of Well Being: WNL Except Feeling of Well Being Comment: 10/25 He is very upset, says the hospital is treating him like "some kind of druggy". 11/10 "There is a light at the end of the tunnel, and it is getting brighter." He is very excited that improvements have been made in his symptoms. 12/11 states he feels so bad he doesn't know what to do. feels like he cant go back to ER 12/17 He is excited that progress in his diagnosis and treatment is being made. 01/07 frustrated he still has abd pain, NVD prn 02/05 Nervous about 02/07 procedure. Socialization: WNL Pain/Management: WNL Except Pain/Management Comment: 10/25 Abdominal pain is continual, and aggrevated by eating. 11/02 states "feels pretty good" but has intermit abd pain, N, 11/24 Pain hasimproved and does have intermittant pain but is tolerable. "Nothing like I was having" minimal pain. 12/11 increased abd pain 12/17 minimal pain. 12/26 Minimal pain 02/11 "pain is improvimg. I'm trying really hard to be optimistic" Scheduled Follow-Up with Provi: Yes (02/05 OR on 02/07 for appy and choli. 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 checking ketones, having antiemetic available, standing order for fluids at [facility] Following Discharge Instructio: Yes TCM Discharge Criteria Medication Knowledge: 11/24 went over medications. Disease Management/Concern/Wha: s/s hypoglycemia with poor po intake 11/24 went over red flags of hypo/hyperglycemia and he states he is aware as he has been a diabetic for a long time. Transitional Care Comment: 10/25 Initial contact, he was very upset by the letter from the hospital, "I am being treated like some kind of druggy". After talking through that, we discussed his medical issues, and the current plans for diagnosis and treatment. I explained the transitional care role, and he was grateful. He is agreeable to follow up calls. I let him know we would call after his next appt with Dr Klein on 10/31, and provided our office number if he has questions. 11/01 Unable to contact X2 attempts. 2/ states been a DM since `13yo. know s/s low bs and management. review info for gastroparesis to include frequent small meals/intake, blended foods. 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 He has procedures scheduled for 11/12. I will call him on 11/13 to follow up. 11/13 Unable to contact. 11/22 unable to contact 11/24 states he's " doing pretty good" pain is tolerable. Doesn't see Dr until December 12. Enc him to call Dr Schwab if he has any quetions. 12/01 Blood sugars stable, reduced pain and nausea, no vomiting. 12/08 still with abd pain but considerably less, will f/u 12/11 with Josselin for further tx. BS 300 to 67 today; took insulin this am but then unable to eat. Is drinking ensure now and without nausea. reports was feeling better and more stable until hi bs today 12/11 reports still nauseated and vomiting with attempts even to drink water. he has cont. pain. Gave him number for Dorian and ivan to call today for sick day appt to be seen in clinic since he doesn't think he can go to ER. Asked him if he knew the pot inceasednausea and vomiting like the ER MD told him and he stated it helped him much more than the meds he was given. 12/17 He is doing well, minimal N/V. Hida scan scheduled for tomorrow. 12/26 Minimal symptoms, trying gluten free diet, I educated him on dietary changes affecting blood sugar, he will be vigilant. 01/07 Symptoms persist. Will consider cholecystectomy at next visit to Josselin if sx not improved.Having low BS sincenot able to eat a lot and doing clear liquids.States taking protonix and carafate. Will make appt with DOG SHOW JUDGE to discuss a sick day plan to avoid ER when symptoms recurr. 01/14 N/V manageable with PRN meds. He is abstaining from Marijuana for 30 days to see if it affects his symptoms. He is eager for his appt with Dr Schwab on 01/28, feeling answers and a successful plan are coming. We reviewed a gluten free diet. 01/[address] Mercado yesterday and has an appt to have GB and Appendex removed on 02/07. He's feeling relieved and hopeful that will be the answer to his abd px. He is 1 wk without marjaunia but states he doesn't really notice any difference but he's ok with out it. Encouraged him to stay on the gluten free diet until past surgery and talking with Dr Miranda again. He was agreeable to that 02/05 Following his diet and abstaining from marijuana, minimal N/V and pain. He is having his GB and appendix removed on 02/07. 02/11 "Had a little rough start past OR but I think I'm improving at this time. Trying to eat soft frequent small amounts of meals" "Still not using marjiania_doing OK" 02/18 states nausea is rare and is eating better. BS 200's but will not try to control bettter until nausea is resolved to avoid hypoglycemic episodes. Will f/u after his next procedures. 0529 feeling much improved rare pain and minimal nausea. Has cut down on Marijauna use to just a little about once a week. Will cont to follow up until after March ericka louise Dr. Copies to: GALE KLEIN DNP, DOG SHOW JUDGE-[facility]ANTE [place] February 26, 2018 11:14
--- NOTE | 2018-03-12 14:02 | Transitional Care Management ---
Assessment Visit Type: Telephone Visit Spoke with: Terrence Cardiac: WNL Respiratory: WNL GI: Nutrition: WNL Except GI Comment: 10/25 Continual nausea and abdominal pain. blood sugars are in the low 200's, which he states is where they usually run. 11/02 review A1C 8.9, not eating much, drinks broths and Ensure. had episode of low bs, felt multiple s/s and states he didn't eat much at hs . Suggest small meals, blended food, less fat. Denies soda etoh or smoking. Recomend he ask for diet consult if needed after testing 11/10 Pain and nausea have reduced since seeing Dr Schwab. He is able to eat more. 11/24 pain has decreased to tolerable. Has been able to tolerate his diabetic diet. 12/01 Reduced nausea, no vomiting. 12/08 Home on 25Unit of Lantus, states hes back on 38 Unit but has not seen MD. Woke up with BS 300 felt sick and vomiting. Denies sweets recently but getting over cold, no other s/s infection, took his insulin and islisandraw bobbyky with BS 67, will eat now. 12/11 Went to ER on 12/09 for hyperglycemia, abd pain. States he was still nauseated at ok and has been unable to eat since then. BS were less than 200 yesterday but he has vomiting even after just sips of water. Has EGD tomorrow with Josselin 12/17 minimal N/V after starting Protonix and carafate. He is able to eat small meals. 3.28 Minimal N/V. He will try a gluten free diet for the next 30 days, then see Dr Schwab on 01/28 to discuss options. 01/07 Was in ER 01/04 and states hes feeling better finally today. is still on clearsmostly and just taking meds. BS get as low as the 70's and he can feel this then drinks more carb fluids. review gluten free diet and restrictions; states he will follow this until f/u wt Josselin. 01/14 He was in the ER 01/09 for N/V. Symptoms have been manageable since. He is doing ok with the gluten free diet. Abstaining from marijuana for 30 days. F/U with Josselin on 01/28. 02/05 minimal N/V. 02/11 Pt had kat/appendectomy on 02/07 had been ER 2 post OR for NV but states he "has been feeling imporved the last several days and I hope to continue improving." 02/18 BS low 200's on average. Eating solids with occasional nausea 02/26 Nauses much improved-ocassional nausea. Bs staying pretty stable/eating fairly well-trying to stay from fatty and fried foods. 03/12 Occaisional N/V in the morning. Wt Gain/Loss: WNL Weight Comment: 10/25 Losing weight, because he can't eat due to the nausea, and eating increases the pain. 11/10 He has gained 4 pounds in the last two weeks/ 11/24 maintaining weight. Has been eating and feels somewhat better. 12/08 able to eat more and is drinking more ensure as able. Constipation?: No : WNL Except Comment: 12/11 dark. 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 He is catious of them and moves safely. 02/11 "trying to increase activity, wasnt't feeling very the first couple of days d/t nausea but feeling somewhat better"02/26 Moving around alot as he is trying to remodel a home Integumentary: WNL Feeling of Well Being: WNL Except Feeling of Well Being Comment: 10/25 He is very upset, says the hospital is treating him like "some kind of druggy". 11/10 "There is a light at the end of the tunnel, and it is getting brighter." He is very excited that improvements have been made in his symptoms. 12/11 states he feels so bad he doesn't know what to do. feels like he cant go back to ER 12/17 He is excited that progress in his diagnosis and treatment is being made. 01/07 frustrated he still has abd pain, NVD prn 02/05 Nervous about 02/07 procedure. 03/12 Happy with results after the surgery. Socialization: WNL Pain/Management: WNL Except Pain/Management Comment: 10/25 Abdominal pain is continual, and aggrevated by eating. 11/02 states "feels pretty good" but has intermit abd pain, N, 11/24 Pain hasimproved and does have intermittant pain but is tolerable. "Nothing like I was having" minimal pain. 12/11 increased abd pain 12/17 minimal pain. 12/26 Minimal pain 02/11 "pain is improvimg. I'm trying really hard to be optimistic" 03/12 No pain. Scheduled Follow-Up with Provi: Yes (02/05 OR on 02/07 for appy and choli. 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 checking ketones, having antiemetic available, standing order for fluids at [facility] Following Discharge Instructio: Yes TCM Discharge Criteria Medication Knowledge: 11/24 went over medications. Disease Management/Concern/Wha: s/s hypoglycemia with poor po intake 11/24 went over red flags of hypo/hyperglycemia and he states he is aware as he has been a diabetic for a long time. Transitional Care Comment: 10/25 Initial contact, he was very upset by the letter from the hospital, "I am being treated like some kind of druggy". After talking through that, we discussed his medical issues, and the current plans for diagnosis and treatment. I explained the transitional care role, and he was grateful. He is agreeable to follow up calls. I let him know we would call after his next appt with Dr Alarcon on 10/31, and provided our office number if he has questions. 11/01 Unable to contact X2 attempts. 2/2 states been a DM since `13yo. know s/s low bs and management. review info for gastroparesis to include frequent small meals/intake, blended foods. 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 He has procedures scheduled for 11/12. I will call him on 11/13 to follow up. 11/13 Unable to contact. 11/22 unable to contact 11/24 states he's " doing pretty good" pain is tolerable. Doesn't see Dr until December 12. Enc him to call Dr Schwab if he has any quetions. 12/01 Blood sugars stable, reduced pain and nausea, no vomiting. 12/08 still with abd pain but considerably less, will f/u 12/11 with Josselin for further tx. BS 300 to 67 today; took insulin this am but then unable to eat. Is drinking ensure now and without nausea. reports was feeling better and more stable until hi bs today 12/11 reports still nauseated and vomiting with attempts even to drink water. he has cont. pain. Gave him number for Dorian and enc to call today for sick day appt to be seen in clinic since he doesn't think he can go to ER. Asked him if he knew the pot inceasednausea and vomiting like the ER MD told him and he stated it helped him much more than the meds he was given. 12/17 He is doing well, minimal N/V. Hida scan scheduled for tomorrow. 12/26 Minimal symptoms, trying gluten free diet, I educated him on dietary changes affecting blood sugar, he will be vigilant. 01/07 Symptoms persist. Will consider cholecystectomy at next visit to Josselin if sx not improved.Having low BS sincenot able to eat a lot and doing clear liquids.States taking protonix and carafate. Will make appt with BIKE TECHNICIAN to discuss a sick day plan to avoid ER when symptoms recurr. 01/14 N/V manageable with PRN meds. He is abstaining from Marijuana for 30 days to see if it affects his symptoms. He is eager for his appt with Dr Schwab on 01/28, feeling answers and a successful plan are coming. We reviewed a gluten free diet. 01/[address] Mercado yesterday and has an appt to have GB and Appendex removed on 02/07. He's feeling relieved and hopeful that will be the answer to his abd px. He is 1 wk without marjaunia but states he doesn't really notice any difference but he's ok with out it. Encouraged him to stay on the gluten free diet until past surgery and talking with Dr Miranda again. He was agreeable to that 02/05 Following his diet and abstaining from marijuana, minimal N/V and pain. He is having his GB and appendix removed on 02/07. 02/11 "Had a little rough start past OR but I think I'm improving at this time. Trying to eat soft frequent small amounts of meals" "Still not using marjiania_doing OK" 02/18 states nausea is rare and is eating better. BS 200's but will not try to control bettter until nausea is resolved to avoid hypoglycemic episodes. Will f/u after his next procedures. 05 feeling much improved rare pain and minimal nausea. Has cut down on Marijauna use to just a little about once a week. Will cont to follow up until after March ericka louise Dr. 03/12 He is doing well, I will call him on Sunday to answer any questions about his Dr sanchez, and if things are going well, discharge him. I discussed this plan with him, and he is agreeable. MATTY PEACOCK Mar 12, 2018 14:02
[2018-03-15] MEDS ORDERED: ONDA4TAB PO (16:39)
[2018-03-18] MEDS ORDERED: ONDA4TAB PO (14:52)
--- NOTE | 2018-03-19 14:05 | Transitional Care Management ---
Assessment Visit Type: Telephone Visit Spoke with: Terrence Cardiac: WNL Respiratory: WNL GI: Nutrition: WNL Except GI Comment: 10/25 Continual nausea and abdominal pain. blood sugars are in the low 200's, which he states is where they usually run. 11/02 review A1C 8.9, not eating much, drinks broths and Ensure. had episode of low bs, felt multiple s/s and states he didn't eat much at hs . Suggest small meals, blended food, less fat. Denies soda etoh or smoking. Recomend he ask for diet consult if needed after testing 11/10 Pain and nausea have reduced since seeing Dr Schwab. He is able to eat more. 11/24 pain has decreased to tolerable. Has been able to tolerate his diabetic diet. 12/01 Reduced nausea, no vomiting. 12/08 Home on 25Unit of Lantus, states hes back on 38 Unit but has not seen MD. Woke up with BS 300 felt sick and vomiting. Denies sweets recently but getting over cold, no other s/s infection, took his insulin and islisandraw bobbyky with BS 67, will eat now. 12/11 Went to ER on 12/09 for hyperglycemia, abd pain. States he was still nauseated at nd and has been unable to eat since then. BS were less than 200 yesterday but he has vomiting even after just sips of water. Has EGD tomorrow with Josselin 12/17 minimal N/V after starting Protonix and carafate. He is able to eat small meals. 3.28 Minimal N/V. He will try a gluten free diet for the next 30 days, then see Dr Schwab on 01/28 to discuss options. 01/07 Was in ER 01/04 and states hes feeling better finally today. is still on clearsmostly and just taking meds. BS get as low as the 70's and he can feel this then drinks more carb fluids. review gluten free diet and restrictions; states he will follow this until f/u wt Josselin. 01/14 He was in the ER 01/09 for N/V. Symptoms have been manageable since. He is doing ok with the gluten free diet. Abstaining from marijuana for 30 days. F/U with Josselin on 01/28. 02/05 minimal N/V. 02/11 Pt had kat/appendectomy on 02/07 had been ER 2 post OR for NV but states he "has been feeling imporved the last several days and I hope to continue improving." 02/18 BS low 200's on average. Eating solids with occasional nausea 02/26 Nauses much improved-ocassional nausea. Bs staying pretty stable/eating fairly well-trying to stay from fatty and fried foods. 03/12 Occaisional N/V in the morning. 03/19 Has been in the ER 3 times in the last few days for ABD pain N/V. He attribites this to eating hotdogs. Wt Gain/Loss: WNL Weight Comment: 10/25 Losing weight, because he can't eat due to the nausea, and eating increases the pain. 11/10 He has gained 4 pounds in the last two weeks/ 11/24 maintaining weight. Has been eating and feels somewhat better. 12/08 able to eat more and is drinking more ensure as able. Constipation?: No : WNL Except Comment: 12/11 dark. 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 He is catious of them and moves safely. 02/11 "trying to increase activity, wasnt't feeling very the first couple of days d/t nausea but feeling somewhat better"02/26 Moving around al as he is trying to remodel a home Integumentary: WNL Feeling of Well Being: WNL Except Feeling of Well Being Comment: 10/25 He is very upset, says the hospital is treating him like "some kind of druggy". 11/10 "There is a light at the end of the tunnel, and it is getting brighter." He is very excited that improvements have been made in his symptoms. 12/11 states he feels so bad he doesn't know what to do. feels like he cant go back to ER 12/17 He is excited that progress in his diagnosis and treatment is being made. 01/07 frustrated he still has abd pain, NVD prn 02/05 Nervous about 02/07 procedure. 03/12 Happy with results after the surgery. 03/19 Is not discouraged by his ER visits and return of symptoms. Socialization: WNL Pain/Management: WNL Except Pain/Management Comment: 10/25 Abdominal pain is continual, and aggrevated by eating. 11/02 states "feels pretty good" but has intermit abd pain, N, 11/24 Pain hasimproved and does have intermittant pain but is tolerable. "Nothing like I was having" minimal pain. 12/11 increased abd pain 12/17 minimal pain. 12/26 Minimal pain 02/11 "pain is improvimg. I'm trying really hard to be optimistic" 03/12 No pain. Scheduled Follow-Up with Provi: Yes (03/[address] Alarcon on 03/20) Primary Care Provider Visits: Yes Questions for Future PCP Visit: 11/02 tx for gastroparesis, need for ui ux developer 01/07 Sick day plan for home to avoid ER, i.e. checking ketones, having antiemetic available, standing order for fluids at [facility] unit Following Discharge Instructio: Yes TCM Discharge Criteria Medication Knowledge: 11/24 went over medications. Disease Management/Concern/Wha: s/s hypoglycemia with poor po intake 11/24 went over red flags of hypo/hyperglycemia and he states he is aware as he has been a diabetic for a long time. Transitional Care Comment: 10/25 Initial contact, he was very upset by the letter from the hospital, "I am being treated like some kind of druggy". After talking through that, we discussed his medical issues, and the current plans for diagnosis and treatment. I explained the transitional care role, and he was grateful. He is agreeable to follow up calls. I let him know we would call after his next appt with Dr Alarcon on 10/31, and provided our office number if he has questions. 11/01 Unable to contact X2 attempts. 2/2 states been a DM since `13yo. know s/s low bs and management. review info for gastroparesis to include frequent small meals/intake, blended foods. 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 He has procedures scheduled for 11/12. I will call him on 11/13 to follow up. 11/13 Unable to contact. 11/22 unable to contact 11/24 states he's " doing pretty good" pain is tolerable. Doesn't see Dr until December 12. Enc him to call Dr Schwab if he has any quetions. 12/01 Blood sugars stable, reduced pain and nausea, no vomiting. 12/08 still with abd pain but considerably less, will f/u 12/11 with Josselin for further tx. BS 300 to 67 today; took insulin this am but then unable to eat. Is drinking ensure now and without nausea. reports was feeling better and more stable until hi bs today 12/11 reports still nauseated and vomiting with attempts even to drink water. he has cont. pain. Gave him number for Dorian and ivan to call today for sick day appt to be seen in clinic since he doesn't think he can go to ER. Asked him if he knew the pot inceasednausea and vomiting like the ER MD told him and he stated it helped him much more than the meds he was given. 12/17 He is doing well, minimal N/V. Hida scan scheduled for tomorrow. 12/26 Minimal symptoms, trying gluten free diet, I educated him on dietary changes affecting blood sugar, he will be vigilant. 01/07 Symptoms persist. Will consider cholecystectomy at next visit to [facility] if sx not improved.Having low BS sincenot able to eat a lot and doing clear liquids.States taking protonix and carafate. Will make appt with COMM[facility]ITY RELATIONS SPECIALIST to discuss a sick day plan to avoid ER when symptoms recurr. 01/14 N/V manageable with PRN meds. He is abstaining from Marijuana for 30 days to see if it affects his symptoms. He is eager for his appt with Dr Schwab on 01/28, feeling answers and a successful plan are coming. We reviewed a gluten free diet. 01/[address] Mercado yesterday and has an appt to have GB and Appendex removed on 02/07. He's feeling relieved and hopeful that will be the answer to his abd px. He is 1 wk without marjaunia but states he doesn't really notice any difference but he's ok with out it. Encouraged him to stay on the gluten free diet until past surgery and talking with Dr Miranda again. He was agreeable to that 02/05 Following his diet and abstaining from marijuana, minimal N/V and pain. He is having his GB and appendix removed on 02/07. 02/11 "Had a little rough start past OR but I think I'm improving at this time. Trying to eat soft frequent small amounts of meals" "Still not using marjiania_doing OK" 02/18 states nausea is rare and is eating better. BS 200's but will not try to control bettter until nausea is resolved to avoid hypoglycemic episodes. Will f/u after his next procedures. 528 feeling much improved rare pain and minimal nausea. Has cut down on Marijauna use to just a little about once a week. Will cont to follow up until after March ericka louise Dr. 03/12 He is doing well, I will call him on Sunday to answer any questions about his Dr sanchez, and if things are going well, discharge him. I discussed this plan with him, and he is agreeable. 03/18 He is in the ER at the moment. 03/19 He has been to the ER three times in the last few days, which he attributes to a meal of hotdogs. I reinforced the need to avoid fatty foods. He sees Dr Alarcon on 03/20. MATTY PEACOCK Mar 19, 2018 14:05
--- NOTE | 2018-03-26 13:41 | Transitional Care Management ---
Assessment Visit Type: Telephone Visit (03/26) Cardiac: WNL Respiratory: WNL GI: Nutrition: WNL Except GI Comment: 10/25 Continual nausea and abdominal pain. blood sugars are in the low 200's, which he states is where they usually run. 11/02 review A1C 8.9, not eating much, drinks broths and Ensure. had episode of low bs, felt multiple s/s and states he didn't eat much at hs . Suggest small meals, blended food, less fat. Denies soda etoh or smoking. Recomend he ask for diet consult if needed after testing 11/10 Pain and nausea have reduced since seeing Dr Schwab. He is able to eat more. 11/24 pain has decreased to tolerable. Has been able to tolerate his diabetic diet. 12/01 Reduced nausea, no vomiting. 12/08 Home on 25Unit of Lantus, states hes back on 38 Unit but has not seen MD. Woke up with BS 300 felt sick and vomiting. Denies sweets recently but getting over cold, no other s/s infection, took his insulin and isannette martell with BS 67, will eat now. 12/11 Went to ER on 12/09 for hyperglycemia, abd pain. States he was still nauseated at wa and has been unable to eat since then. BS were less than 200 yesterday but he has vomiting even after just sips of water. Has EGD tomorrow with Josselin 12/17 minimal N/V after starting Protonix and carafate. He is able to eat small meals. 3.28 Minimal N/V. He will try a gluten free diet for the next 30 days, then see Dr Schwab on 01/28 to discuss options. 01/07 Was in ER 01/04 and states hes feeling better finally today. is still on clearsmostly and just taking meds. BS get as low as the 70's and he can feel this then drinks more carb fluids. review gluten free diet and restrictions; states he will follow this until f/u wt Josselin. 01/14 He was in the ER 01/09 for N/V. Symptoms have been manageable since. He is doing ok with the gluten free diet. Abstaining from marijuana for 30 days. F/U with Josselin on 01/28. 02/05 minimal N/V. 02/11 Pt had kat/appendectomy on 02/07 had been ER 2 post OR for NV but states he "has been feeling imporved the last several days and I hope to continue improving." 02/18 BS low 200's on average. Eating solids with occasional nausea 02/26 Nauses much improved-ocassional nausea. Bs staying pretty stable/eating fairly well-trying to stay from fatty and fried foods. 03/12 Occaisional N/V in the morning. 03/19 Has been in the ER 3 times in the last few days for ABD pain N/V. He attribites this to eating hotdogs. 03/26 feeling better. Feels he knows a this time he needs to avoid fatty foods. Has an appointment with Nutrionist at [facility] on April 01 for some nutrion counciling. Wt Gain/Loss: WNL Weight Comment: 10/25 Losing weight, because he can't eat due to the nausea, and eating increases the pain. 11/10 He has gained 4 pounds in the last two weeks/ 11/24 maintaining weight. Has been eating and feels somewhat better. 12/08 able to eat more and is drinking more ensure as able. 03.26 trys to drink Ensure more freq to get protiens Constipation?: No : WNL Except Comment: 12/11 dark. 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 He is catious of them and moves safely. 02/11 "trying to increase activity, wasnt't feeling very the first couple of days d/t nausea but feeling somewhat better"02/26 Moving around alot as he is trying to remodel a home 03/26 continues to work on his home as he can and walks and does other activities to try and stay in shape Integumentary: WNL Feeling of Well Being: WNL Except Feeling of Well Being Comment: 10/25 He is very upset, says the hospital is treating him like "some kind of druggy". 11/10 "There is a light at the end of the tunnel, and it is getting brighter." He is very excited that improvements have been made in his symptoms. 12/11 states he feels so bad he doesn't know what to do. feels like he cant go back to ER 12/17 He is excited that progress in his diagnosis and treatment is being made. 01/07 frustrated he still has abd pain, NVD prn 02/05 Nervous about 02/07 procedure. 03/12 Happy with results after the surgery. 03/19 Is not discouraged by his ER visits and return of symptoms. Socialization: WNL Pain/Management: WNL Except Pain/Management Comment: 10/25 Abdominal pain is continual, and aggrevated by eating. 11/02 states "feels pretty good" but has intermit abd pain, N, 11/24 Pain hasimproved and does have intermittant pain but is tolerable. "Nothing like I was having" minimal pain. 12/11 increased abd pain 12/17 minimal pain. 12/26 Minimal pain 02/11 "pain is improvimg. I'm trying really hard to be optimistic" 03/12 No pain. 03/26 no pain Scheduled Follow-Up with Provi: Yes (03/[address] Alarcon on 03/20. 03/26 saw Miguel on 03/20 and she referred him to Dr Nneka dudley 04/05) Primary Care Provider Visits: Yes Questions for Future PCP Visit: 11/02 tx for gastroparesis, need for red leader 01/07 Sick day plan for home to avoid ER, i.e. checking ketones, having antiemetic available, standing order for fluids at [facility] Following Discharge Instructio: Yes TCM Discharge Criteria Medication Knowledge: 11/24 went over medications. Disease Management/Concern/Wha: s/s hypoglycemia with poor po intake 11/24 went over red flags of hypo/hyperglycemia and he states he is aware as he has been a diabetic for a long time. 03/26 went over red/yellow flags and he feels like he is doing ok w diabetes. Transitional Care Comment: +10/25 Initial contact, he was very upset by the letter from the hospital, "I am being treated like some kind of druggy". After talking through that, we discussed his medical issues, and the current plans for diagnosis and treatment. I explained the transitional care role, and he was grateful. He is agreeable to follow up calls. I let him know we would call after his next appt with Dr Alarcon on 10/31, and provided our office number if he has questions. 11/01 Unable to contact X2 attempts. 11/02 states been a DM since `13yo. know s/s low bs and management. review info for gastroparesis to include frequent small meals/intake, blended foods. 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 He has procedures scheduled for 11/12. I will call him on 11/13 to follow up. 11/13 Unable to contact. 11/22 unable to contact 11/24 states he's " doing pretty good" pain is tolerable. Doesn't see Dr until December 12. Enc him to call Dr Schwab if he has any quetions. 12/01 Blood sugars stable, reduced pain and nausea, no vomiting. 12/08 still with abd pain but considerably less, will f/u 12/11 with Josselin for further tx. BS 300 to 67 today; took insulin this am but then unable to eat. Is drinking ensure now and without nausea. reports was feeling better and more stable until hi bs today 12/11 reports still nauseated and vomiting with attempts even to drink water. he has cont. pain. Gave him number for Dorian and ivan to call today for sick day appt to be seen in clinic since he doesn't think he can go to ER. Asked him if he knew the pot inceasednausea and vomiting like the ER MD told him and he stated it helped him much more than the meds he was given. 12/17 He is doing well, minimal N/V. Hida scan scheduled for tomorrow. 12/26 Minimal symptoms, trying gluten free diet, I educated him on dietary changes affecting blood sugar, he will be vigilant. 01/07 Symptoms persist. Will consider cholecystectomy at next visit to Josselin if sx not improved.Having low BS sincenot able to eat a lot and doing clear liquids.States taking protonix and carafate. Will make appt with MACHINE PACKAGER to discuss a sick day plan to avoid ER when symptoms recurr. 01/14 N/V manageable with PRN meds. He is abstaining from Marijuana for 30 days to see if it affects his symptoms. He is eager for his appt with Dr Schwab on 01/28, feeling answers and a successful plan are coming. We reviewed a gluten free diet. 01/[address] Mercado yesterday and has an appt to have GB and Appendex removed on 02/07. He's feeling relieved and hopeful that will be the answer to his abd px. He is 1 wk without marjaunia but states he doesn't really notice any difference but he's ok with out it. Encouraged him to stay on the gluten free diet until past surgery and talking with Dr Miranda again. He was agreeable to that 02/05 Following his diet and abstaining from marijuana, minimal N/V and pain. He is having his GB and appendix removed on 02/07. 02/11 "Had a little rough start past OR but I think I'm improving at this time. Trying to eat soft frequent small amounts of meals" "Still not using marjiania_doing OK" 02/18 states nausea is rare and is eating better. BS 200's but will not try to control bettter until nausea is resolved to avoid hypoglycemic episodes. Will f/u after his next procedures. 528 feeling much improved rare pain and minimal nausea. Has cut down on Marijauna use to just a little about once a week. Will cont to follow up until after March ericka louise Dr. 03/12 He is doing well, I will call him on Sunday to answer any questions about his Dr sanchez, and if things are going well, discharge him. I discussed this plan with him, and he is agreeable. 03/18 He is in the ER at the moment. 03/19 He has been to the ER three times in the last few days, which he attributes to a meal of hotdogs. I reinforced the need to avoid fatty foods. He sees Dr Alarcon on 03/20 03/26 Pt feels improved. Saw Dorian MACHINE PACKAGER and she referred him to DR Aubrey louise appt on 04/05. He also has an appt to see a nutrionist in [facility] on 04/01 and looking forward to learning more about diet and make some plans. . Copies to: ESA EMERY MD, JOAN Mar 26, 2018 13:41
[2018-04-04] MEDS ORDERED: INSU100I30 SUBQ (13:13)
[2018-04-04] MEDS ORDERED: LISI5TAB25 PO (13:23)
--- NOTE | 2018-04-11 14:10 | Transitional Care Management ---
Assessment Visit Type: Telephone Visit (04/11 Trev) Cardiac: WNL Respiratory: WNL GI: Nutrition: WNL Except GI Comment: 10/25 Continual nausea and abdominal pain. blood sugars are in the low 200's, which he states is where they usually run. 11/02 review A1C 8.9, not eating much, drinks broths and Ensure. had episode of low bs, felt multiple s/s and states he didn't eat much at hs . Suggest small meals, blended food, less fat. Denies soda etoh or smoking. Recomend he ask for diet consult if needed after testing 11/10 Pain and nausea have reduced since seeing Dr Schwab. He is able to eat more. 11/24 pain has decreased to tolerable. Has been able to tolerate his diabetic diet. 12/01 Reduced nausea, no vomiting. 12/08 Home on 25Unit of Lantus, states hes back on 38 Unit but has not seen MD. Woke up with BS 300 felt sick and vomiting. Denies sweets recently but getting over cold, no other s/s infection, took his insulin and islisandraw bobbyky with BS 67, will eat now. 12/11 Went to ER on 12/09 for hyperglycemia, abd pain. States he was still nauseated at [place] and has been unable to eat since then. BS were less than 200 yesterday but he has vomiting even after just sips of water. Has EGD tomorrow with Josselin 12/17 minimal N/V after starting Protonix and carafate. He is able to eat small meals. 3.28 Minimal N/V. He will try a gluten free diet for the next 30 days, then see Dr Schwab on 01/28 to discuss options. 01/07 Was in ER 01/04 and states hes feeling better finally today. is still on clearsmostly and just taking meds. BS get as low as the 70's and he can feel this then drinks more carb fluids. review gluten free diet and restrictions; states he will follow this until f/u wt Josselin. 01/14 He was in the ER 01/09 for N/V. Symptoms have been manageable since. He is doing ok with the gluten free diet. Abstaining from marijuana for 30 days. F/U with Josselin on 01/28. 02/05 minimal N/V. 02/11 Pt had kat/appendectomy on 02/07 had been ER 2 post OR for NV but states he "has been feeling imporved the last several days and I hope to continue improving." 02/18 BS low 200's on average. Eating solids with occasional nausea 02/26 Nauses much improved-ocassional nausea. Bs staying pretty stable/eating fairly well-trying to stay from fatty and fried foods. 03/12 Occaisional N/V in the morning. 03/19 Has been in the ER 3 times in the last few days for ABD pain N/V. He attribites this to eating hotdogs. 03/26 feeling better. Feels he knows a this time he needs to avoid fatty foods. Has an appointment with Nutrionist at [facility] on April 01 for some nutrion counciling. Wt Gain/Loss: WNL Weight Comment: 10/25 Losing weight, because he can't eat due to the nausea, and eating increases the pain. 11/10 He has gained 4 pounds in the last two weeks/ 11/24 maintaining weight. Has been eating and feels somewhat better. 12/08 able to eat more and is drinking more ensure as able. 03.26 trys to drink Ensure more freq to get protiens 04/11 trying to eat 6 sm meals a day and doing pretty well with that and Ensur Constipation?: No : WNL Except Comment: 12/11 dark. 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 He is catious of them and moves safely. 02/11 "trying to increase activity, wasnt't feeling very the first couple of days d/t nausea but feeling somewhat better"02/26 Moving around alot as he is trying to remodel a home 03/26 continues to work on his home as he can and walks and does other activities to try and stay in shape 04/11 remodling home and feels like he is imroving in his strength. Integumentary: WNL Feeling of Well Being: WNL Except Feeling of Well Being Comment: 10/25 He is very upset, says the hospital is treating him like "some kind of druggy". 11/10 "There is a light at the end of the tunnel, and it is getting brighter." He is very excited that improvements have been made in his symptoms. 12/11 states he feels so bad he doesn't know what to do. feels like he cant go back to ER 12/17 He is excited that progress in his diagnosis and treatment is being made. 01/07 frustrated he still has abd pain, NVD prn 02/05 Nervous about 02/07 procedure. 03/12 Happy with results after the surgery. 03/19 Is not discouraged by his ER visits and return of symptoms. Socialization: WNL Pain/Management: WNL Except Pain/Management Comment: 10/25 Abdominal pain is continual, and aggrevated by eating. 11/02 states "feels pretty good" but has intermit abd pain, N, 11/24 Pain hasimproved and does have intermittant pain but is tolerable. "Nothing like I was having" minimal pain. 12/11 increased abd pain 12/17 minimal pain. 12/26 Minimal pain 02/11 "pain is improvimg. I'm trying really hard to be optimistic" 03/12 No pain. 03/26 no pain Scheduled Follow-Up with Provi: Yes (03/[address] Alarcon on 03/20. 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 checking ketones, having antiemetic available, standing order for fluids at [facility] Following Discharge Instructio: Yes TCM Discharge Criteria Medication Knowledge: 11/24 went over medications. Disease Management/Concern/Wha: s/s hypoglycemia with poor po intake 11/24 went over red flags of hypo/hyperglycemia and he states he is aware as he has been a diabetic for a long time. 03/26 went over red/yellow flags and he feels like he is doing ok w diabetes. Transitional Care Comment: +10/25 Initial contact, he was very upset by the letter from the hospital, "I am being treated like some kind of druggy". After talking through that, we discussed his medical issues, and the current plans for diagnosis and treatment. I explained the transitional care role, and he was grateful. He is agreeable to follow up calls. I let him know we would call after his next appt with Dr Alarcon on 10/31, and provided our office number if he has questions. 11/01 Unable to contact X2 attempts. 11/02 states been a DM since `13yo. know s/s low bs and management. review info for gastroparesis to include frequent small meals/intake, blended foods. 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 He has procedures scheduled for 11/12. I will call him on 11/13 to follow up. 11/13 Unable to contact. 11/22 unable to contact 11/24 states he's " doing pretty good" pain is tolerable. Doesn't see Dr until December 12. Enc him to call Dr Schwab if he has any quetions. 12/01 Blood sugars stable, reduced pain and nausea, no vomiting. 12/08 still with abd pain but considerably less, will f/u 12/11 with Josselin for further tx. BS 300 to 67 today; took insulin this am but then unable to eat. Is drinking ensure now and without nausea. reports was feeling better and more stable until hi bs today 12/11 reports still nauseated and vomiting with attempts even to drink water. he has cont. pain. Gave him number for Dorian and ivan to call today for sick day appt to be seen in clinic since he doesn't think he can go to ER. Asked him if he knew the pot inceasednausea and vomiting like the ER MD told him and he stated it helped him much more than the meds he was given. 12/17 He is doing well, minimal N/V. Hida scan scheduled for tomorrow. 12/26 Minimal symptoms, trying gluten free diet, I educated him on dietary changes affecting blood sugar, he will be vigilant. 01/07 Symptoms persist. Will consider cholecystectomy at next visit to Josselin if sx not improved.Having low BS sincenot able to eat a lot and doing clear liquids.States taking protonix and carafate. Will make appt with WATER TRAINER to discuss a sick day plan to avoid ER when symptoms recurr. 01/14 N/V manageable with PRN meds. He is abstaining from Marijuana for 30 days to see if it affects his symptoms. He is eager for his appt with Dr Schwab on 01/28, feeling answers and a successful plan are coming. We reviewed a gluten free diet. 01/[address] Mercado yesterday and has an appt to have GB and Appendex removed on 02/07. He's feeling relieved and hopeful that will be the answer to his abd px. He is 1 wk without marjaunia but states he doesn't really notice any difference but he's ok with out it. Encouraged him to stay on the gluten free diet until past surgery and talking with Dr Miranda again. He was agreeable to that 02/05 Following his diet and abstaining from marijuana, minimal N/V and pain. He is having his GB and appendix removed on 02/07. 02/11 "Had a little rough start past OR but I think I'm improving at this time. Trying to eat soft frequent small amounts of meals" "Still not using marjiania_doing OK" 02/18 states nausea is rare and is eating better. BS 200's but will not try to control bettter until nausea is resolved to avoid hypoglycemic episodes. Will f/u after his next procedures. 528 feeling much improved rare pain and minimal nausea. Has cut down on Marijauna use to just a little about once a week. Will cont to follow up until after March ericka louise Dr. 03/12 He is doing well, I will call him on Sunday to answer any questions about his Dr sanchez, and if things are going well, discharge him. I discussed this plan with him, and he is agreeable. 03/18 He is in the ER at the moment. 03/19 He has been to the ER three times in the last few days, which he attributes to a meal of hotdogs. I reinforced the need to avoid fatty foods. He sees Dr Alarcon on 03/20 03/26 Pt feels improved. Saw Dorian MARK and she referred him to DR Aubrey louise appt on 04/05. He also has an appt to see a nutrionist in [facility] on 04/01 and looking forward to learning more about diet and make some plans. 04/11 Folling up w Drs as ordered and feels like he is improving. Will DC from program as he is doing better at this time.. DEVANTE SANABRIA Apr 11, 2018 14:10
== END 2018-04-16 07:10 | disposition home or self-care (01) ==
LOC: TCM 08:00
PROVIDERS: ATTEND Nurse Practitioner
DX: Z02.9 Encounter for administrative examinations, unspecified (principal)

== ENCOUNTER → 2017-11-12 | Outpatient (CLI) | payer MEDICARE, MEDICAID ==
[2017-10-02 08:32] VITALS: BMI 17.4
[~2017-11-12] MED LIST changes: +BARIUM SULFATE 176 GM BTL PO ONE; +BARIUM SULFATE 340 GM POWD ONE
--- NOTE | 2017-11-12 13:11 | RADIOLOGY IMAGING REPORT ---
FACILITY: [facility] - [place] PATIENT NAME: Terrence Carson : 1985 MR: [id number] V: [id number] EXAM DATE: ORDERING PHYSICIAN: BRANDY YATES TECHNOLOGIST: Location: [facility] Patient: Terrence Carson : 1985 Visit/Account:[id number] Date of Sevice: 11/12/2017 Limited abdominal ultrasound HISTORY: Abdominal pain COMPARISON: None. FINDINGS: Gallbladder: Negative.. Bile ducts: There is no biliary ductal dilation with the CBD measuring 2 mm. Liver: Negative. Pancreas: Negative. Right kidney: Negative. Upper abdominal aorta and IVC: Patent. Ascites: None visualized. Other findings: None significant IMPRESSION: 1. Normal Report Dictated By: Stevenson Marino MD at 11/12/2017 1:06 PM Report E-Signed By: Stevenson Marino MD at 11/12/2017 1:07 PM WSN:[email or web address]
--- NOTE | 2017-11-12 15:01 | RADIOLOGY IMAGING REPORT ---
FACILITY: [facility] - [place] PATIENT NAME: Terrence Carson : 1985 MR: [id number] V: [id number] EXAM DATE: ORDERING PHYSICIAN: BRANDY YATES TECHNOLOGIST: Location: [facility] [place] Patient: Terrence Carson : 1985 Visit/Account:[id number] Date of Sevice: 11/12/2017 UPPER GI W/SMALL BOWEL SERIES HISTORY: Nausea, vomiting, diarrhea COMPARISON: None TECHNIQUE: Fizzies followed by multiple consistencies of barium were administered orally with multipl e spot films obtained. A 13 mm barium tablet also administered. FINDINGS: A preliminary film of the abdomen reveals a nonobstructive bowel gas pattern. Esophagus: The esophagus is normal in caliber and contour with no persistent intrinsic or extrinsic f illing defects. There are no persistent areas of narrowing. Hiatal hernia: There is no significant hiatal hernia. Reflux: There are no significant episodes of gastroesophageal reflux. Stomach: The stomach distends normally with contrast with no contour abnormalities. There is no evide nce of gastric outlet obstruction. Duodenum: The duodenal bulb distends normally with contrast with a normal mucosal pattern. Small bowel: There is a 75 minute transit time through the small bowel. All of the visualized small b owel loops exhibit normal caliber and contour. No abnormal separation of small bowel loops. The termi nal ileum is seen on spot films and is normal. Other findings: None significant Dose area product of 680 uGym2 IMPRESSION: 1. Normal upper GI and small bowel follow-through Report Dictated By: Stevenson Marino MD at 11/12/2017 2:54 PM Report E-Signed By: Stevenson Marino MD at 11/12/2017 2:57 PM WSN:[email or web address]
== END ==
LOC: RAD 01:09
PROVIDERS: ATTEND Surgery
DX: R10.9 Unspecified abdominal pain (principal); R14.0 Abdominal distension (gaseous); R11.0 Nausea
CPT/HCPCS: 74245; 76705

== ENCOUNTER 2017-11-15 11:03 | Emergency (ER) | payer MEDICARE, MEDICAID ==
[2017-10-02 08:32] VITALS: Ht 172.7 cm; Wt 58.1 kg
[~2017-11-15] VITALS: Ht 172.7 cm; Wt 58.1 kg
[~2017-11-15 11:03] MED LIST changes: -BARIUM SULFATE 176 GM BTL PO ONE; -BARIUM SULFATE 340 GM POWD ONE
--- NOTE | 2017-11-15 11:13 | ER Report ---
History and Physical Time Seen By MD: 11:13 Hx. of Stated Complaint: STARTED VOMITING THIS AM HPI/ROS CHIEF COMPLAINT: Vomiting HISTORY OF PRESENT ILLNESS: 32-year-old male patient present to emergency room with complaint of vomiting. Patient is well-known here in the emergency room with this complaint. Patient states that he been doing really well. He states that yesterday he ate some chicken as well as some rice. States he woke up this morning proximal a clock that he was very sick to stomach. He states he is unable keep anything down. He states that he's tried drinking some fluids but was unable to keep water down even. Patient denies having any fevers but states that he's been chilled. States he does have generalized body aches. He states that he did try taking his Reglan as well as his Zofran all with no relief. REVIEW OF SYSTEMS: Respiratory: No cough, no dyspnea. Cardiovascular: No chest pain, no palpitations. Gastrointestinal: As noted above Musculoskeletal: No back pain. Allergies: Coded Allergies: acetaminophen (Verified Allergy, Unknown, 11/15/17) hydrocodone (Verified Allergy, Unknown, 11/15/17) oxycodone (Verified Allergy, Unknown, 11/15/17) Uncoded Allergies: beestings (Adverse Reaction, Unknown, 08/11/17) Home Meds Active Scripts Promethazine Hcl (PROMETHAZINE HCL) 25 Mg Tablet, 25 MG PO Q8H Y for NAUSEA/ VOMITING, #12 TAB Prov:ELIZABETH CONNORS [facility] 11/15/17 Metoclopramide Hcl (METOCLOPRAMIDE HCL) 10 Mg Tablet, 10 MG PO QID Y for NAUSEA/ VOMITING, #40 TAB 0 Refills Prov:GALE KLEIN [facility], SERVICES EXECUTIVE-BC 10/16/17 Ondansetron (ZOFRAN ODT) 4 Mg Tab.rapdis, 4 MG PO Q6H Y for NAUSEA/VOMITING, # 10 TAB.JANIE Prov:NOELLE DE LA CRUZ DO 10/07/17 Reported Medications Insulin Lispro (HUMALOG) 100 Unit/1 Ml Vial, 0 SQ Y for SLIDING SCALE INSULIN, VIAL takes Humalog Insulin at Home as per SS 10/02/17 Insulin Glargine (LANTUS) 100 Unit/Ml Soln, 34 UNIT SUBQ QDAY, ML MIDMORNING 10/02/17 Gabapentin (GABAPENTIN) 300 Mg Capsule, 300 MG PO TID, CAPSULE 08/11/17 Past Medical/Surgical History Patient has a past medical history of gastroparesis, diabetes, marijuana abuse. Patient has surgical history of right hand surgery. Reviewed Nurses Notes: Yes Hx Smoking: Yes Smoking Status: Former Smoker Hx Substance Use Disorder: No Hx Alcohol Use: No Constitutional Vital Sign - Last 24 Hours 11/15/17 11/15/17 11/15/17 11/15/17 11:08 11:09 11:30 12:00 Temp 97.6 Pulse 104 Resp 22 B/P (MAP) 95/73 95/73 (80) 153/107 (122) 160/106 (124) Pulse Ox 97 O2 Delivery Room Air 11/15/17 11/15/17 11/15/17 11/15/17 12:03 12:43 12:44 13:00 Pulse 95 B/P (MAP) 168/112 (130) 163/107 (125) 151/108 (122) Pulse Ox 91 11/15/17 11/15/17 11/15/17 11/15/17 13:05 13:34 13:35 14:00 Pulse ??? 106 B/P (MAP) 153/108 (123) 171/112 (131) Pulse Ox 99 11/15/17 11/15/17 11/15/17 11/15/17 14:05 14:30 15:00 15:05 Pulse 104 109 B/P (MAP) 161/100 (120) 144/95 (111) Pulse Ox 94 94 11/15/17 11/15/17 11/15/17 11/15/17 15:35 16:05 16:10 17:10 Pulse 105 111 101 105 Pulse Ox 94 97 94 92 11/15/17 11/15/17 17:15 18:53 Pulse 108 B/P (MAP) 152/62 (92) Pulse Ox 97 Intake and Output 11/15/17 11/15/17 11/16/17 15:00 23:00 07:00 Intake Total 1000 ml 1000 ml Balance 1000 ml 1000 ml Physical Exam General Appearance: The patient is alert, has no immediate need for airway protection and no current signs of toxicity. Respiratory: Chest is non tender, lungs are clear to auscultation. Cardiac: regular rate and rhythm Gastrointestinal: Abdomen is soft and mildly tender throughout, no masses, bowel sounds normal. Musculoskeletal: Neck: Neck is supple and non tender. Extremities have full range of motion and are non tender. Skin: No rashes or lesions. DIFFERENTIAL DIAGNOSIS: After history and physical exam differential diagnosis was considered for nausea and vomiting including but not limited to gastroenteritis, gastritis, appendicitis, and medication side effect. Medical Decision Making Data Points Result Diagram: 11/15/17 1120 11/15/17 1120 Laboratory Hematology Test 11/15/17 11:15 11/15/17 11:20 11/15/17 11:38 11/15/17 11:40 Influenza Virus Type A (PCR) Negative (NEGATIVE) Influenza Virus Type B (PCR) Negative (NEGATIVE) Red Blood Count 5.83 M/uL (4.00-5.60) Mean Corpuscular Volume 91.3 fL (80.0-96.0) Mean Corpuscular Hemoglobin 32.4 pg (26.0-33.0) Mean Corpuscular Hemoglobin Concent 35.4 g/dL (32.0-36.0) Red Cell Distribution Width 12.8 % (11.5-14.5) Mean Platelet Volume 8.1 fL (7.2-11.1) Neutrophils (%) (Auto) 77.3 % (39.4-72.5) Lymphocytes (%) (Auto) 15.8 % (17.6-49.6) Monocytes (%) (Auto) 5.0 % (4.1-12.4) Eosinophils (%) (Auto) 0.8 % (0.4-6.7) Basophils (%) (Auto) 1.1 % (0.3-1.4) Nucleated RBC Relative Count (auto) 0.1 /100WBC Neutrophils # (Auto) 7.3 K/uL (2.0-7.4) Lymphocytes # (Auto) 1.5 K/uL (1.3-3.6) Monocytes # (Auto) 0.5 K/uL (0.3-1.0) Eosinophils # (Auto) 0.1 K/uL (0.0-0.5) Basophils # (Auto) 0.1 K/uL (0.0-0.1) Nucleated RBC Absolute Count (auto) 0.01 K/uL Sodium Level 140 mmol/L (137-145) Potassium Level 4.3 mmol/L (3.5-5.0) Chloride Level 100 mmol/L (98-107) Carbon Dioxide Level 23 mmol/L (22-30) Blood Urea Nitrogen 13 mg/dl (9-21) Creatinine 0.70 mg/dl (0.66-1.25) Glomerular Filtration Rate Calc > 60.0 Random Glucose 303 mg/dl (75-110) Osmolality 301 mOSM/K (275-295) Calcium Level 10.2 mg/dl (8.4-10.2) Total Bilirubin 1.1 mg/dl (0.2-1.3) Aspartate Amino Transf (AST/SGOT) 24 U/L (0-35) Alanine Aminotransferase (ALT/SGPT) 48 U/L (0-56) Alkaline Phosphatase 100 U/L (0-126) Total Protein 8.1 gm/dl (6.3-8.2) Albumin 4.8 g/dl (3.5-5.0) Acetone, Qualitative Negative Urine Color Yellow Urine Clarity Clear Urine pH 6.0 pH (4.8-9.5) Urine Specific Tatums 1.036 Urine Protein 100 mg/dL (NEGATIVE) Urine Glucose (UA) 500 mg/dL (NEGATIVE) Urine Ketones 20 mg/dL (NEGATIVE) Urine Blood Small (NEGATIVE) Urine Nitrite Negative (NEGATIVE) Urine Bilirubin Negative (NEGATIVE) Urine Urobilinogen Negative mg/dL (0.2-1.9) Urine Leukocyte Esterase Negative (NEGATIVE) Urine RBC 4 /HPF (0-2/HPF) Urine WBC 2 /HPF (0-5/HPF) Urine Squamous Epithelial Cells None /LPF (</=FEW) Urine Bacteria Negative /HPF (NONE-FEW) Urine Mucus None /HPF (NONE-FEW) Blood Gas Puncture Site Right radial Blood Gas Patient Temperature 97.6 DEGREES Arterial Blood pH 7.42 (7.35-7.45) Arterial Blood Partial Pressure CO2 32 mmHg (32-37) Arterial Blood Partial Pressure O2 73 mmHg (60-80) Arterial Blood HCO3 21 mmol/L (20-26) Arterial Blood Oxygen Saturation 95 % (92-100) Arterial Blood Base Excess -4.0 mmol/L Boy Test Acceptable Oxygen Liters/Minute Room air Test 11/15/17 17:33 Whole Blood Glucose 113 mg/DL (75-110) Chemistry Test 11/15/17 11:15 11/15/17 11:20 11/15/17 11:38 11/15/17 11:40 Influenza Virus Type A (PCR) Negative (NEGATIVE) Influenza Virus Type B (PCR) Negative (NEGATIVE) White Blood Count 9.4 k/uL (4.5-11.0) Red Blood Count 5.83 M/uL (4.00-5.60) Hemoglobin 18.9 g/dL (14.0-18.0) Hematocrit 53.2 % (42.0-52.0) Mean Corpuscular Volume 91.3 fL (80.0-96.0) Mean Corpuscular Hemoglobin 32.4 pg (26.0-33.0) Mean Corpuscular Hemoglobin Concent 35.4 g/dL (32.0-36.0) Red Cell Distribution Width 12.8 % (11.5-14.5) Platelet Count 311 K/uL (150-450) Mean Platelet Volume 8.1 fL (7.2-11.1) Neutrophils (%) (Auto) 77.3 % (39.4-72.5) Lymphocytes (%) (Auto) 15.8 % (17.6-49.6) Monocytes (%) (Auto) 5.0 % (4.1-12.4) Eosinophils (%) (Auto) 0.8 % (0.4-6.7) Basophils (%) (Auto) 1.1 % (0.3-1.4) Nucleated RBC Relative Count (auto) 0.1 /100WBC Neutrophils # (Auto) 7.3 K/uL (2.0-7.4) Lymphocytes # (Auto) 1.5 K/uL (1.3-3.6) Monocytes # (Auto) 0.5 K/uL (0.3-1.0) Eosinophils # (Auto) 0.1 K/uL (0.0-0.5) Basophils # (Auto) 0.1 K/uL (0.0-0.1) Nucleated RBC Absolute Count (auto) 0.01 K/uL Glomerular Filtration Rate Calc > 60.0 Osmolality 301 mOSM/K (275-295) Calcium Level 10.2 mg/dl (8.4-10.2) Total Bilirubin 1.1 mg/dl (0.2-1.3) Aspartate Amino Transf (AST/SGOT) 24 U/L (0-35) Alanine Aminotransferase (ALT/SGPT) 48 U/L (0-56) Alkaline Phosphatase 100 U/L (0-126) Total Protein 8.1 gm/dl (6.3-8.2) Albumin 4.8 g/dl (3.5-5.0) Acetone, Qualitative Negative Urine Color Yellow Urine Clarity Clear Urine pH 6.0 pH (4.8-9.5) Urine Specific Tatums 1.036 Urine Protein 100 mg/dL (NEGATIVE) Urine Glucose (UA) 500 mg/dL (NEGATIVE) Urine Ketones 20 mg/dL (NEGATIVE) Urine Blood Small (NEGATIVE) Urine Nitrite Negative (NEGATIVE) Urine Bilirubin Negative (NEGATIVE) Urine Urobilinogen Negative mg/dL (0.2-1.9) Urine Leukocyte Esterase Negative (NEGATIVE) Urine RBC 4 /HPF (0-2/HPF) Urine WBC 2 /HPF (0-5/HPF) Urine Squamous Epithelial Cells None /LPF (</=FEW) Urine Bacteria Negative /HPF (NONE-FEW) Urine Mucus None /HPF (NONE-FEW) Blood Gas Puncture Site Right radial Blood Gas Patient Temperature 97.6 DEGREES Arterial Blood pH 7.42 (7.35-7.45) Arterial Blood Partial Pressure CO2 32 mmHg (32-37) Arterial Blood Partial Pressure O2 73 mmHg (60-80) Arterial Blood HCO3 21 mmol/L (20-26) Arterial Blood Oxygen Saturation 95 % (92-100) Arterial Blood Base Excess -4.0 mmol/L Boy Test Acceptable Oxygen Liters/Minute Room air Test 11/15/17 17:33 Whole Blood Glucose 113 mg/DL (75-110) Toxicology Test 11/15/17 11:20 Acetone, Qualitative Negative Urinalysis Test 11/15/17 11:38 Urine Color Yellow Urine Clarity Clear Urine pH 6.0 pH (4.8-9.5) Urine Specific Tatums 1.036 Urine Protein 100 mg/dL (NEGATIVE) Urine Glucose (UA) 500 mg/dL (NEGATIVE) Urine Ketones 20 mg/dL (NEGATIVE) Urine Blood Small (NEGATIVE) Urine Nitrite Negative (NEGATIVE) Urine Bilirubin Negative (NEGATIVE) Urine Urobilinogen Negative mg/dL (0.2-1.9) Urine Leukocyte Esterase Negative (NEGATIVE) Urine RBC 4 /HPF (0-2/HPF) Urine WBC 2 /HPF (0-5/HPF) Urine Squamous Epithelial Cells None /LPF (</=FEW) Urine Bacteria Negative /HPF (NONE-FEW) Urine Mucus None /HPF (NONE-FEW) EKG/Imaging Imaging CT abdomen and pelvis with IV contrast Indication: Vomiting. Comparison: 10/02/2017.. Technique: Axial CT images were obtained through the abdomen and pelvis during injection of nonionic iodinated intravenous contrast. Reformatted coronal and sagittal images were also obtained. One of the following dose optimization techniques was utilized in the performance of this exam: Automated exposure control; adjustment of the mA and/ or kV according to the patient's size; or use of an iterative reconstruction technique. Specific details can be referenced in the facility's radiology CT exam operational policy. Contrast: 75 ml of Isovue-370 IV contrast. Findings: Lower lung upton: Limited views lower lung field are unremarkable. Liver: No focal parenchymal abnormality of the liver. Biliary: Gallbladder appears unremarkable as well as the intra and extra hepatic biliary system. Pancreas: Normal appearance. Spleen: Normal appearance. Adrenal glands: Unremarkable. Kidneys / retroperitoneum: No evidence of nephrolithiasis or hydronephrosis. No focal normality. Bowel / peritoneum / mesenteries: The visualized gastrointestinal tract is within normal limits. There is high density debris seen in the cecum which could be residual barium or concretions of stool. There is no focal normality the cecum. The appendix is normal. The stomach is unremarkable. No free air, free fluid, fluid collections or areas of inflammation. Lymph node assessment: No pathologic adenopathy identified. Pelvic structures: Appear unremarkable. Vessels: No significant atherosclerotic calcifications seen throughout a nonaneurysmal abdominal aorta and branches. Musculoskeletal / Body wall: No acute or aggressive osseous abnormality. IMPRESSION: 1. No acute intra-abdominal abnormality Report Dictated By: Phu Saucedo at 11/15/2017 6:19 PM Report E-Signed By: Phu Saucedo at 11/15/2017 6:25 PM ED Course/Re-evaluation ED Course Patient was admitted to an exam room, history and physical were obtained. Differential diagnoses were considered. On examination patient was complaining of abdominal tenderness throughout his abdomen. An IV was started, patient received 1 L normal saline, a CBC, CMP, acetone, osmolality, ABG were done. Lab results were all within normal range, blood pressure was elevated at 303, patient received 5 units of IV insulin. Patient received another liter normal saline. After rechecking his blood sugar that time he gone from 260 after the first liter down to 87 following the second liter. We did attempt to give the patient something to eat and drink, however the patient's was having persistent nausea and vomiting. We did attempt to use Phenergan, Zofran, second dose of Phenergan. When there is no improvement at that time we did trial propofol, 10 mg, 2. There is no improvement after either dose of propofol. At that time a CT scan of the abdomen and pelvis was done. There are no abnormalities fine on the imaging results. I discussed the findings with the patient. I discussed the case with Dr. Saez, he felt that there were no interventions that can be done on the inpatient side. We will go ahead and discharge patient home at this time. A prescription for Phenergan was sent into the pharmacy and the patient guarded has Reglan and Zofran at home which we will have him continue. I discussed this with the patient who verbalized understanding and agreement with plan. Decision to Disposition Date: Nov 15, 2017 Decision to Disposition Time: 13:59 Depart Departure Latest Vital Signs Vital Signs Date Time Temp Pulse Resp B/P (MAP) Pulse Ox O2 Delivery O2 Flow Rate FiO2 11/15/17 18:53 152/62 (92) 11/15/17 17:15 108 97 11/15/17 11:08 97.6 22 Room Air Impression: Primary Impression: Nausea & vomiting Condition: Improved Disposition: HOME OR SELF-CARE Referrals: GALE KLEIN DNP, SERVICES EXECUTIVE-BC (PCP) New Scripts Promethazine Hcl (PROMETHAZINE HCL) 25 Mg Tablet 25 MG PO Q8H Y for NAUSEA/VOMITING, #12 TAB Prov: ELIZABETH CONNORS 11/15/17 Patient Instructions: Acute Nausea and Vomiting (ED) Additional Instructions: Increase fluid intake. Get plenty of rest. Follow up with Gale Klein in the next 2-4 days. Continue with normal medications, Reglan and Zofran. We will add promethazine so that you have something else to help with the nausea. Return to the ER if condition worsens. Problem Qualifiers Primary Impression: Nausea & vomiting Vomiting type: unspecified Vomiting Intractability: non-intractable Qualified Codes: R11.2 - Nausea with vomiting, unspecified ELIZABETH CONNORS Nov 15, 2017 11:13
[2017-11-15] MEDS ORDERED: NS(*) 0.9% 1000 ML BAG 1,000 ML IV ONE ×2 (11:18→13:05)
[2017-11-15] MEDS ORDERED: PROMETHAZINE 25 MG/ML 1 ML AMP IVP ONE ×2 (11:20→13:55)
[2017-11-15 11:35] LABS: PLATELET COUNT, AUTOMATED 311 K/uL (150-450)
[2017-11-15] MEDS ORDERED: ONDANSETRON 4 MG/2 ML VIAL IVP ONE (12:25)
[2017-11-15] MEDS ORDERED: INSU HUM REG 100 U/ML(ER ONLY) 10 ML VIAL IV ONE (13:05)
[2017-11-15] MEDS ORDERED: ACETAMINOPHEN 500 MG TAB PO ONE (13:15)
[2017-11-15] MEDS ORDERED: PROM-110 PO (14:02)
[2017-11-15] MEDS ORDERED: PROPOFOL EMUL 10MG/ML 20 ML VL IV ONE (14:55)
[2017-11-15] MEDS ORDERED: IOPAMIDOL 76% 75 ML INFUS BTL 75 ML ONE (17:38)
[2017-11-15] MEDS ORDERED: NS(*) 0.9% 10 ML VIAL 20 ML ONE (17:38)
[2017-11-15] MEDS ORDERED: IBUPROFEN 600 MG TAB PO ONE (18:15)
--- NOTE | 2017-11-15 18:29 | RADIOLOGY IMAGING REPORT ---
FACILITY: [facility] PATIENT NAME: Terrence Carson : 1985 MR: [id number] V: [id number] EXAM DATE: ORDERING PHYSICIAN: ELIZABETH CONNORS TECHNOLOGIST: Location: [facility] [place] Patient: Terrence Carson : 1985 Visit/Account:[id number] Date of Sevice: 11/15/2017 CT abdomen and pelvis with IV contrast Indication: Vomiting. Comparison: 10/02/2017.. Technique: Axial CT images were obtained through the abdomen and pelvis during injection of nonioni c iodinated intravenous contrast. Reformatted coronal and sagittal images were also obtained. One of the following dose optimization techniques was utilized in the performance of this exam: Autom ated exposure control; adjustment of the mA and/or kV according to the patient's size; or use of an i terative reconstruction technique. Specific details can be referenced in the facility's radiology C T exam operational policy. Contrast: 75 ml of Isovue-370 IV contrast. Findings: Lower lung upton: Limited views lower lung field are unremarkable. Liver: No focal parenchymal abnormality of the liver. Biliary: Gallbladder appears unremarkable as well as the intra and extra hepatic biliary system. Pancreas: Normal appearance. Spleen: Normal appearance. Adrenal glands: Unremarkable. Kidneys / retroperitoneum: No evidence of nephrolithiasis or hydronephrosis. No focal normality. Bowel / peritoneum / mesenteries: The visualized gastrointestinal tract is within normal limits. Ther e is high density debris seen in the cecum which could be residual barium or concretions of stool. Th ere is no focal normality the cecum. The appendix is normal. The stomach is unremarkable. No free air, free fluid, fluid collections or areas of inflammation. Lymph node assessment: No pathologic adenopathy identified. Pelvic structures: Appear unremarkable. Vessels: No significant atherosclerotic calcifications seen throughout a nonaneurysmal abdominal aort a and branches. Musculoskeletal / Body wall: No acute or aggressive osseous abnormality. IMPRESSION: 1. No acute intra-abdominal abnormality Report Dictated By: Phu Saucedo at 11/15/2017 6:19 PM Report E-Signed By: Phu Saucedo at 11/15/2017 6:25 PM WSN:[id number]
[2017-11-15 18:53] VITALS: BP 152/62
== END 2017-11-15 18:53 | disposition home or self-care (01) ==
LOC: ER 11:11
DX: R11.2 Nausea with vomiting, unspecified (principal); R03.0 Elevated blood-pressure reading, without diagnosis of hypertension; E11.9 Type 2 diabetes mellitus without complications
CPT/HCPCS: 36416; 36600; 74177; 81001; 82009; 82803; 82948; 83930; 85025; 87502; 96361; 96374; 96375; 99285; A9270; J2405; J2550; J2704; J7030; Q9967; 82040; 82247; 82310; 82374; 82435; 82565; 82947; 84075; 84132; 84155; 84295; 84450; 84460; 84520; 96365; 96376; J1815

== ENCOUNTER 2017-11-17 18:58 | Emergency (ER) | payer MEDICARE, MEDICAID ==
[2017-10-02 08:32] VITALS: Ht 172.7 cm; Wt 58.1 kg
[~2017-11-17] VITALS: Ht 172.7 cm; Wt 58.1 kg
--- NOTE | 2017-11-17 19:09 | ER Report ---
History and Physical Time Seen By MD: 19:09 (LDAI NORTON [facility]) HPI/ROS CHIEF COMPLAINT: Nausea and vomiting HISTORY OF PRESENT ILLNESS: This is a well known 32-year-old male who presents to the emergency department for chronic nausea and vomiting. Patient states he was here 2 days ago and evaluation as well as a complete workup of his persistent nausea and vomiting. He went home and did "okay" and then today he had some cyclical vomiting again. Patient also states that he continues to smoke marijuana with the vomiting. Patient denies diarrhea, shortness of breath , chest pain, headaches or any other symptoms. Patient states he has not been managing his blood sugar all that well although he did take half of his Lantus at noon today. The patient arrives his blood sugar is 311. REVIEW OF SYSTEMS: Constitutional: No fever, no chills. Eyes: No discharge. ENT: No sore throat. Cardiovascular: No chest pain, no palpitations. Respiratory: No cough, no shortness of breath. Gastrointestinal: As above. Genitourinary: No hematuria. Musculoskeletal: No back pain. Skin: No rashes. Neurological: No headache. (LADI NORTON [facility]) Allergies: Coded Allergies: acetaminophen (Verified Allergy, Unknown, 11/17/17) hydrocodone (Verified Allergy, Unknown, 11/17/17) oxycodone (Verified Allergy, Unknown, 11/17/17) Uncoded Allergies: beestings (Adverse Reaction, Unknown, 08/11/17) Home Meds Active Scripts Promethazine Hcl (PROMETHAZINE HCL) 25 Mg Tablet, 25 MG PO Q8H Y for NAUSEA/ VOMITING, #12 TAB Prov:ELIZABETH CONNORS [facility] 11/15/17 Metoclopramide Hcl (METOCLOPRAMIDE HCL) 10 Mg Tablet, 10 MG PO QID Y for NAUSEA/ VOMITING, #40 TAB 0 Refills Prov:GALE KLEIN [facility] 10/16/17 Ondansetron (ZOFRAN ODT) 4 Mg Tab.rapdis, 4 MG PO Q6H Y for NAUSEA/VOMITING, # 10 TAB.JANIE Prov:NOELLE DE LA CRUZ DO 10/07/17 Reported Medications Insulin Lispro (HUMALOG) 100 Unit/1 Ml Vial, 0 SQ Y for SLIDING SCALE INSULIN, VIAL takes Humalog Insulin at Home as per SS 10/02/17 Insulin Glargine (LANTUS) 100 Unit/Ml Soln, 34 UNIT SUBQ QDAY, ML MIDMORNING 10/02/17 Gabapentin (GABAPENTIN) 300 Mg Capsule, 300 MG PO TID, CAPSULE 08/11/17 Past Medical/Surgical History Patient has a past medical and surgical history of gastroparesis, type I diabetes with poor regulation, smokes pot daily, poor dentition, multiple dental caries. (LADI NORTON-ELOY) Reviewed Nurses Notes: Yes (LADI NORTON-ELOY) Hx Smoking: Yes Smoking Status: Former Smoker Hx Substance Use Disorder: Yes (KATHY) Hx Alcohol Use: No (LADI NORTON-ELOY) Constitutional Vital Sign - Last 24 Hours 11/17/17 11/17/17 11/17/17 11/17/17 19:04 19:07 19:28 19:58 Temp 98.6 Pulse 128 135 119 Resp 18 B/P (MAP) 180/128 (145) 180/128 Pulse Ox 95 100 95 O2 Delivery Room Air 11/17/17 11/17/17 11/17/17 20:18 20:28 20:30 Pulse 123 B/P (MAP) 131/91 (104) 130/93 (105) Pulse Ox 92 (MARISOL HAY MD) Physical Exam General Appearance: The patient is alert, has no immediate need for airway protection and no signs of toxicity. Eyes: Pupils equal and round no pallor or injection. ENT, Mouth: Mucous membranes are dry. Poor dental hygiene, poor dentition, multiple dental caries. Respiratory: There are no retractions, lungs are clear to auscultation. Cardiovascular: Regular rate and rhythm, systolic murmur, no clicks or rubs. Gastrointestinal: Abdomen is soft and tender to the epigastrium, no masses, bowel sounds normal. Neurological: Alert and oriented 4. Moving all actually. Following all commands. No focal neuro deficits. Skin: Warm and dry, no rashes. Musculoskeletal: Neck is supple non tender. Extremities are nontender, nonswollen and have full range of motion. DIFFERENTIAL DIAGNOSIS: After history and physical exam differential diagnosis was considered for nausea and vomiting including but not limited to gastroenteritis, gastritis, appendicitis, and medication side effect. (LADI NORTON [facility]) Medical Decision Making Data Points Result Diagram: 11/17/17191811/17/171918 Laboratory Hematology Test 11/17/17 19:19 Red Blood Count 6.06 M/uL (4.00-5.60) Mean Corpuscular Volume 92.7 fL (80.0-96.0) Mean Corpuscular Hemoglobin 31.6 pg (26.0-33.0) Mean Corpuscular Hemoglobin Concent 34.1 g/dL (32.0-36.0) Red Cell Distribution Width 12.8 % (11.5-14.5) Mean Platelet Volume 8.0 fL (7.2-11.1) Neutrophils (%) (Auto) 86.1 % (39.4-72.5) Lymphocytes (%) (Auto) 9.1 % (17.6-49.6) Monocytes (%) (Auto) 4.3 % (4.1-12.4) Eosinophils (%) (Auto) 0.0 % (0.4-6.7) Basophils (%) (Auto) 0.5 % (0.3-1.4) Nucleated RBC Relative Count (auto) 0.1 /100WBC Neutrophils # (Auto) 13.1 K/uL (2.0-7.4) Lymphocytes # (Auto) 1.4 K/uL (1.3-3.6) Monocytes # (Auto) 0.7 K/uL (0.3-1.0) Eosinophils # (Auto) 0.0 K/uL (0.0-0.5) Basophils # (Auto) 0.1 K/uL (0.0-0.1) Nucleated RBC Absolute Count (auto) 0.02 K/uL Sodium Level 139 mmol/L (137-145) Potassium Level 4.3 mmol/L (3.5-5.0) Chloride Level 95 mmol/L (98-107) Carbon Dioxide Level 17 mmol/L (22-30) Blood Urea Nitrogen 31 mg/dl (9-21) Creatinine 0.80 mg/dl (0.66-1.25) Glomerular Filtration Rate Calc > 60.0 Random Glucose 341 mg/dl (75-110) Calcium Level 10.0 mg/dl (8.4-10.2) Total Bilirubin 1.1 mg/dl (0.2-1.3) Aspartate Amino Transf (AST/SGOT) 22 U/L (0-35) Alanine Aminotransferase (ALT/SGPT) 39 U/L (0-56) Alkaline Phosphatase 103 U/L (0-126) Total Protein 8.3 gm/dl (6.3-8.2) Albumin 4.8 g/dl (3.5-5.0) Amylase Level 76 U/L (0-110) Lipase 18 U/L (23-300) Chemistry Test 11/17/17 19:19 White Blood Count 15.3 k/uL (4.5-11.0) Red Blood Count 6.06 M/uL (4.00-5.60) Hemoglobin 19.1 g/dL (14.0-18.0) Hematocrit 56.2 % (42.0-52.0) Mean Corpuscular Volume 92.7 fL (80.0-96.0) Mean Corpuscular Hemoglobin 31.6 pg (26.0-33.0) Mean Corpuscular Hemoglobin Concent 34.1 g/dL (32.0-36.0) Red Cell Distribution Width 12.8 % (11.5-14.5) Platelet Count 321 K/uL (150-450) Mean Platelet Volume 8.0 fL (7.2-11.1) Neutrophils (%) (Auto) 86.1 % (39.4-72.5) Lymphocytes (%) (Auto) 9.1 % (17.6-49.6) Monocytes (%) (Auto) 4.3 % (4.1-12.4) Eosinophils (%) (Auto) 0.0 % (0.4-6.7) Basophils (%) (Auto) 0.5 % (0.3-1.4) Nucleated RBC Relative Count (auto) 0.1 /100WBC Neutrophils # (Auto) 13.1 K/uL (2.0-7.4) Lymphocytes # (Auto) 1.4 K/uL (1.3-3.6) Monocytes # (Auto) 0.7 K/uL (0.3-1.0) Eosinophils # (Auto) 0.0 K/uL (0.0-0.5) Basophils # (Auto) 0.1 K/uL (0.0-0.1) Nucleated RBC Absolute Count (auto) 0.02 K/uL Glomerular Filtration Rate Calc > 60.0 Calcium Level 10.0 mg/dl (8.4-10.2) Total Bilirubin 1.1 mg/dl (0.2-1.3) Aspartate Amino Transf (AST/SGOT) 22 U/L (0-35) Alanine Aminotransferase (ALT/SGPT) 39 U/L (0-56) Alkaline Phosphatase 103 U/L (0-126) Total Protein 8.3 gm/dl (6.3-8.2) Albumin 4.8 g/dl (3.5-5.0) Amylase Level 76 U/L (0-110) Lipase 18 U/L (23-300) (MARISOL HAY MD) ED Course/Re-evaluation Clinical Indication for ER IV: Hydration, IV Access ED Course The patient was admitted to room. History and physical were obtained. Differential diagnoses were considered. An IV was started. A 1 L normal saline also was given. 10 mg IV Reglan was given. A CBC, CMP, lipase and amylase were obtained. Laboratory studies basically unchanged from his previous lab studies. After reevaluation of the patient he was sleeping in the room, respirations regular no signs or symptoms of vomiting. I did talk to the patient and told him the labs were unchanged from his previous studies. Patient states he is feeling better. I did offer the patient some Reglan to go home he said that he has Reglan, Zofran, Phenergan at home. Patient was also encouraged to follow-up with his primary care provider as well as the surgeon as scheduled. The patient had no other questions or concerns at this time and was discharged home. Patient was encouraged to return to the emergency department for any other symptoms he may have. Decision to Disposition Date: Nov 17, 2017 Decision to Disposition Time: 20:34 (LADI NORTONP-BC) Depart Departure Latest Vital Signs Vital Signs Date Time Temp Pulse Resp B/P (MAP) Pulse Ox O2 Delivery O2 Flow Rate FiO2 11/17/17 20:30 130/93 (105) 11/17/17 20:28 123 92 11/17/17 19:07 98.6 18 Room Air (MARISOL HAY MD) Impression: Primary Impression: Nausea & vomiting Condition: Improved Disposition: HOME OR SELF-CARE Referrals: GALE KLEIN DNP, FNP-ELOY (PCP) Patient Instructions: Acute Nausea and Vomiting (ED) Additional Instructions: Drink plenty of fluids. Take small sips of fluid and then progress slowly. Clinical liquid diet for the next 24 hours. The sure to keep your appointment with Dr. Elizabeth. Follow-up with primary care provider as scheduled. Return to the emergency department for any other concerns or worsening symptoms. Take your Phenergan, Zofran or Reglan at home as needed for nausea and vomiting. MD Consult Note: Dr. Hay (LADI NORTONELOY) [employer]ER/PA consult with MD: Verbally (MARISOL HAY MD) Problem Qualifiers Primary Impression: Nausea & vomiting Vomiting type: cyclical vomiting Vomiting Intractability: unspecified Qualified Codes: G43.A0 - Cyclical vomiting, not intractable LADI NORTON Nov 17, 2017 19:09 MARISOL HAY MD Nov 17, 2017 20:26
[2017-11-17] MEDS ORDERED: METOCLOPRAMIDE 10 MG/2 ML SDV IVP ONE (19:15)
[2017-11-17] MEDS ORDERED: NS(*) 0.9% 1000 ML BAG 1,000 ML IV ONE (19:15)
[2017-11-17 19:27] LABS: PLATELET COUNT, AUTOMATED 321 K/uL (150-450)
[2017-11-17 20:30] VITALS: BP 130/93
== END 2017-11-17 20:45 | disposition home or self-care (01) ==
LOC: ER 19:01
DX: G43.A0 Cyclical vomiting, in migraine, not intractable (principal); E10.9 Type 1 diabetes mellitus without complications; F12.90 Cannabis use, unspecified, uncomplicated
CPT/HCPCS: 36416; 82150; 82948; 83690; 85025; 99284; J2765; J7030; 82040; 82247; 82310; 82374; 82435; 82565; 82947; 84075; 84132; 84155; 84295; 84450; 84460; 84520

== ENCOUNTER 2017-11-19 12:16 | Inpatient (IN) | payer MEDICARE, MEDICAID ==
[~2017-11-19] VITALS: Ht 172.7 cm; Wt 56.4 kg
[2017-11-19] VITALS (21 sets, daily range): BP systolic 113–150; BP diastolic 77–106
--- NOTE | 2017-11-19 12:25 | ER Report ---
History and Physical Time Seen By MD: 12:24 Hx. of Stated Complaint: abd pain vomiting HPI/ROS 32 year old male three visits since 11/12 for midepigastric abd pain, . type 1 dm Allergies: Coded Allergies: acetaminophen (Verified Allergy, Unknown, 11/17/17) hydrocodone (Verified Allergy, Unknown, 11/17/17) oxycodone (Verified Allergy, Unknown, 11/17/17) Uncoded Allergies: beestings (Adverse Reaction, Unknown, 08/11/17) Home Meds Active Scripts Promethazine Hcl (PROMETHAZINE HCL) 25 Mg Tablet, 25 MG PO Q8H Y for NAUSEA/ VOMITING, #12 TAB Prov:ELIZABETH CONNORS [employer] 11/15/17 Metoclopramide Hcl (METOCLOPRAMIDE HCL) 10 Mg Tablet, 10 MG PO QID Y for NAUSEA/ VOMITING, #40 TAB 0 Refills Prov:GALE KLEIN DNP, [employer] 10/16/17 Ondansetron (ZOFRAN ODT) 4 Mg Tab.rapdis, 4 MG PO Q6H Y for NAUSEA/VOMITING, # 10 TAB.JANIE Prov:NOELLE DE LA CRUZ DO 10/07/17 Reported Medications Insulin Lispro (HUMALOG) 100 Unit/1 Ml Vial, 0 SQ Y for SLIDING SCALE INSULIN, VIAL takes Humalog Insulin at Home as per SS 10/02/17 Insulin Glargine (LANTUS) 100 Unit/Ml Soln, 34 UNIT SUBQ QDAY, ML MIDMORNING 10/02/17 Gabapentin (GABAPENTIN) 300 Mg Capsule, 300 MG PO TID Y for PAIN, CAPSULE 08/11/17 Past Medical/Surgical History type 1 dm, gastroparesis Hx Smoking: Yes Smoking Status: Former Smoker Hx Substance Use Disorder: Yes (POT) Hx Alcohol Use: No Constitutional Vital Sign - Last 24 Hours 11/19/17 11/19/17 11/19/17 11/19/17 12:30 12:53 13:45 13:50 Temp 97.6 97.8 Pulse 130 123 127 Resp 16 16 13 B/P (MAP) 156/120 139/102 (114) Pulse Ox 97 96 96 O2 Delivery Room Air Room Air 11/19/17 11/19/17 11/19/17 11/19/17 14:00 14:05 14:20 14:30 Pulse 120 125 Resp 26 14 B/P (MAP) 168/116 (133) 159/103 (121) Pulse Ox 96 97 11/19/17 11/19/17 11/19/17 14:35 14:50 15:00 Pulse 121 120 Resp 13 14 B/P (MAP) 144/99 (114) Pulse Ox 97 96 Intake and Output 11/19/17 11/19/17 11/20/17 15:00 23:00 07:00 Intake Total 1000 ml Balance 1000 ml Physical Exam 32 year old male alert anxious mild distress, tm non rogelio, throat non reddened. mucous membranes dry, tongue dry. hr tachy, lungs decreased bases , abd soft, bs x 4 Medical Decision Making Data Points Result Diagram: 11/19/17 1310 11/19/17 1310 Laboratory Hematology Test 11/19/17 13:01 11/19/17 13:10 11/19/17 13:35 Urine Color Yellow Urine Clarity Clear Urine pH 5.0 pH (4.8-9.5) Urine Specific [place] 1.029 Urine Protein 100 mg/dL (NEGATIVE) Urine Glucose (UA) 500 mg/dL (NEGATIVE) Urine Ketones 80 mg/dL (NEGATIVE) Urine Blood Small (NEGATIVE) Urine Nitrite Negative (NEGATIVE) Urine Bilirubin Negative (NEGATIVE) Urine Urobilinogen Negative mg/dL (0.2-1.9) Urine Leukocyte Esterase Negative (NEGATIVE) Urine RBC 1 /HPF (0-2/HPF) Urine WBC 2 /HPF (0-5/HPF) Urine Squamous Epithelial Cells Many /LPF (</=FEW) Urine Bacteria Negative /HPF (NONE-FEW) Urine Hyaline Casts Many /LPF (NONE-FEW) Urine Mucus Few /HPF (NONE-FEW) Urine Opiates Screen Negative Urine Barbiturates Screen Negative Ur Tricyclic Antidepressants Screen Negative Urine Phencyclidine Screen Negative Urine Amphetamines Screen Negative Urine Benzodiazepines Screen Negative Urine Cocaine Screen Negative Urine Cannabinoids Screen Positive Red Blood Count 6.43 M/uL (4.00-5.60) Mean Corpuscular Volume 93.5 fL (80.0-96.0) Mean Corpuscular Hemoglobin 31.9 pg (26.0-33.0) Mean Corpuscular Hemoglobin Concent 34.1 g/dL (32.0-36.0) Red Cell Distribution Width 12.6 % (11.5-14.5) Mean Platelet Volume 7.9 fL (7.2-11.1) Neutrophils (%) (Auto) 80.3 % (39.4-72.5) Lymphocytes (%) (Auto) 13.6 % (17.6-49.6) Monocytes (%) (Auto) 5.1 % (4.1-12.4) Eosinophils (%) (Auto) 0.0 % (0.4-6.7) Basophils (%) (Auto) 1.0 % (0.3-1.4) Nucleated RBC Relative Count (auto) 0.1 /100WBC Neutrophils # (Auto) 9.1 K/uL (2.0-7.4) Lymphocytes # (Auto) 1.5 K/uL (1.3-3.6) Monocytes # (Auto) 0.6 K/uL (0.3-1.0) Eosinophils # (Auto) 0.0 K/uL (0.0-0.5) Basophils # (Auto) 0.1 K/uL (0.0-0.1) Nucleated RBC Absolute Count (auto) 0.01 K/uL Sodium Level 136 mmol/L (137-145) Potassium Level 4.6 mmol/L (3.5-5.0) Chloride Level 99 mmol/L (98-107) Carbon Dioxide Level 10 mmol/L (22-30) Blood Urea Nitrogen 25 mg/dl (9-21) Creatinine 0.90 mg/dl (0.66-1.25) Glomerular Filtration Rate Calc > 60.0 Random Glucose 274 mg/dl (75-110) Osmolality 315 mOSM/K (275-295) Lactate 1.8 mmol/L (0.7-2.1) Calcium Level 9.7 mg/dl (8.4-10.2) Magnesium Level 2.0 mg/dl (1.7-2.2) Total Bilirubin 1.3 mg/dl (0.2-1.3) Aspartate Amino Transf (AST/SGOT) 28 U/L (0-35) Alanine Aminotransferase (ALT/SGPT) 37 U/L (0-56) Alkaline Phosphatase 115 U/L (0-126) Troponin I < 0.012 ng/ml B-Type Natriuretic Peptide 9 pg/ml (0-100) Total Protein 8.4 gm/dl (6.3-8.2) Albumin 5.0 g/dl (3.5-5.0) Amylase Level 67 U/L (0-110) Lipase 19 U/L (23-300) Acetone, Qualitative Small Helicobacter pylori IgG Antibody Negative (NEGATIVE) Blood Gas Puncture Site Right radial Blood Gas Patient Temperature 97.8 DEGREES Arterial Blood pH 7.17 (7.35-7.45) Arterial Blood Partial Pressure CO2 < 25 mmHg (32-37) Arterial Blood Partial Pressure O2 78 mmHg (60-80) Arterial Blood HCO3 7 mmol/L (20-26) Arterial Blood Oxygen Saturation 92 % (92-100) Arterial Blood Base Excess -22.0 mmol/L Boy Test Acceptable Oxygen Liters/Minute Room air Chemistry Test 11/19/17 13:01 11/19/17 13:10 11/19/17 13:35 Urine Color Yellow Urine Clarity Clear Urine pH 5.0 pH (4.8-9.5) Urine Specific [place] 1.029 Urine Protein 100 mg/dL (NEGATIVE) Urine Glucose (UA) 500 mg/dL (NEGATIVE) Urine Ketones 80 mg/dL (NEGATIVE) Urine Blood Small (NEGATIVE) Urine Nitrite Negative (NEGATIVE) Urine Bilirubin Negative (NEGATIVE) Urine Urobilinogen Negative mg/dL (0.2-1.9) Urine Leukocyte Esterase Negative (NEGATIVE) Urine RBC 1 /HPF (0-2/HPF) Urine WBC 2 /HPF (0-5/HPF) Urine Squamous Epithelial Cells Many /LPF (</=FEW) Urine Bacteria Negative /HPF (NONE-FEW) Urine Hyaline Casts Many /LPF (NONE-FEW) Urine Mucus Few /HPF (NONE-FEW) Urine Opiates Screen Negative Urine Barbiturates Screen Negative Ur Tricyclic Antidepressants Screen Negative Urine Phencyclidine Screen Negative Urine Amphetamines Screen Negative Urine Benzodiazepines Screen Negative Urine Cocaine Screen Negative Urine Cannabinoids Screen Positive White Blood Count 11.3 k/uL (4.5-11.0) Red Blood Count 6.43 M/uL (4.00-5.60) Hemoglobin 20.5 g/dL (14.0-18.0) Hematocrit 60.1 % (42.0-52.0) Mean Corpuscular Volume 93.5 fL (80.0-96.0) Mean Corpuscular Hemoglobin 31.9 pg (26.0-33.0) Mean Corpuscular Hemoglobin Concent 34.1 g/dL (32.0-36.0) Red Cell Distribution Width 12.6 % (11.5-14.5) Platelet Count 386 K/uL (150-450) Mean Platelet Volume 7.9 fL (7.2-11.1) Neutrophils (%) (Auto) 80.3 % (39.4-72.5) Lymphocytes (%) (Auto) 13.6 % (17.6-49.6) Monocytes (%) (Auto) 5.1 % (4.1-12.4) Eosinophils (%) (Auto) 0.0 % (0.4-6.7) Basophils (%) (Auto) 1.0 % (0.3-1.4) Nucleated RBC Relative Count (auto) 0.1 /100WBC Neutrophils # (Auto) 9.1 K/uL (2.0-7.4) Lymphocytes # (Auto) 1.5 K/uL (1.3-3.6) Monocytes # (Auto) 0.6 K/uL (0.3-1.0) Eosinophils # (Auto) 0.0 K/uL (0.0-0.5) Basophils # (Auto) 0.1 K/uL (0.0-0.1) Nucleated RBC Absolute Count (auto) 0.01 K/uL Glomerular Filtration Rate Calc > 60.0 Osmolality 315 mOSM/K (275-295) Lactate 1.8 mmol/L (0.7-2.1) Calcium Level 9.7 mg/dl (8.4-10.2) Magnesium Level 2.0 mg/dl (1.7-2.2) Total Bilirubin 1.3 mg/dl (0.2-1.3) Aspartate Amino Transf (AST/SGOT) 28 U/L (0-35) Alanine Aminotransferase (ALT/SGPT) 37 U/L (0-56) Alkaline Phosphatase 115 U/L (0-126) Troponin I < 0.012 ng/ml B-Type Natriuretic Peptide 9 pg/ml (0-100) Total Protein 8.4 gm/dl (6.3-8.2) Albumin 5.0 g/dl (3.5-5.0) Amylase Level 67 U/L (0-110) Lipase 19 U/L (23-300) Acetone, Qualitative Small Helicobacter pylori IgG Antibody Negative (NEGATIVE) Blood Gas Puncture Site Right radial Blood Gas Patient Temperature 97.8 DEGREES Arterial Blood pH 7.17 (7.35-7.45) Arterial Blood Partial Pressure CO2 < 25 mmHg (32-37) Arterial Blood Partial Pressure O2 78 mmHg (60-80) Arterial Blood HCO3 7 mmol/L (20-26) Arterial Blood Oxygen Saturation 92 % (92-100) Arterial Blood Base Excess -22.0 mmol/L Boy Test Acceptable Oxygen Liters/Minute Room air Toxicology Test 11/19/17 13:01 11/19/17 13:10 Urine Opiates Screen Negative Urine Barbiturates Screen Negative Ur Tricyclic Antidepressants Screen Negative Urine Phencyclidine Screen Negative Urine Amphetamines Screen Negative Urine Benzodiazepines Screen Negative Urine Cocaine Screen Negative Urine Cannabinoids Screen Positive Acetone, Qualitative Small Urinalysis Test 11/19/17 13:01 Urine Color Yellow Urine Clarity Clear Urine pH 5.0 pH (4.8-9.5) Urine Specific [place] 1.029 Urine Protein 100 mg/dL (NEGATIVE) Urine Glucose (UA) 500 mg/dL (NEGATIVE) Urine Ketones 80 mg/dL (NEGATIVE) Urine Blood Small (NEGATIVE) Urine Nitrite Negative (NEGATIVE) Urine Bilirubin Negative (NEGATIVE) Urine Urobilinogen Negative mg/dL (0.2-1.9) Urine Leukocyte Esterase Negative (NEGATIVE) Urine RBC 1 /HPF (0-2/HPF) Urine WBC 2 /HPF (0-5/HPF) Urine Squamous Epithelial Cells Many /LPF (</=FEW) Urine Bacteria Negative /HPF (NONE-FEW) Urine Hyaline Casts Many /LPF (NONE-FEW) Urine Mucus Few /HPF (NONE-FEW) EKG/Imaging EKG Interpretation EKG 1258 sinus tach ventricular rate 129 QTC is 436 noted left anterior fascicular block Imaging FACILITY: [facility] [place] PATIENT NAME: Terrence Carson : 1985 MR: [id number] V: [id number] EXAM DATE: ORDERING PHYSICIAN: TRUMAN ELI TECHNOLOGIST: Location: [facility] [place] Patient: Terrence Carson : 1985 Visit/Account:[id number] Date of Sevice: 11/19/2017 CHEST SINGLE AP Indication: Abdominal pain, nausea and weakness.. Comparison: 10/02/2017. Findings: Cardiomediastinal silhouette and pulmonary vessels within normal limits. There is no focal infiltrate or lobar consolidation. No pneumothorax or pleural effusion. No nodule. Upper abdomen is unremarkable. No acute bony abnormality. IMPRESSION: 1. No acute cardiopulmonary process. Report Dictated By: Phu Saucedo at 11/19/2017 1:42 PM Report E-Signed By: Phu Saucedo at 11/19/2017 1:44 PM WSN:[id number] ED Course/Re-evaluation Clinical Indication for ER IV: Hydration ED Course dr Hamilton who is the hospitalist who will admit patient to ICU with DKA for pertinent lab work pH is 7.17 bicarbonate is 7 glucose is 250 osmolality is 3: 15 acetone is small potassium 4.[address] Hamilton about starting insulin he will start that in the ICU note patient has been given 2 L of saline down here with 2 A of bicarbonate and the 2nd liter Re-evaluation has had two liters of ns in the er insulin drip in the icu Decision to Disposition Date: Nov 19, 2017 Decision to Disposition Time: 14:50 Depart Departure Latest Vital Signs Vital Signs Date Time Temp Pulse Resp B/P (MAP) Pulse Ox O2 Delivery O2 Flow Rate FiO2 11/19/17 15:00 144/99 (114) 11/19/17 14:50 120 14 96 11/19/17 13:45 97.8 11/19/17 12:53 Room Air Impression: Primary Impression: DKA (diabetic ketoacidoses) Additional Impressions: Vomiting Cyclical vomiting Abnormal EKG Condition: Improved Disposition: Admitted from ER Referrals: GALE KLEIN DNP, [employer]-[facility] (PCP) Problem Qualifiers TRUMAN ELI APRN-C Nov 19, 2017 12:25
[2017-11-19] MEDS ORDERED: PROMETHAZINE 25 MG/ML 1 ML AMP IVP ONE (12:50)
[2017-11-19] MEDS ORDERED: METOCLOPRAMIDE 10 MG/2 ML SDV IVP ONE (12:50)
[2017-11-19] MEDS ORDERED: NS(*) 0.9% 1000 ML BAG 1,000 ML IV ONE (12:50)
[2017-11-19] MEDS ORDERED: SUCRALFATE 1 GM TAB PO ONE (12:55)
--- NOTE | 2017-11-19 13:16 | EKG ---
FACILITY: [facility] PATIENT NAME: BARBARA ABERNATHY : [id number] MR: [id number] V: [id number] EXAM DATE: ORDERING PHYSICIAN: TRUMAN ELI TECHNOLOGIST: Test Reason : tachycardia Blood Pressure : / mmHG Vent. Rate : 129 BPM Atrial Rate : 129 BPM P-R Int : 122 ms QRS Dur : 078 ms QT Int : 298 ms P-R-T Axes : 073 -84 068 degrees QTc Int : 436 ms Sinus tachycardia Biatrial enlargement Nonspecific interventricular conduction delay Tall T waves in precordial leads Abnormal ECG No previous ECGs available Confirmed by LEIGH FRANCOIS ([id number] on 11/19/2017 7:11:59 PM Referred By: Confirmed By:LEIGH FRANCOIS
[2017-11-19 13:21] LABS: PLATELET COUNT, AUTOMATED 386 K/uL (150-450)
[2017-11-19] MEDS ORDERED: LR(*) 1000 ML BAG 1,000 ML IV ONE (13:35)
--- NOTE | 2017-11-19 13:48 | RADIOLOGY IMAGING REPORT ---
FACILITY: [facility] PATIENT NAME: Terrence Carson : 1985 MR: [id number] V: [id number] EXAM DATE: ORDERING PHYSICIAN: TRUMAN ELI TECHNOLOGIST: Location: [facility] Patient: Terrence Carson : 1985 Visit/Account:[id number] Date of Sevice: 11/19/2017 CHEST SINGLE AP Indication: Abdominal pain, nausea and weakness.. Comparison: 10/02/2017. Findings: Cardiomediastinal silhouette and pulmonary vessels within normal limits. There is no focal infiltrate or lobar consolidation. No pneumothorax or pleural effusion. No nodule. Upper abdomen is unremarkable. No acute bony abnormality. IMPRESSION: 1. No acute cardiopulmonary process. Report Dictated By: Phu Saucedo at 11/19/2017 1:42 PM Report E-Signed By: Phu Saucedo at 11/19/2017 1:44 PM WSN:[id number]
[2017-11-19] MEDS: SODIUM BICAR IV SCH ×2 (14:12→14:47)
[2017-11-19] MEDS: NS 0.9% IV SCH ×2 (14:12→14:47)
[2017-11-19] MEDS ORDERED: fentaNYL CITR 100 MCG/2 ML AMP IVP ONE (14:50)
[2017-11-19] MEDS ORDERED: KCL/D1/2NS 20 MEQ 1000 ML 1,000 ML IV SCH (16:30)
[2017-11-19] MEDS ORDERED: KCL/NS* 20 MEQ/1000 ML PREMIX 1,000 ML IV SCH (16:35)
[2017-11-19] MEDS ORDERED: PROMETHAZINE 25 MG/ML 1 ML AMP IVP PRN (16:40)
[2017-11-19] MEDS ORDERED: KCL/NS* 20 MEQ/1000 ML PREMIX 1,000 ML IV PRN (17:00)
[2017-11-19] MEDS: INSULIN HUM REG 100 UN/ML 3 ML 100 UNIT in NS(*) 0.9% 100 ML BAG 99 ML IV SCH (17:01)
[2017-11-19] MEDS: HYDROmorphone HCL 2 MG/ML SDV IVP PRN ×4 (17:15→22:49)
--- NOTE | 2017-11-19 17:51 | History & Physical ---
History of Present Illness Chief Complaint Nauseated and vomiting History of Present Illness 32yo male with PMHx significant for type 1 DM, chronic N/V and abdominal pain. He reports having his usual abdominal pain and nausea worsen significantly over the past 3-4 days. He has been unable to eat/drink/keep anything down. He has been vomiting frequently throughout the day - he reports mostly bilious material. He has had some dark material at times as well. He denies any diarrhea /black/bloody stools. He denies any urinary symptoms. He denies any rashes. He was evaluated in the ER and found to have evidence of DKA. His CT scan of abdomen was unremarkable. He had a recent UGI series with SBFT that was unremarkable as well. He is an everyday marijuana user and reports stopping a few days ago. He was recommended for admission. History Problems: (1) Diabetic neuropathy Status: Chronic (2) Type I diabetes mellitus Status: Chronic (3) Cyclical vomiting Status: Chronic (4) DKA (diabetic ketoacidoses) Status: Acute Home Meds Active Scripts Promethazine Hcl (PROMETHAZINE HCL) 25 Mg Tablet, 25 MG PO Q8H Y for NAUSEA/ VOMITING, #12 TAB Prov:ELIZABETH CONNORS MANAGER CARDIAC 11/15/17 Metoclopramide Hcl (METOCLOPRAMIDE HCL) 10 Mg Tablet, 10 MG PO QID Y for NAUSEA/ VOMITING, #40 TAB 0 Refills Prov:GALE KLEIN [facility], MANAGER CARDIAC-BC 10/16/17 Ondansetron (ZOFRAN ODT) 4 Mg Tab.rapdis, 4 MG PO Q6H Y for NAUSEA/VOMITING, # 10 TAB.JANIE Prov:NOELLE DE LA CRUZ DO 10/07/17 Reported Medications Insulin Lispro (HUMALOG) 100 Unit/1 Ml Vial, 0 SQ Y for SLIDING SCALE INSULIN, VIAL takes Humalog Insulin at Home as per SS 10/02/17 Insulin Glargine (LANTUS) 100 Unit/Ml Soln, 34 UNIT SUBQ QDAY, ML MIDMORNING 10/02/17 Gabapentin (GABAPENTIN) 300 Mg Capsule, 300 MG PO TID Y for PAIN, CAPSULE 08/11/17 Allergies: Coded Allergies: acetaminophen (Verified Allergy, Unknown, 11/17/17) hydrocodone (Verified Allergy, Unknown, 11/17/17) oxycodone (Verified Allergy, Unknown, 11/17/17) Uncoded Allergies: beestings (Adverse Reaction, Unknown, 08/11/17) Patient History: CVA FATHER (STROKE), , Age:55 Diabetes mellitus type II FATHER (STROKE), , Age:55 MOTHER Hx Smoking: Yes Smoking Status: Former Smoker Caffeine Intake: Soda Caffeine/Cups Per Day: 1-2 DAY Hx Alcohol Use: No Hx Substance Use Disorder: No Social Drug Use: Currently Social Drugs: Marijuana Review of Systems Constitutional: No Fever, No Chills Neurological: Weakness, No Syncope, No Confusion Eyes: No Vision Change, No Loss of Vision ENT: No Hearing Loss Cardiovascular: No Chest Pain, No Palpitations Respiratory: No Shortness of Breath, No Cough, No Wheezing Gastrointestinal: Nausea, Vomiting, No Diarrhea, No Hematochezia, No Melena, Abdominal Pain Genitourinary: No Dysuria, No Hematuria, No Urinary Incontinence Musculoskeletal: Pain Exam Vital Signs Vital Signs Date Time Temp Pulse Resp B/P (MAP) Pulse Ox O2 Delivery O2 Flow Rate FiO2 11/19/17 16:15 ??? 11/19/17 16:05 9 125/93 (104) 96 11/19/17 16:05 98.6 11/19/17 12:53 Room Air General Appearance: Alert, Awake Neuro: No Gross deficits Eyes: PERRLA ENT: Other (very poor dentition/oral mucosa dry) Neck: No Masses Cardiovascular: Other (Slightly tachycardic regular no murmur) Respiratory: Clear to Auscultation Chest: No Tenderness GI: Other (soft with reported tenderness LUQ/BS present) : No CVA Tenderness Lymph: No Adenopathy Extremities: Warm, Perfused Integumentary: Skin Intact without Lesion / Mass Psych: Alert & Oriented X3 Medical Decision Making Data Points Result Diagram: 11/19/17 1310 11/19/17 1310 Item Value Date Time Urine Mucus Few /HPF 11/19/17 1301 Urine Hyaline Casts Many /LPF H 11/19/17 1301 Urine Bacteria Negative /HPF 11/19/17 1301 Urine Squamous Epithelial Cells Many /LPF H 11/19/17 1301 Urine WBC 2 /HPF 11/19/17 1301 Urine RBC 1 /HPF 11/19/17 1301 Urine Leukocyte Esterase Negative 11/19/17 1301 Urine Urobilinogen Negative mg/dL 11/19/17 1301 Urine Bilirubin Negative 11/19/17 1301 Urine Nitrite Negative 11/19/17 1301 Urine Blood Small 11/19/17 1301 Urine Ketones 80 mg/dL H 11/19/17 1301 Urine Glucose (UA) 500 mg/dL 11/19/17 1301 Urine Protein 100 mg/dL 11/19/17 1301 Urine Specific [place] 1.029 11/19/17 1301 Urine pH 5.0 pH 11/19/17 1301 Urine Clarity Clear 11/19/17 1301 Urine Color Yellow 11/19/17 1301 Helicobacter pylori IgG Antibody Negative 11/19/17 1310 Influenza Virus Type A (PCR) Negative 11/15/17 1115 Influenza Virus Type B (PCR) Negative 11/15/17 1115 Urine Cannabinoids Screen Positive 11/19/17 1301 Urine Cocaine Screen Negative 11/19/17 1301 Urine Benzodiazepines Screen Negative 11/19/17 1301 Urine Amphetamines Screen Negative 11/19/17 1301 Urine Phencyclidine Screen Negative 11/19/17 1301 Ur Tricyclic Antidepressants Screen Negative 11/19/17 1301 Urine Barbiturates Screen Negative 11/19/17 1301 Urine Opiates Screen Negative 11/19/17 1301 Acetone, Qualitative Small 11/19/17 1310 B-Type Natriuretic Peptide 9 pg/ml 11/19/17 1310 Troponin I < 0.012 ng/ml 11/19/17 1310 Lactate 1.8 mmol/L 11/19/17 1310 Magnesium Level 2.0 mg/dl 11/19/17 1310 Lipase 19 U/L L 11/19/17 1310 Amylase Level 67 U/L 11/19/17 1310 Albumin 5.0 g/dl 11/19/17 1310 Total Protein 8.4 gm/dl H 11/19/17 1310 Alkaline Phosphatase 115 U/L 11/19/17 1310 Alanine Aminotransferase (ALT/SGPT) 37 U/L 11/19/17 1310 Aspartate Amino Transf (AST/SGOT) 28 U/L 11/19/17 1310 Total Bilirubin 1.3 mg/dl 11/19/17 1310 Calcium Level 9.7 mg/dl 11/19/17 1310 Oxygen Liters/Minute Room air 11/19/17 1335 Boy Test Acceptable 11/19/17 1335 Arterial Blood Base Excess -22.0 mmol/L 11/19/17 1335 Arterial Blood Oxygen Saturation 92 % 11/19/17 1335 Arterial Blood HCO3 7 mmol/L *L 11/19/17 1335 Arterial Blood Partial Pressure O2 78 mmHg 11/19/17 1335 Arterial Blood Partial Pressure CO2 < 25 mmHg L 11/19/17 1335 Arterial Blood pH 7.17 *L 11/19/17 1335 Blood Gas Patient Temperature 97.8 DEGREES 11/19/17 1335 Blood Gas Puncture Site Right radial 11/19/17 1335 EKG / Imaging Imaging PATIENT NAME: Terrence Carson : 1985 MR: [id number] V: [id number] EXAM DATE: [id number] ORDERING PHYSICIAN: ELIAZBETH CONNORS TECHNOLOGIST: Location: [facility] Patient: Terrence Carson : 1985 Visit/Account:[id number] Date of Sevice: 11/15/2017 CT abdomen and pelvis with IV contrast Indication: Vomiting. Comparison: 10/02/2017.. Technique: Axial CT images were obtained through the abdomen and pelvis during injection of nonionic iodinated intravenous contrast. Reformatted coronal and sagittal images were also obtained. One of the following dose optimization techniques was utilized in the performance of this exam: Automated exposure control; adjustment of the mA and/ or kV according to the patient's size; or use of an iterative reconstruction technique. Specific details can be referenced in the facility's radiology CT exam operational policy. Contrast: 75 ml of Isovue-370 IV contrast. Findings: Lower lung upton: Limited views lower lung field are unremarkable. Liver: No focal parenchymal abnormality of the liver. Biliary: Gallbladder appears unremarkable as well as the intra and extra hepatic biliary system. Pancreas: Normal appearance. Spleen: Normal appearance. Adrenal glands: Unremarkable. Kidneys / retroperitoneum: No evidence of nephrolithiasis or hydronephrosis. No focal normality. Bowel / peritoneum / mesenteries: The visualized gastrointestinal tract is within normal limits. There is high density debris seen in the cecum which could be residual barium or concretions of stool. There is no focal normality the cecum. The appendix is normal. The stomach is unremarkable. No free air, free fluid, fluid collections or areas of inflammation. Lymph node assessment: No pathologic adenopathy identified. Pelvic structures: Appear unremarkable. Vessels: No significant atherosclerotic calcifications seen throughout a nonaneurysmal abdominal aorta and branches. Musculoskeletal / Body wall: No acute or aggressive osseous abnormality. IMPRESSION: 1. No acute intra-abdominal abnormality Report Dictated By: Phu Saucedo at 11/15/2017 6:19 PM Report E-Signed By: Phu Saucedo at 11/15/2017 6:25 PM WSN:[id number] PATIENT NAME: Terrence Carson : 1985 MR: [id number] V: [id number] EXAM DATE: [id number] ORDERING PHYSICIAN: TRUMAN ELI TECHNOLOGIST: Location: [facility] Patient: Terrence Carson : 1985 Visit/Account:[id number] Date of Sevice: 11/19/2017 CHEST SINGLE AP Indication: Abdominal pain, nausea and weakness.. Comparison: 10/02/2017. Findings: Cardiomediastinal silhouette and pulmonary vessels within normal limits. There is no focal infiltrate or lobar consolidation. No pneumothorax or pleural effusion. No nodule. Upper abdomen is unremarkable. No acute bony abnormality. IMPRESSION: 1. No acute cardiopulmonary process. Report Dictated By: Phu Saucedo at 11/19/2017 1:42 PM Report E-Signed By: Phu Saucedo at 11/19/2017 1:44 PM WSN:[id number] PATIENT NAME: Terrence Carson : 1985 MR: [id number] V: [id number] EXAM DATE: [id number] ORDERING PHYSICIAN: BRANDY YATES TECHNOLOGIST: Location: [facility] Patient: Terrence Carson : 1985 Visit/Account:[id number] Date of Sevice: 11/12/2017 Limited abdominal ultrasound HISTORY: Abdominal pain COMPARISON: None. FINDINGS: Gallbladder: Negative.. Bile ducts: There is no biliary ductal dilation with the CBD measuring 2 mm. Liver: Negative. Pancreas: Negative. Right kidney: Negative. Upper abdominal aorta and IVC: Patent. Ascites: None visualized. Other findings: None significant IMPRESSION: 1. Normal Report Dictated By: Stevenson Marino MD at 11/12/2017 1:06 PM Report E-Signed By: Stevenson Marino MD at 11/12/2017 1:07 PM BETHEL:RG PATIENT NAME: Terrence Carson : 1985 MR: [id number] V: [id number] EXAM DATE: [id number] ORDERING PHYSICIAN: BRANDY YATES TECHNOLOGIST: Location: [facility] Patient: Terrence Carson : 1985 Visit/Account:[id number] Date of Sevice: 11/12/2017 UPPER GI W/SMALL BOWEL SERIES HISTORY: Nausea, vomiting, diarrhea COMPARISON: None TECHNIQUE: Fizzies followed by multiple consistencies of barium were administered orally with multiple spot films obtained. A 13 mm barium tablet also administered. FINDINGS: A preliminary film of the abdomen reveals a nonobstructive bowel gas pattern. Esophagus: The esophagus is normal in caliber and contour with no persistent intrinsic or extrinsic filling defects. There are no persistent areas of narrowing. Hiatal hernia: There is no significant hiatal hernia. Reflux: There are no significant episodes of gastroesophageal reflux. Stomach: The stomach distends normally with contrast with no contour abnormalities. There is no evidence of gastric outlet obstruction. Duodenum: The duodenal bulb distends normally with contrast with a normal mucosal pattern. Small bowel: There is a 75 minute transit time through the small bowel. All of the visualized small bowel loops exhibit normal caliber and contour. No abnormal separation of small bowel loops. The terminal ileum is seen on spot films and is normal. Other findings: None significant Dose area product of 680 uGym2 IMPRESSION: 1. Normal upper GI and small bowel follow-through Report Dictated By: Stevenson Marino MD at 11/12/2017 2:54 PM Report E-Signed By: Stevenson Marino MD at 11/12/2017 2:57 PM KENDRICKN:RG Assessment and Plan Problems: (1) DKA (diabetic ketoacidoses) Status: Acute Assessment & Plan: He has acute diabetic ketoacidosis most likely as a result of his recent worsening of his nausea/vomiting. Will admit to the ICU for IV fluids, IV insulin, close monitoring of his glucoses and his electrolytes. Will also try to get control of his nausea/vomiting. (2) Nausea & vomiting Status: Acute Assessment & Plan: It appears he has had some acute worsening of his chronic N/ V. No obvious etiology has been found for his N/V. He is currently in the midst of a work-up with Dr. Yates. EGD is planned in a couple of weeks. He is a daily marijuana user, so it may be possible his N/V may be related to it. He is only a few days out from his last use. Will need to have him at least 2-3 weeks without use to see if it resolves. If not, he will need further work-up as planned. Venous Thromboembolism Antithrombotics Is Pt On Any Antithrombotics?: Yes Exam Sepsis Risk: No Definite Risk LEIGH FRANCOIS MD Nov 19, 2017 17:51
[2017-11-19] MEDS: PANTOPRAZOLE SOD 40 MG IV VIAL IVP ONE ×2 (17:55→19:33)
[2017-11-19] MEDS: KCL/D1/2NS 20 MEQ 1000 ML 1,000 ML IV PRN (18:46)
[2017-11-20] VITALS (14 sets, daily range): BP systolic 117–152; BP diastolic 81–98; Ht 172.7 cm; Wt 56.4 kg
[2017-11-20] MEDS: HYDROmorphone HCL 2 MG/ML SDV IVP PRN ×5 (00:14→07:25)
[2017-11-20] MEDS: KCL/D1/2NS 20 MEQ 1000 ML 1,000 ML IV PRN ×2 (02:22→10:35)
[2017-11-20 05:05] LABS: PLATELET COUNT, AUTOMATED 261 K/uL (150-450)
[2017-11-20] MEDS: PANTOPRAZOLE SOD 40 MG IV VIAL IVP SCH (08:20)
[2017-11-20] MEDS: ENOXAPARIN 40 MG/0.4ML SYR SC SCH (08:20)
[2017-11-20] MEDS ORDERED: INSULIN GLARGINE 100 U/ML 3 ML PEN SUBQ SCH (09:00)
[2017-11-20] MEDS: INSULIN GLARGINE 100 U/ML 3 ML PEN SUBQ SCH (09:10)
[2017-11-20] MEDS: GI COCKTAIL 60 ML BTL PO PRN ×2 (09:49→15:45)
[2017-11-20] MEDS: INSULIN HUM LISPRO 100 UN/ML 3 ML VIAL SUBQ PRN ×2 (10:07→12:05)
[2017-11-20] MEDS: traMADol 50 MG TAB PO PRN ×2 (10:38→16:56)
[2017-11-20] MEDS: INSULIN HUM REG 100 UN/ML 3 ML 100 UNIT in NS(*) 0.9% 100 ML BAG 99 ML IV SCH (12:03)
--- NOTE | 2017-11-20 12:26 | Hospitalist Progress Note ---
Subjective Progress Notes Subjective He reports resolution of the nausea. Glucose stable. On a D5 drip. Physical Exam Vital Signs Date Time Temp Pulse Resp B/P (MAP) Pulse Ox O2 Delivery O2 Flow Rate FiO2 11/20/17 11:06 96 Nasal Cannula 1.0 11/20/17 11:06 97.9 100 8 117/81 (93) Intake and Output 11/21/17 07:00 Intake Total 1650.8 ml Output Total 400 ml Balance 1250.8 ml Intake Oral 680 ml IV Total 970.8 ml Output Urine Total 400 ml # Voids 1 General Appearance: Alert, Awake, No Acute Distress GI: Other (Soft, pain with palpation of the LUQ. Guarding.) Result Diagram: 11/20/1744411/20/17444 Assessment and Plan Problems: (1) DKA (diabetic ketoacidoses) Status: Acute Assessment & Plan: He has acute diabetic ketoacidosis most likely as a result of his recent worsening of his nausea/vomiting. He was on IV insulin and his AG has closed. He will be switched to Lantus 25 units (he takes 38 units at home). (2) Nausea & vomiting Status: Acute Assessment & Plan: It appears he has had some acute worsening of his chronic N/ V. No obvious etiology has been found for his N/V. He is currently in the midst of a work-up with Dr. Schwab. EGD is planned in a couple of weeks. He is a daily marijuana user, so it may be possible his N/V may be related to it. He is only a few days out from his last use. Will need to have him at least 2-3 weeks without use to see if it resolves. If not, he will need further work-up as planned. (3) Abdominal pain Status: Chronic Assessment & Plan: Etiology unclear. See above. Will stop IV Dilaudid and try Tramadol. Exam Sepsis Risk: No Definite Risk YOAV MCLEOD MD Nov 20, 2017 12:26
[2017-11-20] MEDS ORDERED: INFLUENZA VIRUS VAC 0.5 ML SYR IM ONLY ONE (16:40)
[2017-11-20] MEDS ORDERED: HYDROmorphone HCL 2 MG/ML SDV IVP ONE (17:05)
--- NOTE | 2017-11-20 17:08 | Miscellaneous Provider Note ---
Miscellaneous Provider Note Note The patient is reporting 10/10 LUQ pain for the last hour. He is tearful and angry. He is hunched over grabbing his abdomen. He denies nausea. This is an exacerbation of his chronic pain that no etiology has been found. His abdomen is soft, non-distended. He only has pain with palpation in the LUQ. Will check CMP/CBC/CRP/lactate. Will get a CT of abd/pelvis, even though he has had 5 in the last couple of months. YOAV MCLEOD MD Nov 20, 2017 17:08
[2017-11-20] MEDS ORDERED: IOPAMIDOL 76% 75 ML INFUS BTL 75 ML ONE (17:15)
--- NOTE | 2017-11-20 17:59 | RADIOLOGY IMAGING REPORT ---
FACILITY: [facility] PATIENT NAME: Terrence Carson : 1985 MR: [id number] V: [id number] EXAM DATE: ORDERING PHYSICIAN: YOAV MCLEOD TECHNOLOGIST: Location: [facility] [place] Patient: Terrence Carson : 1985 Visit/Account:[id number] Date of Sevice: 11/20/2017 CT abdomen and pelvis without and with IV contrast Indication: Left abdominal pain. Comparison: To 2017.. Technique: Axial CT images were obtained through the abdomen and pelvis during injection of nonioni c iodinated intravenous contrast. Reformatted coronal and sagittal images were also obtained. One of the following dose optimization techniques was utilized in the performance of this exam: Autom ated exposure control; adjustment of the mA and/or kV according to the patient's size; or use of an i terative reconstruction technique. Specific details can be referenced in the facility's radiology C T exam operational policy. Contrast: 75 ml of Isovue-370 IV contrast. Findings: Lower lung upton: Limited views lower lung field are unremarkable. Liver: No focal parenchymal abnormality of the liver. Focal fat along the falx from ligament. Biliary: Gallbladder appears unremarkable as well as the intra and extra hepatic biliary system. Pancreas: Normal appearance. Spleen: Normal appearance. Adrenal glands: Unremarkable. Kidneys / retroperitoneum: No evidence of nephrolithiasis or hydronephrosis. No focal normality. Bowel / peritoneum / mesenteries: Residual debris seen in colon. The colon shows no focal abnormality . The appendix is normal. Small bowel shows no focal normality or obstruction. Stomach shows no focal abnormality. No free air, fluid collections or areas of inflammation. Tiny free fluid seen in the right lower savage drant. This is not appreciated previously. Lymph node assessment: No pathologic adenopathy identified. Pelvic structures: Appear unremarkable. Vessels: No significant atherosclerotic calcifications seen throughout a nonaneurysmal abdominal aort a and branches. Musculoskeletal / Body wall: No acute or aggressive osseous abnormality. IMPRESSION: 1. Tiny bit of free fluid seen in the right lower quadrant. This is not seen previously. This is nons pecific at this time. The appendix appears to be normal. 2. The remainder of the exam is unremarkable. Report Dictated By: Phu Saucedo at 11/20/2017 5:47 PM Report E-Signed By: Phu Saucedo at 11/20/2017 5:55 PM WSN:[id number]
[2017-11-20 18:20] LABS: PLATELET COUNT, AUTOMATED 285 K/uL (150-450)
[2017-11-20] MEDS ORDERED: LIDOCAINE 5% PATCH TP ONE (18:55)
[2017-11-21 03:25] VITALS: BP 124/80
[2017-11-21 05:36] LABS: PLATELET COUNT, AUTOMATED 234 K/uL (150-450)
[2017-11-21] MEDS ORDERED: PATCH REMOVAL 1 EA TP ONE (07:30)
[2017-11-21 07:56] VITALS: BP 134/92
[2017-11-21] MEDS: PANTOPRAZOLE SOD 40 MG IV VIAL IVP SCH (08:03)
[2017-11-21] MEDS: ENOXAPARIN 40 MG/0.4ML SYR SC SCH (08:03)
[2017-11-21] MEDS: GI COCKTAIL 60 ML BTL PO PRN (08:21)
[2017-11-21] MEDS ORDERED: NS(*) 0.9% 250 ML BAG 250 ML ONE ×2 (10:02→14:10)
[2017-11-21] MEDS: KCL (*) 20 MEQ/100 ML PREMIX 100 ML IV SCH ×2 (10:03→13:06)
[2017-11-21] MEDS ORDERED: INSU100I30 SUBQ (11:16)
--- NOTE | 2017-11-21 11:22 | Hospitalist Depart ---
Discharge Summary Reason for Hosp/Final Diag: (1) DKA (diabetic ketoacidoses) Status: Acute Hospital Course & Plan: He was admitted Diabetic Ketoacidosis. He was initially on IV insulin and fluid resuscitation. He will be switched to Lantus 25 units (he takes 38 units at home). (2) Nausea & vomiting Status: Acute Hospital Course & Plan: He does have chronic nausea and vomiting, which was worsened at admission. He will continue to follow up with Dr Yates for management. (3) Abdominal pain Status: Chronic Hospital Course & Plan: Chronic abdominal pain followed by Dr Yates. Departure Weight (Pounds): 124 Weight (Ounces): 5.0 Result Diagram: 11/21/1750911/21/17509 Condition: Improved Discharge: Home, Self Care Discharge Instructions Home Meds Active Scripts Insulin Glargine,Hum.rec.anlog (LANTUS SOLOSTAR) 100 Unit/1 Ml Insuln.pen, 25 UNIT SUBQ QDAY, #10 ML 0 Refills Prov:BRANDY BRENNAN DO 11/21/17 Promethazine Hcl (PROMETHAZINE HCL) 25 Mg Tablet, 25 MG PO Q8H Y for NAUSEA/ VOMITING, #12 TAB Prov:ELIZABETH CONNORS 11/15/17 Metoclopramide Hcl (METOCLOPRAMIDE HCL) 10 Mg Tablet, 10 MG PO QID Y for NAUSEA/ VOMITING, #40 TAB 0 Refills Prov:GALE KLEIN DNP, STEM ROLLER-BC 10/16/17 Ondansetron (ZOFRAN ODT) 4 Mg Tab.rapdis, 4 MG PO Q6H Y for NAUSEA/VOMITING, # 10 TAB.JANIE Prov:NOELLE DE LA CRUZ DO 10/07/17 Reported Medications Insulin Lispro (HUMALOG) 100 Unit/1 Ml Vial, 0 SQ Y for SLIDING SCALE INSULIN, VIAL takes Humalog Insulin at Home as per SS 10/02/17 Gabapentin (GABAPENTIN) 300 Mg Capsule, 300 MG PO TID Y for PAIN, CAPSULE 08/11/17 Discontinued Reported Medications Insulin Glargine (LANTUS) 100 Unit/Ml Soln, 38 UNIT SUBQ QDAY, ML MIDMORNING 10/02/17 Diet: Diabetic Activity: As Tolerated Copies to: GALE KLEIN DNP, STEM ROLLER-BC; BRANDY YATES MD Venous Thromboembolism Antithrombotics Is Pt On Any Antithrombotics?: Yes BRANDY BRENNAN DO Nov 21, 2017 11:22
[2017-11-21] MEDS: INSULIN HUM LISPRO 100 UN/ML 3 ML VIAL SUBQ PRN (12:24)
[2017-11-21] MEDS: INSULIN GLARGINE 100 U/ML 3 ML PEN SUBQ SCH (12:27)
[2017-11-21 13:08] VITALS: BP 117/85
[2017-11-22] MEDS ORDERED: PANTOPRAZOLE SOD 40 MG TABEC PO SCH (09:00)
== END 2017-11-21 16:30 | disposition home or self-care (01) | DRG 638 ==
LOC: ER 12:33 → ICU 15:00 → MED 11-20 13:31
PROVIDERS: ADMIT Internal Medicine; ATTEND Internal Medicine
DX: E10.10 Type 1 diabetes mellitus with ketoacidosis without coma (principal); E87.1 Hypo-osmolality and hyponatremia; G43.A0 Cyclical vomiting, in migraine, not intractable; G89.29 Other chronic pain; R10.9 Unspecified abdominal pain; E10.40 Type 1 diabetes mellitus with diabetic neuropathy, unspecified; R00.0 Tachycardia, unspecified; E86.0 Dehydration; F12.90 Cannabis use, unspecified, uncomplicated; Z88.5 Allergy status to narcotic agent; Z88.8 Allergy status to other drugs, medicaments and biological substances; Z87.891 Personal history of nicotine dependence; Z79.4 Long term (current) use of insulin
CPT/HCPCS: 36415; 36416; 36600; 71045; 74178; 80305; 81001; 82009; 82040; 82150; 82247; 82310; 82374; 82435; 82565; 82803; 82947; 82948; 83036; 83605; 83690; 83735; 83880; 83930; 84075; 84132; 84155; 84295; 84450; 84460; 84484; 84520; 85025; 86140; 86677; 93005; 96361; 96365; 96366; 96375; 99284; 99285; C9113; J1170; J1650; J1815; J2550; J2765; J3010; J3480; J7030; J7050; Q9967

== ENCOUNTER 2017-12-09 20:11 | Emergency (ER) | payer MEDICARE, MEDICAID ==
[2017-11-20 10:57] VITALS: Wt 58.2 kg
[~2017-12-09 20:11] MED LIST changes: +INSU100I30 SUBQ
[2017-12-09] MEDS ORDERED: NS(*) 0.9% 1000 ML BAG 1,000 ML IV ONE ×2 (20:43→23:35)
[2017-12-09] MEDS ORDERED: METOCLOPRAMIDE 10 MG/2 ML SDV IVP ONE (20:45)
--- NOTE | 2017-12-09 20:46 | ER Report ---
History and Physical Time Seen By MD: 20:46 Hx. of Stated Complaint: PT TYPE I DIABETIC. HAS BEEN VOMITING FOR 2 DAYS. PT'S LAST BG CHECK WAS AT 450 AND HE TOOK 10 UNITS OF RAPID ACTING INSULIN. PT FEELS WEAK. (OSCAR CONNORS) HPI/ROS CHIEF COMPLAINT: Vomiting HISTORY OF PRESENT ILLNESS: 32-year-old male patient presents to emergency room with complaint of vomiting. Patient states this started yesterday morning. He is concerned that he may be going into DKA. Patient states that his blood sugar this "morning", between noon and one, was 450. He took 10 units of his fast acting insulin. He states that he is not been feeling any better. He did smoke some marijuana which seemed to help with his vomiting. He states that he is feeling weak. He is concerned because the vomiting is persisting. REVIEW OF SYSTEMS: Respiratory: No cough, no dyspnea. Cardiovascular: No chest pain, no palpitations. Gastrointestinal: As noted above Musculoskeletal: No back pain. (OSCAR CONNORS) Allergies: Coded Allergies: hydrocodone (Verified Allergy, Unknown, 12/09/17) oxycodone (Verified Allergy, Unknown, 12/09/17) Uncoded Allergies: beestings (Adverse Reaction, Unknown, 08/11/17) Home Meds Active Scripts Ondansetron (ZOFRAN ODT) 4 Mg Tab.rapdis, 4 MG PO Q6H Y for NAUSEA/VOMITING, # 20 TAB.JANIE 0 Refills Prov:MARISOL HAY MD 12/10/17 Insulin Glargine,Hum.rec.anlog (LANTUS SOLOSTAR) 100 Unit/1 Ml Insuln.pen, 25 UNIT SUBQ QDAY, #10 ML 0 Refills Prov:BRANDY BRENNAN DO 11/21/17 Promethazine Hcl (PROMETHAZINE HCL) 25 Mg Tablet, 25 MG PO Q8H Y for NAUSEA/ VOMITING, #12 TAB Prov:OSCAR CONNORS 11/15/17 Metoclopramide Hcl (METOCLOPRAMIDE HCL) 10 Mg Tablet, 10 MG PO QID Y for NAUSEA/ VOMITING, #40 TAB 0 Refills Prov:GALE KLEIN DNP, [facility] 10/16/17 Ondansetron (ZOFRAN ODT) 4 Mg Tab.rapdis, 4 MG PO Q6H Y for NAUSEA/VOMITING, # 10 TAB.JANIE Prov:NOELLE DE LA CRUZ DO 10/07/17 Reported Medications Insulin Lispro (HUMALOG) 100 Unit/1 Ml Vial, 0 SQ Y for SLIDING SCALE INSULIN, VIAL takes Humalog Insulin at Home as per SS 10/02/17 Gabapentin (GABAPENTIN) 300 Mg Capsule, 300 MG PO TID Y for PAIN, CAPSULE 08/11/17 Past Medical/Surgical History Patient has a past medical history of gastroparesis, acid reflux, pancreatitis, right hand fracture, diabetic retinopathy, type 1 diabetes, marijuana abuse, alcohol use, anxiety. Patient has a surgical history of laser surgery on his eyes, ORIF to the right hand. (OSCAR CONNORS) Reviewed Nurses Notes: Yes (OSCAR CONNORS) Hx Smoking: No Smoking Status: Current: Every Day Smoker Hx Substance Use Disorder: Yes (POT) Hx Alcohol Use: No (Years since last use) (OSCAR CONNORS) Constitutional Vital Sign - Last 24 Hours 12/09/17 12/09/17 12/09/17 12/09/17 20:19 20:33 20:41 20:56 Temp 96.7 Pulse 121 94 126 Resp 22 B/P (MAP) 162/108 192/123 (146) Pulse Ox 99 95 95 O2 Delivery Room Air 12/09/17 12/09/17 12/09/17 12/09/17 21:00 21:11 21:26 21:30 Pulse 114 B/P (MAP) 151/101 (118) 180/108 (132) Pulse Ox 93 91 12/09/17 12/09/17 12/09/17 12/09/17 21:41 21:56 22:00 22:00 Pulse 109 125 118 B/P (MAP) 161/103 (122) 161/103 (122) Pulse Ox 90 93 94 12/09/17 12/09/17 12/09/17 12/09/17 22:15 22:30 23:00 23:14 Pulse 116 131 B/P (MAP) 173/105 (127) 149/96 (113) Pulse Ox 95 94 95 12/09/17 12/09/17 12/09/17 12/09/17 23:19 23:30 23:34 23:49 Pulse 123 122 121 B/P (MAP) 142/92 (109) Pulse Ox 92 93 12/10/17 12/10/17 12/10/17 12/10/17 00:00 00:04 00:19 00:30 Pulse 122 119 B/P (MAP) 158/90 (112) 152/93 (112) Pulse Ox 95 93 12/10/17 12/10/17 00:34 00:49 Pulse 119 126 Pulse Ox 94 95 (MARISOL HAY MD) Physical Exam General Appearance: The patient is alert, has no immediate need for airway protection and no current signs of toxicity. ENT: Tympanic membranes are pearly-rothman, auditory canals are patent, mucous membranes are moist. Respiratory: Chest is non tender, lungs are clear to auscultation. Cardiac: regular rate and rhythm Gastrointestinal: Abdomen is soft and non tender, no masses, bowel sounds normal. Musculoskeletal: Neck: Neck is supple and non tender. Extremities have full range of motion and are non tender. Skin: No rashes or lesions. DIFFERENTIAL DIAGNOSIS: After history and physical exam differential diagnosis was considered for nausea and vomiting including but not limited to gastroenteritis, gastritis, appendicitis, and medication side effect. (OSCAR CONNORS) Medical Decision Making Data Points Result Diagram: 12/09/17213112/09/172131 Laboratory Hematology Test 12/09/17 21:32 12/09/17 21:35 12/09/17 23:10 Red Blood Count 5.12 M/uL (4.00-5.60) Mean Corpuscular Volume 93.4 fL (80.0-96.0) Mean Corpuscular Hemoglobin 32.0 pg (26.0-33.0) Mean Corpuscular Hemoglobin Concent 34.3 g/dL (32.0-36.0) Red Cell Distribution Width 12.5 % (11.5-14.5) Mean Platelet Volume 7.8 fL (7.2-11.1) Neutrophils (%) (Auto) 93.5 % (39.4-72.5) Lymphocytes (%) (Auto) 4.4 % (17.6-49.6) Monocytes (%) (Auto) 1.3 % (4.1-12.4) Eosinophils (%) (Auto) 0.0 % (0.4-6.7) Basophils (%) (Auto) 0.8 % (0.3-1.4) Nucleated RBC Relative Count (auto) 0.0 /100WBC Neutrophils # (Auto) 10.4 K/uL (2.0-7.4) Lymphocytes # (Auto) 0.5 K/uL (1.3-3.6) Monocytes # (Auto) 0.1 K/uL (0.3-1.0) Eosinophils # (Auto) 0.0 K/uL (0.0-0.5) Basophils # (Auto) 0.1 K/uL (0.0-0.1) Nucleated RBC Absolute Count (auto) 0.00 K/uL Sodium Level 141 mmol/L (137-145) Potassium Level 4.6 mmol/L (3.5-5.0) Chloride Level 97 mmol/L (98-107) Carbon Dioxide Level 16 mmol/L (22-30) Blood Urea Nitrogen 19 mg/dl (9-21) Creatinine 0.70 mg/dl (0.66-1.25) Glomerular Filtration Rate Calc > 60.0 Random Glucose 420 mg/dl (75-110) Osmolality 315 mOSM/K (275-295) Calcium Level 9.9 mg/dl (8.4-10.2) Total Bilirubin 0.7 mg/dl (0.2-1.3) Aspartate Amino Transf (AST/SGOT) 22 U/L (0-35) Alanine Aminotransferase (ALT/SGPT) 30 U/L (0-56) Alkaline Phosphatase 116 U/L (0-126) Total Protein 8.2 gm/dl (6.3-8.2) Albumin 4.5 g/dl (3.5-5.0) Acetone, Qualitative Small Blood Gas Puncture Site Left radial Blood Gas Patient Temperature Unknown DEGREES Arterial Blood pH 7.38 (7.35-7.45) Arterial Blood Partial Pressure CO2 28 mmHg (32-37) Arterial Blood Partial Pressure O2 69 mmHg (60-80) Arterial Blood HCO3 16 mmol/L (20-26) Arterial Blood Oxygen Saturation 93 % (92-100) Arterial Blood Base Excess -9.0 mmol/L Boy Test Acceptable Oxygen Liters/Minute Room air Whole Blood Glucose 281 mg/DL (75-110) Chemistry Test 12/09/17 21:32 12/09/17 21:35 12/09/17 23:10 White Blood Count 11.1 k/uL (4.5-11.0) Red Blood Count 5.12 M/uL (4.00-5.60) Hemoglobin 16.4 g/dL (14.0-18.0) Hematocrit 47.9 % (42.0-52.0) Mean Corpuscular Volume 93.4 fL (80.0-96.0) Mean Corpuscular Hemoglobin 32.0 pg (26.0-33.0) Mean Corpuscular Hemoglobin Concent 34.3 g/dL (32.0-36.0) Red Cell Distribution Width 12.5 % (11.5-14.5) Platelet Count 432 K/uL (150-450) Mean Platelet Volume 7.8 fL (7.2-11.1) Neutrophils (%) (Auto) 93.5 % (39.4-72.5) Lymphocytes (%) (Auto) 4.4 % (17.6-49.6) Monocytes (%) (Auto) 1.3 % (4.1-12.4) Eosinophils (%) (Auto) 0.0 % (0.4-6.7) Basophils (%) (Auto) 0.8 % (0.3-1.4) Nucleated RBC Relative Count (auto) 0.0 /100WBC Neutrophils # (Auto) 10.4 K/uL (2.0-7.4) Lymphocytes # (Auto) 0.5 K/uL (1.3-3.6) Monocytes # (Auto) 0.1 K/uL (0.3-1.0) Eosinophils # (Auto) 0.0 K/uL (0.0-0.5) Basophils # (Auto) 0.1 K/uL (0.0-0.1) Nucleated RBC Absolute Count (auto) 0.00 K/uL Glomerular Filtration Rate Calc > 60.0 Osmolality 315 mOSM/K (275-295) Calcium Level 9.9 mg/dl (8.4-10.2) Total Bilirubin 0.7 mg/dl (0.2-1.3) Aspartate Amino Transf (AST/SGOT) 22 U/L (0-35) Alanine Aminotransferase (ALT/SGPT) 30 U/L (0-56) Alkaline Phosphatase 116 U/L (0-126) Total Protein 8.2 gm/dl (6.3-8.2) Albumin 4.5 g/dl (3.5-5.0) Acetone, Qualitative Small Blood Gas Puncture Site Left radial Blood Gas Patient Temperature Unknown DEGREES Arterial Blood pH 7.38 (7.35-7.45) Arterial Blood Partial Pressure CO2 28 mmHg (32-37) Arterial Blood Partial Pressure O2 69 mmHg (60-80) Arterial Blood HCO3 16 mmol/L (20-26) Arterial Blood Oxygen Saturation 93 % (92-100) Arterial Blood Base Excess -9.0 mmol/L Boy Test Acceptable Oxygen Liters/Minute Room air Whole Blood Glucose 281 mg/DL (75-110) Toxicology Test 12/09/17 21:32 Acetone, Qualitative Small (MARISOL HAY MD) ED Course/Re-evaluation Turned Over 12/10/2017 12:50:36 am The care of the patient was turned over to Dr. Hay. Oscar MARK-ELOY I authorize my typed signature that I authenticated this report. (OSCAR CONNORS) ED Course Assumed care of the patient from our nurse practitioner at the end of his shift. Patient with diabetic gastroparesis and chronic vomiting. He has a normal pH, mild changes in bicarb, but small acetone. Hydrated and given anti- emetics. Patient improved, but still with some nausea. Decision to Disposition Date: Dec 10, 2017 Decision to Disposition Time: 01:42 (MARISOL HAY MD) Depart Departure Latest Vital Signs Vital Signs Date Time Temp Pulse Resp B/P (MAP) Pulse Ox O2 Delivery O2 Flow Rate FiO2 12/10/17 00:49 126 95 12/10/17 00:30 152/93 (112) 12/09/17 20:19 96.7 22 Room Air (MARISOL HAY MD) Impression: Primary Impression: Nausea & vomiting Additional Impression: Diabetic gastroparesis Condition: Improved Disposition: HOME OR SELF-CARE Referrals: GALE KLEIN DNP, RANGE RIDER-BC (PCP) New Scripts Ondansetron (ZOFRAN ODT) 4 Mg Tab.rapdis 4 MG PO Q6H Y for NAUSEA/VOMITING, #20 TAB.JANIE 0 Refills Prov: MARISOL HAY MD 12/10/17 Patient Instructions: Diabetic Gastroparesis (DC) Additional Instructions: Keep using your Reglan. Use Zofran oral dissolving tablets every 4 hours as needed for nausea. Keep trying to have strict control of blood sugars to reduce problems associated with diabetic gastroparesis. The marijuana, while helping at times temporarily, can cause severe nausea, and may be the cause of your vomiting and problems. We recommend considering stopping using this drug. Problem Qualifiers Primary Impression: Nausea & vomiting Vomiting type: unspecified Vomiting Intractability: unspecified Qualified Codes: R11.2 - Nausea with vomiting, unspecified OSCAR CONNORS Dec 09, 2017 20:46 MARISOL HAY MD Dec 10, 2017 01:43
[2017-12-09 21:45] LABS: PLATELET COUNT, AUTOMATED 432 K/uL (150-450)
[2017-12-09] MEDS ORDERED: INSU HUM REG 100 U/ML(ER ONLY) 10 ML VIAL IV ONE (22:00)
[2017-12-09] MEDS ORDERED: ONDANSETRON 4 MG/2 ML VIAL IVP ONE (22:50)
[2017-12-10 00:30] VITALS: BP 152/93
[2017-12-10] MEDS ORDERED: ONDANSETRON 4 MG ODT TH SL ONE (01:45)
[2017-12-10] MEDS ORDERED: METOCLOPRAMIDE 10 MG/2 ML SDV IVP ONE (01:45)
[2017-12-10] MEDS ORDERED: ONDA4TAB PO (01:47)
[2017-12-11] MEDS ORDERED: FAMO20TA28 PO (16:31)
== END 2017-12-10 02:09 | disposition home or self-care (01) ==
LOC: ER 20:41
DX: E10.43 Type 1 diabetes mellitus with diabetic autonomic (poly)neuropathy (principal); K31.84 Gastroparesis
CPT/HCPCS: 36416; 36600; 82009; 82803; 82948; 83930; 85025; 96361; 96374; 96375; 96376; 99284; A9270; J2405; J2765; J7030; Q0162; 82040; 82247; 82310; 82374; 82435; 82565; 82947; 84075; 84132; 84155; 84295; 84450; 84460; 84520; J1815; S0119

== ENCOUNTER 2017-12-11 13:19 | Emergency (ER) | payer MEDICARE, MEDICAID ==
[2017-11-20 10:57] VITALS: Wt 58.1 kg
[2017-12-11 13:23] VITALS: BP 133/108
--- NOTE | 2017-12-11 13:26 | ER Report ---
History and Physical Time Seen By MD: 13:26 Hx. of Stated Complaint: VOMITING HPI/ROS CHIEF COMPLAINT: Abdominal pain HISTORY OF PRESENT ILLNESS: 30-year-old male resident with abdominal pain in the right upper quadrant region states it is associated with nausea and vomiting since prior ED visit. He is unsure if he is having a diabetic crisis. He missed his insulin dose of 25 units of Lantus this morning. He normally takes this in the morning and then sliding-scale short acting insulin with meals. He states he missed the dose due to missed meals due to vomiting. States he has not been able to keep anything down. No fevers. Denies bloody or dark stools. No other concerns or complaints today. REVIEW OF SYSTEMS: Constitutional: No fever, no chills. Eyes: No discharge. ENT: No sore throat. Cardiovascular: No chest pain, no palpitations. Respiratory: No cough, no shortness of breath. Gastrointestinal: No hematemesis Genitourinary: No hematuria. Musculoskeletal: No back pain. Skin: No rashes. Neurological: No headache. Allergies: Coded Allergies: hydrocodone (Verified Allergy, Unknown, 12/11/17) oxycodone (Verified Allergy, Unknown, 12/11/17) Uncoded Allergies: beestings (Adverse Reaction, Unknown, 08/11/17) Home Meds Active Scripts Ondansetron (ZOFRAN ODT) 4 Mg Tab.rapdis, 4 MG PO Q6H Y for NAUSEA/VOMITING, # 20 TAB.JANIE 0 Refills Prov:MARISOL CARO MD 12/10/17 Insulin Glargine,Hum.rec.anlog (LANTUS SOLOSTAR) 100 Unit/1 Ml Insuln.pen, 25 UNIT SUBQ QDAY, #10 ML 0 Refills Prov:BRANDY BRENNAN DO 11/21/17 Promethazine Hcl (PROMETHAZINE HCL) 25 Mg Tablet, 25 MG PO Q8H Y for NAUSEA/ VOMITING, #12 TAB Prov:ELIZABETH CONNORS 11/15/17 Metoclopramide Hcl (METOCLOPRAMIDE HCL) 10 Mg Tablet, 10 MG PO QID Y for NAUSEA/ VOMITING, #40 TAB 0 Refills Prov:GALE KLEIN DNP, DIET KITCHEN COOK-BC 10/16/17 Ondansetron (ZOFRAN ODT) 4 Mg Tab.rapdis, 4 MG PO Q6H Y for NAUSEA/VOMITING, # 10 TAB.JANIE Prov:NOELLE DE LA CRUZ DO 10/07/17 Reported Medications Insulin Lispro (HUMALOG) 100 Unit/1 Ml Vial, 0 SQ Y for SLIDING SCALE INSULIN, VIAL takes Humalog Insulin at Home as per SS 10/02/17 Gabapentin (GABAPENTIN) 300 Mg Capsule, 300 MG PO TID Y for PAIN, CAPSULE 08/11/17 Hx Smoking: No Smoking Status: Current: Every Day Smoker Hx Substance Use Disorder: Yes (POT) Hx Alcohol Use: No (Years since last use) Constitutional Vital Sign - Last 24 Hours 12/11/17 13:23 Temp 98.6 Pulse 120 Resp 19 B/P (MAP) 133/108 Pulse Ox 97 O2 Delivery Room Air Physical Exam General Appearance: The patient is alert, has no immediate need for airway protection and no signs of toxicity. Mild distress, anxiety Eyes: Pupils equal and round no pallor or injection. ENT, Mouth: Mucous membranes are moist. Respiratory: There are no retractions, lungs are clear to auscultation. Cardiovascular: Regular rate and rhythm. No murmurs gallops or rubs Gastrointestinal: Abdomen is tender in the right upper quadrant, mildly otherwise soft and non tender, no masses, bowel sounds normal. Neurological: Normal neurological exam Skin: Warm and dry, no rashes. Musculoskeletal: Neck is supple non tender. Extremities are nontender, nonswollen and have full range of motion. No edema DIFFERENTIAL DIAGNOSIS: After history and physical exam differential diagnosis was considered for diabetic gastroparesis cyclical vomiting cyclical vomiting syndrome secondary to marijuana he is a known marijuana user. However previously has not relieved his syndrome to be related to marijuana. X-ray to exclude free air under the diaphragm or purpura otherwise perfect viscus Will recheck labs including VBG and they have B-hydroxybutyrate to rule out DKA. His initial glucose here was not severely elevated. Medical Decision Making Data Points Result Diagram: 12/11/17 1331 12/11/17 1331 Laboratory Hematology Test 12/11/17 13:31 12/11/17 13:39 Red Blood Count 5.34 M/uL (4.00-5.60) Mean Corpuscular Volume 92.4 fL (80.0-96.0) Mean Corpuscular Hemoglobin 32.2 pg (26.0-33.0) Mean Corpuscular Hemoglobin Concent 34.8 g/dL (32.0-36.0) Red Cell Distribution Width 12.8 % (11.5-14.5) Mean Platelet Volume 7.6 fL (7.2-11.1) Neutrophils (%) (Auto) 79.1 % (39.4-72.5) Lymphocytes (%) (Auto) 16.1 % (17.6-49.6) Monocytes (%) (Auto) 4.0 % (4.1-12.4) Eosinophils (%) (Auto) 0.0 % (0.4-6.7) Basophils (%) (Auto) 0.8 % (0.3-1.4) Nucleated RBC Relative Count (auto) 0.0 /100WBC Neutrophils # (Auto) 7.8 K/uL (2.0-7.4) Lymphocytes # (Auto) 1.6 K/uL (1.3-3.6) Monocytes # (Auto) 0.4 K/uL (0.3-1.0) Eosinophils # (Auto) 0.0 K/uL (0.0-0.5) Basophils # (Auto) 0.1 K/uL (0.0-0.1) Nucleated RBC Absolute Count (auto) 0.00 K/uL Peripheral Blood Smear Yes Y/N Blood Gas Patient Temperature Na DEGREES Venous Blood pH 7.39 (7.31-7.41) Venous Blood Partial Pressure CO2 44 mmHg Venous Blood Partial Pressure O2 < 35 mmHg Venous Blood HCO3 27 mmol/L Venous Blood Oxygen Saturation 51 % Venous Blood Base Excess 2 mmol/L Oxygen Liters/Minute Na Sodium Level 144 mmol/L (137-145) Potassium Level 3.5 mmol/L (3.5-5.0) Chloride Level 96 mmol/L (98-107) Carbon Dioxide Level 25 mmol/L (22-30) Blood Urea Nitrogen 20 mg/dl (9-21) Creatinine 0.70 mg/dl (0.66-1.25) Glomerular Filtration Rate Calc > 60.0 Random Glucose 127 mg/dl (75-110) Calcium Level 10.1 mg/dl (8.4-10.2) Total Bilirubin 0.6 mg/dl (0.2-1.3) Aspartate Amino Transf (AST/SGOT) 26 U/L (0-35) Alanine Aminotransferase (ALT/SGPT) 36 U/L (0-56) Alkaline Phosphatase 114 U/L (0-126) Total Protein 8.7 gm/dl (6.3-8.2) Albumin 4.6 g/dl (3.5-5.0) Lipase 19 U/L (23-300) Whole Blood Glucose 109 mg/DL (75-110) Chemistry Test 12/11/17 13:31 12/11/17 13:39 White Blood Count 9.9 k/uL (4.5-11.0) Red Blood Count 5.34 M/uL (4.00-5.60) Hemoglobin 17.2 g/dL (14.0-18.0) Hematocrit 49.3 % (42.0-52.0) Mean Corpuscular Volume 92.4 fL (80.0-96.0) Mean Corpuscular Hemoglobin 32.2 pg (26.0-33.0) Mean Corpuscular Hemoglobin Concent 34.8 g/dL (32.0-36.0) Red Cell Distribution Width 12.8 % (11.5-14.5) Platelet Count 508 K/uL (150-450) Mean Platelet Volume 7.6 fL (7.2-11.1) Neutrophils (%) (Auto) 79.1 % (39.4-72.5) Lymphocytes (%) (Auto) 16.1 % (17.6-49.6) Monocytes (%) (Auto) 4.0 % (4.1-12.4) Eosinophils (%) (Auto) 0.0 % (0.4-6.7) Basophils (%) (Auto) 0.8 % (0.3-1.4) Nucleated RBC Relative Count (auto) 0.0 /100WBC Neutrophils # (Auto) 7.8 K/uL (2.0-7.4) Lymphocytes # (Auto) 1.6 K/uL (1.3-3.6) Monocytes # (Auto) 0.4 K/uL (0.3-1.0) Eosinophils # (Auto) 0.0 K/uL (0.0-0.5) Basophils # (Auto) 0.1 K/uL (0.0-0.1) Nucleated RBC Absolute Count (auto) 0.00 K/uL Peripheral Blood Smear Yes Y/N Blood Gas Patient Temperature Na DEGREES Venous Blood pH 7.39 (7.31-7.41) Venous Blood Partial Pressure CO2 44 mmHg Venous Blood Partial Pressure O2 < 35 mmHg Venous Blood HCO3 27 mmol/L Venous Blood Oxygen Saturation 51 % Venous Blood Base Excess 2 mmol/L Oxygen Liters/Minute Na Glomerular Filtration Rate Calc > 60.0 Calcium Level 10.1 mg/dl (8.4-10.2) Total Bilirubin 0.6 mg/dl (0.2-1.3) Aspartate Amino Transf (AST/SGOT) 26 U/L (0-35) Alanine Aminotransferase (ALT/SGPT) 36 U/L (0-56) Alkaline Phosphatase 114 U/L (0-126) Total Protein 8.7 gm/dl (6.3-8.2) Albumin 4.6 g/dl (3.5-5.0) Lipase 19 U/L (23-300) Whole Blood Glucose 109 mg/DL (75-110) ED Course/Re-evaluation ED Course Frequent Flier with multiple visits to the ED. No signs of DKA this visit Labs reviewed and seems improved since prior visits this is discussed with the patient who said nausea as well controlled and feels better at this time 2017 4:29:02 pm however he is requesting additional pain medicine we will provide a GI cocktail and by mouth challenge prior to discharge. Follow-up and reasons to return were discussed. Imaging results were discussed. Multiple recent CTs and recent ultrasound, repeat study this is unlikely to be high yield. This was discussed with the patient. Patient is instructed to follow up with his previously scheduled endoscopy visit tomorrow Decision to Disposition Date: Dec 11, 2017 Decision to Disposition Time: 16:30 Depart Departure Latest Vital Signs Vital Signs Date Time Temp Pulse Resp B/P (MAP) Pulse Ox O2 Delivery O2 Flow Rate FiO2 12/11/17 13:23 98.6 120 19 133/108 97 Room Air Impression: Primary Impression: Cyclical vomiting Condition: Improved Disposition: HOME OR SELF-CARE Referrals: GALE KLEIN DNP, DIET KITCHEN COOK-BC (PCP) New Scripts Famotidine (PEPCID) 20 Mg Tablet 20 MG PO BID for 10 Days, #30 TAB Prov: MICHELE LARA MD 12/11/17 Patient Instructions: Diet for Stomach Ulcers and Gastritis (ED) Problem Qualifiers Primary Impression: Cyclical vomiting Vomiting Intractability: non-intractable Nausea presence: with nausea Qualified Codes: G43.A0 - Cyclical vomiting, not intractable MICHELE LARA MD Dec 11, 2017 13:26
[2017-12-11] MEDS ORDERED: NS(*) 0.9% 1000 ML BAG 1,000 ML IV ONE (13:35)
[2017-12-11] MEDS ORDERED: ONDANSETRON 4 MG/2 ML VIAL IVP ONE (13:35)
[2017-12-11 13:48] LABS: PLATELET COUNT, AUTOMATED 508 K/uL (150-450)
[2017-12-11] MEDS ORDERED: MORPHINE 4 MG/ML SDV IVP ONE (13:55)
--- NOTE | 2017-12-11 14:21 | RADIOLOGY IMAGING REPORT ---
FACILITY: PATIENT NAME: Terrence Carson : 1985 MR: [id number] V: [id number] EXAM DATE: ORDERING PHYSICIAN: MICHELE LARA [place]CHN[place] [facility] [place] Terrence [place] : 1985 Visit/Account:[id number] Date of Sevice: 12/11/2017 EXAMINATION: Chest radiograph HISTORY: Abdominal pain COMPARISON: November 19, 2017 FINDINGS: A single portable AP view of the chest was obtained. The cardiac silhouette is normal in size. No pneumothorax. Clear lungs. Normal osseous structures. No free air. IMPRESSION: Normal chest radiograph. Report Dictated By: Justin Owen MD at 12/11/2017 2:14 PM Report E-Signed By: Justin Owen MD at 12/11/2017 2:16 PM WSN:[id number]
[2017-12-11] MEDS ORDERED: GI COCKTAIL 60 ML BTL PO PRN (16:25)
[2017-12-11] MEDS ORDERED: LIDOCAINE 2% VISC SLN 15ML UDC PO PRN (16:30)
[2017-12-11] MEDS ORDERED: FAMO20TA28 PO (16:31)
[2017-12-11] MEDS ORDERED: MAG HYD/AL HYD/SIMETH 30ML UDC PO PRN (16:35)
[2017-12-11] MEDS ORDERED: ATRO/SCOPOL/HYOSCY/PB 5 ML ELX PO PRN (16:35)
[2017-12-12] MEDS ORDERED: PANT40TA65 PO (08:30)
[2017-12-12] MEDS ORDERED: SUCR1ORA13 PO (08:30)
== END 2017-12-11 16:45 | disposition home or self-care (01) ==
LOC: ER 13:31
DX: G43.A0 Cyclical vomiting, in migraine, not intractable (principal); E11.9 Type 2 diabetes mellitus without complications; Z79.4 Long term (current) use of insulin
CPT/HCPCS: 36416; 71045; 82803; 82948; 83690; 85025; 99284; A9270; J2270; J2405; J7030; 80305; 82040; 82247; 82310; 82374; 82435; 82565; 82947; 84075; 84132; 84155; 84295; 84450; 84460; 84520; 96361; 96374; 96375

== ENCOUNTER 2017-12-12 00:10 | Day surgery (SDC) | payer MEDICARE, MEDICAID ==
[2017-11-20 10:57] VITALS: Ht 172.7 cm; Wt 53.1 kg
[2017-12-12] VITALS (7 sets, daily range): BP systolic 129–155; BP diastolic 100–114
[~2017-12-12] VITALS: Ht 172.7 cm; Wt 53.1 kg
[~2017-12-12 00:10] MED LIST changes: +FAMO20TA28 PO
[2017-12-12] MEDS ORDERED: PROPOFOL EMUL(*) 10MG/ML 20 ML 20 ML ONE (07:04)
[2017-12-12] MEDS ORDERED: NORMOSOL R SOLN(*) 1000 ML BAG 1,000 ML IV PRN (07:05)
[2017-12-12] MEDS ORDERED: LIDOCAINE/SOD BICARB 8.4% SYR ID ONE (07:05)
[2017-12-12] MEDS ORDERED: MIDAZOLAM 2 MG/2 ML VIAL IVP PRN (07:05)
[2017-12-12] MEDS ORDERED: INSULIN HUM REG 100 UN/ML 3 ML VIAL SC ONE ×2 (07:15→08:30)
[2017-12-12] MEDS ORDERED: fentaNYL CITR 100 MCG/2 ML AMP IVP PRN (07:20)
[2017-12-12] MEDS ORDERED: PANT40TA65 PO (08:30)
[2017-12-12] MEDS ORDERED: SUCR1ORA13 PO (08:30)
--- NOTE | 2017-12-12 08:36 | Short(Outpt) Discharge Summary ---
Discharge Summary Reason for Hosp/Final Diag: (1) Early satiety Status: Chronic Hospital Course & Plan: EGD with biopsies completed without problems. (2) Postprandial bloating Status: Chronic (3) Type I diabetes mellitus Status: Chronic (4) Nausea & vomiting Status: Acute (5) Abdominal pain Status: Chronic Departure Discharge to: Home, Self Care Discharge Instructions Home Meds Active Scripts Sucralfate (SUCRALFATE) 1 Gm/10 Ml Oral.susp, 1 GM PO ACHS1, #120 G 0 Refills Prov:BRANDY YATES MD 12/12/17 Pantoprazole Sodium (PANTOPRAZOLE SODIUM) 40 Mg Tablet.dr, 1 TAB PO BIDAC, #60 TAB.SR 3 Refills Don't eat for at least 2 hours before or 30 minutes after taking Prov:BRANDY YATES MD 12/12/17 Famotidine (PEPCID) 20 Mg Tablet, 20 MG PO BID for 10 Days, #30 TAB Prov:MICHELE LARA MD 12/11/17 Ondansetron (ZOFRAN ODT) 4 Mg Tab.rapdis, 4 MG PO Q6H Y for NAUSEA/VOMITING, # 20 TAB.JANIE 0 Refills Prov:MARISOL CARO MD 12/10/17 Insulin Glargine,Hum.rec.anlog (LANTUS SOLOSTAR) 100 Unit/1 Ml Insuln.pen, 25 UNIT SUBQ QDAY, #10 ML 0 Refills Prov:BRANDY BRENNAN DO 11/21/17 Promethazine Hcl (PROMETHAZINE HCL) 25 Mg Tablet, 25 MG PO Q8H Y for NAUSEA/ VOMITING, #12 TAB Prov:ELIZABETH CONNORS 11/15/17 Metoclopramide Hcl (METOCLOPRAMIDE HCL) 10 Mg Tablet, 10 MG PO QID Y for NAUSEA/ VOMITING, #40 TAB 0 Refills Prov:GALE KLEIN DNP, COMPLETION ENGINEER-BC 10/16/17 Ondansetron (ZOFRAN ODT) 4 Mg Tab.rapdis, 4 MG PO Q6H Y for NAUSEA/VOMITING, # 10 TAB.JANIE Prov:NOELLE DE LA CRUZ DO 10/07/17 Reported Medications Insulin Lispro (HUMALOG) 100 Unit/1 Ml Vial, 0 SQ Y for SLIDING SCALE INSULIN, VIAL takes Humalog Insulin at Home as per 10/02/17 Gabapentin (GABAPENTIN) 300 Mg Capsule, 300 MG PO TID Y for PAIN, CAPSULE 08/11/17 Follow up Referrals: General Surgery - 12/25/17 @ Surgery, General with Brandy Yates Md You have a follow up appointment scheduled with Dr. Yates on 12/25/17, at 11: 30am. Diet: Regular Activity: As Tolerated Special Instructions: You have erosions and severe inflammation in your lower esophagus. Take the pantoprazole I prescribed twice each day at least 2 hours after eating and wait 30 minutes to eat after taking this medication. I have also prescibed carafate (sucralfate) that you should swallow 4 times each day before 3 meals and at bedtime to coat the area of ulcers and help them to heal. My nurse, Tiffany, will call you in the next day or 2 to schedule you for a HIDA scan which determines how your gallbladder is functioning. I will discuss all of these results with you when I see you back in my office on December 25. Problem Qualifiers (1) Type I diabetes mellitus: Diabetes mellitus complication status: with neurologic complications Diabetes mellitus complication detail: with other neurological complication Qualified Codes: E10.49 - Type 1 diabetes mellitus with other diabetic neurological complication (2) Nausea & vomiting: Vomiting type: unspecified Vomiting Intractability: unspecified Qualified Codes: R11.2 - Nausea with vomiting, unspecified (3) Abdominal pain: Abdominal location: generalized Qualified Codes: R10.84 - Generalized abdominal pain BRANDY YATES MD Dec 12, 2017 08:36
[2017-12-12] MEDS ORDERED: SUCRALFATE 1 GM/10 ML ORAL.SUSP PO ONE (09:00)
== END 2017-12-12 09:25 | disposition home or self-care (01) ==
LOC: OR 00:10
PROVIDERS: ATTEND Surgery
DX: K21.0 Gastro-esophageal reflux disease with esophagitis (principal); E11.9 Type 2 diabetes mellitus without complications
CPT/HCPCS: 36416; 43239; 82948; 87077; 88305; 88313; J1815; J2704; J3010

== ENCOUNTER → 2017-12-18 | Outpatient (CLI) | payer MEDICARE, MEDICAID ==
[2017-11-20 10:57] VITALS: BMI 18.9
[~2017-12-18] MED LIST changes: +SINCALIDE 5 MCG VIAL INJ ONE; +SUCR1ORA13 PO; +WATER FOR INJ,STERILE 20 ML 20 ML ONE
--- NOTE | 2017-12-18 14:03 | RADIOLOGY IMAGING REPORT ---
FACILITY: [facility] PATIENT NAME: Terrence Carson : 1985 MR: [id number] V: [id number] EXAM DATE: ORDERING PHYSICIAN: BRANDY YATES TECHNOLOGIST: Location: [facility] - [place] Patient: Terrence Carson : 1985 Visit/Account:[id number] Date of Sevice: 12/18/2017 Nuclear Medicine HIDA Scan with Kinevac Stimulation INDICATION: Right upper quadrant pain COMPARISON STUDIES: None available TECHNIQUE: 6.2 mCi Tc99m Mebrofenin was injected intravenously. Multiple sequential gamma camera pillo ges of the abdomen were obtained for 60 minutes. At that time, Kinevac was injected intravenously and an additional 30 minutes of gamma camera imaging data was acquired. A computer-generated region of i nterest was placed around the gallbladder and time-activity curve for the gallbladder was derived. Th e gallbladder ejection fraction was calculated. FINDINGS: Liver uptake and excretion: Noted Time to appearance: Bile ducts: 187 seconds Gallbladder: 65 minutes. Duodenum: 76 minutes. Duodenal- gastric reflux / extravasation: none Post IV Kinevac: There is normal prompt contraction of the gallbladder Patient symptoms: Extreme nausea Ejection fraction = 94 %, (normal range > 35%). IMPRESSION: 1. Normal ejection fraction of the gallbladder during the examination. 2. Patient reported extreme nausea with Kinevac. Report Dictated By: Sanjay Gannon DO at 12/18/2017 1:50 PM Report E-Signed By: Sanjay Gannon DO at 12/18/2017 1:58 PM WSN:[email or web address]
== END ==
LOC: NUC 01:53
PROVIDERS: ATTEND Surgery
DX: R10.9 Unspecified abdominal pain (principal); R14.0 Abdominal distension (gaseous); R11.0 Nausea; R68.81 Early satiety
CPT/HCPCS: 78226; A9537; J2805

== ENCOUNTER 2018-01-04 18:43 | Emergency (ER) | payer MEDICARE, MEDICAID ==
[2017-11-20 10:57] VITALS: Wt 58.1 kg
[~2018-01-04 18:43] MED LIST changes: -SINCALIDE 5 MCG VIAL INJ ONE; -WATER FOR INJ,STERILE 20 ML 20 ML ONE
--- NOTE | 2018-01-04 18:46 | ER Report ---
History and Physical Time Seen By MD: 18:45 HPI/ROS CHIEF COMPLAINT: Abdominal pain, vomiting HISTORY OF PRESENT ILLNESS: 32-year-old male presents ambulatory to the ER complaining of abdominal pain and vomiting. Patient notes onset of vomiting last night. Patient denies consumption of bad food or exposure to ill contacts. Patient thinks it is gallbladder, however he said a recent extensive diagnostic evaluation for abdominal pain. He underwent endoscopy by Dr. Mercado recently which was negative. He had severe esophagitis was placed on sucralfate and omeprazole. Patient had a hiatus scan, which was unremarkable suggesting no evidence of gallbladder disease. He has a CAT scan from 11/20/17 which is unremarkable. REVIEW OF SYSTEMS: Respiratory: No cough, no dyspnea. Cardiovascular: No chest pain, no palpitations. Gastrointestinal: As above Musculoskeletal: No back pain. Allergies: Coded Allergies: hydrocodone (Verified Allergy, Unknown, 12/11/17) oxycodone (Verified Allergy, Unknown, 12/11/17) Uncoded Allergies: beestings (Adverse Reaction, Unknown, 08/11/17) Home Meds Active Scripts Ondansetron (ZOFRAN ODT) 4 Mg Tab.rapdis, 4 MG PO every 6 hours Y for NAUSEA/ VOMITING, #12 TAB TAKE 1 TABLET BY MOUTH EVERY 12 HOURS Prov:NOELLE DE LA CRUZ DO 01/04/18 Promethazine Hcl (PROMETHAZINE HCL) 25 Mg Tablet, 25 MG PO Q4H Y for NAUSEA/ VOMITING, #14 TAB Prov:NOELLE DE LA CRUZ DO 01/04/18 Promethazine HCl (Phenergan) 50 Mg Supp.rect, 1 SUPP.RECT DC Q4H Y for NAUSEA/ VOMITING, #12 Prov:NOELLE DE LA CRUZ DO 01/04/18 Sucralfate (SUCRALFATE) 1 Gm/10 Ml Oral.susp, 1 GM PO ACHS1, #120 G 0 Refills Prov:BRANDY YATES MD 12/12/17 Pantoprazole Sodium (PANTOPRAZOLE SODIUM) 40 Mg Tablet.dr, 1 TAB PO BIDAC, #60 TAB.SR 3 Refills Don't eat for at least 2 hours before or 30 minutes after taking Prov:BRANDY YATES MD 12/12/17 Famotidine (PEPCID) 20 Mg Tablet, 20 MG PO BID for 10 Days, #30 TAB Prov:MICHELE LARA MD 12/11/17 Ondansetron (ZOFRAN ODT) 4 Mg Tab.rapdis, 4 MG PO Q6H Y for NAUSEA/VOMITING, # 20 TAB.JANIE 0 Refills Prov:MARISOL CARO MD 12/10/17 Insulin Glargine 100 Un/Ml Pen (LANTUS SOLOSTAR PEN) 100 Unit/1 Ml Insuln.pen, 25 UNIT SUBQ QDAY, #10 ML 0 Refills Prov:BRANDY BRENNAN DO 11/21/17 Promethazine Hcl (PROMETHAZINE HCL) 25 Mg Tablet, 25 MG PO Q8H Y for NAUSEA/ VOMITING, #12 TAB Prov:ELIZABETH CONNORS PROVIDER RELATIONS CONSULTANT 11/15/17 Metoclopramide Hcl (METOCLOPRAMIDE HCL) 10 Mg Tablet, 10 MG PO QID Y for NAUSEA/ VOMITING, #40 TAB 0 Refills Prov:GALE KLEIN [facility], PROVIDER RELATIONS CONSULTANT-BC 10/16/17 Ondansetron (ZOFRAN ODT) 4 Mg Tab.rapdis, 4 MG PO Q6H Y for NAUSEA/VOMITING, # 10 TAB.JANIE Prov:NOELLE DE LA CRUZ DO 10/07/17 Reported Medications Insulin Lispro 100 Un/Ml Vial (HUMALOG 100 U/ML VIAL) 100 Unit/1 Ml Vial, 0 SQ Y for SLIDING SCALE INSULIN, VIAL takes Humalog Insulin at Home as per SS 10/02/17 Gabapentin (GABAPENTIN) 300 Mg Capsule, 300 MG PO TID Y for PAIN, CAPSULE 08/11/17 Past Medical/Surgical History Chronic abdominal pain and vomiting, extensive diagnostic evaluation with negative studies. Reviewed Nurses Notes: Yes Old Medical Records Reviewed: Yes Hx Smoking: No (1.5 ppd x 10 years) Smoking Status: Current: Every Day Smoker Hx Substance Use Disorder: Yes (POT) Hx Alcohol Use: No (Years since last use) Constitutional Vital Sign - Last 24 Hours 01/04/18 01/04/18 01/04/18 01/04/18 18:51 18:58 19:00 19:28 Pulse 109 114 104 Resp 24 B/P (MAP) 169/110 160/111 (127) Pulse Ox 96 100 100 O2 Delivery Room Air 01/04/18 01/04/18 01/04/18 01/04/18 19:30 19:43 19:58 20:00 Pulse 116 111 B/P (MAP) 138/104 (115) 153/101 (118) Pulse Ox 100 99 01/04/18 01/04/18 01/04/18 01/04/18 20:13 20:28 20:30 20:35 Pulse 110 117 113 B/P (MAP) 168/99 (122) Pulse Ox 100 100 100 01/04/18 01/04/18 20:50 21:16 Pulse 124 85 Resp 16 B/P (MAP) 132/85 (101) Pulse Ox 99 92 O2 Delivery Room Air Physical Exam General Appearance: The patient is alert, has no immediate need for airway protection and no current signs of toxicity. Moderate distress, slightly pale appearing, skin warm and dry HEENT: Pupils equal and round no injection. TMs normal, oropharynx without redness or exudate, mucous membranes are dry, teeth with severe periodontal disease Respiratory: Chest is non tender, lungs are clear to auscultation. Cardiac: regular rate and rhythm Gastrointestinal: Abdomen is soft, mild diffuse tenderness, no rebound or guarding, no masses, bowel sounds normal. Musculoskeletal: Neck: Neck is supple and non tender. No lymphadenopathy Extremities have full range of motion and are non tender. Skin: No rashes or lesions. DIFFERENTIAL DIAGNOSIS: After history and physical exam differential diagnosis was considered for abdominal pain including but not limited to appendicitis, cholecystitis, gastritis and urinary tract infection. Medical Decision Making Data Points Result Diagram: 01/04/18191401/04/181914 Laboratory Hematology Test 01/04/18 00:00 01/04/18 19:04 01/04/18 19:15 01/04/18 21:01 Urine Opiates Screen Negative Urine Barbiturates Screen Negative Ur Tricyclic Antidepressants Screen Negative Urine Phencyclidine Screen Negative Urine Amphetamines Screen Negative Urine Benzodiazepines Screen Negative Urine Cocaine Screen Negative Urine Cannabinoids Screen Positive Urine Color Yellow Urine Clarity Clear Urine pH 7.0 pH (4.8-9.5) Urine Specific [place] 1.039 Urine Protein 500 mg/dL (NEGATIVE) Urine Glucose (UA) 500 mg/dL (NEGATIVE) Urine Ketones 20 mg/dL (NEGATIVE) Urine Blood Negative (NEGATIVE) Urine Nitrite Negative (NEGATIVE) Urine Bilirubin Negative (NEGATIVE) Urine Urobilinogen 2.0 mg/dL (0.2-1.9) Urine Leukocyte Esterase Negative (NEGATIVE) Urine RBC None /HPF (0-2/HPF) Urine WBC 2 /HPF (0-5/HPF) Urine Squamous Epithelial Cells Few /LPF (</=FEW) Urine Bacteria Negative /HPF (NONE-FEW) Urine Mucus Few /HPF (NONE-FEW) Red Blood Count 5.59 M/uL (4.00-5.60) Mean Corpuscular Volume 93.0 fL (80.0-96.0) Mean Corpuscular Hemoglobin 32.6 pg (26.0-33.0) Mean Corpuscular Hemoglobin Concent 35.0 g/dL (32.0-36.0) Red Cell Distribution Width 13.4 % (11.5-14.5) Mean Platelet Volume 8.3 fL (7.2-11.1) Neutrophils (%) (Auto) 80.5 % (39.4-72.5) Lymphocytes (%) (Auto) 16.1 % (17.6-49.6) Monocytes (%) (Auto) 2.0 % (4.1-12.4) Eosinophils (%) (Auto) 0.3 % (0.4-6.7) Basophils (%) (Auto) 1.1 % (0.3-1.4) Nucleated RBC Relative Count (auto) 0.0 /100WBC Neutrophils # (Auto) 8.6 K/uL (2.0-7.4) Lymphocytes # (Auto) 1.7 K/uL (1.3-3.6) Monocytes # (Auto) 0.2 K/uL (0.3-1.0) Eosinophils # (Auto) 0.0 K/uL (0.0-0.5) Basophils # (Auto) 0.1 K/uL (0.0-0.1) Nucleated RBC Absolute Count (auto) 0.00 K/uL Sodium Level 143 mmol/L (137-145) Potassium Level 3.8 mmol/L (3.5-5.0) Chloride Level 98 mmol/L (98-107) Carbon Dioxide Level 28 mmol/L (22-30) Blood Urea Nitrogen 12 mg/dl (9-21) Creatinine 0.70 mg/dl (0.66-1.25) Glomerular Filtration Rate Calc > 60.0 Random Glucose 310 mg/dl (75-110) Calcium Level 10.2 mg/dl (8.4-10.2) Total Bilirubin 0.8 mg/dl (0.2-1.3) Aspartate Amino Transf (AST/SGOT) 29 U/L (0-35) Alanine Aminotransferase (ALT/SGPT) 30 U/L (0-56) Alkaline Phosphatase 100 U/L (0-126) C-Reactive Protein < 0.5 mg/dl (<1.0) Total Protein 8.1 gm/dl (6.3-8.2) Albumin 4.6 g/dl (3.5-5.0) Amylase Level 105 U/L (0-110) Lipase 22 U/L (23-300) Whole Blood Glucose 199 mg/DL (75-110) Chemistry Test 01/04/18 00:00 01/04/18 19:04 01/04/18 19:15 01/04/18 21:01 Urine Opiates Screen Negative Urine Barbiturates Screen Negative Ur Tricyclic Antidepressants Screen Negative Urine Phencyclidine Screen Negative Urine Amphetamines Screen Negative Urine Benzodiazepines Screen Negative Urine Cocaine Screen Negative Urine Cannabinoids Screen Positive Urine Color Yellow Urine Clarity Clear Urine pH 7.0 pH (4.8-9.5) Urine Specific [place] 1.039 Urine Protein 500 mg/dL (NEGATIVE) Urine Glucose (UA) 500 mg/dL (NEGATIVE) Urine Ketones 20 mg/dL (NEGATIVE) Urine Blood Negative (NEGATIVE) Urine Nitrite Negative (NEGATIVE) Urine Bilirubin Negative (NEGATIVE) Urine Urobilinogen 2.0 mg/dL (0.2-1.9) Urine Leukocyte Esterase Negative (NEGATIVE) Urine RBC None /HPF (0-2/HPF) Urine WBC 2 /HPF (0-5/HPF) Urine Squamous Epithelial Cells Few /LPF (</=FEW) Urine Bacteria Negative /HPF (NONE-FEW) Urine Mucus Few /HPF (NONE-FEW) White Blood Count 10.7 k/uL (4.5-11.0) Red Blood Count 5.59 M/uL (4.00-5.60) Hemoglobin 18.2 g/dL (14.0-18.0) Hematocrit 52.0 % (42.0-52.0) Mean Corpuscular Volume 93.0 fL (80.0-96.0) Mean Corpuscular Hemoglobin 32.6 pg (26.0-33.0) Mean Corpuscular Hemoglobin Concent 35.0 g/dL (32.0-36.0) Red Cell Distribution Width 13.4 % (11.5-14.5) Platelet Count 294 K/uL (150-450) Mean Platelet Volume 8.3 fL (7.2-11.1) Neutrophils (%) (Auto) 80.5 % (39.4-72.5) Lymphocytes (%) (Auto) 16.1 % (17.6-49.6) Monocytes (%) (Auto) 2.0 % (4.1-12.4) Eosinophils (%) (Auto) 0.3 % (0.4-6.7) Basophils (%) (Auto) 1.1 % (0.3-1.4) Nucleated RBC Relative Count (auto) 0.0 /100WBC Neutrophils # (Auto) 8.6 K/uL (2.0-7.4) Lymphocytes # (Auto) 1.7 K/uL (1.3-3.6) Monocytes # (Auto) 0.2 K/uL (0.3-1.0) Eosinophils # (Auto) 0.0 K/uL (0.0-0.5) Basophils # (Auto) 0.1 K/uL (0.0-0.1) Nucleated RBC Absolute Count (auto) 0.00 K/uL Glomerular Filtration Rate Calc > 60.0 Calcium Level 10.2 mg/dl (8.4-10.2) Total Bilirubin 0.8 mg/dl (0.2-1.3) Aspartate Amino Transf (AST/SGOT) 29 U/L (0-35) Alanine Aminotransferase (ALT/SGPT) 30 U/L (0-56) Alkaline Phosphatase 100 U/L (0-126) C-Reactive Protein < 0.5 mg/dl (<1.0) Total Protein 8.1 gm/dl (6.3-8.2) Albumin 4.6 g/dl (3.5-5.0) Amylase Level 105 U/L (0-110) Lipase 22 U/L (23-300) Whole Blood Glucose 199 mg/DL (75-110) Toxicology Test 01/04/18 00:00 Urine Opiates Screen Negative Urine Barbiturates Screen Negative Ur Tricyclic Antidepressants Screen Negative Urine Phencyclidine Screen Negative Urine Amphetamines Screen Negative Urine Benzodiazepines Screen Negative Urine Cocaine Screen Negative Urine Cannabinoids Screen Positive Urinalysis Test 01/04/18 19:04 Urine Color Yellow Urine Clarity Clear Urine pH 7.0 pH (4.8-9.5) Urine Specific [place] 1.039 Urine Protein 500 mg/dL (NEGATIVE) Urine Glucose (UA) 500 mg/dL (NEGATIVE) Urine Ketones 20 mg/dL (NEGATIVE) Urine Blood Negative (NEGATIVE) Urine Nitrite Negative (NEGATIVE) Urine Bilirubin Negative (NEGATIVE) Urine Urobilinogen 2.0 mg/dL (0.2-1.9) Urine Leukocyte Esterase Negative (NEGATIVE) Urine RBC None /HPF (0-2/HPF) Urine WBC 2 /HPF (0-5/HPF) Urine Squamous Epithelial Cells Few /LPF (</=FEW) Urine Bacteria Negative /HPF (NONE-FEW) Urine Mucus Few /HPF (NONE-FEW) ED Course/Re-evaluation Clinical Indication for ER IV: Hydration, IV Access ED Course Patient was admitted to an examination room. H&P was done. The differential diagnosis was considered. Patient with vomiting. He is a type I diabetic. There is no evidence of DKA and his labs. He is aggressively treated with IV fluid hydration, Zofran and Phenergan. He is given morphine 4 mg for his pain. A drug tox screen is positive for cannabis. Patient has a long history of cannabis abuse. I couldn't contributing to his vomiting. Patient's treated with IV insulin 10 units of regular. On reevaluation, his blood glucose is down by 100 points. He'll be discharged home on Phenergan and Zofran. He is advised to watch his sugars closely and follow up with primary care if unimproved in 3-5 days. Decision to Disposition Date: Jan 04, 2018 Decision to Disposition Time: 19:16 Depart Departure Latest Vital Signs Vital Signs Date Time Temp Pulse Resp B/P (MAP) Pulse Ox O2 Delivery O2 Flow Rate FiO2 01/04/18 21:16 85 16 132/85 (101) 92 Room Air Impression: Primary Impression: Abdominal pain Additional Impressions: Nausea & vomiting Cannabis abuse Condition: Improved Disposition: HOME OR SELF-CARE Referrals: GALE KLEIN DNP, PROVIDER RELATIONS CONSULTANT-BC (PCP) New Scripts Ondansetron (ZOFRAN ODT) 4 Mg Tab.rapdis 4 MG PO every 6 hours Y for NAUSEA/VOMITING, #12 TAB TAKE 1 TABLET BY MOUTH EVERY 12 HOURS Prov: DOROTHYNOELLE DO 01/04/18 Promethazine Hcl (PROMETHAZINE HCL) 25 Mg Tablet 25 MG PO Q4H Y for NAUSEA/VOMITING, #14 TAB Prov: DOROTHYNOELLE Lawler DO 01/04/18 Promethazine HCl (Phenergan) 50 Mg Supp.rect 1 SUPP.RECT DC Q4H Y for NAUSEA/VOMITING, #12 Prov: DOROTHYNOELLE Nuris DO 01/04/18 Patient Instructions: Abdominal Pain (ED), Acute Nausea and Vomiting (ED) Additional Instructions: Follow clear liquid diet for 24 hours Closely monitor your blood sugars Follow-up with your primary care if unimproved in 2-5 days Problem Qualifiers Primary Impression: Abdominal pain Abdominal location: upper abdomen, unspecified Qualified Codes: R10.10 - Upper abdominal pain, unspecified Additional Impressions: Nausea & vomiting Vomiting type: unspecified Vomiting Intractability: intractable Qualified Codes: R11.2 - Nausea with vomiting, unspecified NOELLE DE LA CRUZ DO Jan 04, 2018 18:46
[2018-01-04] MEDS ORDERED: PROMETHAZINE 25 MG/ML 1 ML AMP IVP ONE ×2 (19:00→20:25)
[2018-01-04] MEDS ORDERED: ONDANSETRON 4 MG/2 ML VIAL IVP ONE ×2 (19:00→20:25)
[2018-01-04] MEDS ORDERED: MORPHINE 4 MG/ML SDV IVP ONE (19:00)
[2018-01-04] MEDS ORDERED: NS(*) 0.9% 1000 ML BAG 1,000 ML IV ONE ×2 (19:00→20:20)
[2018-01-04] MEDS ORDERED: PROM-110 PO (19:20)
[2018-01-04] MEDS ORDERED: ONDA4TAB PO (19:20)
[2018-01-04] MEDS ORDERED: PROM50SU6 PR (19:20)
[2018-01-04 19:31] LABS: PLATELET COUNT, AUTOMATED 294 K/uL (150-450)
[2018-01-04] MEDS ORDERED: INSU HUM REG 100 U/ML(ER ONLY) 10 ML VIAL IVP ONE (19:50)
[2018-01-04 21:16] VITALS: BP 132/85
== END 2018-01-04 21:27 | disposition home or self-care (01) ==
LOC: ER 18:53
DX: R10.10 Upper abdominal pain, unspecified (principal); R11.2 Nausea with vomiting, unspecified; F12.10 Cannabis abuse, uncomplicated; E10.9 Type 1 diabetes mellitus without complications
CPT/HCPCS: 36416; 80305; 81001; 82150; 82948; 83690; 85025; 86140; 96361; 96374; 96375; 96376; 99284; A9270; J2270; J2405; J2550; J7030; 82040; 82247; 82310; 82374; 82435; 82565; 82947; 84075; 84132; 84155; 84295; 84450; 84460; 84520; J1815

== ENCOUNTER 2018-01-09 12:24 | Emergency (ER) | payer MEDICARE, MEDICAID ==
[2017-11-20 10:57] VITALS: BMI 18.9
[~2018-01-09 12:24] MED LIST changes: +PROM50SU6 PR
[2018-01-09] MEDS ORDERED: NS(*) 0.9% 1000 ML BAG 1,000 ML IV ONE ×2 (12:29)
[2018-01-09] MEDS ORDERED: METOCLOPRAMIDE 10 MG/2 ML SDV IVP ONE (12:30)
--- NOTE | 2018-01-09 12:37 | ER Report ---
History and Physical Time Seen By MD: 12:34 Hx. of Stated Complaint: PATIENT REPORTS VOMITING SINCE THIS MORNING HPI/ROS CHIEF COMPLAINT: Vomiting abdominal pain HISTORY OF PRESENT ILLNESS: 32-year-old male history of cyclic vomiting syndrome comes to the emergency department was seen here 4 days ago for the same complaint takes Phenergan and omeprazole at home notices having vomiting and abdominal discomfort consistent with his prior episodes she's been seen her on countless occasions for similar complaints she's had multiple imaging unless CAT scan was done less than a month and a half ago denying any diarrhea fever or chills pain is consistent with prior episodes patient denies any chest pain or shortness of breath pain is localized in the epigastric areas describes a cramping sensation unable to hold food down to check his sugar at home it was 186 he is a type I diabetic insulin-dependent no additional complaints noted REVIEW OF SYSTEMS: Respiratory: No cough, no dyspnea. Cardiovascular: No chest pain, no palpitations. Gastrointestinal: Generalized cramping abdominal pain cyclic vomiting Musculoskeletal: No back pain. Remainder of the 14 system rev: Yes Allergies: Coded Allergies: hydrocodone (Verified Allergy, Unknown, 12/11/17) oxycodone (Verified Allergy, Unknown, 12/11/17) Uncoded Allergies: beestings (Adverse Reaction, Unknown, 08/11/17) Home Meds Active Scripts Ondansetron (ZOFRAN ODT) 4 Mg Tab.rapdis, 4 MG PO every 6 hours Y for NAUSEA/ VOMITING, #12 TAB TAKE 1 TABLET BY MOUTH EVERY 12 HOURS Prov:NOELLE DE LA CRUZ DO 01/04/18 Promethazine Hcl (PROMETHAZINE HCL) 25 Mg Tablet, 25 MG PO Q4H Y for NAUSEA/ VOMITING, #14 TAB Prov:NOELLE DE LA CRUZ DO 01/04/18 Promethazine HCl (Phenergan) 50 Mg Supp.rect, 1 SUPP.RECT NV Q4H Y for NAUSEA/ VOMITING, #12 Prov:NOELLE DE LA CRUZ DO 01/04/18 Sucralfate (SUCRALFATE) 1 Gm/10 Ml Oral.susp, 1 GM PO ACHS1, #120 G 0 Refills Prov:BRANDY YATES MD 12/12/17 Pantoprazole Sodium (PANTOPRAZOLE SODIUM) 40 Mg Tablet.dr, 1 TAB PO BIDAC, #60 TAB.SR 3 Refills Don't eat for at least 2 hours before or 30 minutes after taking Prov:BRANDY YATES MD 12/12/17 Famotidine (PEPCID) 20 Mg Tablet, 20 MG PO BID for 10 Days, #30 TAB Prov:MICHELE LARA MD 12/11/17 Ondansetron (ZOFRAN ODT) 4 Mg Tab.rapdis, 4 MG PO Q6H Y for NAUSEA/VOMITING, # 20 TAB.JANIE 0 Refills Prov:MARISOL CARO MD 12/10/17 Insulin Glargine 100 Un/Ml Pen (LANTUS SOLOSTAR PEN) 100 Unit/1 Ml Insuln.pen, 25 UNIT SUBQ QDAY, #10 ML 0 Refills Prov:BRANDY BRENNAN DO 11/21/17 Promethazine Hcl (PROMETHAZINE HCL) 25 Mg Tablet, 25 MG PO Q8H Y for NAUSEA/ VOMITING, #12 TAB Prov:ELIZABETH CONNORS DISTRICT ADMINISTRATIVE ASSISTANT 11/15/17 Metoclopramide Hcl (METOCLOPRAMIDE HCL) 10 Mg Tablet, 10 MG PO QID Y for NAUSEA/ VOMITING, #40 TAB 0 Refills Prov:GALE KLEIN DNP, DISTRICT ADMINISTRATIVE ASSISTANT-BC 10/16/17 Ondansetron (ZOFRAN ODT) 4 Mg Tab.rapdis, 4 MG PO Q6H Y for NAUSEA/VOMITING, # 10 TAB.JANIE Prov:NOELLE DE LA CRUZ DO 10/07/17 Reported Medications Insulin Lispro 100 Un/Ml Vial (HUMALOG 100 U/ML VIAL) 100 Unit/1 Ml Vial, 0 SQ Y for SLIDING SCALE INSULIN, VIAL takes Humalog Insulin at Home as per SS 10/02/17 Gabapentin (GABAPENTIN) 300 Mg Capsule, 300 MG PO TID Y for PAIN, CAPSULE 08/11/17 Reviewed Nurses Notes: Yes Old Medical Records Reviewed: Yes Hx Smoking: No (1.5 ppd x 10 years) Smoking Status: Current: Every Day Smoker Hx Substance Use Disorder: Yes (POT) Hx Alcohol Use: No (Years since last use) Constitutional Vital Sign - Last 24 Hours 01/09/18 12:31 Temp 97.5 Pulse 116 Resp 28 B/P (MAP) 136/102 Pulse Ox 98 O2 Delivery Room Air Physical Exam General Appearance: The patient is alert, has no immediate need for airway protection and no current signs of toxicity. Appears uncomfortable Eyes: Pupils equal and round no injection. Respiratory: Chest is non tender, lungs are clear to auscultation. Cardiac: regular rate and rhythm [ ] Gastrointestinal: Mild to moderate tenderness to deep palpation in the epigastric area and the general upper abdomen area and no hyperactive bowel sounds noted otherwise unremarkable exam Musculoskeletal: Neck: Neck is supple and non tender. Extremities have full range of motion and are non tender. Skin: No rashes or lesions. [ ] DIFFERENTIAL DIAGNOSIS: After history and physical exam differential diagnosis was considered for DKA versus chronic cyclical vomiting syndrome Medical Decision Making Data Points Result Diagram: 01/09/18 1243 01/09/18 1243 Laboratory Hematology Test 01/09/18 12:30 01/09/18 12:43 Urine Color Yellow Urine Clarity Clear Urine pH 7.0 pH (4.8-9.5) Urine Specific [place] 1.023 Urine Protein 100 mg/dL (NEGATIVE) Urine Glucose (UA) 500 mg/dL (NEGATIVE) Urine Ketones Negative mg/dL (NEGATIVE) Urine Blood Negative (NEGATIVE) Urine Nitrite Negative (NEGATIVE) Urine Bilirubin Negative (NEGATIVE) Urine Urobilinogen Negative mg/dL (0.2-1.9) Urine Leukocyte Esterase Negative (NEGATIVE) Urine RBC 4 /HPF (0-2/HPF) Urine WBC 7 /HPF (0-5/HPF) Urine Squamous Epithelial Cells None /LPF (</=FEW) Urine Bacteria Few /HPF (NONE-FEW) Urine Mucus Few /HPF (NONE-FEW) Red Blood Count 5.51 M/uL (4.00-5.60) Mean Corpuscular Volume 90.9 fL (80.0-96.0) Mean Corpuscular Hemoglobin 32.8 pg (26.0-33.0) Mean Corpuscular Hemoglobin Concent 36.1 g/dL (32.0-36.0) Red Cell Distribution Width 12.9 % (11.5-14.5) Mean Platelet Volume 7.7 fL (7.2-11.1) Neutrophils (%) (Auto) 58.9 % (39.4-72.5) Lymphocytes (%) (Auto) 27.6 % (17.6-49.6) Monocytes (%) (Auto) 7.9 % (4.1-12.4) Eosinophils (%) (Auto) 4.5 % (0.4-6.7) Basophils (%) (Auto) 1.1 % (0.3-1.4) Nucleated RBC Relative Count (auto) 0.1 /100WBC Neutrophils # (Auto) 4.7 K/uL (2.0-7.4) Lymphocytes # (Auto) 2.2 K/uL (1.3-3.6) Monocytes # (Auto) 0.6 K/uL (0.3-1.0) Eosinophils # (Auto) 0.4 K/uL (0.0-0.5) Basophils # (Auto) 0.1 K/uL (0.0-0.1) Nucleated RBC Absolute Count (auto) 0.01 K/uL Sodium Level 144 mmol/L (137-145) Potassium Level 3.5 mmol/L (3.5-5.0) Chloride Level 100 mmol/L (98-107) Carbon Dioxide Level 25 mmol/L (22-30) Blood Urea Nitrogen 7 mg/dl (9-21) Creatinine 0.70 mg/dl (0.66-1.25) Glomerular Filtration Rate Calc > 60.0 Random Glucose 125 mg/dl (75-110) Calcium Level 9.8 mg/dl (8.4-10.2) Total Bilirubin 0.6 mg/dl (0.2-1.3) Aspartate Amino Transf (AST/SGOT) 28 U/L (0-35) Alanine Aminotransferase (ALT/SGPT) 23 U/L (0-56) Alkaline Phosphatase 84 U/L (0-126) Total Protein 7.7 gm/dl (6.3-8.2) Albumin 4.5 g/dl (3.5-5.0) Lipase 131 U/L (23-300) Chemistry Test 01/09/18 12:30 01/09/18 12:43 Urine Color Yellow Urine Clarity Clear Urine pH 7.0 pH (4.8-9.5) Urine Specific [place] 1.023 Urine Protein 100 mg/dL (NEGATIVE) Urine Glucose (UA) 500 mg/dL (NEGATIVE) Urine Ketones Negative mg/dL (NEGATIVE) Urine Blood Negative (NEGATIVE) Urine Nitrite Negative (NEGATIVE) Urine Bilirubin Negative (NEGATIVE) Urine Urobilinogen Negative mg/dL (0.2-1.9) Urine Leukocyte Esterase Negative (NEGATIVE) Urine RBC 4 /HPF (0-2/HPF) Urine WBC 7 /HPF (0-5/HPF) Urine Squamous Epithelial Cells None /LPF (</=FEW) Urine Bacteria Few /HPF (NONE-FEW) Urine Mucus Few /HPF (NONE-FEW) White Blood Count 7.9 k/uL (4.5-11.0) Red Blood Count 5.51 M/uL (4.00-5.60) Hemoglobin 18.1 g/dL (14.0-18.0) Hematocrit 50.1 % (42.0-52.0) Mean Corpuscular Volume 90.9 fL (80.0-96.0) Mean Corpuscular Hemoglobin 32.8 pg (26.0-33.0) Mean Corpuscular Hemoglobin Concent 36.1 g/dL (32.0-36.0) Red Cell Distribution Width 12.9 % (11.5-14.5) Platelet Count 318 K/uL (150-450) Mean Platelet Volume 7.7 fL (7.2-11.1) Neutrophils (%) (Auto) 58.9 % (39.4-72.5) Lymphocytes (%) (Auto) 27.6 % (17.6-49.6) Monocytes (%) (Auto) 7.9 % (4.1-12.4) Eosinophils (%) (Auto) 4.5 % (0.4-6.7) Basophils (%) (Auto) 1.1 % (0.3-1.4) Nucleated RBC Relative Count (auto) 0.1 /100WBC Neutrophils # (Auto) 4.7 K/uL (2.0-7.4) Lymphocytes # (Auto) 2.2 K/uL (1.3-3.6) Monocytes # (Auto) 0.6 K/uL (0.3-1.0) Eosinophils # (Auto) 0.4 K/uL (0.0-0.5) Basophils # (Auto) 0.1 K/uL (0.0-0.1) Nucleated RBC Absolute Count (auto) 0.01 K/uL Glomerular Filtration Rate Calc > 60.0 Calcium Level 9.8 mg/dl (8.4-10.2) Total Bilirubin 0.6 mg/dl (0.2-1.3) Aspartate Amino Transf (AST/SGOT) 28 U/L (0-35) Alanine Aminotransferase (ALT/SGPT) 23 U/L (0-56) Alkaline Phosphatase 84 U/L (0-126) Total Protein 7.7 gm/dl (6.3-8.2) Albumin 4.5 g/dl (3.5-5.0) Lipase 131 U/L (23-300) Urinalysis Test 01/09/18 12:30 Urine Color Yellow Urine Clarity Clear Urine pH 7.0 pH (4.8-9.5) Urine Specific [place] 1.023 Urine Protein 100 mg/dL (NEGATIVE) Urine Glucose (UA) 500 mg/dL (NEGATIVE) Urine Ketones Negative mg/dL (NEGATIVE) Urine Blood Negative (NEGATIVE) Urine Nitrite Negative (NEGATIVE) Urine Bilirubin Negative (NEGATIVE) Urine Urobilinogen Negative mg/dL (0.2-1.9) Urine Leukocyte Esterase Negative (NEGATIVE) Urine RBC 4 /HPF (0-2/HPF) Urine WBC 7 /HPF (0-5/HPF) Urine Squamous Epithelial Cells None /LPF (</=FEW) Urine Bacteria Few /HPF (NONE-FEW) Urine Mucus Few /HPF (NONE-FEW) ED Course/Re-evaluation ED Course ED clinical course medical decision making a 32-year-old cyclic vomiting comes in labs are no signs of DKA or infection and abdominal x-ray shows obstruction give him antiemetics as follow up with primary care this afternoon Decision to Disposition Date: Jan 09, 2018 Decision to Disposition Time: 13:18 Depart Departure Latest Vital Signs Vital Signs Date Time Temp Pulse Resp B/P (MAP) Pulse Ox O2 Delivery O2 Flow Rate FiO2 01/09/18 12:31 97.5 116 28 136/102 98 Room Air Impression: Primary Impression: Vomiting Condition: Improved Disposition: HOME OR SELF-CARE Referrals: GALE KLEIN DNP, DISTRICT ADMINISTRATIVE ASSISTANT-BC (PCP) 1 Day Patient Instructions: Acute Nausea and Vomiting (DC) ROSANNE MELISSA MD Jan 09, 2018 12:37
[2018-01-09 12:58] LABS: PLATELET COUNT, AUTOMATED 318 K/uL (150-450)
--- NOTE | 2018-01-09 13:12 | RADIOLOGY IMAGING REPORT ---
FACILITY: [facility] PATIENT NAME: Terrence Carson : 1985 MR: [id number] V: [id number] EXAM DATE: ORDERING PHYSICIAN: ROSANNE MELISSA TECHNOLOGIST: Location: [facility] [place] Patient: Terrence Carson : 1985 Visit/Account:[id number] Date of Sevice: 01/09/2018 EXAMINATION: Abdominal radiograph single view HISTORY: Abdominal pain. Nausea. COMPARISON: CT of the abdomen and pelvis from 11/20/2017. FINDINGS: A single AP supine view of the abdomen is obtained. Lines/tubes: None. Bowel gas pattern: Normal. No dilated loops of bowel. Gas and a moderate fecal content within the la rge bowel extending to level of the rectum. Soft tissues: Negative. Bony structures: Negative. Visualized lung bases: Negative. IMPRESSION: Normal bowel gas pattern. Report Dictated By: Lucio Richard MD at 01/09/2018 1:06 PM Report E-Signed By: Lucio Richard MD at 01/09/2018 1:07 PM WSN:[id number]
[2018-01-09 13:30] VITALS: BP 145/102
== END 2018-01-09 13:44 | disposition home or self-care (01) ==
LOC: ER 12:33
DX: G43.A0 Cyclical vomiting, in migraine, not intractable (principal); E10.9 Type 1 diabetes mellitus without complications; Z79.4 Long term (current) use of insulin
CPT/HCPCS: 74018; 81001; 83690; 85025; 96361; 96374; 99284; J2765; J7030; 82040; 82247; 82310; 82374; 82435; 82565; 82947; 84075; 84132; 84155; 84295; 84450; 84460; 84520

== ENCOUNTER → 2018-02-01 | Outpatient (CLI) | payer MEDICARE, MEDICAID ==
[2017-11-20 10:57] VITALS: BMI 18.9
[~2018-02-01] MED LIST changes: +GABA-547 PO; +SCOP1PAT16 TD
== END ==
LOC: LAB 10:05
PROVIDERS: ATTEND Nurse Practitioner Primary Care
DX: E10.9 Type 1 diabetes mellitus without complications (principal)
CPT/HCPCS: 36415; 82040; 82247; 82310; 82374; 82435; 82565; 82947; 83036; 84075; 84132; 84155; 84295; 84450; 84460; 84520

== ENCOUNTER 2018-02-07 03:28 | Day surgery (SDC) | payer MEDICARE, MEDICAID ==
[2017-11-20 10:57] VITALS: Ht 172.7 cm; Wt 59.9 kg
[~2018-02-07] VITALS: Ht 172.7 cm; Wt 59.9 kg
[2018-02-07] MEDS ORDERED: PROPOFOL EMUL(*) 10MG/ML 20 ML 20 ML ONE (08:16)
[2018-02-07] MEDS ORDERED: DEXAMETHASONE SOD 4 MG/ML VIAL ONE (08:16)
[2018-02-07] MEDS ORDERED: ONDANSETRON 4 MG/2 ML VIAL ONE ×2 (08:16→16:15)
[2018-02-07] MEDS ORDERED: ROCURONIUM BROM 10 MG/ML 10 ML ONE (08:16)
[2018-02-07] MEDS ORDERED: LIDOCAINE MPF 1% 5 ML VIAL ONE (08:16)
[2018-02-07] MEDS ORDERED: SUGAMMADEX SOD 200 MG/2 ML SDV ONE ×2 (08:16→09:26)
[2018-02-07] MEDS ORDERED: fentaNYL CITR 250 MCG/5 ML AMP ONE (08:16)
[2018-02-07] MEDS ORDERED: KETAMINE HCL 200 MG/20 ML MDV ONE (08:19)
[2018-02-07 08:46] VITALS: BP 137/98
[2018-02-07] MEDS ORDERED: FAMOTIDINE 20 MG TAB PO ONE (08:50)
[2018-02-07] MEDS ORDERED: fentaNYL CITR 100 MCG/2 ML AMP ONE ×3 (09:03→14:02)
--- NOTE | 2018-02-07 09:13 | EKG ---
FACILITY: PATIENT NAME: BARBARA ABERNATHY : [id number] MR: [id number] V: [id number] EXAM DATE: ORDERING PHYSICIAN: ALEX GUTIERREZ TECHNOLOGIST: SHELLEY Siagla Reason : PRE-OP Blood Pressure : / mmHG Vent. Rate : 091 BPM Atrial Rate : 091 BPM P-R Int : 120 ms QRS Dur : 080 ms QT Int : 360 ms P-R-T Axes : 067 -50 062 degrees QTc Int : 442 ms Normal sinus rhythm Left anterior fascicular block Abnormal ECG When compared with ECG of 19-NOV-2017 12:58, RSR' pattern in V1 is no longer present Confirmed by BRANDY BRENNAN ([id number]) on 02/08/2018 11:21:53 AM Referred By: BO Confirmed By:BRANDY BRENNAN
[2018-02-07] MEDS ORDERED: MIDAZOLAM 2 MG/2 ML VIAL IVP PRN (09:40)
[2018-02-07] MEDS ORDERED: AMPICILLIN/SULBACT (*) 3 GM VL 3 GM in NS(*) 0.9% 100 ML BAG 100 ML IVPB ONE (09:40)
[2018-02-07] MEDS ORDERED: NORMOSOL R SOLN(*) 1000 ML BAG 1,000 ML IV PRN (09:40)
[2018-02-07] MEDS ORDERED: LIDOCAINE/SOD BICARB 8.4% SYR ID ONE (09:40)
[2018-02-07] MEDS ORDERED: INDOCYANINE GREEN 25 MG VIAL IVP ONE (09:40)
[2018-02-07] MEDS ORDERED: ROPIVACAINE 0.5% 20 ML VIAL ONE (11:47)
[2018-02-07] MEDS ORDERED: DOCU-416 PO (13:53)
[2018-02-07] MEDS ORDERED: TRAM-420 PO (13:53)
--- NOTE | 2018-02-07 13:59 | Short(Outpt) Discharge Summary ---
Discharge Summary Reason for Hosp/Final Diag: (1) Abdominal pain Status: Chronic Hospital Course & Plan: Lap appy and robotic matthew completed without problems. (2) Nausea & vomiting Status: Chronic (3) Postprandial bloating Status: Chronic Departure Discharge to: Home, Self Care Discharge Instructions Home Meds Active Scripts Docusate Sodium (COLACE) 100 Mg Capsule, 1 CAP PO BID, #30 CAP 0 Refills TAKE WITH A FULL GLASS OF WATER Prov:BRANDY YATES MD 02/07/18 Tramadol Hcl (TRAMADOL HCL) 50 Mg Tablet, 1-2 TAB PO Q4H Y for PAIN, #30 TAB 0 Refills Prov:BRANDY YATES MD 02/07/18 Insulin Glargine 100 Un/Ml Pen (LANTUS SOLOSTAR PEN) 100 Unit/1 Ml Insuln.pen, 38 UNIT SUBQ QDAY, #1 BOX 2 Refills Prov:GALE KLEIN DNP, UNDERGROUND MINE SUPERINTENDENT-BC 01/25/18 Scopolamine (Scopolamine) 1 Mg/3 Day Patch.td.3, 1 PATCH TD Q72H Y for NAUSEA/ VOMITING, #10 PATCH.72H 0 Refills Prov:GALE KLEIN DNP, UNDERGROUND MINE SUPERINTENDENT-BC 01/15/18 Ondansetron (ZOFRAN ODT) 4 Mg Tab.rapdis, 4 MG PO every 6 hours Y for NAUSEA/ VOMITING, #12 TAB TAKE 1 TABLET BY MOUTH EVERY 12 HOURS Prov:NOELLE DE LA CRUZ DO 01/04/18 Promethazine Hcl (PROMETHAZINE HCL) 25 Mg Tablet, 25 MG PO Q4H Y for NAUSEA/ VOMITING, #14 TAB Prov:NOELLE DE LA CRUZ DO 01/04/18 Sucralfate (SUCRALFATE) 1 Gm/10 Ml Oral.susp, 1 GM PO ACHS1, #120 G 0 Refills Prov:BRANDY YATES MD 12/12/17 Pantoprazole Sodium (PANTOPRAZOLE SODIUM) 40 Mg Tablet.dr, 1 TAB PO BIDAC, #60 TAB.SR 3 Refills Don't eat for at least 2 hours before or 30 minutes after taking Prov:BRANDY YATES MD 12/12/17 Metoclopramide Hcl (METOCLOPRAMIDE HCL) 10 Mg Tablet, 10 MG PO QID Y for NAUSEA/ VOMITING, #40 TAB 0 Refills Prov:GALE KLEIN DNP, UNDERGROUND MINE SUPERINTENDENT-BC 10/16/17 Reported Medications Gabapentin (GABAPENTIN) 300 Mg Capsule, 2 TAB PO BID, CAPSULE 02/04/18 Insulin Lispro 100 Un/Ml Vial (HUMALOG 100 U/ML VIAL) 100 Unit/1 Ml Vial, 0 SQ Y for SLIDING SCALE INSULIN, VIAL takes Humalog Insulin at Home as per SS 10/02/17 Discontinued Reported Medications Gabapentin (GABAPENTIN) 100 Mg Capsule, 4 CAP PO BID, CAPSULE 01/25/18 Discontinued Scripts Famotidine (PEPCID) 20 Mg Tablet, 20 MG PO BID for 10 Days, #30 TAB Prov:MICHELE LARA MD 12/11/17 Follow up Referrals: General Surgery - 03/04/18 @ Surgery, General with Brandy Yates Md You have a follow up appointment scheduled with Dr. Yates on 03/04/18, at 11:30am. Diet: Diabetic Activity: As Tolerated Special Instructions: You may remove the white surgical dressings on 02/09/18, then you can shower. After showering, leave the incisions open to air but leave the steristrips in place until they fall off on their own. Do not immerse the incisions for 2 weeks. In addition to the tramadol that I've prescribed to you for postoperative pain control, you can take tylenol (acetaminophen) and ibuprofen (motrin) as needed in accordance with the instructions on the bottles. Problem Qualifiers (1) Abdominal pain: Abdominal location: generalized Qualified Codes: R10.84 - Generalized abdominal pain (2) Nausea & vomiting: Vomiting type: unspecified Vomiting Intractability: unspecified Qualified Codes: R11.2 - Nausea with vomiting, unspecified BRANDY YATES MD February 07, 2018 13:59
--- NOTE | 2018-02-07 14:08 | Post Operative Progress Note ---
Post Operative Progress Note Date: February 07, 2018 Time: 13:59 Surgeon: Josselin Dictation number: [id number] Anesthesia: GETA by Dr. Morgan Pre-Op Diagnosis: Biliary colic Postprandial nausea and bloating Chronic abdominal pain Post-Op Diagnosis: VICTOR M Findings: None Procedure(s): Laparoscopic appendectomy Robotic cholecystectomy Specimen Removed:(May be N/A): Appendix Gallbladder Complications: None Fluids: See anesthesia record Estimated Blood Loss: Minimal Date OP Note Dictated: February 07, 2018 Time OP Note Dictated: 14:02 BRANDY YATES MD February 07, 2018 14:08
[2018-02-07 14:47] VITALS: BP 146/97
[2018-02-07] MEDS ORDERED: traMADol 50 MG TAB PO ONE (14:55)
[2018-02-07 15:36] VITALS: BP 131/84
[2018-02-07 16:01] VITALS: BP 144/93
[2018-02-07 16:04] VITALS: BP 114/73
--- NOTE | 2018-02-07 18:02 | OPERATIVE REPORT 1 ---
EVENT DATE: February 07, 2018 SURGEON: Alonso Schwab MD ANESTHESIOLOGIST: Nicanor Camejo MD ANESTHESIA: General endotracheal anesthesia. PREOPERATIVE DIAGNOSES 1. Biliary colic. 2. Postprandial nausea and abdominal bloating. 3. Chronic abdominal pain. POSTOPERATIVE DIAGNOSES 1. Biliary colic. 2. Postprandial nausea and abdominal bloating. 3. Chronic abdominal pain. PROCEDURES PERFORMED 1. Laparoscopic appendectomy. 2. Robotic cholecystectomy. COMPLICATIONS None. CONDITION Stable. BLOOD LOSS Minimal. SPECIMENS 1. Appendix. 2. Gallbladder and contents. INDICATIONS This is a 32-year-old gentleman with chronic abdominal pain, nausea, and bloating whom I have been seeing to evaluate his symptoms. I performed endoscopy, both upper and lower, as well as other studies, and I have not found a pure etiology of his symptoms. His symptoms got worse during a HIDA scan, and the administration of CCK mimicked his symptoms. His ejection fraction was 94%, indicating somewhat of a hyperactive gallbladder. I discussed as a last resort removing his gallbladder, and as long as we are doing surgery, just getting his appendix out given his chronic abdominal pain so he will never be confused with having appendicitis. We also tried dietary measures, including a gluten-free diet, but his symptoms did not improve on this. He was requesting to have his gallbladder removed and his appendix removed at the same time. DESCRIPTION OF PROCEDURE The patient was brought to the operating room and placed supine on the operating table. General endotracheal anesthesia was administered. His abdomen was prepped and draped in a sterile fashion. Timeout was completed. I injected the infraumbilical skin with 0.5% ropivacaine plain. I made a curvilinear smiley face-type incision in the infraumbilical rim, dissected through the dermis and subcutaneous fat. I identified the midline fascia, made a vertical incision in the midline fascia, grasped the fascial edges with Antoni clamps, and retracted the fascia towards the ceiling. I then entered the peritoneal cavity with my finger and placed two interrupted 0 Vicryl sutures transversely through the vertical fascial defect and inserted a 12 mm John-type port through this port and secured it in place with suture. I insufflated the abdomen to a pressure of 15 mmHg and then inserted a 5 mm, 30- degree angled scope through this port. Under direct visualization, I placed a 5 mm suprapubic port and a 5 mm left lower quadrant port. The patient was placed in Trendelenburg and planed towards his left, and the appendix was identified. The mesoappendix was divided with the Harmonic scalpel all the way down to the base of the appendix. The base of the appendix was divided flush with the cecum with an Endo WILDER 45 mm stapler with a blue load. I placed the appendix in the right upper quadrant and then inspected the staple line, and there was no bleeding, and it was flush with the cecum and did not interfere with the ileocecal valve. I then placed three 8 mm ports in the left upper quadrant and an 8 mm port in the right mid abdomen and then brought in the robot, docked the robot, as well as targeted it, inserted all of the appropriate instruments, and then scrubbed out and went to the console. I then grasped the fundus of the gallbladder and retracted it towards the patient's right shoulder. There were adhesions to the gallbladder, which I took down with hook electrocautery using traction/ countertraction. When I identified the infundibulum, retracted this towards the patient's right hip. I divided the peritoneum overlying the infundibulum in both the medial and lateral aspects of the gallbladder with the hook electrocautery and then cleaned out the triangle of Calot and dissected around the cystic duct and arteries circumferentially. I used Firefly to clearly identify the common bile duct, but in this very thin patient, I could not see the common bile duct even through the fat anyhow. Once the duct and artery were cleaned off, I clipped the artery with a clip proximally and distally and divided between the clips. The duct was clipped with three clips distally and one at the infundibular-cystic duct junction, then divided between the upper two most clips. I then divided the posterior attachment to the gallbladder, it from the gallbladder fossa, and then the gallbladder and appendix were placed in the surgical specimen retrieval bag and removed from the abdomen through the umbilical port site. Inspection of both the cecum and staple line as well as the gallbladder fossa as well as the cystic duct and artery stumps revealed no evidence of bile leaks, bleeding or other problems. All of the instruments were removed, the robot undocked, and then I closed the midline fascia with another [id number] 0 Vicryl suture and tied all three of these down with good reapproximation of the fascial edges. Skin at each port site was closed with 4-0 Monocryl subcuticular suture. Skin was cleaned and dried and Steri-Strips applied, followed by sterile surgical dressings. The patient was awakened and extubated in the operating room and transported to the recovery room in stable condition having tolerated the procedure without any apparent problems. HOLLIE
[2018-02-08] MEDS ORDERED: PROM-110 PO (13:36)
== END 2018-02-07 14:42 | disposition home or self-care (01) ==
LOC: OR 03:28
PROVIDERS: ATTEND Surgery
DX: K80.50 Calculus of bile duct without cholangitis or cholecystitis without obstruction (principal); E11.9 Type 2 diabetes mellitus without complications
CPT/HCPCS: 36416; 44979; 47562; 82948; 88304; 93005; A9270; J0295; J1100; J2001; J2250; J2405; J2704; J2795; J3010; J3490; J7050; S2900

== ENCOUNTER 2018-02-08 11:22 | Emergency (ER) | payer MEDICARE, MEDICAID ==
[2017-11-20 10:57] VITALS: Wt 59.9 kg
[~2018-02-08 11:22] MED LIST changes: +DOCU-416 PO; +TRAM-420 PO
[2018-02-08] MEDS ORDERED: NS(*) 0.9% 1000 ML BAG 1,000 ML IV ONE (11:32)
--- NOTE | 2018-02-08 11:32 | ER Report ---
History and Physical Time Seen By MD: 11:32 Hx. of Stated Complaint: PT HAD A YOSI AND AN APPY YESTERDAY AND HAS BEEN VOIMITING SINCE DISCHARGE. WAS TOLD TO COME HERE HPI/ROS CHIEF COMPLAINT: Vomiting HISTORY OF PRESENT ILLNESS: 32-year-old male patient presents to emergency room with complaint of vomiting. Patient states that he had a cholecystectomy and appendectomy done yesterday. He states that since he was discharged he has been vomiting. He states he was vomiting approximately every 30 minutes. Patient states that he's not been able to eat or drink anything, stating that when he does he vomits up immediately. Patient states that he is not had any fevers or chills. Patient states his pain is a 3-4 out of 10. Patient states he did have a normal bowel movement earlier today. Patient states the vomiting is just uncontrollable, was contacted by the transitional care nurse, and directed to come to the emergency room. REVIEW OF SYSTEMS: Respiratory: No cough, no dyspnea. Cardiovascular: No chest pain, no palpitations. Gastrointestinal: As noted above Musculoskeletal: No back pain. Allergies: Coded Allergies: hydrocodone (Verified Allergy, Unknown, 02/08/18) oxycodone (Verified Allergy, Unknown, 02/08/18) Uncoded Allergies: beestings (Adverse Reaction, Unknown, 08/11/17) Home Meds Active Scripts Promethazine Hcl (PROMETHAZINE HCL) 25 Mg Tablet, 25 MG PO Q8H Y for NAUSEA/ VOMITING, #12 TAB Prov:ELIZABETH CONNORS 02/08/18 Docusate Sodium (COLACE) 100 Mg Capsule, 1 CAP PO BID, #30 CAP 0 Refills TAKE WITH A FULL GLASS OF WATER Prov:BRANDY YATES MD 02/07/18 Tramadol Hcl (TRAMADOL HCL) 50 Mg Tablet, 1-2 TAB PO Q4H Y for PAIN, #30 TAB 0 Refills Prov:BRANDY YATES MD 02/07/18 Insulin Glargine 100 Un/Ml Pen (LANTUS SOLOSTAR PEN) 100 Unit/1 Ml Insuln.pen, 38 UNIT SUBQ QDAY, #1 BOX 2 Refills Prov:GALE KLEIN DNP, PRINT LINE OPERATOR-BC 01/25/18 Scopolamine (Scopolamine) 1 Mg/3 Day Patch.td.3, 1 PATCH TD Q72H Y for NAUSEA/ VOMITING, #10 PATCH.72H 0 Refills Prov:GALE KLEIN DNP, PRINT LINE OPERATOR- 01/15/18 Ondansetron (ZOFRAN ODT) 4 Mg Tab.rapdis, 4 MG PO every 6 hours Y for NAUSEA/ VOMITING, #12 TAB TAKE 1 TABLET BY MOUTH EVERY 12 HOURS Prov:NOELLE DE LA CRUZ DO 01/04/18 Promethazine Hcl (PROMETHAZINE HCL) 25 Mg Tablet, 25 MG PO Q4H Y for NAUSEA/ VOMITING, #14 TAB Prov:NOELLE DE LA CRUZ DO 01/04/18 Sucralfate (SUCRALFATE) 1 Gm/10 Ml Oral.susp, 1 GM PO ACHS1, #120 G 0 Refills Prov:BRANDY YATES MD 12/12/17 Pantoprazole Sodium (PANTOPRAZOLE SODIUM) 40 Mg Tablet.dr, 1 TAB PO BIDAC, #60 TAB.SR 3 Refills Don't eat for at least 2 hours before or 30 minutes after taking Prov:BRANDY YATES MD 12/12/17 Metoclopramide Hcl (METOCLOPRAMIDE HCL) 10 Mg Tablet, 10 MG PO QID Y for NAUSEA/ VOMITING, #40 TAB 0 Refills Prov:GALE KLEIN DNP, PRINT LINE OPERATOR- 10/16/17 Reported Medications Gabapentin (GABAPENTIN) 300 Mg Capsule, 2 TAB PO BID, CAPSULE 02/04/18 Insulin Lispro 100 Un/Ml Vial (HUMALOG 100 U/ML VIAL) 100 Unit/1 Ml Vial, 0 SQ Y for SLIDING SCALE INSULIN, VIAL takes Humalog Insulin at Home as per SS 10/02/17 Discontinued Reported Medications Gabapentin (GABAPENTIN) 100 Mg Capsule, 4 CAP PO BID, CAPSULE 01/25/18 Discontinued Scripts Famotidine (PEPCID) 20 Mg Tablet, 20 MG PO BID for 10 Days, #30 TAB Prov:MICHELE LARA MD 12/11/17 Past Medical/Surgical History Patient has a past medical history of gastroparesis, acid reflux, pancreatitis, right hand fracture, diabetic retinopathy, type 1 diabetes, marijuana abuse, alcohol use, anxiety. Patient has a surgical history of laser surgery on his eyes, ORIF to the right hand, appendectomy, cholecystectomy. Reviewed Nurses Notes: Yes Hx Smoking: Yes (1.5 ppd x 10 years QUIT 2014, CURRENTLY SMOKES MARIJUANA) Smoking Status: Current: Every Day Smoker, Former Smoker Hx Substance Use Disorder: Yes (POT) Hx Alcohol Use: No (Years since last use) Constitutional Vital Sign - Last 24 Hours 02/08/18 02/08/18 02/08/18 02/08/18 11:27 11:30 11:33 11:34 Temp 98.2 Pulse 130 Resp 20 B/P (MAP) 146/97 140/96 (111) 141/96 (111) 135/112 (120) Pulse Ox 96 O2 Delivery Room Air 02/08/18 02/08/18 02/08/18 02/08/18 11:52 12:00 12:05 12:30 Pulse 122 ??? B/P (MAP) 139/98 (112) 133/92 (106) Pulse Ox 93 02/08/18 02/08/18 02/08/18 02/08/18 12:35 13:00 13:05 13:30 Pulse 113 108 B/P (MAP) 120/79 (93) 126/84 (98) Pulse Ox 94 92 02/08/18 02/08/18 13:35 13:45 Pulse 117 B/P (MAP) 122/86 (98) Pulse Ox 94 Intake and Output 02/08/18 02/08/18 02/09/18 14:59 22:59 06:59 Intake Total 1000 ml Balance 1000 ml Physical Exam General Appearance: The patient is alert, has no immediate need for airway protection and no current signs of toxicity. ENT: Tympanic membranes are pearly-rothman, auditory canals are patent, mucous membranes are moist. Respiratory: Chest is non tender, lungs are clear to auscultation. Cardiac: regular rate and rhythm Gastrointestinal: Abdomen is soft and tender, no masses, bowel sounds hypoactive. Musculoskeletal: Neck: Neck is supple and non tender. Extremities have full range of motion and are non tender. Skin: No rashes or lesions. DIFFERENTIAL DIAGNOSIS: After history and physical exam differential diagnosis was considered for nausea and vomiting including but not limited to gastroenteritis, gastritis, appendicitis, and medication side effect. Due to the differential is postsurgical complication. Medical Decision Making Data Points Result Diagram: 02/08/18 1135 02/08/18 1135 Laboratory Hematology Test 02/08/18 11:35 02/08/18 13:27 Red Blood Count 5.27 M/uL (4.00-5.60) Mean Corpuscular Volume 91.8 fL (80.0-96.0) Mean Corpuscular Hemoglobin 32.2 pg (26.0-33.0) Mean Corpuscular Hemoglobin Concent 35.1 g/dL (32.0-36.0) Red Cell Distribution Width 13.0 % (11.5-14.5) Mean Platelet Volume 8.5 fL (7.2-11.1) Neutrophils (%) (Auto) 83.4 % (39.4-72.5) Lymphocytes (%) (Auto) 8.7 % (17.6-49.6) Monocytes (%) (Auto) 7.6 % (4.1-12.4) Eosinophils (%) (Auto) 0.0 % (0.4-6.7) Basophils (%) (Auto) 0.3 % (0.3-1.4) Nucleated RBC Relative Count (auto) 0.0 /100WBC Neutrophils # (Auto) 11.6 K/uL (2.0-7.4) Lymphocytes # (Auto) 1.2 K/uL (1.3-3.6) Monocytes # (Auto) 1.1 K/uL (0.3-1.0) Eosinophils # (Auto) 0.0 K/uL (0.0-0.5) Basophils # (Auto) 0.0 K/uL (0.0-0.1) Nucleated RBC Absolute Count (auto) 0.00 K/uL Sodium Level 139 mmol/L (137-145) Potassium Level 4.3 mmol/L (3.5-5.0) Chloride Level 95 mmol/L (98-107) Carbon Dioxide Level 20 mmol/L (22-30) Blood Urea Nitrogen 21 mg/dl (9-21) Creatinine 0.80 mg/dl (0.66-1.25) Glomerular Filtration Rate Calc > 60.0 Random Glucose 379 mg/dl (75-110) Calcium Level 10.2 mg/dl (8.4-10.2) Total Bilirubin 1.2 mg/dl (0.2-1.3) Aspartate Amino Transf (AST/SGOT) 59 U/L (0-35) Alanine Aminotransferase (ALT/SGPT) 77 U/L (0-56) Alkaline Phosphatase 100 U/L (0-126) Troponin I < 0.012 ng/ml Total Protein 7.4 gm/dl (6.3-8.2) Albumin 4.6 g/dl (3.5-5.0) Amylase Level 81 U/L (0-110) Lipase < 10 U/L (23-300) Whole Blood Glucose 287 mg/DL (75-110) Chemistry Test 02/08/18 11:35 02/08/18 13:27 White Blood Count 14.0 k/uL (4.5-11.0) Red Blood Count 5.27 M/uL (4.00-5.60) Hemoglobin 17.0 g/dL (14.0-18.0) Hematocrit 48.4 % (42.0-52.0) Mean Corpuscular Volume 91.8 fL (80.0-96.0) Mean Corpuscular Hemoglobin 32.2 pg (26.0-33.0) Mean Corpuscular Hemoglobin Concent 35.1 g/dL (32.0-36.0) Red Cell Distribution Width 13.0 % (11.5-14.5) Platelet Count 292 K/uL (150-450) Mean Platelet Volume 8.5 fL (7.2-11.1) Neutrophils (%) (Auto) 83.4 % (39.4-72.5) Lymphocytes (%) (Auto) 8.7 % (17.6-49.6) Monocytes (%) (Auto) 7.6 % (4.1-12.4) Eosinophils (%) (Auto) 0.0 % (0.4-6.7) Basophils (%) (Auto) 0.3 % (0.3-1.4) Nucleated RBC Relative Count (auto) 0.0 /100WBC Neutrophils # (Auto) 11.6 K/uL (2.0-7.4) Lymphocytes # (Auto) 1.2 K/uL (1.3-3.6) Monocytes # (Auto) 1.1 K/uL (0.3-1.0) Eosinophils # (Auto) 0.0 K/uL (0.0-0.5) Basophils # (Auto) 0.0 K/uL (0.0-0.1) Nucleated RBC Absolute Count (auto) 0.00 K/uL Glomerular Filtration Rate Calc > 60.0 Calcium Level 10.2 mg/dl (8.4-10.2) Total Bilirubin 1.2 mg/dl (0.2-1.3) Aspartate Amino Transf (AST/SGOT) 59 U/L (0-35) Alanine Aminotransferase (ALT/SGPT) 77 U/L (0-56) Alkaline Phosphatase 100 U/L (0-126) Troponin I < 0.012 ng/ml Total Protein 7.4 gm/dl (6.3-8.2) Albumin 4.6 g/dl (3.5-5.0) Amylase Level 81 U/L (0-110) Lipase < 10 U/L (23-300) Whole Blood Glucose 287 mg/DL (75-110) EKG/Imaging EKG Interpretation 12 lead EKG: Rhythm: Sinus tachycardia with a ventricular rate of 126 bpm [place]: normal QRS: Left anterior fascicular block ST segments: normal Imaging EXAMINATION: CT abdomen with IV contrast CT pelvis with IV contrast HISTORY: Postop vomiting. Abdominal pain. Surgery was yesterday. COMPARISON: 11/20/2017. TECHNIQUE: Axial images were taken through the abdomen and pelvis with intravenous contrast. Sagittal and coronal reformatted images are also submitted. CONTRAST: 75 mL of IV Isovue-370 One of the following dose optimization techniques was utilized in the performance of this exam: Automated exposure control; adjustment of the mA and/ or kV according to the patient's size; or use of an iterative reconstruction technique. Specific details can be referenced in the facility's radiology CT exam operational policy. FINDINGS: Liver/biliary: Postcholecystectomy. Pancreas: Negative. Spleen: Negative. Adrenal glands: Negative. Kidneys: Negative. Pelvic structures: Negative. Bowel: The bowel is normal caliber without obvious focal wall thickening. Status post appendectomy. Peritoneum/retroperitoneum/mesenteries: Small volume of intraperitoneal free air scattered within the abdomen, predominantly anterior to the liver. Trace free fluid in the pelvis. Vessels: Negative. Musculoskeletal/body wall: Small volume of air within the anterior abdominal wall and anterolateral abdominal wall bilaterally. Lymph node assessment: Negative. Lower chest: Negative. IMPRESSION: Postoperative changes of cholecystectomy and appendectomy. There is intraperitoneal free air and air within the anterior abdominal wall which may be seen following recent laparoscopic surgery. Trace free fluid in the pelvis. These findings were discussed with ELIZABETH CONNORS at 02/08/2018 1:24 PM. Report Dictated By: Lucio Richard MD at 02/08/2018 1:07 PM Report E-Signed By: Lucio Richard MD at 02/08/2018 1:24 PM ED Course/Re-evaluation ED Course Patient was admitted to an exam room, history and physical were obtained. Differential diagnoses were considered. On examination the patient did have some tenderness to the abdomen, does not surprise considering he is one day post cholecystectomy and appendectomy. A CT scan of abdomen and pelvis was done , a CBC, CMP were done. Patient did have an elevated white count of 14,000. I believe that is likely caused by demargination secondary to the stress of surgery. CMP was unremarkable excluding his blood sugar of 376. CT scan of abdomen and pelvis showed no acute findings. I discussed findings with the patient. I that time patient received 12.5 milligrams of promethazine and Zofran 4 mg of morphine. Patient states he's feeling better. He did not have any vomiting while he was in the emergency room, although he did have one episode of retching. Patient will be discharged home. Patient did get a refill of his promethazine. Patient also had a elevated blood sugar 376 that was treated with 10 units of Humalog. That did get his blood sugar down to 270. I discussed with the patient and he verbalized understanding and agreement with plan. Decision to Disposition Date: February 08, 2018 Decision to Disposition Time: 13:37 Depart Departure Latest Vital Signs Vital Signs Date Time Temp Pulse Resp B/P (MAP) Pulse Ox O2 Delivery O2 Flow Rate FiO2 02/08/18 13:45 122/86 (98) 02/08/18 13:35 117 94 02/08/18 11:27 98.2 20 Room Air Impression: Primary Impression: Postoperative vomiting Condition: Improved Disposition: HOME OR SELF-CARE Referrals: GALE KLEIN DNP, PRINT LINE OPERATOR-BC (PCP) New Scripts Promethazine Hcl (PROMETHAZINE HCL) 25 Mg Tablet 25 MG PO Q8H Y for NAUSEA/VOMITING, #12 TAB Prov: ELIZABETH CONNORS 02/08/18 Patient Instructions: Acute Nausea and Vomiting (ED) Additional Instructions: Increase fluid intake. Get plenty of rest. Limit activity by pain. Return to the ER if condition worsens. Continue with current medications. Follow up with Dr. Yates as scheduled. Follow up with your primary care provider in the next 3-5 days. ELIZABETH CONNORS February 08, 2018 11:32
[2018-02-08] MEDS ORDERED: PROMETHAZINE 25 MG/ML 1 ML AMP IVP ONE (11:35)
[2018-02-08] MEDS ORDERED: MORPHINE 4 MG/ML SDV IVP ONE (11:40)
[2018-02-08] MEDS ORDERED: IOPAMIDOL 76% 75 ML INFUS BTL 75 ML ONE (11:46)
[2018-02-08 11:48] LABS: PLATELET COUNT, AUTOMATED 292 K/uL (150-450)
--- NOTE | 2018-02-08 11:59 | EKG ---
FACILITY: [facility] PATIENT NAME: BARBARA ABERNATHY : [id number] MR: [id number] V: [id number] EXAM DATE: ORDERING PHYSICIAN: ELIZABETH CONNORS TECHNOLOGIST: CHARISSE Sigala Reason : PAIN Blood Pressure : / mmHG Vent. Rate : 126 BPM Atrial Rate : 126 BPM P-R Int : 118 ms QRS Dur : 076 ms QT Int : 322 ms P-R-T Axes : 068 -75 060 degrees QTc Int : 466 ms Sinus tachycardia Possible Left atrial enlargement Left anterior fascicular block Abnormal ECG No previous ECGs available Confirmed by BRANDY BRENNNA ([id number]) on 02/08/2018 1:03:21 PM Referred By: WAYLON Confirmed By:BRANDY BRENNAN
[2018-02-08] MEDS ORDERED: INS HUM LISPRO 100U/ML (ER ONLY) 10 ML VIAL SUBQ ONE (12:05)
--- NOTE | 2018-02-08 13:28 | RADIOLOGY IMAGING REPORT ---
[place] [facility] [place] Terrence [place] : 1985 MR: [id number] V: [id number] EXAM DATE: ORDERING PHYSICIAN: ELIZABETH CONNORS TECHNOLOGIST: Location: [facility] Patient: Terrence Carson : 1985 Visit/Account:[id number] Date of Sevice: 02/08/2018 EXAMINATION: CT abdomen with IV contrast CT pelvis with IV contrast HISTORY: Postop vomiting. Abdominal pain. Surgery was yesterday. COMPARISON: 11/20/2017. TECHNIQUE: Axial images were taken through the abdomen and pelvis with intravenous contrast. Sagitt al and coronal reformatted images are also submitted. CONTRAST: 75 mL of IV Isovue-370 One of the following dose optimization techniques was utilized in the performance of this exam: Autom ated exposure control; adjustment of the mA and/or kV according to the patient's size; or use of an i terative reconstruction technique. Specific details can be referenced in the facility's radiology C T exam operational policy. FINDINGS: Liver/biliary: Postcholecystectomy. Pancreas: Negative. Spleen: Negative. Adrenal glands: Negative. Kidneys: Negative. Pelvic structures: Negative. Bowel: The bowel is normal caliber without obvious focal wall thickening. Status post appendectomy. Peritoneum/retroperitoneum/mesenteries: Small volume of intraperitoneal free air scattered within the abdomen, predominantly anterior to the liver. Trace free fluid in the pelvis. Vessels: Negative. Musculoskeletal/body wall: Small volume of air within the anterior abdominal wall and anterolateral a bdominal wall bilaterally. Lymph node assessment: Negative. Lower chest: Negative. IMPRESSION: Postoperative changes of cholecystectomy and appendectomy. There is intraperitoneal free air and air within the anterior abdominal wall which may be seen following recent laparoscopic surgery. Trace free fluid in the pelvis. These findings were discussed with ELIZABETH CONNORS at 02/08/2018 1:24 PM. Report Dictated By: Lucio Richard MD at 02/08/2018 1:07 PM Report E-Signed By: Lucio Richard MD at 02/08/2018 1:24 PM WSN:[id number]
[2018-02-08] MEDS ORDERED: PROM-110 PO (13:36)
[2018-02-08 13:45] VITALS: BP 122/86
== END 2018-02-08 13:45 | disposition home or self-care (01) ==
LOC: ER 11:31
DX: R11.10 Vomiting, unspecified (principal); R73.9 Hyperglycemia, unspecified; R00.0 Tachycardia, unspecified
CPT/HCPCS: 36416; 74177; 82150; 82948; 83690; 84484; 85025; 93005; 96361; 96372; 96374; 96375; 99284; A9270; J2270; J2550; J7030; Q9967; 82040; 82247; 82310; 82374; 82435; 82565; 82947; 84075; 84132; 84155; 84295; 84450; 84460; 84520; J1815

== ENCOUNTER 2018-03-15 13:46 | Emergency (ER) | payer MEDICARE, MEDICAID ==
[2017-11-20 10:57] VITALS: Wt 60.0 kg
--- NOTE | 2018-03-15 13:52 | ER Report ---
History and Physical Time Seen By MD: 13:52 (ELIZABETH BOBBY MD) HPI/ROS CHIEF COMPLAINT: Intractable vomiting HISTORY OF PRESENT ILLNESS: Patient is postop from a cholecystectomy and appendectomy on 02/07/2018. Patient also has a history of type I diabetes for which he takes insulin. He is been followed by Dr. Mercado for his postoperative care as well as transitional care and the note as of March 12 shows the patient is having no pain and doing well. Patient states he woke up this morning at 8 AM with severe crampy abdominal pain and intractable nausea vomiting without diarrhea. He denies any fevers or chills. States his blood sugars have been running in the 150s. Reports generalized abdominal pain that began after the vomiting. He denies any fevers or chills. REVIEW OF SYSTEMS: Constitutional: No fever, no chills. Eyes: No discharge. ENT: No sore throat. Cardiovascular: No chest pain, no palpitations. Respiratory: No cough, no shortness of breath. Gastrointestinal: Crampy abdominal pain associated with nausea and vomiting but no diarrhea Genitourinary: No hematuria. Musculoskeletal: No back pain. Skin: No rashes. Neurological: No headache. (ELIZABETH BOBBY MD) Allergies: Coded Allergies: hydrocodone (Verified Allergy, Unknown, 03/15/18) oxycodone (Verified Allergy, Unknown, 03/15/18) Uncoded Allergies: beestings (Adverse Reaction, Unknown, 08/11/17) Home Meds Active Scripts Ondansetron (ZOFRAN ODT) 4 Mg Tab.rapdis, 4 MG PO Q6H Y for NAUSEA/VOMITING, # 30 TAB.JANIE Prov:TRUMAN ELI APRN-C 03/18/18 Ondansetron (ZOFRAN ODT) 4 Mg Tab.rapdis, 4 MG PO Q6H Y for NAUSEA/VOMITING, # 15 TAB.JANIE Prov:YOVANI REEVES DO 03/15/18 Insulin Glargine 100 Un/Ml Pen (LANTUS SOLOSTAR PEN) 100 Unit/1 Ml Insuln.pen, 38 UNIT SUBQ QDAY, #1 BOX 2 Refills Prov:GALE KLEIN DNP, DOCUMENTATION NURSE-BC 01/25/18 Sucralfate (SUCRALFATE) 1 Gm/10 Ml Oral.susp, 1 GM PO ACHS1, #120 G 0 Refills Prov:BRANDY YATES MD 12/12/17 Pantoprazole Sodium (PANTOPRAZOLE SODIUM) 40 Mg Tablet.dr, 1 TAB PO BIDAC, #60 TAB.SR 3 Refills Don't eat for at least 2 hours before or 30 minutes after taking Prov:BRANDY YATES MD 12/12/17 Metoclopramide Hcl (METOCLOPRAMIDE HCL) 10 Mg Tablet, 10 MG PO QID Y for NAUSEA/ VOMITING, #40 TAB 0 Refills Prov:GALE KLEIN DNP, DOCUMENTATION NURSE-BC 10/16/17 Reported Medications Gabapentin (GABAPENTIN) 300 Mg Capsule, 2 TAB PO BID, CAPSULE 02/04/18 Insulin Lispro 100 Un/Ml Vial (HUMALOG 100 U/ML VIAL) 100 Unit/1 Ml Vial, 0 SQ Y for SLIDING SCALE INSULIN, VIAL takes Humalog Insulin at Home as per SS 10/02/17 Past Medical/Surgical History Patient has a past medical history of gastroparesis, acid reflux, pancreatitis, right hand fracture, diabetic retinopathy, type 1 diabetes, marijuana abuse, alcohol use, anxiety. Patient has a surgical history of laser surgery on his eyes, ORIF to the right hand, appendectomy, cholecystectomy. (ELIZABETH BOBBY MD) Hx Smoking: Yes (1.5 ppd x 10 years QUIT 2014, CURRENTLY SMOKES MARIJUANA) Smoking Status: Current: Every Day Smoker, Former Smoker Hx Substance Use Disorder: Yes (POT) Hx Alcohol Use: No (Years since last use) (ELIZABETH BOBBY MD) Constitutional Vital Sign - Last 24 Hours 03/15/18 03/15/18 03/15/18 03/15/18 13:58 14:03 14:15 14:16 Temp 97.6 Pulse 110 101 Resp 16 B/P (MAP) 167/119 167/119 (135) 167/132 (144) Pulse Ox 94 97 O2 Delivery Room Air 03/15/18 03/15/18 03/15/18 14:30 14:45 14:46 Pulse 95 B/P (MAP) 163/113 (130) 176/117 (136) Pulse Ox 99 (LAURORA,YOVANI V DO) Physical Exam General/Constitutional: Patient is awake, alert, actively vomiting; appears pale Head: Normocephalic and atraumatic. Eyes: Conjunctival clear, Pupils are equal and reactive to light. Extraocular muscles are intact and symmetrical. Sclera are clear and anicteric. Ears:External canals are clear. Tympanic membranes are clear with normal landmarks and light reflex. Nares: No rhinorrhea or bleeding. Turbinates are pink and moist. Oropharyngeal: Mucous membranes are moist. There is no pharyngeal erythema or exudate. There are no palatal petechiae. Uvula is midline and symmetrical. Neck: Supple, no adenopathy. Cardiovascular: Heart is regular rate and rhythm without audible murmurs, rubs or gallops. Pulmonary: Lungs are clear to auscultation bilaterally. There are no wheezes, rales, or rhonchi. Chest rise is symmetrical Abdomen: Soft, surgical incisions appear well-healed diffuse discomfort with palpation without peritoneal signs Extremities: No gross deformities, No peripheral cyanosis. Able to move all 4 extremities. Neuro: Alert and oriented X3, Skin: No rashes, skin is warm dry and well perfused. (ELIZABETH BOBBY MD) Medical Decision Making Data Points Laboratory Hematology Test 03/15/18 14:01 03/15/18 14:03 03/15/18 14:12 Urine Color Yellow Urine Clarity Clear Urine pH 7.0 pH (4.8-9.5) Urine Specific [place] 1.020 Urine Protein 100 mg/dL (NEGATIVE) Urine Glucose (UA) 150 mg/dL (NEGATIVE) Urine Ketones Negative mg/dL (NEGATIVE) Urine Blood Small (NEGATIVE) Urine Nitrite Negative (NEGATIVE) Urine Bilirubin Negative (NEGATIVE) Urine Urobilinogen Negative mg/dL (0.2-1.9) Urine Leukocyte Esterase Negative (NEGATIVE) Urine RBC 3 /HPF (0-2/HPF) Urine WBC 1 /HPF (0-5/HPF) Urine Squamous Epithelial Cells None /LPF (</=FEW) Urine Bacteria Few /HPF (NONE-FEW) Urine Mucus Few /HPF (NONE-FEW) Red Blood Count 5.60 M/uL (4.00-5.60) Mean Corpuscular Volume 90.8 fL (80.0-96.0) Mean Corpuscular Hemoglobin 32.5 pg (26.0-33.0) Mean Corpuscular Hemoglobin Concent 35.8 g/dL (32.0-36.0) Red Cell Distribution Width 12.9 % (11.5-14.5) Mean Platelet Volume 8.6 fL (7.2-11.1) Neutrophils (%) (Auto) 70.5 % (39.4-72.5) Lymphocytes (%) (Auto) 21.7 % (17.6-49.6) Monocytes (%) (Auto) 5.3 % (4.1-12.4) Eosinophils (%) (Auto) 1.6 % (0.4-6.7) Basophils (%) (Auto) 0.9 % (0.3-1.4) Nucleated RBC Relative Count (auto) 0.1 /100WBC Neutrophils # (Auto) 6.1 K/uL (2.0-7.4) Lymphocytes # (Auto) 1.9 K/uL (1.3-3.6) Monocytes # (Auto) 0.5 K/uL (0.3-1.0) Eosinophils # (Auto) 0.1 K/uL (0.0-0.5) Basophils # (Auto) 0.1 K/uL (0.0-0.1) Nucleated RBC Absolute Count (auto) 0.01 K/uL Sodium Level 143 mmol/L (137-145) Potassium Level 4.0 mmol/L (3.5-5.0) Chloride Level 107 mmol/L (98-107) Carbon Dioxide Level 22 mmol/L (22-30) Blood Urea Nitrogen 11 mg/dl (9-21) Creatinine 0.60 mg/dl (0.66-1.25) Glomerular Filtration Rate Calc > 60.0 Random Glucose 156 mg/dl (75-110) Calcium Level 9.7 mg/dl (8.4-10.2) Total Bilirubin 0.6 mg/dl (0.2-1.3) Aspartate Amino Transf (AST/SGOT) 31 U/L (0-35) Alanine Aminotransferase (ALT/SGPT) 36 U/L (0-56) Alkaline Phosphatase 90 U/L (0-126) Total Protein 7.8 g/dl (6.3-8.2) Albumin 4.4 g/dl (3.5-5.0) Lipase 34 U/L (23-300) Acetone, Qualitative Negative Whole Blood Glucose 144 mg/DL (75-110) Chemistry Test 03/15/18 14:01 03/15/18 14:03 03/15/18 14:12 Urine Color Yellow Urine Clarity Clear Urine pH 7.0 pH (4.8-9.5) Urine Specific [place] 1.020 Urine Protein 100 mg/dL (NEGATIVE) Urine Glucose (UA) 150 mg/dL (NEGATIVE) Urine Ketones Negative mg/dL (NEGATIVE) Urine Blood Small (NEGATIVE) Urine Nitrite Negative (NEGATIVE) Urine Bilirubin Negative (NEGATIVE) Urine Urobilinogen Negative mg/dL (0.2-1.9) Urine Leukocyte Esterase Negative (NEGATIVE) Urine RBC 3 /HPF (0-2/HPF) Urine WBC 1 /HPF (0-5/HPF) Urine Squamous Epithelial Cells None /LPF (</=FEW) Urine Bacteria Few /HPF (NONE-FEW) Urine Mucus Few /HPF (NONE-FEW) White Blood Count 8.7 k/uL (4.5-11.0) Red Blood Count 5.60 M/uL (4.00-5.60) Hemoglobin 18.2 g/dL (14.0-18.0) Hematocrit 50.9 % (42.0-52.0) Mean Corpuscular Volume 90.8 fL (80.0-96.0) Mean Corpuscular Hemoglobin 32.5 pg (26.0-33.0) Mean Corpuscular Hemoglobin Concent 35.8 g/dL (32.0-36.0) Red Cell Distribution Width 12.9 % (11.5-14.5) Platelet Count 254 K/uL (150-450) Mean Platelet Volume 8.6 fL (7.2-11.1) Neutrophils (%) (Auto) 70.5 % (39.4-72.5) Lymphocytes (%) (Auto) 21.7 % (17.6-49.6) Monocytes (%) (Auto) 5.3 % (4.1-12.4) Eosinophils (%) (Auto) 1.6 % (0.4-6.7) Basophils (%) (Auto) 0.9 % (0.3-1.4) Nucleated RBC Relative Count (auto) 0.1 /100WBC Neutrophils # (Auto) 6.1 K/uL (2.0-7.4) Lymphocytes # (Auto) 1.9 K/uL (1.3-3.6) Monocytes # (Auto) 0.5 K/uL (0.3-1.0) Eosinophils # (Auto) 0.1 K/uL (0.0-0.5) Basophils # (Auto) 0.1 K/uL (0.0-0.1) Nucleated RBC Absolute Count (auto) 0.01 K/uL Glomerular Filtration Rate Calc > 60.0 Calcium Level 9.7 mg/dl (8.4-10.2) Total Bilirubin 0.6 mg/dl (0.2-1.3) Aspartate Amino Transf (AST/SGOT) 31 U/L (0-35) Alanine Aminotransferase (ALT/SGPT) 36 U/L (0-56) Alkaline Phosphatase 90 U/L (0-126) Total Protein 7.8 g/dl (6.3-8.2) Albumin 4.4 g/dl (3.5-5.0) Lipase 34 U/L (23-300) Acetone, Qualitative Negative Whole Blood Glucose 144 mg/DL (75-110) Toxicology Test 03/15/18 14:03 Acetone, Qualitative Negative Urinalysis Test 03/15/18 14:01 Urine Color Yellow Urine Clarity Clear Urine pH 7.0 pH (4.8-9.5) Urine Specific [place] 1.020 Urine Protein 100 mg/dL (NEGATIVE) Urine Glucose (UA) 150 mg/dL (NEGATIVE) Urine Ketones Negative mg/dL (NEGATIVE) Urine Blood Small (NEGATIVE) Urine Nitrite Negative (NEGATIVE) Urine Bilirubin Negative (NEGATIVE) Urine Urobilinogen Negative mg/dL (0.2-1.9) Urine Leukocyte Esterase Negative (NEGATIVE) Urine RBC 3 /HPF (0-2/HPF) Urine WBC 1 /HPF (0-5/HPF) Urine Squamous Epithelial Cells None /LPF (</=FEW) Urine Bacteria Few /HPF (NONE-FEW) Urine Mucus Few /HPF (NONE-FEW) (YOVANI REEVES DO) ED Course/Re-evaluation Clinical Indication for ER IV: Hydration, IV Access ED Course 03/15/2018 3:13:02 pm Patient with persistent vomiting despite four mg of Zofran; blood work appears normal acute abdominal series shows nonobstructive bowel gas pattern. Blood sugar is 156 mg/dl. Patient was just redosed with 10 mg of Reglan, 25 mg of IV Benadryl and 50 mg of Toradol. Disposition pending response to treatment. Decision to Disposition Date: Mar 15, 2018 Decision to Disposition Time: 17:00 (ELIZABETH BOBBY MD) ED Course 03/15/2018 4:37:19 pm Pt signed out to me pending observation to to make sure vomiting has stopped. Pt has not vomited since Dr. Bobby gave the pt the reglan. Pt states he feels "washed out". Labs ordered by Dr. Bobby were stable. Decision to Disposition Date: Mar 15, 2018 Decision to Disposition Time: 16:38 (YOVANI REEVES DO) Depart Departure Latest Vital Signs Vital Signs Date Time Temp Pulse Resp B/P (MAP) Pulse Ox O2 Delivery O2 Flow Rate FiO2 03/15/18 14:46 95 99 03/15/18 14:45 176/117 (136) 03/15/18 13:58 97.6 16 Room Air (YOVANI REEVES DO) Impression: Primary Impression: Vomiting Condition: Improved Disposition: HOME OR SELF-CARE Referrals: GALE KLEIN DNP, DOCUMENTATION NURSE-BC (PCP) 2 Days New Scripts Ondansetron (ZOFRAN ODT) 4 Mg Tab.rapdis 4 MG PO Q6H Y for NAUSEA/VOMITING, #15 TAB.JANIE Prov: YOVANI REEVES DO 03/15/18 Patient Instructions: Acute Nausea and Vomiting (GEN) Additional Instructions: Drink small sips of water, ice pops and gradually increase diet. Follow up with your doctor. Zofran one every 6 hours as needed for nausea. Problem Qualifiers Primary Impression: Vomiting Vomiting type: unspecified Vomiting Intractability: intractable Nausea presence: with nausea Qualified Codes: R11.2 - Nausea with vomiting, unspecified ELIZABETH BOBBY MD Mar 15, 2018 13:52 YOVANI REEVES DO Mar 15, 2018 16:41
[2018-03-15] MEDS ORDERED: NS(*) 0.9% 1000 ML BAG 1,000 ML IV ONE (13:54)
[2018-03-15] MEDS ORDERED: ONDANSETRON 4 MG/2 ML VIAL IVP ONE ×2 (13:55→17:30)
[2018-03-15 14:40] LABS: PLATELET COUNT, AUTOMATED 254 K/uL (150-450)
[2018-03-15] MEDS ORDERED: diphenhydrAMINE 50 MG/ML VIAL IVP ONE (14:50)
[2018-03-15] MEDS ORDERED: METOCLOPRAMIDE 10 MG/2 ML SDV IVP ONE (14:50)
[2018-03-15] MEDS ORDERED: KETOROLAC 15 MG/ML VIAL IVP ONE (14:50)
--- NOTE | 2018-03-15 15:06 | RADIOLOGY IMAGING REPORT ---
FACILITY: [facility] [place] PATIENT NAME: Terrence Carson : 1985 MR: [id number] V: [id number] EXAM DATE: [id number] ORDERING PHYSICIAN: ELIZABETH LEYVA TECHNOLOGIST: Location: [facility] Patient: Terrence Carson : 1985 Visit/Account:[id number] Date of Sevice: 03/15/2018 Exam type: ACUTE ABDOMEN SERIES 3 VIEW INDICATION: Vomiting x1 day. Gallbladder removed one month ago. COMPARISON: CT dated February 08, 2018. FINDINGS: Heart size within normal limits. There is no focal infiltrate or consolidation. No evidence of pneumothorax or pleural effusion. Bowel gas seen throughout the abdomen in a nonobstructive pattern. Moderate to large volume stool wi thin ascending and transverse colon. There are no pathologic calcifications identified. No evidence of free air under the right hemidiaphragm. IMPRESSION: 1. No acute cardiopulmonary process. 2. Nonobstructive bowel gas pattern. 3. Moderate to large volume stool within the ascending and transverse colon. Recommend correlation for constipation. Report Dictated By: Justin Felix MD at 03/15/2018 3:00 PM Report E-Signed By: Justin Felix MD at 03/15/2018 3:01 PM WSN:[id number]
[2018-03-15] MEDS ORDERED: ONDA4TAB PO (16:39)
[2018-03-15] MEDS ORDERED: DICYCLOMINE HCL 10 MG CAP PO ONE (16:55)
[2018-03-15 17:40] VITALS: BP 151/102
== END 2018-03-15 17:40 | disposition home or self-care (01) ==
LOC: ER 13:55
DX: R11.2 Nausea with vomiting, unspecified (principal); E10.9 Type 1 diabetes mellitus without complications
CPT/HCPCS: 36416; 74022; 81001; 82009; 82948; 83690; 85025; 96361; 96374; 96375; 96376; 99283; A9270; J1200; J1885; J2405; J2765; J7030; 82040; 82247; 82310; 82374; 82435; 82565; 82947; 84075; 84132; 84155; 84295; 84450; 84460; 84520

== ENCOUNTER 2018-03-16 13:33 | Emergency (ER) | payer MEDICARE, MEDICAID ==
[2017-11-20 10:57] VITALS: Wt 58.1 kg
--- NOTE | 2018-03-16 13:38 | ER Report ---
History and Physical Time Seen By MD: 13:37 HPI/ROS CHIEF COMPLAINT: Abdominal pain, nausea, vomiting HISTORY OF PRESENT ILLNESS: Patient is a 32-year-old male with a history of diabetes here with complaints of worsening nausea, abdominal pain. Patient was evaluated here yesterday for similar symptoms at which time his nausea was under control and the patient was discharged home. Patient reports that his pain worsened and his nausea worsened while he was at home prompting reevaluation today. Patient reports feeling dehydrated, not tolerating oral intake. He attempted to take his oral medications at home which were promptly vomited up. Patient was tachycardic on initial evaluation complaining of abdominal pain and nausea. Denies fevers, headache, blurred vision, chest pain, shortness of breath. REVIEW OF SYSTEMS: Constitutional: No fever, no chills. Eyes: No discharge. ENT: No sore throat. Cardiovascular: No chest pain, no palpitations. Respiratory: No cough, no shortness of breath. Gastrointestinal: + diffuse abdominal pain, + vomiting. Genitourinary: No hematuria. Musculoskeletal: No back pain. Skin: No rashes. Neurological: No headache. Allergies: Coded Allergies: hydrocodone (Verified Allergy, Unknown, 03/15/18) oxycodone (Verified Allergy, Unknown, 03/15/18) Uncoded Allergies: beestings (Adverse Reaction, Unknown, 08/11/17) Home Meds Active Scripts Ondansetron (ZOFRAN ODT) 4 Mg Tab.rapdis, 4 MG PO Q6H Y for NAUSEA/VOMITING, # 15 TAB.JANIE Prov:YOVANI REEVES DO 03/15/18 Insulin Glargine 100 Un/Ml Pen (LANTUS SOLOSTAR PEN) 100 Unit/1 Ml Insuln.pen, 38 UNIT SUBQ QDAY, #1 BOX 2 Refills Prov:GALE KLEIN DNP, P[employer]AGE SEALER-BC 01/25/18 Sucralfate (SUCRALFATE) 1 Gm/10 Ml Oral.susp, 1 GM PO ACHS1, #120 G 0 Refills Prov:BRANDY YATES MD 12/12/17 Pantoprazole Sodium (PANTOPRAZOLE SODIUM) 40 Mg Tablet.dr, 1 TAB PO BIDAC, #60 TAB.SR 3 Refills Don't eat for at least 2 hours before or 30 minutes after taking Prov:BRANDY YATES MD 12/12/17 Metoclopramide Hcl (METOCLOPRAMIDE HCL) 10 Mg Tablet, 10 MG PO QID Y for NAUSEA/ VOMITING, #40 TAB 0 Refills Prov:GALE KLEIN [facility], PACKAGE SEALER-BC 10/16/17 Reported Medications Gabapentin (GABAPENTIN) 300 Mg Capsule, 2 TAB PO BID, CAPSULE 02/04/18 Insulin Lispro 100 Un/Ml Vial (HUMALOG 100 U/ML VIAL) 100 Unit/1 Ml Vial, 0 SQ Y for SLIDING SCALE INSULIN, VIAL takes Humalog Insulin at Home as per SS 10/02/17 Discontinued Scripts Promethazine Hcl (PROMETHAZINE HCL) 25 Mg Tablet, 25 MG PO Q8H Y for NAUSEA/ VOMITING, #12 TAB Prov:ELIZABETH CONNORSP 02/08/18 Ondansetron (ZOFRAN ODT) 4 Mg Tab.rapdis, 4 MG PO every 6 hours Y for NAUSEA/ VOMITING, #12 TAB TAKE 1 TABLET BY MOUTH EVERY 12 HOURS Prov:NOELLE DE LA CRUZ DO 01/04/18 Past Medical/Surgical History DM I Hx Smoking: Yes (1.5 ppd x 10 years QUIT 2014, CURRENTLY SMOKES MARIJUANA) Smoking Status: Current: Every Day Smoker, Former Smoker Hx Substance Use Disorder: Yes (POT) Hx Alcohol Use: No (Years since last use) Constitutional Vital Sign - Last 24 Hours 03/16/18 03/16/18 03/16/18 03/16/18 13:33 13:37 13:38 13:39 Temp 98.2 Pulse ??? 130 Resp 24 B/P (MAP) 156/109 (125) 155/93 155/93 (113) Pulse Ox 98 O2 Delivery Room Air 03/16/18 03/16/18 03/16/18 03/16/18 14:03 14:33 15:03 16:00 Pulse 120 113 115 123 Pulse Ox 99 88 97 98 03/16/18 03/16/18 16:27 16:30 Pulse 117 B/P (MAP) 106/69 (81) Pulse Ox 96 Physical Exam General Appearance: The patient is alert, has no immediate need for airway protection and no signs of toxicity. Mild distress due to abdominal pain Eyes: Pupils equal and round no pallor or injection. ENT, Mouth: Mucous membranes are moist. Respiratory: There are no retractions, lungs are clear to auscultation. Cardiovascular: Regular rate and rhythm. Gastrointestinal: Abdomen is soft and + diffusely TTP Neurological: No focal deficits Skin: Warm and dry, no rashes. Musculoskeletal: Neck is supple non tender. Extremities are nontender, nonswollen and have full range of motion. DIFFERENTIAL DIAGNOSIS: After history and physical exam differential diagnosis was considered for DKA, hyperosmolar syndrome, dehydration, intra abdominal infection, viral infection Medical Decision Making Data Points Result Diagram: 03/16/18 1346 03/16/18 1346 Laboratory Hematology Test 03/16/18 00:00 03/16/18 13:46 03/16/18 14:13 03/16/18 14:58 Serum Alcohol < 10 mg/dl Red Blood Count 5.42 M/uL (4.00-5.60) Mean Corpuscular Volume 90.6 fL (80.0-96.0) Mean Corpuscular Hemoglobin 31.9 pg (26.0-33.0) Mean Corpuscular Hemoglobin Concent 35.2 g/dL (32.0-36.0) Red Cell Distribution Width 12.8 % (11.5-14.5) Mean Platelet Volume 8.7 fL (7.2-11.1) Neutrophils (%) (Auto) 84.1 % (39.4-72.5) Lymphocytes (%) (Auto) 8.3 % (17.6-49.6) Monocytes (%) (Auto) 4.2 % (4.1-12.4) Eosinophils (%) (Auto) 0.2 % (0.4-6.7) Basophils (%) (Auto) 3.2 % (0.3-1.4) Nucleated RBC Relative Count (auto) 0.1 /100WBC Neutrophils # (Auto) 11.5 K/uL (2.0-7.4) Lymphocytes # (Auto) 1.1 K/uL (1.3-3.6) Monocytes # (Auto) 0.6 K/uL (0.3-1.0) Eosinophils # (Auto) 0.0 K/uL (0.0-0.5) Basophils # (Auto) 0.4 K/uL (0.0-0.1) Nucleated RBC Absolute Count (auto) 0.01 K/uL Peripheral Blood Smear Yes Y/N Sodium Level 143 mmol/L (137-145) Potassium Level 3.5 mmol/L (3.5-5.0) Chloride Level 98 mmol/L (98-107) Carbon Dioxide Level 25 mmol/L (22-30) Blood Urea Nitrogen 21 mg/dl (9-21) Creatinine 0.80 mg/dl (0.66-1.25) Glomerular Filtration Rate Calc > 60.0 Random Glucose 243 mg/dl (75-110) Osmolality 302 mOSM/K (275-295) Lactate 2.7 mmol/L (0.7-2.1) Calcium Level 9.8 mg/dl (8.4-10.2) Total Bilirubin 1.0 mg/dl (0.2-1.3) Aspartate Amino Transf (AST/SGOT) 24 U/L (0-35) Alanine Aminotransferase (ALT/SGPT) 34 U/L (0-56) Alkaline Phosphatase 103 U/L (0-126) Total Protein 7.6 g/dl (6.3-8.2) Albumin 4.4 g/dl (3.5-5.0) Lipase 11 U/L (23-300) Acetone, Qualitative Negative Blood Gas Patient Temperature Unknown DEGREES Venous Blood pH 7.56 (7.31-7.41) Venous Blood Partial Pressure CO2 27 mmHg Venous Blood Partial Pressure O2 36 mmHg Venous Blood HCO3 24 mmol/L Venous Blood Oxygen Saturation 79 % Venous Blood Base Excess 2 mmol/L Oxygen Liters/Minute Unknown Urine Color Yellow Urine Clarity Clear Urine pH 5.0 pH (4.8-9.5) Urine Specific [place] 1.035 Urine Protein 500 mg/dL (NEGATIVE) Urine Glucose (UA) 500 mg/dL (NEGATIVE) Urine Ketones 80 mg/dL (NEGATIVE) Urine Blood Negative (NEGATIVE) Urine Nitrite Negative (NEGATIVE) Urine Bilirubin Negative (NEGATIVE) Urine Urobilinogen Negative mg/dL (0.2-1.9) Urine Leukocyte Esterase Negative (NEGATIVE) Urine RBC None /HPF (0-2/HPF) Urine WBC 3 /HPF (0-5/HPF) Urine Squamous Epithelial Cells None /LPF (</=FEW) Urine Bacteria Negative /HPF (NONE-FEW) Urine Hyaline Casts Few /LPF (NONE-FEW) Urine Mucus Few /HPF (NONE-FEW) Urine Opiates Screen Negative Urine Barbiturates Screen Negative Ur Tricyclic Antidepressants Screen Negative Urine Phencyclidine Screen Negative Urine Amphetamines Screen Negative Urine Benzodiazepines Screen Negative Urine Cocaine Screen Negative Urine Cannabinoids Screen Positive Chemistry Test 03/16/18 00:00 03/16/18 13:46 03/16/18 14:13 03/16/18 14:58 Serum Alcohol < 10 mg/dl White Blood Count 13.7 k/uL (4.5-11.0) Red Blood Count 5.42 M/uL (4.00-5.60) Hemoglobin 17.3 g/dL (14.0-18.0) Hematocrit 49.1 % (42.0-52.0) Mean Corpuscular Volume 90.6 fL (80.0-96.0) Mean Corpuscular Hemoglobin 31.9 pg (26.0-33.0) Mean Corpuscular Hemoglobin Concent 35.2 g/dL (32.0-36.0) Red Cell Distribution Width 12.8 % (11.5-14.5) Platelet Count 278 K/uL (150-450) Mean Platelet Volume 8.7 fL (7.2-11.1) Neutrophils (%) (Auto) 84.1 % (39.4-72.5) Lymphocytes (%) (Auto) 8.3 % (17.6-49.6) Monocytes (%) (Auto) 4.2 % (4.1-12.4) Eosinophils (%) (Auto) 0.2 % (0.4-6.7) Basophils (%) (Auto) 3.2 % (0.3-1.4) Nucleated RBC Relative Count (auto) 0.1 /100WBC Neutrophils # (Auto) 11.5 K/uL (2.0-7.4) Lymphocytes # (Auto) 1.1 K/uL (1.3-3.6) Monocytes # (Auto) 0.6 K/uL (0.3-1.0) Eosinophils # (Auto) 0.0 K/uL (0.0-0.5) Basophils # (Auto) 0.4 K/uL (0.0-0.1) Nucleated RBC Absolute Count (auto) 0.01 K/uL Peripheral Blood Smear Yes Y/N Glomerular Filtration Rate Calc > 60.0 Osmolality 302 mOSM/K (275-295) Lactate 2.7 mmol/L (0.7-2.1) Calcium Level 9.8 mg/dl (8.4-10.2) Total Bilirubin 1.0 mg/dl (0.2-1.3) Aspartate Amino Transf (AST/SGOT) 24 U/L (0-35) Alanine Aminotransferase (ALT/SGPT) 34 U/L (0-56) Alkaline Phosphatase 103 U/L (0-126) Total Protein 7.6 g/dl (6.3-8.2) Albumin 4.4 g/dl (3.5-5.0) Lipase 11 U/L (23-300) Acetone, Qualitative Negative Blood Gas Patient Temperature Unknown DEGREES Venous Blood pH 7.56 (7.31-7.41) Venous Blood Partial Pressure CO2 27 mmHg Venous Blood Partial Pressure O2 36 mmHg Venous Blood HCO3 24 mmol/L Venous Blood Oxygen Saturation 79 % Venous Blood Base Excess 2 mmol/L Oxygen Liters/Minute Unknown Urine Color Yellow Urine Clarity Clear Urine pH 5.0 pH (4.8-9.5) Urine Specific [place] 1.035 Urine Protein 500 mg/dL (NEGATIVE) Urine Glucose (UA) 500 mg/dL (NEGATIVE) Urine Ketones 80 mg/dL (NEGATIVE) Urine Blood Negative (NEGATIVE) Urine Nitrite Negative (NEGATIVE) Urine Bilirubin Negative (NEGATIVE) Urine Urobilinogen Negative mg/dL (0.2-1.9) Urine Leukocyte Esterase Negative (NEGATIVE) Urine RBC None /HPF (0-2/HPF) Urine WBC 3 /HPF (0-5/HPF) Urine Squamous Epithelial Cells None /LPF (</=FEW) Urine Bacteria Negative /HPF (NONE-FEW) Urine Hyaline Casts Few /LPF (NONE-FEW) Urine Mucus Few /HPF (NONE-FEW) Urine Opiates Screen Negative Urine Barbiturates Screen Negative Ur Tricyclic Antidepressants Screen Negative Urine Phencyclidine Screen Negative Urine Amphetamines Screen Negative Urine Benzodiazepines Screen Negative Urine Cocaine Screen Negative Urine Cannabinoids Screen Positive Toxicology Test 03/16/18 00:00 03/16/18 13:46 03/16/18 14:58 Serum Alcohol < 10 mg/dl Acetone, Qualitative Negative Urine Opiates Screen Negative Urine Barbiturates Screen Negative Ur Tricyclic Antidepressants Screen Negative Urine Phencyclidine Screen Negative Urine Amphetamines Screen Negative Urine Benzodiazepines Screen Negative Urine Cocaine Screen Negative Urine Cannabinoids Screen Positive Urinalysis Test 03/16/18 14:58 Urine Color Yellow Urine Clarity Clear Urine pH 5.0 pH (4.8-9.5) Urine Specific [place] 1.035 Urine Protein 500 mg/dL (NEGATIVE) Urine Glucose (UA) 500 mg/dL (NEGATIVE) Urine Ketones 80 mg/dL (NEGATIVE) Urine Blood Negative (NEGATIVE) Urine Nitrite Negative (NEGATIVE) Urine Bilirubin Negative (NEGATIVE) Urine Urobilinogen Negative mg/dL (0.2-1.9) Urine Leukocyte Esterase Negative (NEGATIVE) Urine RBC None /HPF (0-2/HPF) Urine WBC 3 /HPF (0-5/HPF) Urine Squamous Epithelial Cells None /LPF (</=FEW) Urine Bacteria Negative /HPF (NONE-FEW) Urine Hyaline Casts Few /LPF (NONE-FEW) Urine Mucus Few /HPF (NONE-FEW) EKG/Imaging Imaging Examination: ACUTE ABDOMEN SERIES 3 VIEW Comparison: 03/15/2018 and earlier. History: Diffuse abdominal pain. Findings: Cardiac and hilar contour size is within normal limits. No consolidation, nodule, or peribronchial inflammation. No pneumothorax, edema, or effusion. No pneumoperitoneum. Bowel gas pattern is within normal limits. Minimal stool in the colon. No abdominal soft tissue calcifications. Osseous structures are unremarkable. IMPRESSION: Negative chest and abdomen. ED Course/Re-evaluation ED Course Patient is a 32-year-old male here with complaints of abdominal pain, dehydration, nausea, PO intolerance for the past several days. 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 He does have a white blood cell count of 13.7, lactic acid 2.7 and an osmolality of 307. Patient was notably non-acidotic, nonketotic. Due to his obvious fluid deficit, he was confused 2 L of fluid and was given Toradol, Reglan with moderate relief of symptoms. I discussed the findings with the patient and he voiced that he had significant relief of symptoms and felt comfortable being discharged. He was able tolerate oral intake at time of discharge. I advised patient to return promptly if he develop worsening symptoms, fevers, difficulty swallowing, worsening abdominal pain. Patient voiced understanding. Patient was hemodynamically stable at time of discharge. Decision to Disposition Date: Mar 16, 2018 Decision to Disposition Time: 16:10 Depart Departure Latest Vital Signs Vital Signs Date Time Temp Pulse Resp B/P (MAP) Pulse Ox O2 Delivery O2 Flow Rate FiO2 03/16/18 16:30 117 96 03/16/18 16:27 106/69 (81) 03/16/18 13:38 98.2 24 Room Air Impression: Primary Impression: Abdominal pain Additional Impression: Nausea & vomiting Condition: Improved Disposition: HOME OR SELF-CARE Referrals: GALE KLEIN DNP, PACKAGE SEALER-BC (PCP) Patient Instructions: Acute Abdominal Pain (ED), Acute Nausea and Vomiting (ED) Additional Instructions: Please continue to hydrate aggressively. Please follow-up with your family doctor in the next 2 days. Please return promptly should you develop worsening pain, nausea, vomiting, fevers or chills. Problem Qualifiers BLAKE MOBLEY DO Mar 16, 2018 13:38
[2018-03-16] MEDS ORDERED: NS(*) 0.9% 1000 ML BAG 1,000 ML IV ONE ×2 (13:50→15:20)
[2018-03-16] MEDS ORDERED: METOCLOPRAMIDE 10 MG/2 ML SDV IVP ONE (13:50)
[2018-03-16] MEDS ORDERED: KETOROLAC 30 MG/ML VIAL IVP ONE (13:55)
[2018-03-16 14:05] LABS: PLATELET COUNT, AUTOMATED 278 K/uL (150-450)
--- NOTE | 2018-03-16 15:07 | RADIOLOGY IMAGING REPORT ---
FACILITY: [facility] - [place] PATIENT NAME: Terrence Carson : 1985 MR: [id number] V: [id number] EXAM DATE: ORDERING PHYSICIAN: BLAKE MOBLEY TECHNOLOGIST: Location: [facility] - [place] Patient: Terrence Carson : 1985 Visit/Account:[id number] Date of Sevice: 03/16/2018 Examination: ACUTE ABDOMEN SERIES 3 VIEW Comparison: 03/15/2018 and earlier. History: Diffuse abdominal pain. Findings: Cardiac and hilar contour size is within normal limits. No consolidation, nodule, or peribr onchial inflammation. No pneumothorax, edema, or effusion. No pneumoperitoneum. Bowel gas pattern is within normal limits. Minimal stool in the colon. No abdomi nal soft tissue calcifications. Osseous structures are unremarkable. IMPRESSION: Negative chest and abdomen. Report Dictated By: Spencer Dillon MD at 03/16/2018 3:00 PM Report E-Signed By: Spencer Dillon MD at 03/16/2018 3:02 PM [id number]
[2018-03-16 16:27] VITALS: BP 106/69
== END 2018-03-16 16:43 | disposition home or self-care (01) ==
LOC: ER 13:43
DX: R10.9 Unspecified abdominal pain (principal); R11.2 Nausea with vomiting, unspecified; E11.9 Type 2 diabetes mellitus without complications; Z87.891 Personal history of nicotine dependence; F12.10 Cannabis abuse, uncomplicated
CPT/HCPCS: 36415; 74022; 80305; 81001; 82009; 82803; 83605; 83690; 83930; 85025; 96361; 96374; 96375; 99284; G0480; J1885; J2765; J7030; 80320; 82040; 82247; 82310; 82374; 82435; 82565; 82947; 84075; 84132; 84155; 84295; 84450; 84460; 84520

== ENCOUNTER 2018-03-18 11:12 | Emergency (ER) | payer MEDICARE, MEDICAID ==
[2017-11-20 10:57] VITALS: Wt 58.2 kg
[2018-03-18] MEDS ORDERED: NS(*) 0.9% 1000 ML BAG 1,000 ML IV ONE ×2 (11:22→12:40)
[2018-03-18] MEDS ORDERED: PANTOPRAZOLE SOD 40 MG IV VIAL IVP ONE (11:25)
[2018-03-18] MEDS ORDERED: ONDANSETRON 4 MG/2 ML VIAL IVP ONE ×2 (11:25→13:55)
--- NOTE | 2018-03-18 11:47 | ER Report ---
History and Physical Time Seen By MD: 11:30 Hx. of Stated Complaint: patient has nausea and vomiting; started on ; this is the 3rd visit in the er for this patient since then HPI/ROS 32 year old male third visit to the er for abdominal pain nausea. is a diabetic reported am blood sugar 150. states he has been takling his meds, worsening abdominal pain r Allergies: Coded Allergies: hydrocodone (Verified Allergy, Unknown, 03/15/18) oxycodone (Verified Allergy, Unknown, 03/15/18) Uncoded Allergies: beestings (Adverse Reaction, Unknown, 08/11/17) Home Meds Active Scripts Ondansetron (ZOFRAN ODT) 4 Mg Tab.rapdis, 4 MG PO Q6H Y for NAUSEA/VOMITING, # 30 TAB.JANIE Prov:TRUMAN ELI 03/18/18 Ondansetron (ZOFRAN ODT) 4 Mg Tab.rapdis, 4 MG PO Q6H Y for NAUSEA/VOMITING, # 15 TAB.JANIE Prov:YOVANI REEVES DO 03/15/18 Insulin Glargine 100 Un/Ml Pen (LANTUS SOLOSTAR PEN) 100 Unit/1 Ml Insuln.pen, 38 UNIT SUBQ QDAY, #1 BOX 2 Refills Prov:GALE KLEIN DNP, POLITICAL SCIENCE CHAIR-BC 01/25/18 Sucralfate (SUCRALFATE) 1 Gm/10 Ml Oral.susp, 1 GM PO ACHS1, #120 G 0 Refills Prov:BRANDY YATES MD 12/12/17 Pantoprazole Sodium (PANTOPRAZOLE SODIUM) 40 Mg Tablet.dr, 1 TAB PO BIDAC, #60 TAB.SR 3 Refills Don't eat for at least 2 hours before or 30 minutes after taking Prov:BRANDY YATES MD 12/12/17 Metoclopramide Hcl (METOCLOPRAMIDE HCL) 10 Mg Tablet, 10 MG PO QID Y for NAUSEA/ VOMITING, #40 TAB 0 Refills Prov:GALE KLEIN DNP, POLITICAL SCIENCE CHAIR-BC 10/16/17 Reported Medications Gabapentin (GABAPENTIN) 300 Mg Capsule, 2 TAB PO BID, CAPSULE 02/04/18 Insulin Lispro 100 Un/Ml Vial (HUMALOG 100 U/ML VIAL) 100 Unit/1 Ml Vial, 0 SQ Y for SLIDING SCALE INSULIN, VIAL takes Humalog Insulin at Home as per SS 10/02/17 Discontinued Scripts Promethazine Hcl (PROMETHAZINE HCL) 25 Mg Tablet, 25 MG PO Q8H Y for NAUSEA/ VOMITING, #12 TAB Prov:ELIZABETH CONNORS POLITICAL SCIENCE CHAIR 02/08/18 Ondansetron (ZOFRAN ODT) 4 Mg Tab.rapdis, 4 MG PO every 6 hours Y for NAUSEA/ VOMITING, #12 TAB TAKE 1 TABLET BY MOUTH EVERY 12 HOURS Prov:NOELLE DE LA CRUZ DO 01/04/18 Past Medical/Surgical History type I dm Hx Smoking: Yes (1.5 ppd x 10 years QUIT 2014, CURRENTLY SMOKES MARIJUANA) Smoking Status: Current: Every Day Smoker, Former Smoker Hx Substance Use Disorder: Yes (POT) Hx Alcohol Use: No (Years since last use) Family History of: Diabetes Constitutional Vital Sign - Last 24 Hours 03/18/18 03/18/18 03/18/18 03/18/18 11:17 11:18 11:30 11:42 Temp 98.1 Pulse 112 100 Resp 18 B/P (MAP) 153/109 153/109 (124) 127/90 (102) Pulse Ox 95 90 O2 Delivery Room Air 03/18/18 03/18/18 03/18/18 03/18/18 12:00 12:12 12:30 13:00 Pulse 99 B/P (MAP) 118/85 (96) 124/79 (94) 141/94 (110) Pulse Ox 91 03/18/18 03/18/18 03/18/18 03/18/18 13:05 13:30 13:35 14:00 Pulse 98 97 B/P (MAP) 131/89 (103) 141/99 (113) Pulse Ox 93 92 03/18/18 03/18/18 03/18/18 03/18/18 14:05 14:30 14:35 15:00 Pulse 99 94 B/P (MAP) 139/91 (107) 150/101 (117) Pulse Ox 92 92 Intake and Output 03/18/18 03/18/18 03/19/18 14:59 22:59 06:59 Intake Total 1000 ml 1000 ml Balance 1000 ml 1000 ml Physical Exam General Appearance: [Patient is anxious and tearful The patient is alert, has no immediate need for airway protection and no current signs of toxicity.] [ ] Eyes: Pupils equal and round no injection. Respiratory: Chest is non tender, lungs are clear to auscultation. Cardiac: regular rate and rhythm [ ] Gastrointestinal: Abdomen is soft and tender left upper quadrant no masses, bowel sounds normal. Musculoskeletal: Neck: Neck is supple and non tender. Extremities have full range of motion and are non tender. Skin: No rashes or lesions. [ ] DIFFERENTIAL DIAGNOSIS: After history and physical exam differential diagnosis was considered for gastroparesis, GERD,bowel perforation [ ] Medical Decision Making Data Points Result Diagram: 03/18/18 1136 03/18/18 1136 Laboratory Hematology Test 03/18/18 11:18 03/18/18 11:36 03/18/18 11:55 Urine Color Yellow Urine Clarity Clear Urine pH 7.0 pH (4.8-9.5) Urine Specific Vinson 1.011 Urine Protein 100 mg/dL (NEGATIVE) Urine Glucose (UA) 500 mg/dL (NEGATIVE) Urine Ketones 80 mg/dL (NEGATIVE) Urine Blood Small (NEGATIVE) Urine Nitrite Negative (NEGATIVE) Urine Bilirubin Negative (NEGATIVE) Urine Urobilinogen Negative mg/dL (0.2-1.9) Urine Leukocyte Esterase Negative (NEGATIVE) Urine RBC 4 /HPF (0-2/HPF) Urine WBC 1 /HPF (0-5/HPF) Urine Squamous Epithelial Cells None /LPF (</=FEW) Urine Bacteria Negative /HPF (NONE-FEW) Urine Mucus Few /HPF (NONE-FEW) Urine Opiates Screen Negative Urine Barbiturates Screen Negative Ur Tricyclic Antidepressants Screen Negative Urine Phencyclidine Screen Negative Urine Amphetamines Screen Negative Urine Benzodiazepines Screen Negative Urine Cocaine Screen Negative Urine Cannabinoids Screen Positive Red Blood Count 5.29 M/uL (4.00-5.60) Mean Corpuscular Volume 89.6 fL (80.0-96.0) Mean Corpuscular Hemoglobin 32.1 pg (26.0-33.0) Mean Corpuscular Hemoglobin Concent 35.9 g/dL (32.0-36.0) Red Cell Distribution Width 12.7 % (11.5-14.5) Mean Platelet Volume 8.6 fL (7.2-11.1) Neutrophils (%) (Auto) 86.9 % (39.4-72.5) Lymphocytes (%) (Auto) 7.4 % (17.6-49.6) Monocytes (%) (Auto) 5.1 % (4.1-12.4) Eosinophils (%) (Auto) 0.1 % (0.4-6.7) Basophils (%) (Auto) 0.5 % (0.3-1.4) Nucleated RBC Relative Count (auto) 0.0 /100WBC Neutrophils # (Auto) 10.4 K/uL (2.0-7.4) Lymphocytes # (Auto) 0.9 K/uL (1.3-3.6) Monocytes # (Auto) 0.6 K/uL (0.3-1.0) Eosinophils # (Auto) 0.0 K/uL (0.0-0.5) Basophils # (Auto) 0.1 K/uL (0.0-0.1) Nucleated RBC Absolute Count (auto) 0.01 K/uL Peripheral Blood Smear No Y/N Blood Gas Patient Temperature Unknown DEGREES Venous Blood pH 7.43 (7.31-7.41) Venous Blood Partial Pressure CO2 39 mmHg Venous Blood Partial Pressure O2 44 mmHg Venous Blood HCO3 25 mmol/L Venous Blood Oxygen Saturation 80 % Venous Blood Base Excess 1 mmol/L Oxygen Liters/Minute Unknown Sodium Level 139 mmol/L (137-145) Potassium Level 3.3 mmol/L (3.5-5.0) Chloride Level 96 mmol/L (98-107) Carbon Dioxide Level 26 mmol/L (22-30) Blood Urea Nitrogen 11 mg/dl (9-21) Creatinine 0.60 mg/dl (0.66-1.25) Glomerular Filtration Rate Calc > 60.0 Random Glucose 171 mg/dl (75-110) Osmolality 291 mOSM/K (275-295) Lactate 1.3 mmol/L (0.7-2.1) Calcium Level 8.8 mg/dl (8.4-10.2) Total Bilirubin 1.1 mg/dl (0.2-1.3) Aspartate Amino Transf (AST/SGOT) 27 U/L (0-35) Alanine Aminotransferase (ALT/SGPT) 31 U/L (0-56) Alkaline Phosphatase 88 U/L (0-126) Total Protein 6.6 g/dl (6.3-8.2) Albumin 4.0 g/dl (3.5-5.0) Amylase Level 84 U/L (0-110) Lipase < 10 U/L (23-300) Acetone, Qualitative Moderate Whole Blood Glucose 168 mg/DL (75-110) Chemistry Test 03/18/18 11:18 03/18/18 11:36 03/18/18 11:55 Urine Color Yellow Urine Clarity Clear Urine pH 7.0 pH (4.8-9.5) Urine Specific Vinson 1.011 Urine Protein 100 mg/dL (NEGATIVE) Urine Glucose (UA) 500 mg/dL (NEGATIVE) Urine Ketones 80 mg/dL (NEGATIVE) Urine Blood Small (NEGATIVE) Urine Nitrite Negative (NEGATIVE) Urine Bilirubin Negative (NEGATIVE) Urine Urobilinogen Negative mg/dL (0.2-1.9) Urine Leukocyte Esterase Negative (NEGATIVE) Urine RBC 4 /HPF (0-2/HPF) Urine WBC 1 /HPF (0-5/HPF) Urine Squamous Epithelial Cells None /LPF (</=FEW) Urine Bacteria Negative /HPF (NONE-FEW) Urine Mucus Few /HPF (NONE-FEW) Urine Opiates Screen Negative Urine Barbiturates Screen Negative Ur Tricyclic Antidepressants Screen Negative Urine Phencyclidine Screen Negative Urine Amphetamines Screen Negative Urine Benzodiazepines Screen Negative Urine Cocaine Screen Negative Urine Cannabinoids Screen Positive White Blood Count 12.0 k/uL (4.5-11.0) Red Blood Count 5.29 M/uL (4.00-5.60) Hemoglobin 17.0 g/dL (14.0-18.0) Hematocrit 47.4 % (42.0-52.0) Mean Corpuscular Volume 89.6 fL (80.0-96.0) Mean Corpuscular Hemoglobin 32.1 pg (26.0-33.0) Mean Corpuscular Hemoglobin Concent 35.9 g/dL (32.0-36.0) Red Cell Distribution Width 12.7 % (11.5-14.5) Platelet Count 236 K/uL (150-450) Mean Platelet Volume 8.6 fL (7.2-11.1) Neutrophils (%) (Auto) 86.9 % (39.4-72.5) Lymphocytes (%) (Auto) 7.4 % (17.6-49.6) Monocytes (%) (Auto) 5.1 % (4.1-12.4) Eosinophils (%) (Auto) 0.1 % (0.4-6.7) Basophils (%) (Auto) 0.5 % (0.3-1.4) Nucleated RBC Relative Count (auto) 0.0 /100WBC Neutrophils # (Auto) 10.4 K/uL (2.0-7.4) Lymphocytes # (Auto) 0.9 K/uL (1.3-3.6) Monocytes # (Auto) 0.6 K/uL (0.3-1.0) Eosinophils # (Auto) 0.0 K/uL (0.0-0.5) Basophils # (Auto) 0.1 K/uL (0.0-0.1) Nucleated RBC Absolute Count (auto) 0.01 K/uL Peripheral Blood Smear No Y/N Blood Gas Patient Temperature Unknown DEGREES Venous Blood pH 7.43 (7.31-7.41) Venous Blood Partial Pressure CO2 39 mmHg Venous Blood Partial Pressure O2 44 mmHg Venous Blood HCO3 25 mmol/L Venous Blood Oxygen Saturation 80 % Venous Blood Base Excess 1 mmol/L Oxygen Liters/Minute Unknown Glomerular Filtration Rate Calc > 60.0 Osmolality 291 mOSM/K (275-295) Lactate 1.3 mmol/L (0.7-2.1) Calcium Level 8.8 mg/dl (8.4-10.2) Total Bilirubin 1.1 mg/dl (0.2-1.3) Aspartate Amino Transf (AST/SGOT) 27 U/L (0-35) Alanine Aminotransferase (ALT/SGPT) 31 U/L (0-56) Alkaline Phosphatase 88 U/L (0-126) Total Protein 6.6 g/dl (6.3-8.2) Albumin 4.0 g/dl (3.5-5.0) Amylase Level 84 U/L (0-110) Lipase < 10 U/L (23-300) Acetone, Qualitative Moderate Whole Blood Glucose 168 mg/DL (75-110) Toxicology Test 03/18/18 11:18 03/18/18 11:36 Urine Opiates Screen Negative Urine Barbiturates Screen Negative Ur Tricyclic Antidepressants Screen Negative Urine Phencyclidine Screen Negative Urine Amphetamines Screen Negative Urine Benzodiazepines Screen Negative Urine Cocaine Screen Negative Urine Cannabinoids Screen Positive Acetone, Qualitative Moderate Urinalysis Test 03/18/18 11:18 Urine Color Yellow Urine Clarity Clear Urine pH 7.0 pH (4.8-9.5) Urine Specific Vinson 1.011 Urine Protein 100 mg/dL (NEGATIVE) Urine Glucose (UA) 500 mg/dL (NEGATIVE) Urine Ketones 80 mg/dL (NEGATIVE) Urine Blood Small (NEGATIVE) Urine Nitrite Negative (NEGATIVE) Urine Bilirubin Negative (NEGATIVE) Urine Urobilinogen Negative mg/dL (0.2-1.9) Urine Leukocyte Esterase Negative (NEGATIVE) Urine RBC 4 /HPF (0-2/HPF) Urine WBC 1 /HPF (0-5/HPF) Urine Squamous Epithelial Cells None /LPF (</=FEW) Urine Bacteria Negative /HPF (NONE-FEW) Urine Mucus Few /HPF (NONE-FEW) ED Course/Re-evaluation Clinical Indication for ER IV: Hydration ED Course Given 2 L normal saline in the emergency room received 2 doses of IV Zofran 1 dose of Toradol 30 mg IV states felt much better after treatment was able to drink liquids for go home does have follow-up appointment with his provider on Sunday and was told to return to the emergency room for any problems or concerns Re-evaluation NAUSEA DISSIPATED , ABLE TO DRINK WATER BEFORE DC Decision to Disposition Date: Mar 18, 2018 Decision to Disposition Time: 14:35 Depart Departure Latest Vital Signs Vital Signs Date Time Temp Pulse Resp B/P (MAP) Pulse Ox O2 Delivery O2 Flow Rate FiO2 03/18/18 15:00 150/101 (117) 03/18/18 14:35 94 92 03/18/18 11:17 98.1 18 Room Air Impression: Primary Impression: Nausea & vomiting Additional Impression: Diabetic gastroparesis Condition: Improved Disposition: HOME OR SELF-CARE Referrals: GALE KLEIN DNP, POLITICAL SCIENCE CHAIR-BC (PCP) 1 Day New Scripts Ondansetron (ZOFRAN ODT) 4 Mg Tab.rapdis 4 MG PO Q6H Y for NAUSEA/VOMITING, #30 TAB.JANIE Prov: TRUMAN ELI 03/18/18 Patient Instructions: Acute Nausea and Vomiting (ED) Problem Qualifiers TRUMAN ELI Mar 18, 2018 11:47
[2018-03-18 12:17] LABS: PLATELET COUNT, AUTOMATED 236 K/uL (150-450)
--- NOTE | 2018-03-18 13:43 | RADIOLOGY IMAGING REPORT ---
FACILITY: [facility] PATIENT NAME: Terrence Carson : 1985 MR: [id number] V: [id number] EXAM DATE: ORDERING PHYSICIAN: TRUMAN ELI TECHNOLOGIST: Location: [facility] Patient: Terrence Carson : 1985 Visit/Account:[id number] Date of Sevice: 03/18/2018 Exam: ABDOMEN AP AND ERECT/DECUB Indication: abd pain nausea, RAD Comparison: 03/16/2018 Findings: There is a nonobstructive bowel gas pattern. No mass or calcification is identified. Ther e has been no interval change. IMPRESSION: 1. Negative abdomen Report Dictated By: Morgan Pacheco at 03/18/2018 1:38 PM Report E-Signed By: Morgan Pacheco at 03/18/2018 1:39 PM WSN:[id number]
[2018-03-18] MEDS ORDERED: ONDA4TAB PO (14:52)
[2018-03-18 15:00] VITALS: BP 150/101
== END 2018-03-18 15:03 | disposition home or self-care (01) ==
LOC: ER 11:21
DX: E10.43 Type 1 diabetes mellitus with diabetic autonomic (poly)neuropathy (principal); K31.84 Gastroparesis
CPT/HCPCS: 36416; 74019; 80305; 81001; 82009; 82150; 82803; 82948; 83605; 83690; 83930; 85025; 96361; 96374; 96375; 96376; 99284; C9113; J2405; J7030; 82040; 82247; 82310; 82374; 82435; 82565; 82947; 84075; 84132; 84155; 84295; 84450; 84460; 84520

== ENCOUNTER → 2018-04-11 | Outpatient (CLI) | payer MEDICARE, MEDICAID ==
[2017-11-20 10:57] VITALS: BMI 18.9
[~2018-04-11] MED LIST changes: +LISI5TAB25 PO
[2018-04-11 09:09] LABS: PLATELET COUNT, AUTOMATED 255 K/uL (150-450)
[2018-04-11 09:21] LABS: LDL CHOLESTEROL 63 mg/dl
== END ==
LOC: LAB 08:48
PROVIDERS: ATTEND Internal Medicine
DX: E11.43 Type 2 diabetes mellitus with diabetic autonomic (poly)neuropathy (principal); E11.40 Type 2 diabetes mellitus with diabetic neuropathy, unspecified; R80.9 Proteinuria, unspecified
CPT/HCPCS: 36415; 81001; 82040; 82043; 82247; 82310; 82374; 82435; 82465; 82565; 82947; 83036; 83718; 84075; 84132; 84155; 84295; 84443; 84450; 84460; 84478; 84520; 85025

== ENCOUNTER 2018-04-14 11:51 | Emergency (ER) | payer MEDICARE, MEDICAID ==
[2017-11-20 10:57] VITALS: Wt 52.2 kg
[2018-04-14] MEDS ORDERED: NS(*) 0.9% 1000 ML BAG 1,000 ML IV ONE (12:04)
--- NOTE | 2018-04-14 12:04 | ER Report ---
History and Physical Time Seen By MD: 12:04 Hx. of Stated Complaint: N/V SINCE THIS AM AND STATES THAT HE FEELS "OUT OF IT" SINCE THEN HPI/ROS Chief Complaint: "vomiting" HPI: 32-year-old male presents to the emergency department with vomiting. The patient states that he ate a [employer] pizza last night and woke up this morning vomiting. States, he has been vomiting every 10 minutes until now. Reports associated sweating, feverish symptoms, diarrhea, and abdominal pain which also started this morning. The vomit has all been yellow in color. No blood in his stool. He has not ate or drank anything today. Patient has taken his Zofran, Phenergan and Reglan with no improvement. History of gastroparesis. ROS: Constitutional: reports sweating, denies taking his temperature, denies chills HEENT: denies cough or congestion Respiratory: denies shortness of breath, denies difficulty breathing CV: denies chest pain GI: denies nausea or vomiting, denies constipation, reports diarrhea : denies changes in urination Allergies: Coded Allergies: hydrocodone (Verified Allergy, Unknown, 03/15/18) oxycodone (Verified Allergy, Unknown, 03/15/18) Uncoded Allergies: beestings (Adverse Reaction, Unknown, 08/11/17) Home Meds Active Scripts Lisinopril (LISINOPRIL) 5 Mg Tablet, 5 MG PO QDAY, #30 TAB 4 Refills Prov:ESA EMERY MD 04/04/18 Insulin Glargine 100 Un/Ml Pen (LANTUS SOLOSTAR PEN) 100 Unit/1 Ml Insuln.pen, 34 UNIT SUBQ QDAY, #1 BOX 2 Refills Prov:ESA EMERY MD 04/04/18 Pantoprazole Sodium (PANTOPRAZOLE SODIUM) 40 Mg Tablet.dr, 1 TAB PO BIDAC, #60 TAB.SR 3 Refills Don't eat for at least 2 hours before or 30 minutes after taking Prov:BRANDY YATES MD 12/12/17 Metoclopramide Hcl (METOCLOPRAMIDE HCL) 10 Mg Tablet, 10 MG PO QID Y for NAUSEA/ VOMITING, #40 TAB 0 Refills Prov:GALE KLEIN DNP, [employer]S ADJUSTER-BC 10/16/17 Reported Medications Gabapentin (GABAPENTIN) 300 Mg Capsule, 2 TAB PO BID, CAPSULE 02/04/18 Insulin Lispro 100 Un/Ml Vial (HUMALOG 100 U/ML VIAL) 100 Unit/1 Ml Vial, 0 SQ Y for SLIDING SCALE INSULIN, VIAL takes Humalog Insulin at Home as per SS 10/02/17 Past Medical/Surgical History Hypertension, gall bladder disease, right hand fracture, diabetic retinopathy BL , Type I diabetes diagnoses at 13 years, pancreatitis, anxiety, laser surgery 2014, cholecystectomy, ORIF right hand Reviewed Nurses Notes: Yes Hx Smoking: Yes (1.5 ppd x 10 years QUIT 2014, CURRENTLY SMOKES MARIJUANA) Smoking Status: Never Smoker, Former Smoker Exposure to Second Hand Smoke?: No Hx Substance Use Disorder: Yes (POT) Hx Alcohol Use: No (Years since last use) Constitutional Vital Sign - Last 24 Hours 04/14/18 04/14/18 04/14/18 04/14/18 11:56 11:56 12:00 12:05 Temp 97.7 Pulse 112 Resp 18 B/P (MAP) 149/133 149/133 (138) 151/110 (124) Pulse Ox 96 O2 Delivery Room Air O2 Flow Rate 2.0 04/14/18 04/14/18 04/14/18 04/14/18 12:21 12:30 12:51 13:00 Pulse 100 102 B/P (MAP) 137/96 (110) 148/104 (119) Pulse Ox 89 100 04/14/18 04/14/18 04/14/18 04/14/18 13:21 13:30 13:38 13:38 Pulse 106 120 B/P (MAP) 148/103 (118) 145/113 (124) 145/113 (124) Pulse Ox 95 97 04/14/18 04/14/18 04/14/18 04/14/18 14:00 14:08 14:30 14:38 Pulse 115 108 B/P (MAP) 143/101 (115) 135/112 (120) Pulse Ox 93 95 04/14/18 04/14/18 04/14/18 15:00 15:08 15:17 Pulse 106 B/P (MAP) 136/107 (117) 140/114 (123) Pulse Ox 94 Physical Exam Physical Examination: General: 32-year-old male, diaphoretic, pale HEENT: normocephalic, atraumatic, poor dentition, no erythema or exudate of the pharynx, TMs jesus rice without effusion, pupils round and reactive to light and accommodation Respiratory: BL equal respiratory excursion, CTA BL CV: clear S1 S2 no murmur GI: scaphoid abdomen, hypoactive BS x4, tenderness in all quadrants Differential Diagnoses: foodborne illness, gastroenteritis, infection, dehydration, obstruction Medical Decision Making Data Points Result Diagram: 04/14/18 1239 04/14/18 1239 Laboratory Hematology Test 04/14/18 12:39 04/14/18 13:39 Red Blood Count 5.46 M/uL (4.00-5.60) Mean Corpuscular Volume 90.7 fL (80.0-96.0) Mean Corpuscular Hemoglobin 32.5 pg (26.0-33.0) Mean Corpuscular Hemoglobin Concent 35.8 g/dL (32.0-36.0) Red Cell Distribution Width 12.9 % (11.5-14.5) Mean Platelet Volume 8.1 fL (7.2-11.1) Neutrophils (%) (Auto) 87.7 % (39.4-72.5) Lymphocytes (%) (Auto) 8.7 % (17.6-49.6) Monocytes (%) (Auto) 2.7 % (4.1-12.4) Eosinophils (%) (Auto) 0.4 % (0.4-6.7) Basophils (%) (Auto) 0.5 % (0.3-1.4) Nucleated RBC Relative Count (auto) 0.1 /100WBC Neutrophils # (Auto) 9.3 K/uL (2.0-7.4) Lymphocytes # (Auto) 0.9 K/uL (1.3-3.6) Monocytes # (Auto) 0.3 K/uL (0.3-1.0) Eosinophils # (Auto) 0.0 K/uL (0.0-0.5) Basophils # (Auto) 0.0 K/uL (0.0-0.1) Nucleated RBC Absolute Count (auto) 0.01 K/uL Sodium Level 138 mmol/L (137-145) Potassium Level 4.1 mmol/L (3.5-5.0) Chloride Level 101 mmol/L (98-107) Carbon Dioxide Level 25 mmol/L (22-30) Blood Urea Nitrogen 15 mg/dl (9-21) Creatinine 0.70 mg/dl (0.66-1.25) Glomerular Filtration Rate Calc > 60.0 Random Glucose 269 mg/dl (75-110) Osmolality 299 mOSM/K (275-295) Calcium Level 9.6 mg/dl (8.4-10.2) Total Bilirubin 0.9 mg/dl (0.2-1.3) Aspartate Amino Transf (AST/SGOT) 27 U/L (0-35) Alanine Aminotransferase (ALT/SGPT) 31 U/L (0-56) Alkaline Phosphatase 90 U/L (0-126) Total Protein 7.3 g/dl (6.3-8.2) Albumin 4.3 g/dl (3.5-5.0) Acetone, Qualitative Negative Urine Color Yellow Urine Clarity Slightly-cloudy Urine pH 5.0 pH (4.8-9.5) Urine Specific [place] 1.025 Urine Protein 100 mg/dL (NEGATIVE) Urine Glucose (UA) 500 mg/dL (NEGATIVE) Urine Ketones 20 mg/dL (NEGATIVE) Urine Blood Small (NEGATIVE) Urine Nitrite Negative (NEGATIVE) Urine Bilirubin Negative (NEGATIVE) Urine Urobilinogen Negative mg/dL (0.2-1.9) Urine Leukocyte Esterase Negative (NEGATIVE) Urine RBC 5 /HPF (0-2/HPF) Urine WBC 7 /HPF (0-5/HPF) Urine Squamous Epithelial Cells Few /LPF (</=FEW) Urine Bacteria Few /HPF (NONE-FEW) Urine Hyaline Casts Few /LPF (NONE-FEW) Urine Mucus Few /HPF (NONE-FEW) Chemistry Test 04/14/18 12:39 04/14/18 13:39 White Blood Count 10.5 k/uL (4.5-11.0) Red Blood Count 5.46 M/uL (4.00-5.60) Hemoglobin 17.7 g/dL (14.0-18.0) Hematocrit 49.6 % (42.0-52.0) Mean Corpuscular Volume 90.7 fL (80.0-96.0) Mean Corpuscular Hemoglobin 32.5 pg (26.0-33.0) Mean Corpuscular Hemoglobin Concent 35.8 g/dL (32.0-36.0) Red Cell Distribution Width 12.9 % (11.5-14.5) Platelet Count 252 K/uL (150-450) Mean Platelet Volume 8.1 fL (7.2-11.1) Neutrophils (%) (Auto) 87.7 % (39.4-72.5) Lymphocytes (%) (Auto) 8.7 % (17.6-49.6) Monocytes (%) (Auto) 2.7 % (4.1-12.4) Eosinophils (%) (Auto) 0.4 % (0.4-6.7) Basophils (%) (Auto) 0.5 % (0.3-1.4) Nucleated RBC Relative Count (auto) 0.1 /100WBC Neutrophils # (Auto) 9.3 K/uL (2.0-7.4) Lymphocytes # (Auto) 0.9 K/uL (1.3-3.6) Monocytes # (Auto) 0.3 K/uL (0.3-1.0) Eosinophils # (Auto) 0.0 K/uL (0.0-0.5) Basophils # (Auto) 0.0 K/uL (0.0-0.1) Nucleated RBC Absolute Count (auto) 0.01 K/uL Glomerular Filtration Rate Calc > 60.0 Osmolality 299 mOSM/K (275-295) Calcium Level 9.6 mg/dl (8.4-10.2) Total Bilirubin 0.9 mg/dl (0.2-1.3) Aspartate Amino Transf (AST/SGOT) 27 U/L (0-35) Alanine Aminotransferase (ALT/SGPT) 31 U/L (0-56) Alkaline Phosphatase 90 U/L (0-126) Total Protein 7.3 g/dl (6.3-8.2) Albumin 4.3 g/dl (3.5-5.0) Acetone, Qualitative Negative Urine Color Yellow Urine Clarity Slightly-cloudy Urine pH 5.0 pH (4.8-9.5) Urine Specific [place] 1.025 Urine Protein 100 mg/dL (NEGATIVE) Urine Glucose (UA) 500 mg/dL (NEGATIVE) Urine Ketones 20 mg/dL (NEGATIVE) Urine Blood Small (NEGATIVE) Urine Nitrite Negative (NEGATIVE) Urine Bilirubin Negative (NEGATIVE) Urine Urobilinogen Negative mg/dL (0.2-1.9) Urine Leukocyte Esterase Negative (NEGATIVE) Urine RBC 5 /HPF (0-2/HPF) Urine WBC 7 /HPF (0-5/HPF) Urine Squamous Epithelial Cells Few /LPF (</=FEW) Urine Bacteria Few /HPF (NONE-FEW) Urine Hyaline Casts Few /LPF (NONE-FEW) Urine Mucus Few /HPF (NONE-FEW) Toxicology Test 04/14/18 12:39 Acetone, Qualitative Negative Urinalysis Test 04/14/18 13:39 Urine Color Yellow Urine Clarity Slightly-cloudy Urine pH 5.0 pH (4.8-9.5) Urine Specific [place] 1.025 Urine Protein 100 mg/dL (NEGATIVE) Urine Glucose (UA) 500 mg/dL (NEGATIVE) Urine Ketones 20 mg/dL (NEGATIVE) Urine Blood Small (NEGATIVE) Urine Nitrite Negative (NEGATIVE) Urine Bilirubin Negative (NEGATIVE) Urine Urobilinogen Negative mg/dL (0.2-1.9) Urine Leukocyte Esterase Negative (NEGATIVE) Urine RBC 5 /HPF (0-2/HPF) Urine WBC 7 /HPF (0-5/HPF) Urine Squamous Epithelial Cells Few /LPF (</=FEW) Urine Bacteria Few /HPF (NONE-FEW) Urine Hyaline Casts Few /LPF (NONE-FEW) Urine Mucus Few /HPF (NONE-FEW) ED Course/Re-evaluation ED Course 32-year-old patient presents to the Emergency Department with complaints of vomiting. States the vomiting started this morning and he has been vomiting every 10 minutes. Associated sweating and diarrhea. No treatments tried. History of diabetes - took Lantus this morning. History of gastroparesis. History and physial examination obtained. Differential diagnoses considered and shared with the patient. CBC, CMP, and UA are non-contributory with no elevation in WBC count or urinary tract infection. Blood glucose was 269 today in the ER. He was administered Zofran and Phenergan in the ER today. He was also administered morphine for pain. The likely etiology of his emesis and diarrhea is gastroenteritis. The patient will be discharged home for self care and prescribed Zofran as needed for emesis. He has been encouraged to return to the Emergency Department if his condition worsens or if he continues to have vomiting. He has been encouraged to monitor his blood sugar closely during this period of illness. Decision to Disposition Date: Apr 14, 2018 Decision to Disposition Time: 15:08 Depart Departure Latest Vital Signs Vital Signs Date Time Temp Pulse Resp B/P (MAP) Pulse Ox O2 Delivery O2 Flow Rate FiO2 04/14/18 15:17 140/114 (123) 04/14/18 15:08 106 94 04/14/18 12:05 2.0 04/14/18 11:56 97.7 18 Room Air Impression: Primary Impression: Gastroenteritis Condition: Condition Unchanged Disposition: HOME OR SELF-CARE Referrals: ESA EMERY MD (PCP) Patient Instructions: Gastroenteritis (ED) Additional Instructions: Continue to rest and try to push fluids. Advance your diet as tolerated starting potentially, with some broth and rice. Monitor your blood sugar closely during this period of illness. Take Zofran as needed for vomiting. Return to the emergency department if your condition worsens. ELIZABETH OCNNORS Apr 14, 2018 12:04
[2018-04-14] MEDS ORDERED: ONDANSETRON 4 MG/2 ML VIAL IVP ONE (12:05)
[2018-04-14] MEDS ORDERED: MORPHINE 2 MG/ML SYR IVP ONE (12:30)
[2018-04-14 12:51] LABS: PLATELET COUNT, AUTOMATED 252 K/uL (150-450)
[2018-04-14] MEDS ORDERED: PROMETHAZINE 25 MG/ML 1 ML AMP IVP ONE (13:30)
[2018-04-14 15:17] VITALS: BP 140/114
== END 2018-04-14 15:28 | disposition home or self-care (01) ==
LOC: ER 12:02
DX: K52.9 Noninfective gastroenteritis and colitis, unspecified (principal)
CPT/HCPCS: 81001; 82009; 83930; 85025; 96374; 96375; 99283; J2270; J2405; J2550; J7030; 82040; 82247; 82310; 82374; 82435; 82565; 82947; 84075; 84132; 84155; 84295; 84450; 84460; 84520

== ENCOUNTER 2018-04-15 10:17 | Emergency (ER) | payer MEDICARE, MEDICAID ==
[2017-11-20 10:57] VITALS: Wt 58.1 kg
[2018-04-15] MEDS ORDERED: NS(*) 0.9% 1000 ML BAG 1,000 ML IV ONE ×2 (11:02→12:00)
[2018-04-15] MEDS ORDERED: METOCLOPRAMIDE 10 MG/2 ML SDV IVP ONE (11:05)
[2018-04-15] MEDS ORDERED: ONDANSETRON 4 MG/2 ML VIAL IVP ONE ×2 (11:05→13:25)
--- NOTE | 2018-04-15 11:05 | ER Report ---
History and Physical Time Seen By MD: 11:04 Hx. of Stated Complaint: pt started having nausea/ vomitting yesterday. pt states it is dark green with coffee ground emesis. pt has taken reglan, zofran with no relief. pt is having 4/10 pain in abdomen. HPI/ROS 32-year-old male type I diabetic history gastroparesis states that he has been vomiting for the last 2 days was seen in the emergency room the same thing yesterday and states he's been taking medications his abdominal pain is midepigastric radiating to his back Allergies: Coded Allergies: hydrocodone (Verified Allergy, Unknown, 03/15/18) oxycodone (Verified Allergy, Unknown, 03/15/18) Uncoded Allergies: beestings (Adverse Reaction, Unknown, 08/11/17) Home Meds Active Scripts Lisinopril (LISINOPRIL) 5 Mg Tablet, 5 MG PO QDAY, #30 TAB 4 Refills Prov:ESA EMERY MD 04/04/18 Insulin Glargine 100 Un/Ml Pen (LANTUS SOLOSTAR PEN) 100 Unit/1 Ml Insuln.pen, 34 UNIT SUBQ QDAY, #1 BOX 2 Refills Prov:ESA EMERY MD 04/04/18 Pantoprazole Sodium (PANTOPRAZOLE SODIUM) 40 Mg Tablet.dr, 1 TAB PO BIDAC, #60 TAB.SR 3 Refills Don't eat for at least 2 hours before or 30 minutes after taking Prov:BRANDY YATES MD 12/12/17 Metoclopramide Hcl (METOCLOPRAMIDE HCL) 10 Mg Tablet, 10 MG PO QID Y for NAUSEA/ VOMITING, #40 TAB 0 Refills Prov:GALE KLEIN DNP, [employer]EL[employer] OPERATOR-BC 10/16/17 Reported Medications Gabapentin (GABAPENTIN) 300 Mg Capsule, 2 TAB PO BID, CAPSULE 02/04/18 Insulin Lispro 100 Un/Ml Vial (HUMALOG 100 U/ML VIAL) 100 Unit/1 Ml Vial, 0 SQ Y for SLIDING SCALE INSULIN, VIAL takes Humalog Insulin at Home as per SS 10/02/17 Past Medical/Surgical History Diabetic, diabetic retinopathy, gastroparesis, pancreatitis, acid reflux, anxiety, smokes marijuana Reviewed Nurses Notes: Yes Old Medical Records Reviewed: Yes Hx Smoking: Yes (1.5 ppd x 10 years QUIT 2014, CURRENTLY SMOKES MARIJUANA) Smoking Status: Never Smoker, Former Smoker Exposure to Second Hand Smoke?: No Hx Substance Use Disorder: Yes (POT) Hx Alcohol Use: No (Years since last use) Constitutional Vital Sign - Last 24 Hours 04/15/18 04/15/18 10:38 14:30 Temp 98.2 98.0 Pulse 120 99 Resp 20 B/P (MAP) 121/112 145/99 (114) Pulse Ox 99 O2 Delivery Room Air Intake and Output 04/15/18 04/15/18 04/16/18 15:00 23:00 07:00 Intake Total 2050 ml Balance 2050 ml Physical Exam 32-year-old male alert oriented anxious pupils equal round react to light tympanic membranes and reddened throat is non-reddened mucous membranes are dry neck is supple no JVD heart rate is tachycardic no murmurs rubs and gallops lungs decreased bilateral bases abdomen is tender midepigastric radiating to his back bowel sounds are hyperactive moves all extremities no peripheral pulses Medical Decision Making Data Points Result Diagram: 04/15/18 1115 04/15/18 1115 Laboratory Hematology Test 04/15/18 11:12 04/15/18 11:15 Urine Color Yellow Urine Clarity Slightly-cloudy Urine pH 5.0 pH (4.8-9.5) Urine Specific [place] 1.032 Urine Protein 500 mg/dL (NEGATIVE) Urine Glucose (UA) 500 mg/dL (NEGATIVE) Urine Ketones 20 mg/dL (NEGATIVE) Urine Blood Small (NEGATIVE) Urine Nitrite Negative (NEGATIVE) Urine Bilirubin Negative (NEGATIVE) Urine Urobilinogen Negative mg/dL (0.2-1.9) Urine Leukocyte Esterase Negative (NEGATIVE) Urine RBC 1 /HPF (0-2/HPF) Urine WBC 6 /HPF (0-5/HPF) Urine Squamous Epithelial Cells Moderate /LPF (</=FEW) Urine Bacteria Few /HPF (NONE-FEW) Urine Hyaline Casts Many /LPF (NONE-FEW) Urine Mucus Few /HPF (NONE-FEW) Urine Opiates Screen Positive Urine Barbiturates Screen Negative Ur Tricyclic Antidepressants Screen Negative Urine Phencyclidine Screen Negative Urine Amphetamines Screen Negative Urine Benzodiazepines Screen Negative Urine Cocaine Screen Negative Urine Cannabinoids Screen Positive Red Blood Count 5.84 M/uL (4.00-5.60) Mean Corpuscular Volume 91.4 fL (80.0-96.0) Mean Corpuscular Hemoglobin 31.9 pg (26.0-33.0) Mean Corpuscular Hemoglobin Concent 34.9 g/dL (32.0-36.0) Red Cell Distribution Width 13.2 % (11.5-14.5) Mean Platelet Volume 8.0 fL (7.2-11.1) Neutrophils (%) (Auto) 82.4 % (39.4-72.5) Lymphocytes (%) (Auto) 11.6 % (17.6-49.6) Monocytes (%) (Auto) 5.2 % (4.1-12.4) Eosinophils (%) (Auto) 0.1 % (0.4-6.7) Basophils (%) (Auto) 0.7 % (0.3-1.4) Nucleated RBC Relative Count (auto) 0.2 /100WBC Neutrophils # (Auto) 10.0 K/uL (2.0-7.4) Lymphocytes # (Auto) 1.4 K/uL (1.3-3.6) Monocytes # (Auto) 0.6 K/uL (0.3-1.0) Eosinophils # (Auto) 0.0 K/uL (0.0-0.5) Basophils # (Auto) 0.1 K/uL (0.0-0.1) Nucleated RBC Absolute Count (auto) 0.03 K/uL Blood Gas Patient Temperature Na DEGREES Venous Blood pH 7.44 (7.31-7.41) Venous Blood Partial Pressure CO2 40 mmHg Venous Blood Partial Pressure O2 < 35 mmHg Venous Blood HCO3 27 mmol/L Venous Blood Oxygen Saturation 51 % Venous Blood Base Excess 3 mmol/L Oxygen Liters/Minute Na Sodium Level 144 mmol/L (137-145) Potassium Level 4.1 mmol/L (3.5-5.0) Chloride Level 99 mmol/L (98-107) Carbon Dioxide Level 27 mmol/L (22-30) Blood Urea Nitrogen 29 mg/dl (9-21) Creatinine 1.00 mg/dl (0.66-1.25) Glomerular Filtration Rate Calc > 60.0 Random Glucose 250 mg/dl (75-110) Osmolality 314 mOSM/K (275-295) Calcium Level 10.2 mg/dl (8.4-10.2) Total Bilirubin 1.1 mg/dl (0.2-1.3) Aspartate Amino Transf (AST/SGOT) 26 U/L (0-35) Alanine Aminotransferase (ALT/SGPT) 33 U/L (0-56) Alkaline Phosphatase 90 U/L (0-126) Total Protein 8.4 g/dl (6.3-8.2) Albumin 4.9 g/dl (3.5-5.0) Amylase Level 97 U/L (0-110) Lipase < 10 U/L (23-300) Acetone, Qualitative Small Chemistry Test 04/15/18 11:12 04/15/18 11:15 Urine Color Yellow Urine Clarity Slightly-cloudy Urine pH 5.0 pH (4.8-9.5) Urine Specific [place] 1.032 Urine Protein 500 mg/dL (NEGATIVE) Urine Glucose (UA) 500 mg/dL (NEGATIVE) Urine Ketones 20 mg/dL (NEGATIVE) Urine Blood Small (NEGATIVE) Urine Nitrite Negative (NEGATIVE) Urine Bilirubin Negative (NEGATIVE) Urine Urobilinogen Negative mg/dL (0.2-1.9) Urine Leukocyte Esterase Negative (NEGATIVE) Urine RBC 1 /HPF (0-2/HPF) Urine WBC 6 /HPF (0-5/HPF) Urine Squamous Epithelial Cells Moderate /LPF (</=FEW) Urine Bacteria Few /HPF (NONE-FEW) Urine Hyaline Casts Many /LPF (NONE-FEW) Urine Mucus Few /HPF (NONE-FEW) Urine Opiates Screen Positive Urine Barbiturates Screen Negative Ur Tricyclic Antidepressants Screen Negative Urine Phencyclidine Screen Negative Urine Amphetamines Screen Negative Urine Benzodiazepines Screen Negative Urine Cocaine Screen Negative Urine Cannabinoids Screen Positive White Blood Count 12.1 k/uL (4.5-11.0) Red Blood Count 5.84 M/uL (4.00-5.60) Hemoglobin 18.6 g/dL (14.0-18.0) Hematocrit 53.3 % (42.0-52.0) Mean Corpuscular Volume 91.4 fL (80.0-96.0) Mean Corpuscular Hemoglobin 31.9 pg (26.0-33.0) Mean Corpuscular Hemoglobin Concent 34.9 g/dL (32.0-36.0) Red Cell Distribution Width 13.2 % (11.5-14.5) Platelet Count 331 K/uL (150-450) Mean Platelet Volume 8.0 fL (7.2-11.1) Neutrophils (%) (Auto) 82.4 % (39.4-72.5) Lymphocytes (%) (Auto) 11.6 % (17.6-49.6) Monocytes (%) (Auto) 5.2 % (4.1-12.4) Eosinophils (%) (Auto) 0.1 % (0.4-6.7) Basophils (%) (Auto) 0.7 % (0.3-1.4) Nucleated RBC Relative Count (auto) 0.2 /100WBC Neutrophils # (Auto) 10.0 K/uL (2.0-7.4) Lymphocytes # (Auto) 1.4 K/uL (1.3-3.6) Monocytes # (Auto) 0.6 K/uL (0.3-1.0) Eosinophils # (Auto) 0.0 K/uL (0.0-0.5) Basophils # (Auto) 0.1 K/uL (0.0-0.1) Nucleated RBC Absolute Count (auto) 0.03 K/uL Blood Gas Patient Temperature Na DEGREES Venous Blood pH 7.44 (7.31-7.41) Venous Blood Partial Pressure CO2 40 mmHg Venous Blood Partial Pressure O2 < 35 mmHg Venous Blood HCO3 27 mmol/L Venous Blood Oxygen Saturation 51 % Venous Blood Base Excess 3 mmol/L Oxygen Liters/Minute Na Glomerular Filtration Rate Calc > 60.0 Osmolality 314 mOSM/K (275-295) Calcium Level 10.2 mg/dl (8.4-10.2) Total Bilirubin 1.1 mg/dl (0.2-1.3) Aspartate Amino Transf (AST/SGOT) 26 U/L (0-35) Alanine Aminotransferase (ALT/SGPT) 33 U/L (0-56) Alkaline Phosphatase 90 U/L (0-126) Total Protein 8.4 g/dl (6.3-8.2) Albumin 4.9 g/dl (3.5-5.0) Amylase Level 97 U/L (0-110) Lipase < 10 U/L (23-300) Acetone, Qualitative Small Toxicology Test 04/15/18 11:12 04/15/18 11:15 Urine Opiates Screen Positive Urine Barbiturates Screen Negative Ur Tricyclic Antidepressants Screen Negative Urine Phencyclidine Screen Negative Urine Amphetamines Screen Negative Urine Benzodiazepines Screen Negative Urine Cocaine Screen Negative Urine Cannabinoids Screen Positive Acetone, Qualitative Small Urinalysis Test 04/15/18 11:12 Urine Color Yellow Urine Clarity Slightly-cloudy Urine pH 5.0 pH (4.8-9.5) Urine Specific [place] 1.032 Urine Protein 500 mg/dL (NEGATIVE) Urine Glucose (UA) 500 mg/dL (NEGATIVE) Urine Ketones 20 mg/dL (NEGATIVE) Urine Blood Small (NEGATIVE) Urine Nitrite Negative (NEGATIVE) Urine Bilirubin Negative (NEGATIVE) Urine Urobilinogen Negative mg/dL (0.2-1.9) Urine Leukocyte Esterase Negative (NEGATIVE) Urine RBC 1 /HPF (0-2/HPF) Urine WBC 6 /HPF (0-5/HPF) Urine Squamous Epithelial Cells Moderate /LPF (</=FEW) Urine Bacteria Few /HPF (NONE-FEW) Urine Hyaline Casts Many /LPF (NONE-FEW) Urine Mucus Few /HPF (NONE-FEW) ED Course/Re-evaluation Clinical Indication for ER IV: Hydration ED Course 2 L of IV fluid given was given 2 doses Zofran 1 a Phenergan and some IV Toradol feels much better after treatment was able to drink a full liquid diet and will go home and take his home medications Re-evaluation Able to drink a full liquid diet before discharge ambulatory to the ER states he is feeling much better Decision to Disposition Date: Apr 15, 2018 Decision to Disposition Time: 14:33 Depart Departure Latest Vital Signs Vital Signs Date Time Temp Pulse Resp B/P (MAP) Pulse Ox O2 Delivery O2 Flow Rate FiO2 04/15/18 14:30 98.0 99 145/99 (114) 04/15/18 10:38 20 99 Room Air Impression: Primary Impression: Diabetic gastroparesis Additional Impression: Type I diabetes mellitus Condition: Improved Disposition: HOME OR SELF-CARE Referrals: ESA EMERY MD (PCP) 2 Days Patient Instructions: Gastroparesis (ED) Additional Instructions: Take medications as prescribed, drink fluids liberally follow-up with your primary care physician in 2 days Problem Qualifiers TRUMAN ELI Apr 15, 2018 11:05
[2018-04-15] MEDS ORDERED: FAMOTIDINE(*) 20MG/50ML PREMIX 50 ML IVPB ONE (11:10)
[2018-04-15 11:29] LABS: PLATELET COUNT, AUTOMATED 331 K/uL (150-450)
[2018-04-15] MEDS ORDERED: KETOROLAC 30 MG/ML VIAL IVP ONE (12:00)
[2018-04-15] MEDS ORDERED: PROMETHAZINE 25 MG/ML 1 ML AMP IVP ONE (12:10)
[2018-04-15 14:30] VITALS: BP 145/99
== END 2018-04-15 14:50 | disposition home or self-care (01) ==
LOC: ER 10:48
DX: E10.43 Type 1 diabetes mellitus with diabetic autonomic (poly)neuropathy (principal); K31.84 Gastroparesis; E10.319 Type 1 diabetes mellitus with unspecified diabetic retinopathy without macular edema; K21.9 Gastro-esophageal reflux disease without esophagitis; F41.9 Anxiety disorder, unspecified; Z87.891 Personal history of nicotine dependence
CPT/HCPCS: 80305; 81001; 82009; 82150; 82803; 83690; 83930; 85025; 96361; 96365; 96375; 96376; 99285; J1885; J2405; J2550; J2765; J3490; J7030; 82040; 82247; 82310; 82374; 82435; 82565; 82947; 84075; 84132; 84155; 84295; 84450; 84460; 84520

== ENCOUNTER 2018-05-07 12:30 | Emergency (ER) | payer MEDICARE, MEDICAID ==
[2017-11-20 10:57] VITALS: Wt 58.2 kg
--- NOTE | 2018-05-07 12:56 | ER Report ---
History and Physical Time Seen By MD: 12:52 Hx. of Stated Complaint: pt reports vomiting and abd pain that started this morning HPI/ROS CHIEF COMPLAINT: Nausea, vomiting and diarrhea HISTORY OF PRESENT ILLNESS: This is a 32-year-old male, well-known to the emergency department, who presents for nausea, vomiting and diarrhea. Patient states that he ate a chicken enchilada yesterday and feels that this has caused his nausea, vomiting and diarrhea. Patient's had a long-standing history of these chronic GI symptoms. Patient denies blood in any of the emesis or the diarrhea. A solution is requesting nausea medicine and fluids. Patient denies chest pain or shortness of breath, no fevers or chills. REVIEW OF SYSTEMS: Respiratory: No cough, no dyspnea. Cardiovascular: No chest pain, no palpitations. Gastrointestinal: As above. Musculoskeletal: No back pain. Allergies: Coded Allergies: hydrocodone (Verified Allergy, Unknown, 05/07/18) oxycodone (Verified Allergy, Unknown, 05/07/18) Uncoded Allergies: beestings (Adverse Reaction, Unknown, 08/11/17) Home Meds Active Scripts Lisinopril (LISINOPRIL) 5 Mg Tablet, 5 MG PO QDAY, #30 TAB 4 Refills Prov:ESA EMERY MD 04/04/18 Insulin Glargine 100 Un/Ml Pen (LANTUS SOLOSTAR PEN) 100 Unit/1 Ml Insuln.pen, 34 UNIT SUBQ QDAY, #1 BOX 2 Refills Prov:ESA EMERY MD 04/04/18 Pantoprazole Sodium (PANTOPRAZOLE SODIUM) 40 Mg Tablet.dr, 1 TAB PO BIDAC, #60 TAB.SR 3 Refills Don't eat for at least 2 hours before or 30 minutes after taking Prov:BRANDY YATES MD 12/12/17 Metoclopramide Hcl (METOCLOPRAMIDE HCL) 10 Mg Tablet, 10 MG PO QID Y for NAUSEA/ VOMITING, #40 TAB 0 Refills Prov:GALE KLEIN DNP, ALL TERRAIN VEHICLE RACER-BC 10/16/17 Reported Medications Gabapentin (GABAPENTIN) 300 Mg Capsule, 2 TAB PO BID, CAPSULE 02/04/18 Insulin Lispro 100 Un/Ml Vial (HUMALOG 100 U/ML VIAL) 100 Unit/1 Ml Vial, 0 SQ Y for SLIDING SCALE INSULIN, VIAL takes Humalog Insulin at Home as per SS 10/02/17 Past Medical/Surgical History Patient has a past medical and surgical history of hypertension, chronic nausea with vomiting, gastroparesis, pancreatitis GERD, gallbladder disease, right hand fracture, diabetic retinopathy, uses pot extensively to help with nausea and vomiting however he does seem to have 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 Hx Smoking: Yes (1.5 ppd x 10 years QUIT 2014, CURRENTLY SMOKES MARIJUANA) Smoking Status: Never Smoker, Former Smoker Exposure to Second Hand Smoke?: No Hx Substance Use Disorder: Yes (POT) Hx Alcohol Use: No (Years since last use) Constitutional Vital Sign - Last 24 Hours 05/07/18 05/07/18 12:46 15:05 Temp 97.6 Pulse 107 115 Resp 16 16 B/P (MAP) 144/106 141/99 (113) Pulse Ox 100 99 O2 Delivery Room Air Room Air Intake and Output 05/07/18 05/07/18 05/08/18 15:00 23:00 07:00 Intake Total 1000 ml Balance 1000 ml Physical Exam General Appearance: The patient is alert, has no immediate need for airway protection and no current signs of toxicity, very unkempt. Eyes: Pupils equal and round no injection. Respiratory: Chest is non tender, lungs are clear to auscultation. Cardiac: regular rate and rhythm. Gastrointestinal: Abdomen is soft, with generalized abdominal discomfort, no masses, bowel sounds normal. Musculoskeletal: Neck: Neck is supple and non tender. Extremities have full range of motion and are non tender. Skin: No rashes or lesions. DIFFERENTIAL DIAGNOSIS: After history and physical exam differential diagnosis was considered for abdominal pain including but not limited to appendicitis, cholecystitis, gastroenteritis, gastritis and urinary tract infection. Medical Decision Making Data Points Result Diagram: 05/07/18 1300 05/07/18 1300 Laboratory Hematology Test 05/07/18 13:00 Red Blood Count 5.46 M/uL (4.00-5.60) Mean Corpuscular Volume 91.8 fL (80.0-96.0) Mean Corpuscular Hemoglobin 32.6 pg (26.0-33.0) Mean Corpuscular Hemoglobin Concent 35.5 g/dL (32.0-36.0) Red Cell Distribution Width 12.7 % (11.5-14.5) Mean Platelet Volume 8.7 fL (7.2-11.1) Neutrophils (%) (Auto) 85.0 % (39.4-72.5) Lymphocytes (%) (Auto) 9.9 % (17.6-49.6) Monocytes (%) (Auto) 4.0 % (4.1-12.4) Eosinophils (%) (Auto) 0.2 % (0.4-6.7) Basophils (%) (Auto) 0.9 % (0.3-1.4) Nucleated RBC Relative Count (auto) 0.1 /100WBC Neutrophils # (Auto) 8.3 K/uL (2.0-7.4) Lymphocytes # (Auto) 1.0 K/uL (1.3-3.6) Monocytes # (Auto) 0.4 K/uL (0.3-1.0) Eosinophils # (Auto) 0.0 K/uL (0.0-0.5) Basophils # (Auto) 0.1 K/uL (0.0-0.1) Nucleated RBC Absolute Count (auto) 0.01 K/uL Sodium Level 141 mmol/L (137-145) Potassium Level 4.0 mmol/L (3.5-5.0) Chloride Level 103 mmol/L (98-107) Carbon Dioxide Level 24 mmol/L (22-30) Blood Urea Nitrogen 15 mg/dl (9-21) Creatinine 0.50 mg/dl (0.66-1.25) Glomerular Filtration Rate Calc > 60.0 Random Glucose 303 mg/dl (75-110) Calcium Level 9.8 mg/dl (8.4-10.2) Total Bilirubin 0.8 mg/dl (0.2-1.3) Aspartate Amino Transf (AST/SGOT) 27 U/L (0-35) Alanine Aminotransferase (ALT/SGPT) 35 U/L (0-56) Alkaline Phosphatase 85 U/L (0-126) Total Protein 7.7 g/dl (6.3-8.2) Albumin 4.9 g/dl (3.5-5.0) Lipase 36 U/L (23-300) Chemistry Test 05/07/18 13:00 White Blood Count 9.7 k/uL (4.5-11.0) Red Blood Count 5.46 M/uL (4.00-5.60) Hemoglobin 17.8 g/dL (14.0-18.0) Hematocrit 50.1 % (42.0-52.0) Mean Corpuscular Volume 91.8 fL (80.0-96.0) Mean Corpuscular Hemoglobin 32.6 pg (26.0-33.0) Mean Corpuscular Hemoglobin Concent 35.5 g/dL (32.0-36.0) Red Cell Distribution Width 12.7 % (11.5-14.5) Platelet Count 295 K/uL (150-450) Mean Platelet Volume 8.7 fL (7.2-11.1) Neutrophils (%) (Auto) 85.0 % (39.4-72.5) Lymphocytes (%) (Auto) 9.9 % (17.6-49.6) Monocytes (%) (Auto) 4.0 % (4.1-12.4) Eosinophils (%) (Auto) 0.2 % (0.4-6.7) Basophils (%) (Auto) 0.9 % (0.3-1.4) Nucleated RBC Relative Count (auto) 0.1 /100WBC Neutrophils # (Auto) 8.3 K/uL (2.0-7.4) Lymphocytes # (Auto) 1.0 K/uL (1.3-3.6) Monocytes # (Auto) 0.4 K/uL (0.3-1.0) Eosinophils # (Auto) 0.0 K/uL (0.0-0.5) Basophils # (Auto) 0.1 K/uL (0.0-0.1) Nucleated RBC Absolute Count (auto) 0.01 K/uL Glomerular Filtration Rate Calc > 60.0 Calcium Level 9.8 mg/dl (8.4-10.2) Total Bilirubin 0.8 mg/dl (0.2-1.3) Aspartate Amino Transf (AST/SGOT) 27 U/L (0-35) Alanine Aminotransferase (ALT/SGPT) 35 U/L (0-56) Alkaline Phosphatase 85 U/L (0-126) Total Protein 7.7 g/dl (6.3-8.2) Albumin 4.9 g/dl (3.5-5.0) Lipase 36 U/L (23-300) ED Course/Re-evaluation Clinical Indication for ER IV: Hydration, IV Access ED Course The patient was admitted to room. A history and physical obtained. Differential diagnoses were considered. An IV was started. A CBC, CMP were obtained. A 1 L normal saline bolus was given. 4 mg IV Zofran 2, 12.5 mg IV Phenergan 2. Patient was also given 25 mg IV Benadryl. CBC unremarkable, chemistry showing glucose 303 normal lipase. I reviewed the laboratory studies with the patient. Patient states he is feeling better. Patient feels he is able to go home at this time. The patient was instructed to follow-up with his primary care provider in 2-4 days for reevaluation. He was also instructed to try clear liquid diet for the next 12-24 hours and slowly progress into a regular diet. Patient had no other questions or concerns at this time is discharged home. Patient does have Phenergan at home for nausea and vomiting. Decision to Disposition Date: May 07, 2018 Decision to Disposition Time: 15:09 Depart Departure Latest Vital Signs Vital Signs Date Time Temp Pulse Resp B/P (MAP) Pulse Ox O2 Delivery O2 Flow Rate FiO2 05/07/18 15:05 115 16 141/99 (113) 99 Room Air 05/07/18 12:46 97.6 Impression: Primary Impression: Nausea & vomiting Additional Impression: Diarrhea Condition: Improved Disposition: HOME OR SELF-CARE Referrals: ESA EMERY MD (PCP) Patient Instructions: Acute Nausea and Vomiting (ED), Chronic Diarrhea (ED) Additional Instructions: Drink plenty of fluids. Take your regular medications as prescribed. Be sure to follow up with your PCP within 2-4 days for reevaluation of the vomiting and diarrhea. Get plenty of rest. Return to the ED for any other concerns or worsening symptoms. Problem Qualifiers Primary Impression: Nausea & vomiting Vomiting type: unspecified Vomiting Intractability: non-intractable Qualified Codes: R11.2 - Nausea with vomiting, unspecified Additional Impression: Diarrhea Diarrhea type: unspecified type Qualified Codes: R19.7 - Diarrhea, unspecified LADI NORTON ALL TERRAIN VEHICLE RACER-BC May 07, 2018 12:55
[2018-05-07] MEDS ORDERED: NS(*) 0.9% 1000 ML BAG 1,000 ML IV ONE (13:15)
[2018-05-07] MEDS ORDERED: ONDANSETRON 4 MG/2 ML VIAL IVP ONE ×2 (13:15→14:35)
[2018-05-07] MEDS ORDERED: PROMETHAZINE 25 MG/ML 1 ML AMP IVP ONE ×2 (13:15→14:35)
[2018-05-07 13:56] LABS: PLATELET COUNT, AUTOMATED 295 K/uL (150-450)
[2018-05-07] MEDS ORDERED: diphenhydrAMINE 50 MG/ML VIAL IVP ONE (14:35)
[2018-05-07 15:05] VITALS: BP 141/99
== END 2018-05-07 15:08 | disposition home or self-care (01) ==
LOC: ER 12:49
DX: R11.2 Nausea with vomiting, unspecified (principal); R19.7 Diarrhea, unspecified; I10 Essential (primary) hypertension; K21.9 Gastro-esophageal reflux disease without esophagitis; E11.9 Type 2 diabetes mellitus without complications; Z87.891 Personal history of nicotine dependence; Z79.4 Long term (current) use of insulin; Z79.899 Other long term (current) drug therapy
CPT/HCPCS: 83690; 85025; 96374; 96375; 96376; 99284; J1200; J2405; J2550; J7030; 82040; 82247; 82310; 82374; 82435; 82565; 82947; 84075; 84132; 84155; 84295; 84450; 84460; 84520

== ENCOUNTER 2018-05-09 13:34 | Emergency (ER) | payer MEDICARE, MEDICAID ==
[2017-11-20 10:57] VITALS: Wt 58.2 kg
[2018-05-09] MEDS ORDERED: PROMETHAZINE 25 MG/ML 1 ML AMP IVP ONE (13:40)
[2018-05-09] MEDS ORDERED: NS(*) 0.9% 1000 ML BAG 1,000 ML IV ONE (13:40)
[2018-05-09] MEDS ORDERED: ASPIRIN 81 MG CHEW PO ONE (13:40)
--- NOTE | 2018-05-09 13:40 | ER Report ---
History and Physical Time Seen By MD: 13:40 HPI/ROS CHIEF COMPLAINT: Chest pain, vomiting HISTORY OF PRESENT ILLNESS: 32-year-old male patient presents to emergency room with complaint of chest pain and vomiting. Patient states that he has been having chest pain this started approximately 1:00. Patient states that the pain is significant. He states this located on left side of the chest. It is constant in nature. States the pain seems to radiate towards the back. He states there is nothing seems to make the pain better or worse. He denies having any fevers or chills. He states he's had nausea and vomiting for the last 2 days. He states that there is nothing seems to help. He states yesterday he did have some vomiting, however it is better than it had been previously. Patient states the pain is significant at this time. He has not taken any medication for this. REVIEW OF SYSTEMS: Respiratory: No cough, no dyspnea. Cardiovascular: As noted above Gastrointestinal: As noted above Musculoskeletal: No back pain. Allergies: Coded Allergies: hydrocodone (Verified Allergy, Unknown, 05/07/18) oxycodone (Verified Allergy, Unknown, 05/07/18) Uncoded Allergies: beestings (Adverse Reaction, Unknown, 08/11/17) Home Meds Active Scripts Lisinopril (LISINOPRIL) 5 Mg Tablet, 5 MG PO QDAY, #30 TAB 4 Refills Prov:ESA BURGOS MD 04/04/18 Insulin Glargine 100 Un/Ml Pen (LANTUS SOLOSTAR PEN) 100 Unit/1 Ml Insuln.pen, 34 UNIT SUBQ QDAY, #1 BOX 2 Refills Prov:ESA BURGOS MD 04/04/18 Pantoprazole Sodium (PANTOPRAZOLE SODIUM) 40 Mg Tablet.dr, 1 TAB PO BIDAC, #60 TAB.SR 3 Refills Don't eat for at least 2 hours before or 30 minutes after taking Prov:BRANDY YATES MD 12/12/17 Metoclopramide Hcl (METOCLOPRAMIDE HCL) 10 Mg Tablet, 10 MG PO QID Y for NAUSEA/ VOMITING, #40 TAB 0 Refills Prov:GALE KLEIN DNP, CASH TELLER-BC 10/16/17 Reported Medications Gabapentin (GABAPENTIN) 300 Mg Capsule, 2 TAB PO BID, CAPSULE 02/04/18 Insulin Lispro 100 Un/Ml Vial (HUMALOG 100 U/ML VIAL) 100 Unit/1 Ml Vial, 0 SQ Y for SLIDING SCALE INSULIN, VIAL takes Humalog Insulin at Home as per SS 10/02/17 Past Medical/Surgical History Patient has a past medical history of hypertension, nausea, gastroparesis, pancreatitis, reflux, right hand fracture, diabetic retinopathy, type 1 diabetes , marijuana abuse, alcohol abuse, anxiety. Patient has surgical history of right hand surgery, eye surgery, cholecystitis. Reviewed Nurses Notes: Yes Hx Smoking: Yes (1.5 ppd x 10 years QUIT 2014, CURRENTLY SMOKES MARIJUANA) Smoking Status: Never Smoker, Former Smoker Exposure to Second Hand Smoke?: No Hx Substance Use Disorder: Yes (POT) Hx Alcohol Use: No (Years since last use) Constitutional Vital Sign - Last 24 Hours 05/09/18 13:38 Pulse 126 Resp 22 B/P (MAP) 136/104 Pulse Ox 97 O2 Delivery Room Air Physical Exam General Appearance: The patient is alert, has no immediate need for airway protection and no current signs of toxicity. Respiratory: Chest is non tender, lungs are clear to auscultation. Cardiac: regular rate and rhythm Gastrointestinal: Abdomen is soft and non tender, no masses, bowel sounds normal. Musculoskeletal: Neck: Neck is supple and non tender. Extremities have full range of motion and are non tender. Skin: No rashes or lesions. DIFFERENTIAL DIAGNOSIS: After history and physical exam differential diagnosis was considered for chest pain including but not limited to myocardial ischemia, pericarditis pulmonary embolus, chest wall pain, pleural inflammation and pulmonary infectious causes. Medical Decision Making Data Points Result Diagram: 05/09/18 1400 05/09/18 1400 Laboratory Hematology Test 05/09/18 14:00 05/09/18 15:18 05/09/18 16:36 Red Blood Count 5.49 M/uL (4.00-5.60) Mean Corpuscular Volume 89.9 fL (80.0-96.0) Mean Corpuscular Hemoglobin 32.6 pg (26.0-33.0) Mean Corpuscular Hemoglobin Concent 36.3 g/dL (32.0-36.0) Red Cell Distribution Width 12.8 % (11.5-14.5) Mean Platelet Volume 8.2 fL (7.2-11.1) Neutrophils (%) (Auto) 76.3 % (39.4-72.5) Lymphocytes (%) (Auto) 17.8 % (17.6-49.6) Monocytes (%) (Auto) 5.3 % (4.1-12.4) Eosinophils (%) (Auto) 0.1 % (0.4-6.7) Basophils (%) (Auto) 0.5 % (0.3-1.4) Nucleated RBC Relative Count (auto) 0.1 /100WBC Neutrophils # (Auto) 5.2 K/uL (2.0-7.4) Lymphocytes # (Auto) 1.2 K/uL (1.3-3.6) Monocytes # (Auto) 0.4 K/uL (0.3-1.0) Eosinophils # (Auto) 0.0 K/uL (0.0-0.5) Basophils # (Auto) 0.0 K/uL (0.0-0.1) Nucleated RBC Absolute Count (auto) 0.01 K/uL D-Dimer Quantitative (PE/DVT) < 0.27 ug/ml (0-0.50) Sodium Level 140 mmol/L (137-145) Potassium Level 4.2 mmol/L (3.5-5.0) Chloride Level 100 mmol/L (98-107) Carbon Dioxide Level 23 mmol/L (22-30) Blood Urea Nitrogen 25 mg/dl (9-21) Creatinine 0.70 mg/dl (0.66-1.25) Glomerular Filtration Rate Calc > 60.0 Random Glucose 121 mg/dl (75-110) Osmolality 295 mOSM/K (275-295) Calcium Level 9.6 mg/dl (8.4-10.2) Total Bilirubin 0.9 mg/dl (0.2-1.3) Aspartate Amino Transf (AST/SGOT) 36 U/L (0-35) Alanine Aminotransferase (ALT/SGPT) 34 U/L (0-56) Alkaline Phosphatase 70 U/L (0-126) Total Protein 7.8 g/dl (6.3-8.2) Albumin 4.9 g/dl (3.5-5.0) Amylase Level 113 U/L (0-110) Lipase 17 U/L (23-300) Acetone, Qualitative Small Helicobacter pylori IgG Antibody Negative (NEGATIVE) Urine Color Yellow Urine Clarity Clear Urine pH 6.0 pH (4.8-9.5) Urine Specific Kennedy 1.022 Urine Protein 500 mg/dL (NEGATIVE) Urine Glucose (UA) 50 mg/dL (NEGATIVE) Urine Ketones 20 mg/dL (NEGATIVE) Urine Blood Negative (NEGATIVE) Urine Nitrite Negative (NEGATIVE) Urine Bilirubin Negative (NEGATIVE) Urine Urobilinogen 2.0 mg/dL (0.2-1.9) Urine Leukocyte Esterase Negative (NEGATIVE) Urine RBC 6 /HPF (0-2/HPF) Urine WBC 7 /HPF (0-5/HPF) Urine Squamous Epithelial Cells None /LPF (</=FEW) Urine Bacteria Negative /HPF (NONE-FEW) Urine Mucus Few /HPF (NONE-FEW) Urine Opiates Screen Negative Urine Barbiturates Screen Negative Ur Tricyclic Antidepressants Screen Negative Urine Phencyclidine Screen Negative Urine Amphetamines Screen Negative Urine Benzodiazepines Screen Negative Urine Cocaine Screen Negative Urine Cannabinoids Screen Positive Troponin I < 0.012 ng/ml Chemistry Test 05/09/18 14:00 05/09/18 15:18 05/09/18 16:36 White Blood Count 6.9 k/uL (4.5-11.0) Red Blood Count 5.49 M/uL (4.00-5.60) Hemoglobin 17.9 g/dL (14.0-18.0) Hematocrit 49.4 % (42.0-52.0) Mean Corpuscular Volume 89.9 fL (80.0-96.0) Mean Corpuscular Hemoglobin 32.6 pg (26.0-33.0) Mean Corpuscular Hemoglobin Concent 36.3 g/dL (32.0-36.0) Red Cell Distribution Width 12.8 % (11.5-14.5) Platelet Count 302 K/uL (150-450) Mean Platelet Volume 8.2 fL (7.2-11.1) Neutrophils (%) (Auto) 76.3 % (39.4-72.5) Lymphocytes (%) (Auto) 17.8 % (17.6-49.6) Monocytes (%) (Auto) 5.3 % (4.1-12.4) Eosinophils (%) (Auto) 0.1 % (0.4-6.7) Basophils (%) (Auto) 0.5 % (0.3-1.4) Nucleated RBC Relative Count (auto) 0.1 /100WBC Neutrophils # (Auto) 5.2 K/uL (2.0-7.4) Lymphocytes # (Auto) 1.2 K/uL (1.3-3.6) Monocytes # (Auto) 0.4 K/uL (0.3-1.0) Eosinophils # (Auto) 0.0 K/uL (0.0-0.5) Basophils # (Auto) 0.0 K/uL (0.0-0.1) Nucleated RBC Absolute Count (auto) 0.01 K/uL D-Dimer Quantitative (PE/DVT) < 0.27 ug/ml (0-0.50) Glomerular Filtration Rate Calc > 60.0 Osmolality 295 mOSM/K (275-295) Calcium Level 9.6 mg/dl (8.4-10.2) Total Bilirubin 0.9 mg/dl (0.2-1.3) Aspartate Amino Transf (AST/SGOT) 36 U/L (0-35) Alanine Aminotransferase (ALT/SGPT) 34 U/L (0-56) Alkaline Phosphatase 70 U/L (0-126) Total Protein 7.8 g/dl (6.3-8.2) Albumin 4.9 g/dl (3.5-5.0) Amylase Level 113 U/L (0-110) Lipase 17 U/L (23-300) Acetone, Qualitative Small Helicobacter pylori IgG Antibody Negative (NEGATIVE) Urine Color Yellow Urine Clarity Clear Urine pH 6.0 pH (4.8-9.5) Urine Specific Kennedy 1.022 Urine Protein 500 mg/dL (NEGATIVE) Urine Glucose (UA) 50 mg/dL (NEGATIVE) Urine Ketones 20 mg/dL (NEGATIVE) Urine Blood Negative (NEGATIVE) Urine Nitrite Negative (NEGATIVE) Urine Bilirubin Negative (NEGATIVE) Urine Urobilinogen 2.0 mg/dL (0.2-1.9) Urine Leukocyte Esterase Negative (NEGATIVE) Urine RBC 6 /HPF (0-2/HPF) Urine WBC 7 /HPF (0-5/HPF) Urine Squamous Epithelial Cells None /LPF (</=FEW) Urine Bacteria Negative /HPF (NONE-FEW) Urine Mucus Few /HPF (NONE-FEW) Urine Opiates Screen Negative Urine Barbiturates Screen Negative Ur Tricyclic Antidepressants Screen Negative Urine Phencyclidine Screen Negative Urine Amphetamines Screen Negative Urine Benzodiazepines Screen Negative Urine Cocaine Screen Negative Urine Cannabinoids Screen Positive Troponin I < 0.012 ng/ml Coagulation Test 05/09/18 14:00 D-Dimer Quantitative (PE/DVT) < 0.27 ug/ml Toxicology Test 05/09/18 14:00 05/09/18 15:18 Acetone, Qualitative Small Urine Opiates Screen Negative Urine Barbiturates Screen Negative Ur Tricyclic Antidepressants Screen Negative Urine Phencyclidine Screen Negative Urine Amphetamines Screen Negative Urine Benzodiazepines Screen Negative Urine Cocaine Screen Negative Urine Cannabinoids Screen Positive Urinalysis Test 05/09/18 15:18 Urine Color Yellow Urine Clarity Clear Urine pH 6.0 pH (4.8-9.5) Urine Specific Kennedy 1.022 Urine Protein 500 mg/dL (NEGATIVE) Urine Glucose (UA) 50 mg/dL (NEGATIVE) Urine Ketones 20 mg/dL (NEGATIVE) Urine Blood Negative (NEGATIVE) Urine Nitrite Negative (NEGATIVE) Urine Bilirubin Negative (NEGATIVE) Urine Urobilinogen 2.0 mg/dL (0.2-1.9) Urine Leukocyte Esterase Negative (NEGATIVE) Urine RBC 6 /HPF (0-2/HPF) Urine WBC 7 /HPF (0-5/HPF) Urine Squamous Epithelial Cells None /LPF (</=FEW) Urine Bacteria Negative /HPF (NONE-FEW) Urine Mucus Few /HPF (NONE-FEW) EKG/Imaging EKG Interpretation 12 lead EKG: Rhythm: Sinus tachycardia with ventricular rate of 117 bpm [place]: normal QRS: normal ST segments: normal EKG is unchanged from previous EKG. Imaging Exam type: ACUTE ABDOMEN SERIES 3 VIEW History: chest pain, vomiting Comparison: March 18, 2018. Findings: Small air-fluid levels are seen in nondilated small bowel in the mid abdomen. Small air-fluid levels also noted in the nondilated colon. There is no evidence of free air beneath hemidiaphragms. No gross evidence of organomegaly There is no evidence of focal infiltrates pleural effusions or pulmonary edema. The cardiac silhouette is normal in size. IMPRESSION: 1. Small air-fluid levels are seen in nondilated small bowel loops in the midabdomen and also in the nondilated distal colon. This may represent liquid stool. This does not appear to represent an obstructive bowel gas pattern however if symptoms persist and a bowel obstruction is of clinical concern CT may be helpful Report Dictated By: Danielle Lozano MD at 05/09/2018 5:15 PM Report E-Signed By: Danielle Lozano MD at 05/09/2018 5:18 PM ED Course/Re-evaluation ED Course Patient was admitted in exam room, history and physical were obtained. Differential diagnoses were considered. On examination patient was complaining of significant amounts of chest pain. No tenderness to palpation. A CBC, CMP, troponin, EKG, acute abdominal x-ray were done. Labs were unremarkable, initial troponin was negative. EKG showed a sinus tachycardia. Due to the pain starting pain being approximately 1:00 I wanted to a repeat troponin to make sure that we weren't overlooking an NSTEMI. Patient was having continued pain and so he did receive a dose of morphine. Patient also received a dose of Phenergan when he arrived in the emergency room. He seemed to resting comfortably lower waiting for the repeat troponin. The repeat troponin was negative we will go ahead and discharge patient at this time. I discussed this with patient who verbalized understanding and agreement with plan. Decision to Disposition Date: May 09, 2018 Decision to Disposition Time: 17:18 Depart Departure Latest Vital Signs Vital Signs Date Time Temp Pulse Resp B/P (MAP) Pulse Ox O2 Delivery O2 Flow Rate FiO2 05/09/18 13:38 126 22 136/104 97 Room Air Impression: Primary Impression: Chest pain Condition: Improved Disposition: HOME OR SELF-CARE Referrals: ESA BURGOS MD (PCP) Patient Instructions: Chest Pain (ED) Additional Instructions: Limit activity by pain. Increase fluid intake. Get plenty of rest. Follow up with Dr. Burgos in the early part of next week. Return to the ER if condition worsens. Continue to monitor your blood sugar closely. Continue with your current medications. Problem Qualifiers Primary Impression: Chest pain Chest pain type: other chest pain Qualified Codes: R07.89 - Other chest pain ELIZABETH CONNORS May 09, 2018 13:40
--- NOTE | 2018-05-09 13:52 | EKG ---
FACILITY: [facility] - [place] PATIENT NAME: BARBARA ABERNATHY : [id number] MR: [id number] V: [id number] EXAM DATE: ORDERING PHYSICIAN: ELIZABETH CONNORS TECHNOLOGIST: Test Reason : Blood Pressure : / mmHG Vent. Rate : 117 BPM Atrial Rate : 117 BPM P-R Int : 128 ms QRS Dur : 072 ms QT Int : 334 ms P-R-T Axes : 075 270 060 degrees QTc Int : 465 ms Sinus tachycardia Left anterior fascicular block Abnormal ECG When compared with ECG of 08-FEB-2018 11:39, No significant change was found Confirmed by BRANDY BRENNAN ([id number]) on 05/09/2018 3:45:21 PM Referred By: Confirmed By:BRANDY BRENNAN
[2018-05-09 14:31] LABS: PLATELET COUNT, AUTOMATED 302 K/uL (150-450)
[2018-05-09 15:00] VITALS: BP 146/114
[2018-05-09] MEDS ORDERED: MORPHINE 2 MG/ML SYR IVP ONE (15:55)
--- NOTE | 2018-05-09 17:22 | RADIOLOGY IMAGING REPORT ---
FACILITY: [facility] - [place] PATIENT NAME: Terrence Carson : 1985 MR: [id number] V: [id number] EXAM DATE: ORDERING PHYSICIAN: ELIZABETH CONNORS TECHNOLOGIST: Location: Patient: Terrence Carson : 1985 Visit/Account:[id number] Date of Sevice: 05/09/2018 Exam type: ACUTE ABDOMEN SERIES 3 VIEW History: chest pain, vomiting Comparison: March 18, 2018. Findings: Small air-fluid levels are seen in nondilated small bowel in the mid abdomen. Small air-fluid levels also noted in the nondilated colon. There is no evidence of free air beneath hemidiaphragms. No gr oss evidence of organomegaly There is no evidence of focal infiltrates pleural effusions or pulmonary edema. The cardiac silhouet te is normal in size. IMPRESSION: 1. Small air-fluid levels are seen in nondilated small bowel loops in the midabdomen and also in the nondilated distal colon. This may represent liquid stool. This does not appear to represent an obs tructive bowel gas pattern however if symptoms persist and a bowel obstruction is of clinical concern CT may be helpful Report Dictated By: Danielle Lozano MD at 05/09/2018 5:15 PM Report E-Signed By: Danielle Lozano MD at 05/09/2018 5:18 PM WSN:[id number]
== END 2018-05-09 17:30 | disposition home or self-care (01) ==
LOC: ER 13:47
DX: R07.9 Chest pain, unspecified (principal); R11.10 Vomiting, unspecified; I10 Essential (primary) hypertension; K21.9 Gastro-esophageal reflux disease without esophagitis; E10.8 Type 1 diabetes mellitus with unspecified complications; F41.9 Anxiety disorder, unspecified; Z79.4 Long term (current) use of insulin; Z87.891 Personal history of nicotine dependence
CPT/HCPCS: 36415; 80305; 81001; 82009; 82150; 83690; 83930; 84484; 85025; 85379; 86677; 93005; 96374; 96375; 99284; A9270; J2270; J2550; J7030; 74022; 82040; 82247; 82310; 82374; 82435; 82565; 82947; 84075; 84132; 84155; 84295; 84450; 84460; 84520

== ENCOUNTER 2018-06-16 10:30 | Emergency (ER) | payer MEDICARE, MEDICAID ==
[2017-11-20 10:57] VITALS: Wt 59.0 kg
--- NOTE | 2018-06-16 10:52 | ER Report ---
History and Physical Time Seen By MD: 10:47 Hx. of Stated Complaint: LUQ PAIN STARTED AT 0700 TODAY, VOMITING, DIARRHEA HPI/ROS CHIEF COMPLAINT: Left upper quadrant abdominal pain, nausea and vomiting HISTORY OF PRESENT ILLNESS: Patient is a 32-year-old male known to this emergency department for frequent visits for abdominal pain and intractable vomiting. The electronic medical record was reviewed for this patient. Patient states that he woke this morning around 9 AM with severe left upper quadrant abdominal pain and intractable nausea and vomiting. He states he's had similar episodes in the past. He states that yesterday he felt completely well and was ready to "run a marathon" the patient admits to chronic marijuana use. In fact review of the electronic medical record shows a prior today he has had 7 patient contacts since 09/29/2017 every single time he rested positive for cannabinoids. He states the last time he used marijuana was approximate 3 days ago. States that his blood sugars are currently well controlled. He denies any recent antibiotic use or any recent travel history. REVIEW OF SYSTEMS: Constitutional: No fever, no chills. Eyes: No discharge. ENT: No sore throat. Cardiovascular: No chest pain, no palpitations. Respiratory: No cough, no shortness of breath. Gastrointestinal: Left upper quadrant abdominal pain, nausea and vomiting Genitourinary: No hematuria. No dysuria Musculoskeletal: No back pain. Skin: No rashes. Neurological: No headache. Allergies: Coded Allergies: hydrocodone (Verified Allergy, Unknown, 06/16/18) oxycodone (Verified Allergy, Unknown, 06/16/18) Uncoded Allergies: beestings (Adverse Reaction, Unknown, 08/11/17) Home Meds Active Scripts Lisinopril (LISINOPRIL) 5 Mg Tablet, 5 MG PO QDAY, #30 TAB 4 Refills Prov:ESA EMERY MD 04/04/18 Insulin Glargine 100 Un/Ml Pen (LANTUS SOLOSTAR PEN) 100 Unit/1 Ml Insuln.pen, 34 UNIT SUBQ QDAY, #1 BOX 2 Refills Prov:ESA EMERY MD 04/04/18 Pantoprazole Sodium (PANTOPRAZOLE SODIUM) 40 Mg Tablet.dr, 1 TAB PO BIDAC, #60 TAB.SR 3 Refills Don't eat for at least 2 hours before or 30 minutes after taking Prov:BRANDY YATES MD 12/12/17 Metoclopramide Hcl (METOCLOPRAMIDE HCL) 10 Mg Tablet, 10 MG PO QID PRN for NAUSEA/VOMITING, #40 TAB 0 Refills Prov:GALE KLEIN [facility], [employer]-BC 10/16/17 Reported Medications Gabapentin (GABAPENTIN) 300 Mg Capsule, 2 TAB PO BID, CAPSULE 02/04/18 Insulin Lispro 100 Un/Ml Vial (HUMALOG 100 U/ML VIAL) 100 Unit/1 Ml Vial, 0 SQ PRN for SLIDING SCALE INSULIN, VIAL takes Humalog Insulin at Home as per SS 10/02/17 Past Medical/Surgical History Patient has a past medical history of hypertension, nausea, gastroparesis, pancreatitis, reflux, right hand fracture, diabetic retinopathy, type 1 diabetes, marijuana abuse, alcohol abuse, anxiety. Patient has surgical history of right hand surgery, eye surgery, cholecystitis. Review of the electronic medical records shows that the patient has been seen 7 times since since 09/29/2017 and has tested positive for THC every single time. Hx Smoking: Yes (1.5 ppd x 10 years QUIT 2014, CURRENTLY SMOKES MARIJUANA) Smoking Status: Never Smoker, Former Smoker Exposure to Second Hand Smoke?: No Hx Substance Use Disorder: Yes (POT) Hx Alcohol Use: No (Years since last use) Constitutional Vital Sign - Last 24 Hours 06/16/18 10:35 Temp 97.8 Pulse 100 Resp 32 B/P (MAP) 152/107 Pulse Ox 95 O2 Delivery Room Air Physical Exam General/Constitutional: Patient is awake, alert, ill-appearing but nontoxic, frail appearance Head: Normocephalic and atraumatic. Eyes: Conjunctival clear, Pupils are equal and reactive to light. Sclera are clear and anicteric. Ears:External canals are clear. Tympanic membranes are clear with normal landmarks and light reflex. Nares: No rhinorrhea or bleeding. Turbinates are pink and moist. Oropharyngeal: Mucous membranes are moist. There is no pharyngeal erythema or exudate. There are no palatal petechiae. Uvula is midline and symmetrical. Neck: Supple, no adenopathy. Cardiovascular: Heart is regular rate and rhythm without audible murmurs, rubs or gallops. Pulmonary: Lungs are clear to auscultation bilaterally. There are no wheezes, rales, or rhonchi. Chest rise is symmetrical Abdomen: Left upper quadrant discomfort to palpation with voluntary guarding but no rebound tenderness elicited Extremities: No gross deformities, No peripheral cyanosis. Able to move all 4 extremities. Neuro: Alert and oriented X3 Skin: No rashes, skin is warm dry and well perfused. Medical Decision Making Data Points Result Diagram: 06/16/18 1100 06/16/18 1100 Laboratory Hematology Test 06/16/18 11:00 Red Blood Count 5.35 M/uL (4.00-5.60) Mean Corpuscular Volume 92.3 fL (80.0-96.0) Mean Corpuscular Hemoglobin 32.6 pg (26.0-33.0) Mean Corpuscular Hemoglobin Concent 35.3 g/dL (32.0-36.0) Red Cell Distribution Width 12.7 % (11.5-14.5) Mean Platelet Volume 7.8 fL (7.2-11.1) Neutrophils (%) (Auto) 74.8 % (39.4-72.5) Lymphocytes (%) (Auto) 18.1 % (17.6-49.6) Monocytes (%) (Auto) 5.2 % (4.1-12.4) Eosinophils (%) (Auto) 1.2 % (0.4-6.7) Basophils (%) (Auto) 0.7 % (0.3-1.4) Nucleated RBC Relative Count (auto) 0.1 /100WBC Neutrophils # (Auto) 6.3 K/uL (2.0-7.4) Lymphocytes # (Auto) 1.5 K/uL (1.3-3.6) Monocytes # (Auto) 0.4 K/uL (0.3-1.0) Eosinophils # (Auto) 0.1 K/uL (0.0-0.5) Basophils # (Auto) 0.1 K/uL (0.0-0.1) Nucleated RBC Absolute Count (auto) 0.01 K/uL Sodium Level 141 mmol/L (137-145) Potassium Level 4.0 mmol/L (3.5-5.0) Chloride Level 105 mmol/L (98-107) Carbon Dioxide Level 26 mmol/L (22-30) Blood Urea Nitrogen 15 mg/dl (9-21) Creatinine 0.60 mg/dl (0.66-1.25) Glomerular Filtration Rate Calc > 60.0 Random Glucose 147 mg/dl (75-110) Calcium Level 9.5 mg/dl (8.4-10.2) Total Bilirubin 0.7 mg/dl (0.2-1.3) Aspartate Amino Transf (AST/SGOT) 25 U/L (0-35) Alanine Aminotransferase (ALT/SGPT) 36 U/L (0-56) Alkaline Phosphatase 70 U/L (0-126) Total Protein 6.8 g/dl (6.3-8.2) Albumin 4.1 g/dl (3.5-5.0) Lipase 18 U/L (23-300) Helicobacter pylori IgG Antibody Negative (NEGATIVE) Chemistry Test 06/16/18 11:00 White Blood Count 8.4 k/uL (4.5-11.0) Red Blood Count 5.35 M/uL (4.00-5.60) Hemoglobin 17.4 g/dL (14.0-18.0) Hematocrit 49.4 % (42.0-52.0) Mean Corpuscular Volume 92.3 fL (80.0-96.0) Mean Corpuscular Hemoglobin 32.6 pg (26.0-33.0) Mean Corpuscular Hemoglobin Concent 35.3 g/dL (32.0-36.0) Red Cell Distribution Width 12.7 % (11.5-14.5) Platelet Count 260 K/uL (150-450) Mean Platelet Volume 7.8 fL (7.2-11.1) Neutrophils (%) (Auto) 74.8 % (39.4-72.5) Lymphocytes (%) (Auto) 18.1 % (17.6-49.6) Monocytes (%) (Auto) 5.2 % (4.1-12.4) Eosinophils (%) (Auto) 1.2 % (0.4-6.7) Basophils (%) (Auto) 0.7 % (0.3-1.4) Nucleated RBC Relative Count (auto) 0.1 /100WBC Neutrophils # (Auto) 6.3 K/uL (2.0-7.4) Lymphocytes # (Auto) 1.5 K/uL (1.3-3.6) Monocytes # (Auto) 0.4 K/uL (0.3-1.0) Eosinophils # (Auto) 0.1 K/uL (0.0-0.5) Basophils # (Auto) 0.1 K/uL (0.0-0.1) Nucleated RBC Absolute Count (auto) 0.01 K/uL Glomerular Filtration Rate Calc > 60.0 Calcium Level 9.5 mg/dl (8.4-10.2) Total Bilirubin 0.7 mg/dl (0.2-1.3) Aspartate Amino Transf (AST/SGOT) 25 U/L (0-35) Alanine Aminotransferase (ALT/SGPT) 36 U/L (0-56) Alkaline Phosphatase 70 U/L (0-126) Total Protein 6.8 g/dl (6.3-8.2) Albumin 4.1 g/dl (3.5-5.0) Lipase 18 U/L (23-300) Helicobacter pylori IgG Antibody Negative (NEGATIVE) ED Course/Re-evaluation Clinical Indication for ER IV: Hydration, IV Access ED Course 06/16/2018 11:23:57 am patient with cyclic vomiting syndrome and known history of chronic marijuana use. Suspect patient may be suffering from hyperemesis secondary to marijuana. This was discussed with the patient. He states that he is "cutting down". But does state he last used marijuana 3 days ago. Plan at this time will be to check CBC CMP and lipase as well as obstruction series. Do not feel there is any utility in drawing a urinalysis or drug screen as I feel that his drug test would be positive with history of marijuana use 3 days ago. Because he seems to have cyclic vomiting syndrome and is refractory to treatment with normal antiemetics I'll plan at this time will be 5 mg of IV Haldol along with normal saline fluid bolus. Re-evaluation 06/16/2018 12:29:37 pm patient improved complaining of some leg discomfort we'll give IV Toradol. We'll discharge patient home on August and Ronaldo Decision to Disposition Date: Jun 16, 2018 Decision to Disposition Time: 12:32 Depart Departure Latest Vital Signs Vital Signs Date Time Temp Pulse Resp B/P (MAP) Pulse Ox O2 Delivery O2 Flow Rate FiO2 06/16/18 10:35 97.8 100 32 152/107 95 Room Air Impression: Primary Impression: Cyclical vomiting Condition: Improved Disposition: HOME OR SELF-CARE Referrals: ESA EMERY MD (PCP) 1 Week if symptoms persist New Scripts Dicyclomine Hcl (DICYCLOMINE HCL) 20 Mg Tablet 20 MG PO QID for abdominal cramping, #20 TAB 0 Refills Prov: ELIZABETH LEYVA MD 06/16/18 Metoclopramide Hcl (REGLAN) 10 Mg Tablet 10 MG PO Q6H for Nausea, #20 TAB 0 Refills Prov: ELIZABETH LEYVA MD 06/16/18 Patient Instructions: Acute Nausea and Vomiting (ED) Problem Qualifiers Primary Impression: Cyclical vomiting Vomiting Intractability: intractable Nausea presence: with nausea Qualified Codes: G43.A1 - Cyclical vomiting, intractable ELIZABETH LEYVA MD Jun 16, 2018 10:52
[2018-06-16] MEDS ORDERED: NS(*) 0.9% 1000 ML BAG 1,000 ML IV ONE (10:53)
[2018-06-16] MEDS ORDERED: FAMOTIDINE(*) 20MG/50ML PREMIX 50 ML IVPB ONE (10:53)
[2018-06-16] MEDS ORDERED: HALOPERIDOL LACT 5 MG/ML VIAL IM ONE (10:55)
[2018-06-16 11:09] LABS: PLATELET COUNT, AUTOMATED 260 K/uL (150-450)
[2018-06-16] MEDS ORDERED: DICYCLOMINE HCL 10 MG CAP PO ONE (11:35)
--- NOTE | 2018-06-16 12:10 | RADIOLOGY IMAGING REPORT ---
[place] [facility] [place] NAME[place] Terrence Carson : 1985 MR: [id number] V: [id number] EXAM DATE: ORDERING PHYSICIAN: ELIZABETH LEYVA TECHNOLOGIST: Location: [facility] - [place] Patient: Terrence Carson : 1985 Visit/Account:[id number] Date of Sevice: 06/16/2018 Technique: ACUTE ABDOMEN SERIES 3 VIEW HISTORY: LUQ pain/vomiting Comparison studies: Abdominal radiographs 05/09/2018 FINDINGS: The lungs are clear. The cardiomediastinal silhouette is unchanged. No focal air-fluid leve ls identified. Large stool volume is seen throughout the colon. IMPRESSION: 1. No acute intra-abdominal process. 2. Large stool volume throughout the colon. Report Dictated By: Sanjay Gannon DO at 06/16/2018 12:04 PM Report E-Signed By: Sanjay Gannon DO at 06/16/2018 12:07 PM WSN:[id number]
[2018-06-16 12:30] VITALS: BP 152/104
[2018-06-16] MEDS ORDERED: KETOROLAC 15 MG/ML VIAL IVP ONE (12:30)
[2018-06-16] MEDS ORDERED: DICY20TA70 PO (12:31)
[2018-06-16] MEDS ORDERED: METO-734 PO (12:31)
== END 2018-06-16 12:51 | disposition home or self-care (01) ==
LOC: ER 11:06
DX: G43.A1 Cyclical vomiting, in migraine, intractable (principal)
CPT/HCPCS: 36415; 74022; 83690; 85025; 86677; 96361; 96365; 96372; 96375; 99284; A9270; J1630; J1885; J3490; J7030; 82040; 82247; 82310; 82374; 82435; 82565; 82947; 84075; 84132; 84155; 84295; 84450; 84460; 84520

== ENCOUNTER → 2018-09-19 | Outpatient (CLI) | payer MEDICARE, MEDICAID ==
[2017-11-20 10:57] VITALS: BMI 18.9
[~2018-09-19] MED LIST changes: +DICY20TA70 PO; +MELO-207 PO; +METO-734 PO
[2018-09-19 11:30] LABS: PLATELET COUNT, AUTOMATED 293 K/uL (150-450)
[2018-09-19 11:43] LABS: LDL CHOLESTEROL 88 mg/dl
== END ==
LOC: LAB 10:41
PROVIDERS: ATTEND Internal Medicine
DX: E11.43 Type 2 diabetes mellitus with diabetic autonomic (poly)neuropathy (principal); E10.9 Type 1 diabetes mellitus without complications; E11.40 Type 2 diabetes mellitus with diabetic neuropathy, unspecified; R80.9 Proteinuria, unspecified
CPT/HCPCS: 36415; 81001; 82040; 82043; 82247; 82310; 82374; 82435; 82465; 82565; 82947; 83036; 83718; 84075; 84132; 84155; 84295; 84443; 84450; 84460; 84478; 84520; 85025

== ENCOUNTER 2018-12-05 09:19 | Inpatient (IN) | payer MEDICARE, MEDICAID ==
[~2018-12-05] VITALS: Ht 172.7 cm; Wt 59.4 kg
[~2018-12-05 09:19] MED LIST changes: +FLAS1EAC2 TD; +FLAS1KIT2
--- NOTE | 2018-12-05 09:29 | ER Report ---
History and Physical Time Seen By MD: 09:29 HPI/ROS History of DM1, previous DKA and cyclical vomiting from marijuana use. He presents to the ED with nausea/vomiting/diffuse abdominal pain. Says sugars have been in the 200s, and that he has been compliant with his medications. No fever/chills. No chest pain or SOB. No cough. No myalgias. Remainder of the 14 system rev: Yes Allergies: Coded Allergies: hydrocodone (Verified Allergy, Unknown, 12/05/18) oxycodone (Verified Allergy, Unknown, 12/05/18) Uncoded Allergies: beestings (Adverse Reaction, Unknown, 08/11/17) Home Meds Active Scripts Flash Glucose Sensor (Freestyle Felicity 14 Day Sensor) 1 Each Kit, UNIT Q2WK, #2 11 Refills Prov:ESA EMERY MD 11/04/18 Flash Glucose Scanning [place] (Freestyle Felicity 14 Day [place]) 1 Each Each, UNIT TD DIRECTED, #1 Prov:ESA EMERY MD 11/04/18 Insulin Glargine 100 Un/Ml Pen (LANTUS SOLOSTAR PEN) 100 Unit/1 Ml Insuln.pen, 34 UNIT SUBQ QDAY, #5 BOX 1 Refill Prov:ESA EMERY MD 10/02/18 Meloxicam (MELOXICAM) 15 Mg Tablet, 15 MG PO QDAY PRN for pain, #30 TAB 3 Refills Prov:ESA EMERY MD 09/18/18 Lisinopril (LISINOPRIL) 5 Mg Tablet, 5 MG PO QDAY, #30 TAB 6 Refills Prov:ESA EMERY MD 09/18/18 Dicyclomine Hcl (DICYCLOMINE HCL) 20 Mg Tablet, 20 MG PO QID for abdominal cramping, #20 TAB 0 Refills Prov:ELIZABETH LEYVA MD 06/16/18 Metoclopramide Hcl (REGLAN) 10 Mg Tablet, 10 MG PO Q6H for Nausea, #20 TAB 0 Refills Prov:ELIZABETH LEYVA MD 06/16/18 Pantoprazole Sodium (PANTOPRAZOLE SODIUM) 40 Mg Tablet.dr, 1 TAB PO BIDAC, #60 TAB.SR 3 Refills Don't eat for at least 2 hours before or 30 minutes after taking Prov:BRANDY YATES MD 12/12/17 Metoclopramide Hcl (METOCLOPRAMIDE HCL) 10 Mg Tablet, 10 MG PO QID PRN for NAUSEA/VOMITING, #40 TAB 0 Refills Prov:GALE KLEIN DNP, [employer]LECT[employer] ENGINEER-BC 10/16/17 Reported Medications Gabapentin (GABAPENTIN) 300 Mg Capsule, 2 TAB PO BID, CAPSULE 02/04/18 Insulin Lispro 100 Un/Ml Vial (HUMALOG 100 U/ML VIAL) 100 Unit/1 Ml Vial, 0 SQ PRN for SLIDING SCALE INSULIN, VIAL takes Humalog Insulin at Home as per SS 10/02/17 Reviewed Nurses Notes: Yes Old Medical Records Reviewed: Yes Hx Smoking: Yes (1.5 ppd x 10 years QUIT 2014, CURRENTLY SMOKES MARIJUANA) Smoking Status: Never Smoker, Former Smoker Exposure to Second Hand Smoke?: No Hx Substance Use Disorder: Yes (POT) Hx Alcohol Use: No (Years since last use) Constitutional Vital Sign - Last 24 Hours 12/05/18 12/05/18 12/05/18 12/05/18 09:25 09:30 10:00 10:15 Temp 96.9 Pulse 105 109 100 Resp 22 B/P (MAP) 148/108 163/107 (125) Pulse Ox 98 95 94 O2 Delivery Room Air 12/05/18 12/05/18 12/05/18 12/05/18 10:29 10:30 11:00 11:15 Pulse 101 95 94 B/P (MAP) 147/90 (109) 151/86 (107) 152/102 (119) Pulse Ox 93 97 91 12/05/18 12/05/18 12/05/18 12/05/18 11:30 11:45 12:00 12:15 Pulse 95 102 99 B/P (MAP) 140/97 (111) 148/100 (116) Pulse Ox 92 91 93 94 12/05/18 12/05/18 12/05/18 12/05/18 12:30 12:45 13:00 13:15 Pulse 97 92 97 B/P (MAP) 144/107 (119) 140/96 (111) Pulse Ox 88 93 93 12/05/18 12/05/18 12/05/18 13:30 13:45 14:00 Pulse 98 99 109 B/P (MAP) 146/98 (114) 163/105 (124) Pulse Ox 91 88 94 Physical Exam General Appearance: The patient is alert, has no immediate need for airway protection and no current signs of toxicity. Eyes: Pupils equal and round no injection. Respiratory: Chest is non tender, lungs are clear to auscultation. Cardiac: regular rate and rhythm Gastrointestinal: Abdomen is soft with diffuse TTP and guarding Skin: No rashes or lesions. DIFFERENTIAL DIAGNOSIS: After history and physical exam differential diagnosis was considered for abdominal pain including but not limited to appendicitis, cholecystitis, gastritis and urinary tract infection. Medical Decision Making Data Points Result Diagram: 12/05/18 0944 12/05/18 0944 Laboratory Hematology Test 12/05/18 09:44 12/05/18 11:10 Red Blood Count 6.05 M/uL (4.00-5.60) Mean Corpuscular Volume 94.0 fL (80.0-96.0) Mean Corpuscular Hemoglobin 32.8 pg (26.0-33.0) Mean Corpuscular Hemoglobin Concent 34.9 g/dL (32.0-36.0) Red Cell Distribution Width 13.1 % (11.5-14.5) Mean Platelet Volume 8.2 fL (7.2-11.1) Neutrophils (%) (Auto) 69.9 % (39.4-72.5) Lymphocytes (%) (Auto) 21.0 % (17.6-49.6) Monocytes (%) (Auto) 5.4 % (4.1-12.4) Eosinophils (%) (Auto) 2.5 % (0.4-6.7) Basophils (%) (Auto) 1.2 % (0.3-1.4) Nucleated RBC Relative Count (auto) 0.0 /100WBC Neutrophils # (Auto) 6.6 K/uL (2.0-7.4) Lymphocytes # (Auto) 2.0 K/uL (1.3-3.6) Monocytes # (Auto) 0.5 K/uL (0.3-1.0) Eosinophils # (Auto) 0.2 K/uL (0.0-0.5) Basophils # (Auto) 0.1 K/uL (0.0-0.1) Nucleated RBC Absolute Count (auto) 0.00 K/uL Sodium Level 142 mmol/L (137-145) Potassium Level 4.4 mmol/L (3.5-5.0) Chloride Level 107 mmol/L (98-107) Carbon Dioxide Level 23 mmol/L (22-30) Blood Urea Nitrogen 20 mg/dl (9-21) Creatinine 0.80 mg/dl (0.66-1.25) Glomerular Filtration Rate Calc > 60.0 Random Glucose 201 mg/dl (75-110) Calcium Level 10.2 mg/dl (8.4-10.2) Total Bilirubin 0.7 mg/dl (0.2-1.3) Aspartate Amino Transf (AST/SGOT) 61 U/L (0-35) Alanine Aminotransferase (ALT/SGPT) 32 U/L (0-56) Alkaline Phosphatase 90 U/L (0-126) Total Protein 8.0 g/dl (6.3-8.2) Albumin 4.8 g/dl (3.5-5.0) Lipase 42 U/L (23-300) Urine Color Yellow Urine Clarity Slightly-cloudy Urine pH 5.0 pH (4.8-9.5) Urine Specific [place] 1.030 Urine Protein 100 mg/dL (NEGATIVE) Urine Glucose (UA) 500 mg/dL (NEGATIVE) Urine Ketones Trace mg/dL (NEGATIVE) Urine Blood Moderate (NEGATIVE) Urine Nitrite Negative (NEGATIVE) Urine Bilirubin Negative (NEGATIVE) Urine Urobilinogen Negative mg/dL (0.2-1.9) Urine Leukocyte Esterase Negative (NEGATIVE) Urine RBC 20 /HPF (0-2/HPF) Urine WBC 8 /HPF (0-5/HPF) Urine Squamous Epithelial Cells None /LPF (</=FEW) Urine Bacteria Negative /HPF (NONE-FEW) Urine Hyaline Casts Few /LPF (NONE-FEW) Urine Mucus Few /HPF (NONE-FEW) Urine Opiates Screen Negative Urine Barbiturates Screen Negative Ur Tricyclic Antidepressants Screen Negative Urine Phencyclidine Screen Negative Urine Amphetamines Screen Negative Urine Benzodiazepines Screen Negative Urine Cocaine Screen Negative Urine Cannabinoids Screen Negative Chemistry Test 12/05/18 09:44 12/05/18 11:10 White Blood Count 9.4 k/uL (4.5-11.0) Red Blood Count 6.05 M/uL (4.00-5.60) Hemoglobin 19.9 g/dL (14.0-18.0) Hematocrit 56.8 % (42.0-52.0) Mean Corpuscular Volume 94.0 fL (80.0-96.0) Mean Corpuscular Hemoglobin 32.8 pg (26.0-33.0) Mean Corpuscular Hemoglobin Concent 34.9 g/dL (32.0-36.0) Red Cell Distribution Width 13.1 % (11.5-14.5) Platelet Count 286 K/uL (150-450) Mean Platelet Volume 8.2 fL (7.2-11.1) Neutrophils (%) (Auto) 69.9 % (39.4-72.5) Lymphocytes (%) (Auto) 21.0 % (17.6-49.6) Monocytes (%) (Auto) 5.4 % (4.1-12.4) Eosinophils (%) (Auto) 2.5 % (0.4-6.7) Basophils (%) (Auto) 1.2 % (0.3-1.4) Nucleated RBC Relative Count (auto) 0.0 /100WBC Neutrophils # (Auto) 6.6 K/uL (2.0-7.4) Lymphocytes # (Auto) 2.0 K/uL (1.3-3.6) Monocytes # (Auto) 0.5 K/uL (0.3-1.0) Eosinophils # (Auto) 0.2 K/uL (0.0-0.5) Basophils # (Auto) 0.1 K/uL (0.0-0.1) Nucleated RBC Absolute Count (auto) 0.00 K/uL Glomerular Filtration Rate Calc > 60.0 Calcium Level 10.2 mg/dl (8.4-10.2) Total Bilirubin 0.7 mg/dl (0.2-1.3) Aspartate Amino Transf (AST/SGOT) 61 U/L (0-35) Alanine Aminotransferase (ALT/SGPT) 32 U/L (0-56) Alkaline Phosphatase 90 U/L (0-126) Total Protein 8.0 g/dl (6.3-8.2) Albumin 4.8 g/dl (3.5-5.0) Lipase 42 U/L (23-300) Urine Color Yellow Urine Clarity Slightly-cloudy Urine pH 5.0 pH (4.8-9.5) Urine Specific [place] 1.030 Urine Protein 100 mg/dL (NEGATIVE) Urine Glucose (UA) 500 mg/dL (NEGATIVE) Urine Ketones Trace mg/dL (NEGATIVE) Urine Blood Moderate (NEGATIVE) Urine Nitrite Negative (NEGATIVE) Urine Bilirubin Negative (NEGATIVE) Urine Urobilinogen Negative mg/dL (0.2-1.9) Urine Leukocyte Esterase Negative (NEGATIVE) Urine RBC 20 /HPF (0-2/HPF) Urine WBC 8 /HPF (0-5/HPF) Urine Squamous Epithelial Cells None /LPF (</=FEW) Urine Bacteria Negative /HPF (NONE-FEW) Urine Hyaline Casts Few /LPF (NONE-FEW) Urine Mucus Few /HPF (NONE-FEW) Urine Opiates Screen Negative Urine Barbiturates Screen Negative Ur Tricyclic Antidepressants Screen Negative Urine Phencyclidine Screen Negative Urine Amphetamines Screen Negative Urine Benzodiazepines Screen Negative Urine Cocaine Screen Negative Urine Cannabinoids Screen Negative Toxicology Test 12/05/18 11:10 Urine Opiates Screen Negative Urine Barbiturates Screen Negative Ur Tricyclic Antidepressants Screen Negative Urine Phencyclidine Screen Negative Urine Amphetamines Screen Negative Urine Benzodiazepines Screen Negative Urine Cocaine Screen Negative Urine Cannabinoids Screen Negative Urinalysis Test 12/05/18 11:10 Urine Color Yellow Urine Clarity Slightly-cloudy Urine pH 5.0 pH (4.8-9.5) Urine Specific [place] 1.030 Urine Protein 100 mg/dL (NEGATIVE) Urine Glucose (UA) 500 mg/dL (NEGATIVE) Urine Ketones Trace mg/dL (NEGATIVE) Urine Blood Moderate (NEGATIVE) Urine Nitrite Negative (NEGATIVE) Urine Bilirubin Negative (NEGATIVE) Urine Urobilinogen Negative mg/dL (0.2-1.9) Urine Leukocyte Esterase Negative (NEGATIVE) Urine RBC 20 /HPF (0-2/HPF) Urine WBC 8 /HPF (0-5/HPF) Urine Squamous Epithelial Cells None /LPF (</=FEW) Urine Bacteria Negative /HPF (NONE-FEW) Urine Hyaline Casts Few /LPF (NONE-FEW) Urine Mucus Few /HPF (NONE-FEW) ED Course/Re-evaluation ED Course No DKA, no surgical abdomen. intractable n/v likely secondary to viral illness or undiagnosed slowed gastric emptying from his DM. No acute findings on CT scan. Will be admitted for further care Decision to Disposition Date: Dec 05, 2018 Decision to Disposition Time: 15:23 Depart Departure Latest Vital Signs Vital Signs Date Time Temp Pulse Resp B/P (MAP) Pulse Ox O2 Delivery O2 Flow Rate FiO2 12/05/18 14:00 109 163/105 (124) 94 12/05/18 09:25 96.9 22 Room Air Impression: Primary Impression: Vomiting Condition: Improved Disposition: Admitted from ER Referrals: ESA EMERY MD (PCP) Problem Qualifiers Primary Impression: Vomiting Vomiting type: cyclical vomiting Vomiting Intractability: intractable Nausea presence: with nausea Qualified Codes: G43.A1 - Cyclical vomiting, intractable MARK ANTHONY WOODS MD Dec 05, 2018 09:29
[2018-12-05] MEDS ORDERED: NS(*) 0.9% 1000 ML BAG 1,000 ML IV ONE ×2 (09:30→11:15)
[2018-12-05] MEDS ORDERED: METOCLOPRAMIDE 10 MG/2 ML SDV IVP ONE (10:20)
[2018-12-05 10:35] LABS: PLATELET COUNT, AUTOMATED 286 K/uL (150-450)
[2018-12-05] MEDS ORDERED: LORazepam 2 MG/ML VIAL IVP ONE ×2 (10:45→15:20)
--- NOTE | 2018-12-05 11:26 | RADIOLOGY IMAGING REPORT ---
FACILITY: [facility] PATIENT NAME: Terrence Carson : 1985 MR: [id number] V: [id number] EXAM DATE: ORDERING PHYSICIAN: MARK ANTHONY WOODS TECHNOLOGIST: Location: [facility] - [place] Patient: Terrence Carson : 1985 Visit/Account:[id number] Date of Sevice: 12/05/2018 Abdominal series with single view of the chest: 12/05/2018 10:16 AM HISTORY: abdominal pain COMPARISON: 06/16/2018 FINDINGS: Bowel gas pattern is unremarkable, without significant distention. No visible calculus. Soft tissue contours are unremarkable. Bony structures are intact. Cardiomediastinal contours are normal. No pulmonary nodule, infiltrate, or consolidation. Pleural sp aces are clear. Bony thorax is intact. IMPRESSION: 1. Nonspecific bowel gas pattern. 2. No acute cardiopulmonary process. Report Dictated By: Esteban Mejia MD at 12/05/2018 11:19 AM Report E-Signed By: Esteban Mejia MD at 12/05/2018 11:21 AM WSN:[email or web address]
[2018-12-05] MEDS ORDERED: ONDANSETRON 4 MG/2 ML VIAL IVP ONE ×2 (12:05→13:30)
[2018-12-05] MEDS ORDERED: IOPAMIDOL 76% 100 ML INFUS BTL 100 ML ONE (13:55)
--- NOTE | 2018-12-05 14:46 | RADIOLOGY IMAGING REPORT ---
FACILITY: [facility] - [place] PATIENT NAME: Terrence Carson : 1985 MR: [id number] V: [id number] EXAM DATE: ORDERING PHYSICIAN: MARK ANTHONY WOODS TECHNOLOGIST: Location: [facility] Patient: Terrence Carson : 1985 Visit/Account:[id number] Date of Sevice: 12/05/2018 EXAMINATION: CT abdomen and pelvis with IV contrast HISTORY: Intractable vomiting. Diffuse abdominal pain. TECHNIQUE: Axial CT images of the abdomen and pelvis were obtained with IV contrast, with coronal a nd sagittal 2D reconstructed images. One of the following dose optimization techniques was utilized in the performance of this exam: Autom ated exposure control; adjustment of the mA and/or kV according to the patient's size; or use of an i terative reconstruction technique. Specific details can be referenced in the facility's radiology C T exam operational policy. Contrast: 75 mL of IV [id number]. COMPARISON: 02/08/2018. FINDINGS: Liver: Negative. Gallbladder and bile ducts: Cholecystectomy. No bile duct dilatation. Spleen: Negative. Pancreas: Negative. Adrenal glands: Negative. Kidneys: Negative. No hydronephrosis or urinary calculi. Bowel and peritoneum: The small bowel and colon are normal in caliber. No bowel obstruction. The col on is decompressed with minimal colonic stool. There is suggestion of mild diffuse wall thickening of the colon. This may be artifactual and related to the decompressed nature of the colon or could rela te to a mild generalized colitis. Small bowel loops are unremarkable by CT. The appendix is surgicall y absent. No free fluid or free intraperitoneal air. Pelvic structures: Negative. Lymph node assessment: Negative. Vessels: Negative. Musculoskeletal: Negative. Body wall: Negative. Lung bases: Negative. IMPRESSION: 1. Equivocal mild diffuse colonic wall thickening. This may be artifactual related to the decompresse d nature of the colon or could relate to mild generalized colitis. 2. No other acute intra-abdominal findings. 3. Prior cholecystectomy and appendectomy. Report Dictated By: Prabhakar Davila MD at 12/05/2018 2:35 PM Report E-Signed By: Prabhakar Davila MD at 12/05/2018 2:41 PM [id number]
[2018-12-05 16:28] VITALS: BP 136/106
[2018-12-05] MEDS ORDERED: METOCLOPRAMIDE 10 MG TAB PO PRN (18:20)
[2018-12-05] MEDS ORDERED: FLUSH 10 ML SYR IVP PRN (18:20)
[2018-12-05] MEDS: ACETAMINOPHEN(*)1000 MG/100 ML 100 ML IVPB PRN (18:46)
[2018-12-05] MEDS: NS(*) 0.9% 1000 ML BAG 1,000 ML IV PRN (18:46)
[2018-12-05] MEDS: ONDANSETRON 4 MG/2 ML VIAL IVP PRN (18:47)
--- NOTE | 2018-12-05 19:44 | History & Physical ---
History of Present Illness Chief Complaint n/v History of Present Illness 33M presented with intractable nausea and vomiting. PMHx significant for DM type I, marijuana abuse, marijuana hyperemesis syndrome. Reports still suing 1g daily to floor staff on admission. Been having nausea and vomiting for 2-3 days. Denies any relieving or exacerbating factors. Minimal relief from antiemetics. Admitted for IV hydration, electrolyte management, symptomatic treatment. History Problems: (1) Nausea & vomiting Status: Chronic (2) Cannabis abuse Status: Chronic (3) Cyclical vomiting Status: Chronic (4) Type I diabetes mellitus Status: Chronic Home Meds Active Scripts Flash Glucose Sensor (Freestyle Felicity 14 Day Sensor) 1 Each Kit, UNIT Q2WK, #2 11 Refills Prov:ESA EMERY MD 11/04/18 Flash Glucose Scanning [place] (Freestyle Felicity 14 Day [place]) 1 Each Each, UNIT TD DIRECTED, #1 Prov:ESA EMERY MD 11/04/18 Insulin Glargine 100 Un/Ml Pen (LANTUS SOLOSTAR PEN) 100 Unit/1 Ml Insuln.pen, 34 UNIT SUBQ QDAY, #5 BOX 1 Refill Prov:ESA EMERY MD 10/02/18 Lisinopril (LISINOPRIL) 5 Mg Tablet, 5 MG PO QDAY, #30 TAB 6 Refills Prov:ESA EMERY MD 09/18/18 Dicyclomine Hcl (DICYCLOMINE HCL) 20 Mg Tablet, 20 MG PO QID for abdominal cramping, #20 TAB 0 Refills Prov:ELIZABETH LEYVA MD 06/16/18 Metoclopramide Hcl (REGLAN) 10 Mg Tablet, 10 MG PO Q6H for Nausea, #20 TAB 0 Refills Prov:ELIZABETH LEYVA MD 06/16/18 Pantoprazole Sodium (PANTOPRAZOLE SODIUM) 40 Mg Tablet.dr, 1 TAB PO BIDAC, #60 TAB.SR 3 Refills Don't eat for at least 2 hours before or 30 minutes after taking Prov:BRANDY YATES MD 12/12/17 Metoclopramide Hcl (METOCLOPRAMIDE HCL) 10 Mg Tablet, 10 MG PO QID PRN for NAUSEA/VOMITING, #40 TAB 0 Refills Prov:GALE KLEIN DNP, TRAINING PROGRAM DEVELOPER-BC 10/16/17 Reported Medications Gabapentin (GABAPENTIN) 300 Mg Capsule, 2 TAB PO BID, CAPSULE 02/04/18 Insulin Lispro 100 Un/Ml Vial (HUMALOG 100 U/ML VIAL) 100 Unit/1 Ml Vial, 0 SQ PRN for SLIDING SCALE INSULIN, VIAL takes Humalog Insulin at Home as per SS 10/02/17 Discontinued Scripts Meloxicam (MELOXICAM) 15 Mg Tablet, 15 MG PO QDAY PRN for pain, #30 TAB 3 Refills Prov:ESA EMERY MD 09/18/18 Allergies: Coded Allergies: hydrocodone (Verified Allergy, Unknown, 12/05/18) oxycodone (Verified Allergy, Unknown, 12/05/18) Uncoded Allergies: beestings (Adverse Reaction, Unknown, 08/11/17) Patient History: CVA FATHER (STROKE), , Age:55 Diabetes mellitus type II FATHER (STROKE), , Age:55 MOTHER Hx Smoking: Yes Smoking Status: Current: Every Day Smoker Exposure to Second Hand Smoke?: No Caffeine Intake: Coffee Caffeine/Cups Per Day: 3-4 Hx Alcohol Use: No Alcohol Used: Beer When Quit Alcohol?: 3 years ago Hx Substance Use Disorder: Yes Social Drug Use: Currently Social Drugs: Marijuana Amount Of Social Drug/s Used: 1-2 grams daily History of IV Drug Use: No Review of Systems All Systems Reviewed/Normal: Yes, Except as Noted Gastrointestinal: Nausea, Vomiting, Abdominal Pain Exam Vital Signs Vital Signs Date Time Temp Pulse Resp B/P (MAP) Pulse Ox O2 Delivery O2 Flow Rate FiO2 12/05/18 16:45 97 12/05/18 16:30 Room Air 12/05/18 16:28 97.8 98 20 136/106 (116) 12/05/18 15:20 1.0 General Appearance: Alert, Awake, Afebrile Neuro: No Gross deficits Cardiovascular: Normal Rhythm & Peripheral Pulses Respiratory: No Respiratory Distress GI: Other (diffusely tender, voluntary guarding) Extremities: Soft and Non Tender, Pulses, Perfused Medical Decision Making Data Points Result Diagram: 12/05/18 0944 12/05/18 0944 Assessment and Plan Problems: (1) Nausea & vomiting Status: Chronic Assessment & Plan: Likely related to ongoing marijuana use. CT and XR of abdomen did not show any specific pathology, though some questionable trans colonic thickening vs normal decompressed appearance noted. Afebrile, no diarrhea, no WBC elevation. PRN metoclopramide and ondansetron. IV NS for h ydration. Monitor electrolyte status. 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 Likely cause of nausea and vomiting. (3) Type I diabetes mellitus Status: Chronic Assessment & Plan: Accuchecks achs, decrease basal insulin form 34U to 10U daily. SSI level 2. Venous Thromboembolism Antithrombotics Is Pt On Any Antithrombotics?: Yes Exam Sepsis Risk: No Definite Risk PALOMINO AQUILES MARRUFO DO Dec 05, 2018 19:44
[2018-12-05 21:47] VITALS: BP 136/91
[2018-12-05 23:18] VITALS: BP 123/73
[2018-12-05] MEDS: METOCLOPRAMIDE 10 MG/2 ML SDV IVP PRN (23:21)
[2018-12-06] MEDS: diphenhydrAMINE 50 MG/ML VIAL IVP PRN (01:57)
[2018-12-06 03:09] VITALS: BP 99/71
[2018-12-06 06:08] LABS: PLATELET COUNT, AUTOMATED 263 K/uL (150-450)
[2018-12-06] MEDS: NS(*) 0.9% 1000 ML BAG 1,000 ML IV PRN (06:24)
[2018-12-06 06:44] VITALS: BP 97/62
[2018-12-06] MEDS ORDERED: DEXTROSE 50% 50 ML SYR IVP ONE (06:50)
[2018-12-06] MEDS: D5 1/2 NS(*) 1000 ML BAG 1,000 ML IV PRN ×2 (07:23→18:24)
[2018-12-06 08:24] VITALS: Ht 172.7 cm; Wt 59.4 kg
[2018-12-06] MEDS: ENOXAPARIN 40 MG/0.4ML SYR SC SCH (08:28)
[2018-12-06] MEDS ORDERED: KCL (*) 20 MEQ/100 ML PREMIX 100 ML IV ONE (08:45)
--- NOTE | 2018-12-06 08:48 | Medical Nutrition Therapy ---
Nutrition Anthropometrics Height (Inches): 68.00 Height (Calculated Centimeters: 172.871773 Weight (Pounds): 131 Weight (Calculated Kilograms): 59.562 BMI: 19.9 Karl Nutrition Score: Probably Inadequate Karl Nutrition Risk Score: 19 Dietary Referral Nutrition Risk Factors: Nutrition Risk Comment: Physical Findings Physical Appearance: Underweight BMI<19 Skin Appearance Skin Appearance: Edema Edema Location Modifier: Edema Location: Type of Edema: Degree of Edema: Gastrointestinal Symptoms GI Symtoms: Nausea, Vomiting Tube Present: Bowel Sounds: Recent Bowel Pattern: Stool Characteristics: Nutritional Diagnosis Nutritional Risk Acuity 1: %IBW < 74% Nutritional Risk Acuity 2: V/D > 3 Days Nutritional Risk Acuity 3: Substance abuse Past Medical History: gastroparesis, neuropathy, type 1 DM, DKA 12/06: DMT1, N/V, cannabis abuse,cyclical vomitting. Nutritional Acuity: 2-Moderate Nutrition Diagnosis: Inadequate Food Intake Nutrition Etiology: Physiological Causes Nutrition Problem/Etiology/Sym: Inadequate food intake related to physiological causes as evidenced by nausea/vomitting for 3 days, DMT1 with low WBG (52), and BMI of 19.9. Energy Requirement: 1970 (MSJ, 1.3 AF) Protein Requirement: 59 (1 g AA/kg of BW) Fluid Requirement: 1970 (1 mL/kcal) Diet Type: Diet as Tolerated GAETANO/REG Nutrition Intervention: Cont diet as ordered, Encourage intake Nutrition Monitoring & Eval Nutrition Goals: Eat 50-100% Meal RD Patient Assessment Time: [address] Assessment Type: RD Assessment Patient Nutrition Acuity: 2-Moderate Follow Up Date: Dec 09, 2018 Nutritional Comment: 12/06: Pt admitted for nausea/vomiting 3 days, marijuana abuse, and DMT1. Pt hx of DMT1, n/v, cannabis abuse, cyclical vomit. Pt has some missing teeth. Pt currently on a GAETANO diet with no recorded intake, and decreased WBG (52). -THIAGO VALENTIN Dec 06, 2018 08:33
[2018-12-06] MEDS ORDERED: INSULIN GLARGINE 100 U/ML 3 ML PEN SUBQ SCH (09:00)
[2018-12-06] MEDS: ACETAMINOPHEN(*)1000 MG/100 ML 100 ML IVPB PRN ×3 (10:08→22:25)
[2018-12-06] MEDS: ONDANSETRON 4 MG/2 ML VIAL IVP PRN ×3 (10:08→20:28)
--- NOTE | 2018-12-06 11:10 | Hospitalist Progress Note ---
Subjective Progress Notes Subjective He was admitted with intractable vomiting. He has complaints of nausea, but has not vomited since admission. He had an episode of hypoglycemia this morning. He was given an amp of D50. He is still not eating well. Patient Complains of: Cardiovascular: No: Chest Pain Respiratory: No: Shortness of Breath Gastrointestinal: Nausea Physical Exam Vital Signs Date Time Temp Pulse Resp B/P (MAP) Pulse Ox O2 Delivery O2 Flow Rate FiO2 12/06/18 07:30 96 Room Air 12/06/18 06:44 97.9 60 12 97/62 (74) 12/05/18 21:00 1.0 Intake and Output 12/06/18 06:59 Intake Total 3377 ml Output Total 1725 ml Balance 1652 ml Intake Oral 400 ml IV Total 2977 ml Output Emesis 1725 ml # Voids 1 # Emeses 5 General Appearance: Alert, Awake, No Acute Distress, Afebrile Neuro: No Gross deficits Cardiovascular: Regular Rate and Rhythm Respiratory: No Respiratory Distress, Clear to Auscultation GI: Soft and Non-Tender Extremities: Warm, Perfused Psych: Alert & Oriented X3, Appropriate Mood & Affect Result Diagram: 12/06/18 0550 12/06/18 0550 Assessment and Plan Problems: (1) Nausea & vomiting Status: Chronic Assessment & Plan: Likely related to ongoing marijuana use. CT and XR of abdomen did not show any specific pathology, though some questionable trans colonic thickening vs normal decompressed appearance noted. Afebrile, no diarrhea, no WBC elevation. PRN metoclopramide and ondansetron. IV NS for hy dration. Monitor electrolyte status. 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 Likely cause of nausea and vomiting. (3) Type I diabetes mellitus Status: Chronic Assessment & Plan: Accuchecks AC/HS, decrease basal insulin form 34U to 10U daily. SSI level 2. He was placed on D5 1/2NS 12/06, secondary to decreased blood sugars. Lantus held 12/06. Will cover with sliding scale if needed. (4) Hypokalemia Status: Acute Assessment & Plan: Potassium 3.3. Will give IV supplement. Continue to monitor. Exam Sepsis Risk: No Definite Risk CARSON BOLAND Dec 06, 2018 11:10
[2018-12-06 15:22] VITALS: BP 153/102
[2018-12-06] MEDS: METOCLOPRAMIDE 10 MG/2 ML SDV IVP PRN (16:10)
[2018-12-06] MEDS: INSULIN HUM LISPRO 100 UN/ML 3 ML VIAL SUBQ PRN (17:12)
[2018-12-06 20:17] VITALS: BP 124/90
[2018-12-06] MEDS ORDERED: KETOROLAC 15 MG/ML VIAL IVP ONE (21:30)
[2018-12-06] MEDS: PROMETHAZINE 25 MG/ML 1 ML AMP IVP PRN (22:26)
[2018-12-07] MEDS: INSULIN HUM LISPRO 100 UN/ML 3 ML VIAL SUBQ PRN ×5 (00:19→20:18)
[2018-12-07 00:21] VITALS: BP 90/56
[2018-12-07] MEDS: PROMETHAZINE 25 MG/ML 1 ML AMP IVP PRN ×3 (04:27→17:28)
[2018-12-07] MEDS: D5 1/2 NS(*) 1000 ML BAG 1,000 ML IV PRN ×2 (04:28→16:07)
[2018-12-07] MEDS: ACETAMINOPHEN(*)1000 MG/100 ML 100 ML IVPB PRN ×3 (05:09→17:52)
[2018-12-07] MEDS: ONDANSETRON 4 MG/2 ML VIAL IVP PRN (05:37)
[2018-12-07] MEDS ORDERED: KETOROLAC 15 MG/ML VIAL IVP ONE (07:05)
--- NOTE | 2018-12-07 07:46 | Hospitalist Progress Note ---
Subjective Progress Notes Subjective Still c/o nausea and upper abdominal pain which is constant. Occasional dry heave but no vomiting per se. Phenergan does help some as did torodol. No BM but some flatus. He has seen Gastroenterology in remote past but has not been on domperidone in past. Advised to consider re- visiting with GI in near future. Physical Exam Vital Signs Date Time Temp Pulse Resp B/P (MAP) Pulse Ox O2 Delivery O2 Flow Rate FiO2 12/07/18 00:30 91 Room Air 12/07/18 00:21 98.2 85 16 90/56 (67) 12/05/18 21:00 1.0 Intake and Output 12/07/18 06:59 Intake Total 1600 ml Balance 1600 ml Intake Oral 300 ml IV Total 1300 ml # Voids 1 # Emeses 2 General Appearance: Alert, Awake, Afebrile, Other (Appears uncomfortable and twisting and turning in bed.) Cardiovascular: Regular Rate and Rhythm Respiratory: Clear to Auscultation GI: Other (BS are present. Moderately tender epigastric area. No distension. No organomegaly or masses. No CVA tenderness.) Extremities: Soft and Non Tender Psych: Alert & Oriented X3, Appropriate Mood & Affect Result Diagram: 12/06/18 0550 12/07/18 0643 Assessment and Plan Problems: (1) Nausea & vomiting Status: Chronic Assessment & Plan: Likely related to ongoing marijuana use. CT and XR of abdomen did not show any specific pathology, though some questionable trans colo anamika thickening vs normal decompressed appearance noted. Afebrile, no diarrhea, no WBC elevation. Metoclopramide and ondansetron do not seem to work well so will use phenergan prn and torodol IV for pain control. NS for hydration. Lytes and renal function are good. Again, recommended that he see GI JOHN for possible medication change. 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 Likely cause of nausea and vomiting. (3) Type I diabetes mellitus Status: Chronic Assessment & Plan: Accuchecks AC/HS, decrease basal insulin form 34U to 10U daily. SSI level 2. He was placed on D5 1/2NS 12/06, secondary to decreased blood sugars. Lantus held 12/06. Will cover with sliding scale if needed. (4) Hypokalemia Status: Resolved Assessment & Plan: Potassium was 3.3. Given IV replacement with level of 3.9 this morning. Continue to monitor. Time Spent on Plan of Care: > 30 min Exam Sepsis Risk: No Definite Risk ROSANNE CULP MD FACP Dec 07, 2018 07:46
[2018-12-07 07:52] VITALS: BP 151/102
[2018-12-07] MEDS: ENOXAPARIN 40 MG/0.4ML SYR SC SCH (10:10)
[2018-12-07 11:32] VITALS: BP 138/81
[2018-12-07] MEDS: KETOROLAC 15 MG/ML VIAL IVP PRN (14:11)
[2018-12-07 15:34] VITALS: BP 133/73
[2018-12-07] MEDS: PANTOPRAZOLE SOD 40 MG IV VIAL IVP SCH ×2 (16:01→20:17)
[2018-12-07] MEDS ORDERED: INFLUENZA VIRUS VAC 0.5ML SYR IM ONLY ONE (18:20)
[2018-12-07 18:48] VITALS: BP 107/83
[2018-12-07] MEDS: diphenhydrAMINE 50 MG/ML VIAL IVP PRN (20:17)
[2018-12-07 23:10] VITALS: BP 126/79
[2018-12-08] MEDS: ACETAMINOPHEN(*)1000 MG/100 ML 100 ML IVPB PRN (00:41)
[2018-12-08] MEDS: KETOROLAC 15 MG/ML VIAL IVP PRN ×4 (00:41→22:18)
[2018-12-08] MEDS: PROMETHAZINE 25 MG/ML 1 ML AMP IVP PRN ×2 (00:44→09:18)
[2018-12-08 04:28] VITALS: BP 137/88
[2018-12-08] MEDS: diphenhydrAMINE 50 MG/ML VIAL IVP PRN (04:37)
[2018-12-08] MEDS: D5 1/2 NS(*) 1000 ML BAG 1,000 ML IV PRN ×2 (04:38→14:26)
[2018-12-08 07:26] VITALS: BP 147/92
--- NOTE | 2018-12-08 08:02 | Hospitalist Progress Note ---
Subjective Progress Notes Subjective Better this morning with less nausea and pain but certainly not resolved. Able to tolerate some liquids overnight. Torodol is still working for pain reasonably well. Had a liquid stool during he night. Physical Exam Vital Signs Date Time Temp Pulse Resp B/P (MAP) Pulse Ox O2 Delivery O2 Flow Rate FiO2 12/08/18 07:26 97.9 110 16 147/92 (110) 96 Room Air 12/05/18 21:00 1.0 Intake and Output 12/08/18 06:59 Intake Total 1490 ml Balance 1490 ml Intake Oral 300 ml IV Total 1190 ml # Voids 3 # Emeses 2 General Appearance: Alert, Awake, No Acute Distress, Afebrile GI: Other (BS are active. Flat. No organomegaly of masses. Still very tender in the epigastric area. ) Psych: Alert & Oriented X3, Appropriate Mood & Affect Result Diagram: 12/06/18 0550 12/08/18 0510 Item Value Date Time Calcium Level 9.0 mg/dl 12/08/18 0510 Total Bilirubin 1.6 mg/dl H 12/08/18 0510 Aspartate Amino Transf (AST/SGOT) 26 U/L 12/08/18 0510 Total Protein 6.3 g/dl 12/08/18 0510 Alkaline Phosphatase 77 U/L 12/08/18 0510 Alanine Aminotransferase (ALT/SGPT) 46 U/L 12/08/18 0510 Albumin 4.1 g/dl 12/08/18 0510 Lipase 46 U/L 12/08/18 0510 Assessment and Plan Problems: (1) Nausea & vomiting Status: Chronic Assessment & Plan: Likely related to ongoing marijuana use and possibly diabetic gastroparesis. CT and XR of abdomen did not show any specific pathology, though some questionable trans colonic thickening vs normal decompressed appearance noted. Afebrile, no diarrhea, no WBC elevation. Metoclopramide and ondansetron do not seem to work well but phenergan is much better and torodol IV for pain control works reasonable well. NS for hydration. Lytes and renal function are good. Again, recommended that he see GI JOHN for evaluation and possible Rx for domperidone. Will try clear liquids and soft diet this morning and if not tolerating will need to consider PPN and lipids. 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 Likely cause of nausea and vomiting. (3) Type I diabetes mellitus Status: Chronic Assessment & Plan: Glucose levels are increasing so will resume the lantus insulin at 10 units a day subcut and continue with sliding scale if needed. (4) Hypokalemia Status: Resolved Assessment & Plan: Potassium was 3.3. Given IV replacement with level of 3.9 this morning. Continue to monitor. Time Spent on Plan of Care: > 30 min Exam Sepsis Risk: No Definite Risk ROSANNE CULP MD FACP Dec 08, 2018 08:02
[2018-12-08] MEDS: ENOXAPARIN 40 MG/0.4ML SYR SC SCH (09:19)
[2018-12-08] MEDS: PANTOPRAZOLE SOD 40 MG IV VIAL IVP SCH ×2 (09:20→20:44)
[2018-12-08] MEDS: INSULIN HUM LISPRO 100 UN/ML 3 ML VIAL SUBQ PRN ×4 (09:33→20:49)
[2018-12-08 12:25] VITALS: BP 123/82
[2018-12-08 18:48] VITALS: BP 139/94
[2018-12-08 23:02] VITALS: BP 118/82
[2018-12-09] MEDS: PANTOPRAZOLE SOD 40 MG IV VIAL IVP SCH (08:35)
[2018-12-09] MEDS: ENOXAPARIN 40 MG/0.4ML SYR SC SCH (08:38)
[2018-12-09] MEDS: PROMETHAZINE 25 MG/ML 1 ML AMP IVP PRN (08:40)
[2018-12-09 08:42] VITALS: BP 165/100
[2018-12-09] MEDS ORDERED: INSULIN GLARGINE 100 U/ML 3 ML PEN SUBQ SCH (09:00)
[2018-12-09] MEDS ORDERED: PROM-110 PO (09:25)
--- NOTE | 2018-12-09 09:31 | Hospitalist Depart ---
Discharge Summary Reason for Hosp/Final Diag: (1) Nausea & vomiting Status: Chronic Hospital Course & Plan: Likely related to ongoing marijuana use and possibly diabetic gastroparesis. CT and XR of abdomen did not show any specific pathology, though some questionable trans colonic thickening vs normal decompressed appearance noted. Afebrile, no diarrhea, no WBC elevation. Metoclopramide and ondansetron do not seem to work well but phenergan is much better and torodol IV for pain control works reasonable well. NS for hydration. Lytes and renal function are good. Again, recommended that he see GI JOHN for evaluation and possible Rx for domperidone. His diet was advanced and patient was able to tolerate oral intake without difficulty. He will get prescription for oral Phenergan and he will follow up with GI. 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 Likely cause of nausea and vomiting. (3) Type I diabetes mellitus Status: Chronic Hospital Course & Plan: Glucose levels increased throughout admission, will increase Lantus to 30 units today and he will continue with sliding scale if needed at home. (4) Hypokalemia Status: Resolved Hospital Course & Plan: Resolved. Potassium was 3.3 upon admission. Given IV replacement with level of 3.7. Departure Latest Vital Signs Vital Signs 12/05/18 12/09/18 21:00 08:42 Temp 97.7 Pulse 91 Resp 12 B/P (MAP) 165/100 (121) Pulse Ox 98 O2 Delivery Room Air O2 Flow Rate 1.0 Weight (Pounds): 131 Weight (Ounces): 5.0 Result Diagram: 12/06/18 0550 12/08/18 0510 Condition: Improved Discharge: Home, Self Care Discharge Instructions Home Meds Active Scripts Promethazine Hcl (PROMETHAZINE HCL) 25 Mg Tablet, 12.5 MG PO Q8H PRN for NAUSEA, #12 TAB Prov:CARSON BOLAND SUBSORTER 12/09/18 Flash Glucose Sensor (Freestyle Felicity 14 Day Sensor) 1 Each Kit, UNIT Q2WK, #2 11 Refills Prov:ESA EMERY MD 11/04/18 Flash Glucose Scanning [place] (Freestyle Felicity 14 Day [place]) 1 Each Each, UNIT TD DIRECTED, #1 Prov:ESA EMERY MD 11/04/18 Insulin Glargine 100 Un/Ml Pen (LANTUS SOLOSTAR PEN) 100 Unit/1 Ml Insuln.pen, 34 UNIT SUBQ QDAY, #5 BOX 1 Refill Prov:ESA EMERY MD 10/02/18 Lisinopril (LISINOPRIL) 5 Mg Tablet, 5 MG PO QDAY, #30 TAB 6 Refills Prov:ESA EMERY MD 09/18/18 Reported Medications Insulin Lispro 100 Un/Ml Vial (HUMALOG 100 U/ML VIAL) 100 Unit/1 Ml Vial, 0 SQ PRN for SLIDING SCALE INSULIN, VIAL takes Humalog Insulin at Home as per SS 10/02/17 Discontinued Reported Medications Gabapentin (GABAPENTIN) 300 Mg Capsule, 2 TAB PO BID, CAPSULE 02/04/18 Discontinued Scripts Meloxicam (MELOXICAM) 15 Mg Tablet, 15 MG PO QDAY PRN for pain, #30 TAB 3 Re fills Prov:ESA EMERY MD 09/18/18 Dicyclomine Hcl (DICYCLOMINE HCL) 20 Mg Tablet, 20 MG PO QID for abdominal cramping, #20 TAB 0 Refills Prov:ELIZABETH LEYVA MD 06/16/18 Metoclopramide Hcl (REGLAN) 10 Mg Tablet, 10 MG PO Q6H for Nausea, #20 TAB 0 Re fills Prov:ELIZABETH LEYVA MD 06/16/18 Pantoprazole Sodium (PANTOPRAZOLE SODIUM) 40 Mg Tablet.dr, 1 TAB PO BIDAC, #60 TAB.SR 3 Refills Don't eat for at least 2 hours before or 30 minutes after taking Prov:BRANDY AYTES MD 12/12/17 Metoclopramide Hcl (METOCLOPRAMIDE HCL) 10 Mg Tablet, 10 MG PO QID PRN for NAUSEA/VOMITING, #40 TAB 0 Refills Prov:GALE KLEIN DNP, SUBSORTER-BC 10/16/17 Diet: Regular Activity: As Tolerated Special Instructions: Follow up with GI (Dr. Brandon) as soon as possible. Decrease or sustain from marijuana use to decrease vomiting. Use Phenergan as needed for nausea. Copies to: ESA EMERY MD; GERSON BRANDON MD ; Venous Thromboembolism Antithrombotics Is Pt On Any Antithrombotics?: Yes CARSON BOLAND [facility] Dec 09, 2018 09:31
[2018-12-09] MEDS ORDERED: PROMETHAZINE HCL 25 MG TAB PO ONE (10:15)
--- NOTE | 2018-12-09 15:57 | Medical Nutrition Therapy ---
Nutrition Anthropometrics Height (Inches): 68.00 Height (Calculated Centimeters: 172.166707 Weight (Pounds): 131 Weight (Calculated Kilograms): 59.562 BMI: 19.9 Karl Nutrition Score: Adequate Karl Nutrition Risk Score: 21 Dietary Referral Nutrition Risk Factors: Nutrition Risk Comment: Physical Findings Physical Appearance: Underweight BMI<19 Skin Appearance Skin Appearance: Edema Edema Location Modifier: Edema Location: Type of Edema: Degree of Edema: Gastrointestinal Symptoms GI Symtoms: Nausea Tube Present: Bowel Sounds: Recent Bowel Pattern: Stool Characteristics: Nutritional Diagnosis Nutritional Risk Acuity 1: %IBW < 74% Nutritional Risk Acuity 2: V/D > 3 Days Nutritional Risk Acuity 3: Substance abuse Past Medical History: gastroparesis, neuropathy, type 1 DM, DKA 12/06: DMT1, N/V, cannabis abuse,cyclical vomitting. Nutritional Acuity: 2-Moderate Nutrition Diagnosis: Inadequate Food Intake Nutrition Etiology: Physiological Causes Nutrition Problem/Etiology/Sym: Inadequate food intake related to physiological causes as evidenced by nausea/vomitting for 3 days, DMT1 with low WBG (52), and BMI of 19.9. Energy Requirement: 1970 (MSJ, 1.3 AF) Protein Requirement: 59 (1 g AA/kg of BW) Fluid Requirement: 1970 (1 mL/kcal) Diet Type: Diet as Tolerated GAETANO/REG Nutrition Intervention: Cont diet as ordered, Encourage intake Nutrition Monitoring & Eval Nutrition Goals: Eat 50-100% Meal Nutrition Follow-Up: Fair Intake Nutrition Monitorin/11: Pt consuming 50-100% of small (200mL) food. -SHERIF RD Patient Assessment Time: [address] Assessment Type: RD Re-Assessment Patient Nutrition Acuity: 2-Moderate Follow Up Date: Dec 10, 2018 Nutritional Comment: 12/06: Pt admitted for nausea/vomiting 3 days, marijuana abuse, and DMT1. Pt hx of DMT1, n/v, cannabis abuse, cyclical vomit. Pt has some missing teeth. Pt currently on a GAETANO diet with no recorded intake, and decreased WBG (52). -SHERIF 12/09: Pt is experiencing less nausea and pain, but not resolved. Pt was able to tolerate some liquids overnight and had a liquid stool. Pt has elevated WBG (299) and is consuming 50-100% of small (200mL) GAETANO meals. Monitor for progress. -THIAGO VALENTIN 11, 2019 08:17
== END 2018-12-09 10:35 | disposition home or self-care (01) | DRG 918 ==
LOC: ER 09:37 → MED 15:38
PROVIDERS: ADMIT Internal Medicine; ATTEND Internal Medicine
DX: T40.7X1A Poisoning by cannabis (derivatives), accidental (unintentional), initial encounter (principal); E10.43 Type 1 diabetes mellitus with diabetic autonomic (poly)neuropathy; E87.6 Hypokalemia; F17.210 Nicotine dependence, cigarettes, uncomplicated; E10.649 Type 1 diabetes mellitus with hypoglycemia without coma; Z88.5 Allergy status to narcotic agent; Z79.4 Long term (current) use of insulin; K31.84 Gastroparesis; F12.10 Cannabis abuse, uncomplicated; R11.2 Nausea with vomiting, unspecified
CPT/HCPCS: 36415; 36416; 74022; 74177; 80305; 81001; 82040; 82247; 82310; 82374; 82435; 82565; 82947; 82948; 83690; 83735; 84075; 84132; 84155; 84295; 84450; 84460; 84520; 85025; 96360; 96361; 99284; C9113; J0131; J1200; J1650; J1815; J1885; J2060; J2405; J2550; J2765; J3480; J7030; J8597; Q0169; Q9967

== ENCOUNTER 2018-12-09 18:46 | Emergency (ER) | payer MEDICARE, MEDICAID ==
[2018-12-06 08:24] VITALS: Wt 59.6 kg
--- NOTE | 2018-12-09 20:33 | ER Report ---
History and Physical Time Seen By : 20:33 Hx. of Stated Complaint: DISCHARGED AT NOON TODAY, UNABLE TO KEEP PROMETHAZINE DOWN HPI/ROS CHIEF COMPLAINT: intractable vomiting. HISTORY OF PRESENT ILLNESS: This is a 33-year-old male. He has a history of chronic vomiting, in the ER often for cyclic vomiting intractable vomiting. Uncertain if this is due to diabetic gastroparesis or if this is due to ongoing marijuana use. He states he has not used marijuana in a couple weeks now. He was admitted to the hospital here at [facility] for 5 day hospitalization. Discharged home this morning. As soon as he went home had ongoing vomiting throughout the day unable to keep anything down. Becoming very weak and breathing is rapid. Blood sugars also high. He is worried about the possibility of his diabetes flaring up again. He is having diffuse abdominal pain but nothing focal. Denies any fevers but has had some chills. Has been having normal bowel movements. Has not urinated very much today. Allergies: Coded Allergies: hydrocodone (Verified Allergy, Unknown, 12/09/18) oxycodone (Verified Allergy, Unknown, 12/09/18) Uncoded Allergies: beestings (Adverse Reaction, Unknown, 08/11/17) Home Meds Active Scripts Promethazine Hcl (PROMETHAZINE HCL) 25 Mg Tablet, 12.5 MG PO Q8H PRN for NAUSEA, #12 TAB Prov:CARSON BOLAND 12/09/18 Flash Glucose Sensor (Freestyle Felicity 14 Day Sensor) 1 Each Kit, UNIT Q2WK, #2 11 Refills Prov:ESA EMERY MD 11/04/18 Flash Glucose Scanning Brule (Freestyle Felicity 14 Day Brule) 1 Each Each, UNIT TD DIRECTED, #1 Prov:ESA EMERY MD 11/04/18 Insulin Glargine 100 Un/Ml Pen (LANTUS SOLOSTAR PEN) 100 Unit/1 Ml Insuln.pen, 34 UNIT SUBQ QDAY, #5 BOX 1 Refill Prov:ESA EMERY MD 10/02/18 Lisinopril (LISINOPRIL) 5 Mg Tablet, 5 MG PO QDAY, #30 TAB 6 Refills Prov:ESA EMERY MD 09/18/18 Reported Medications Insulin Lispro 100 Un/Ml Vial (HUMALOG 100 U/ML VIAL) 100 Unit/1 Ml Vial, 0 SQ PRN for SLIDING SCALE INSULIN, VIAL takes Humalog Insulin at Home as per SS 10/02/17 Discontinued Reported Medications Gabapentin (GABAPENTIN) 300 Mg Capsule, 2 TAB PO BID, CAPSULE 02/04/18 Discontinued Scripts Meloxicam (MELOXICAM) 15 Mg Tablet, 15 MG PO QDAY PRN for pain, #30 TAB 3 Refills Prov:ESA EMERY MD 09/18/18 Dicyclomine Hcl (DICYCLOMINE HCL) 20 Mg Tablet, 20 MG PO QID for abdominal cramping, #20 TAB 0 Refills Prov:ELIZABETH LEYVA MD 06/16/18 Metoclopramide Hcl (REGLAN) 10 Mg Tablet, 10 MG PO Q6H for Nausea, #20 TAB 0 Refills Prov:ELIZABETH LEYVA MD 06/16/18 Pantoprazole Sodium (PANTOPRAZOLE SODIUM) 40 Mg Tablet.dr, 1 TAB PO BIDAC, #60 TAB.SR 3 Refills Don't eat for at least 2 hours before or 30 minutes after taking Prov:BRANDY YATES MD 12/12/17 Metoclopramide Hcl (METOCLOPRAMIDE HCL) 10 Mg Tablet, 10 MG PO QID PRN for NAUSEA/VOMITING, #40 TAB 0 Refills Prov:GALE KLEIN DNP, ATHLET[employer] CUSTODIAN-BC 10/16/17 Reviewed Nurses Notes: Yes Hx Smoking: Yes Smoking Status: Current: Every Day Smoker Exposure to Second Hand Smoke?: No Hx Substance Use Disorder: Yes (POT) Hx Alcohol Use: No Constitutional Vital Sign - Last 24 Hours 12/09/18 12/09/18 12/09/18 12/09/18 19:10 20:21 20:30 20:37 Temp 97.8 Pulse 126 117 Resp 18 B/P (MAP) 157/86 139/86 (103) Pulse Ox 95 97 O2 Delivery Room Air 12/09/18 12/09/18 12/09/18 12/09/18 20:45 21:00 21:15 21:30 Pulse 115 116 115 114 B/P (MAP) 128/75 (92) 111/54 (73) Pulse Ox 97 95 97 96 12/09/18 12/09/18 12/09/18 12/09/18 21:45 22:00 22:15 23:00 Pulse 110 113 119 125 B/P (MAP) 104/53 (70) 137/79 (98) Pulse Ox 95 94 96 96 12/09/18 12/10/18 12/10/18 12/10/18 23:15 00:01 00:15 00:30 Temp 98.4 Pulse 121 124 116 B/P (MAP) 120/58 (78) Pulse Ox 96 96 96 12/10/18 12/10/18 12/10/18 00:45 01:00 01:30 Pulse 114 114 B/P (MAP) 116/63 (80) 121/65 (83) Pulse Ox 96 97 Intake and Output 12/09/18 12/09/18 12/10/18 15:00 23:00 07:00 Intake Total 1100 ml 104 ml Balance 1100 ml 104 ml Physical Exam General Appearance: The patient is alert. Acute distress because of the vomiting. He is ill-appearing. Eyes: Pupils are equal, round. No pallor, injection or icterus. ENT: Mucous membranes are very dry. Poor dentition. Otherwise normal oral mucosa without erythema. Normal posterior oropharynx. Neck: Supple and non tender. Respiratory: He does have rapid breathing with the acetone order. There are no retractions or accessory muscle use. Cardiovascular: Tachycardia but regular rhythm. No murmurs, gallops or rubs. Normal capillary refill. No edema. Gastrointestinal: Abdomen is soft, diffuse discomfort but no focal tenderness. Nondistended. Normal active bowel sounds. No costovertebral angle tenderness with percussion. Neurological: Alert and oriented x3. No focal neurologic deficits, generalized weakness present. Skin: Warm and dry. No rashes. Musculoskeletal: Extremities are nontender. No tenderness in palpation of the back and spine. DIFFERENTIAL DIAGNOSIS: After history and physical exam, differential diagnosis was considered for patient with ongoing intractable vomiting, also concern for blood sugar being elevated, based on his acetone smelling breath I suspect he has diabetic ketoacidosis at this time. Medical Decision Making Data Points Result Diagram: 12/09/18202412/09/182024 Laboratory Hematology Test 12/09/18 00:00 12/09/18 20:25 12/10/18 00:44 Blood Gas Puncture Site Right radial Blood Gas Patient Temperature 98.4 DEGREES Arterial Blood pH 7.17 (7.35-7.45) Arterial Blood Partial Pressure CO2 < 25 mmHg (32-37) Arterial Blood Partial Pressure O2 97 mmHg (60-80) Arterial Blood HCO3 4 mmol/L (20-26) Arterial Blood Oxygen Saturation 96 % (92-100) Arterial Blood Base Excess -25.0 mmol/L Boy Test Acceptable Oxygen Liters/Minute Room air Red Blood Count 5.64 M/uL (4.00-5.60) Mean Corpuscular Volume 97.0 fL (80.0-96.0) Mean Corpuscular Hemoglobin 33.2 pg (26.0-33.0) Mean Corpuscular Hemoglobin Concent 34.2 g/dL (32.0-36.0) Red Cell Distribution Width 13.2 % (11.5-14.5) Mean Platelet Volume 8.5 fL (7.2-11.1) Neutrophils (%) (Auto) 89.7 % (39.4-72.5) Lymphocytes (%) (Auto) 5.4 % (17.6-49.6) Monocytes (%) (Auto) 3.2 % (4.1-12.4) Eosinophils (%) (Auto) 0.0 % (0.4-6.7) Basophils (%) (Auto) 1.7 % (0.3-1.4) Nucleated RBC Relative Count (auto) 0.0 /100WBC Neutrophils # (Auto) 13.5 K/uL (2.0-7.4) Lymphocytes # (Auto) 0.8 K/uL (1.3-3.6) Monocytes # (Auto) 0.5 K/uL (0.3-1.0) Eosinophils # (Auto) 0.0 K/uL (0.0-0.5) Basophils # (Auto) 0.2 K/uL (0.0-0.1) Nucleated RBC Absolute Count (auto) 0.00 K/uL Peripheral Blood Smear Yes Y/N Sodium Level 134 mmol/L (137-145) Potassium Level 5.2 mmol/L (3.5-5.0) Chloride Level 98 mmol/L (98-107) Carbon Dioxide Level 7 mmol/L (22-30) Blood Urea Nitrogen 21 mg/dl (9-21) Creatinine 1.00 mg/dl (0.66-1.25) Glomerular Filtration Rate Calc > 60.0 Random Glucose 478 mg/dl (75-110) Calcium Level 9.3 mg/dl (8.4-10.2) Total Bilirubin 1.0 mg/dl (0.2-1.3) Aspartate Amino Transf (AST/SGOT) 36 U/L (0-35) Alanine Aminotransferase (ALT/SGPT) 40 U/L (0-56) Alkaline Phosphatase 95 U/L (0-126) Total Protein 7.3 g/dl (6.3-8.2) Albumin 4.8 g/dl (3.5-5.0) Acetone, Qualitative Small Whole Blood Glucose 450 mg/DL (75-110) Chemistry Test 12/09/18 00:00 12/09/18 20:25 12/10/18 00:44 Blood Gas Puncture Site Right radial Blood Gas Patient Temperature 98.4 DEGREES Arterial Blood pH 7.17 (7.35-7.45) Arterial Blood Partial Pressure CO2 < 25 mmHg (32-37) Arterial Blood Partial Pressure O2 97 mmHg (60-80) Arterial Blood HCO3 4 mmol/L (20-26) Arterial Blood Oxygen Saturation 96 % (92-100) Arterial Blood Base Excess -25.0 mmol/L Boy Test Acceptable Oxygen Liters/Minute Room air White Blood Count 15.0 k/uL (4.5-11.0) Red Blood Count 5.64 M/uL (4.00-5.60) Hemoglobin 18.7 g/dL (14.0-18.0) Hematocrit 54.7 % (42.0-52.0) Mean Corpuscular Volume 97.0 fL (80.0-96.0) Mean Corpuscular Hemoglobin 33.2 pg (26.0-33.0) Mean Corpuscular Hemoglobin Concent 34.2 g/dL (32.0-36.0) Red Cell Distribution Width 13.2 % (11.5-14.5) Platelet Count 318 K/uL (150-450) Mean Platelet Volume 8.5 fL (7.2-11.1) Neutrophils (%) (Auto) 89.7 % (39.4-72.5) Lymphocytes (%) (Auto) 5.4 % (17.6-49.6) Monocytes (%) (Auto) 3.2 % (4.1-12.4) Eosinophils (%) (Auto) 0.0 % (0.4-6.7) Basophils (%) (Auto) 1.7 % (0.3-1.4) Nucleated RBC Relative Count (auto) 0.0 /100WBC Neutrophils # (Auto) 13.5 K/uL (2.0-7.4) Lymphocytes # (Auto) 0.8 K/uL (1.3-3.6) Monocytes # (Auto) 0.5 K/uL (0.3-1.0) Eosinophils # (Auto) 0.0 K/uL (0.0-0.5) Basophils # (Auto) 0.2 K/uL (0.0-0.1) Nucleated RBC Absolute Count (auto) 0.00 K/uL Peripheral Blood Smear Yes Y/N Glomerular Filtration Rate Calc > 60.0 Calcium Level 9.3 mg/dl (8.4-10.2) Total Bilirubin 1.0 mg/dl (0.2-1.3) Aspartate Amino Transf (AST/SGOT) 36 U/L (0-35) Alanine Aminotransferase (ALT/SGPT) 40 U/L (0-56) Alkaline Phosphatase 95 U/L (0-126) Total Protein 7.3 g/dl (6.3-8.2) Albumin 4.8 g/dl (3.5-5.0) Acetone, Qualitative Small Whole Blood Glucose 450 mg/DL (75-110) Toxicology Test 12/09/18 20:25 Acetone, Qualitative Small ED Course/Re-evaluation Clinical Indication for ER IV: Hydration, IV Access ED Course Patient had an IV placed with normal saline, 1 L given as a bolus. Also given Phenergan 12.5 mg IV. He requested something for pain and I gave him IV Tylenol and some IV Toradol. This seemed to help his pain. Still with ongoing vomiting and nausea. Labs came back showing significant diabetic ketoacidosis with small acetone, elevated anion gap, decreased bicarbonate. I discussed this with him and then called our hospitalist. They've been trying to get a GI consultation done for some time but the patient always worsens and then his not able to get this done. They recommended that if we could transfer him where we could get a GI consult that would be preferable although we could take care of the ketoacidosis here. I called and spoke with hospitalist in [place] who refused to accept the patient stating that they wouldn't be doing any different than what we would do here at our hospital. I did call and speak with the hospitalist at [facility], and also spoke with the GI specialist there who did indicate that there was possibly something they would do and they could certainly do an evaluation. GI consultation with Dr. Flores, and the hospitalist was Dr. Ortez, who accepted the patient. I have started the patient on an insulin drip, second liter of fluid was hung here in the ER. Another dose of Phenergan given. I have ordered a blood gas as well which does show significant acidosis. Further fluids will be given. Transfer by [facility] department, we were able to find a nurse to go on the transfer. We will continue fluids and the insulin drip during transport and continue to treat pain and nausea as needed as well. Decision to Disposition Date: Dec 09, 2018 Decision to Disposition Time: 23:39 Transfer Facility Patient was transferred to [facility] via ambulance. The transfer was non-emergent, and was required because the capabilities of the receiving hospital. Consent for transfer was obtained from the patient. See EMTALA for transfer orders. Depart Departure Latest Vital Signs Vital Signs Date Time Temp Pulse Resp B/P (MAP) Pulse Ox O2 Delivery O2 Flow Rate FiO2 12/10/18 01:30 114 121/65 (83) 97 12/10/18 00:01 98.4 12/09/18 19:10 18 Room Air Impression: Primary Impression: DKA (diabetic ketoacidoses) Additional Impression: Vomiting Condition: Condition Unchanged Disposition: XFER TO ACUTE CARE HOSPITAL Referrals: ESA EMERY MD (PCP) Problem Qualifiers Primary Impression: DKA (diabetic ketoacidoses) Diabetes mellitus type: type 1 Diabetes mellitus complication detail: without coma Qualified Codes: E10.10 - Type 1 diabetes mellitus with ketoacidosis without coma Additional Impression: Vomiting Vomiting type: cyclical vomiting Vomiting Intractability: intractable Nausea presence: with nausea Qualified Codes: G43.A1 - Cyclical vomiting, intractable MARISOL CARO MD Dec 09, 2018 20:33
[2018-12-09] MEDS ORDERED: PROMETHAZINE 25 MG/ML 1 ML AMP IVP ONE ×2 (20:40→23:40)
[2018-12-09] MEDS ORDERED: NS(*) 0.9% 1000 ML BAG 1,000 ML IV ONE ×2 (20:40→23:40)
[2018-12-09] MEDS ORDERED: ACETAMINOPHEN(*)1000 MG/100 ML 100 ML IVPB ONE (20:40)
[2018-12-09] MEDS ORDERED: KETOROLAC 30 MG/ML VIAL IVP ONE (20:40)
[2018-12-09 20:51] LABS: PLATELET COUNT, AUTOMATED 318 K/uL (150-450)
[2018-12-09] MEDS ORDERED: INS HUM REG* 100 U/ML(ER ONLY) 100 UNIT in NS(*) 0.9% 100 ML BAG 99 ML IV SCH (23:40)
[2018-12-10 01:30] VITALS: BP 121/65
== END 2018-12-10 01:45 | disposition short-term general hospital (02) ==
LOC: ER 20:35
DX: E10.10 Type 1 diabetes mellitus with ketoacidosis without coma (principal); G43.A1 Cyclical vomiting, in migraine, intractable
CPT/HCPCS: 36416; 36600; 82009; 82803; 82948; 85025; 96361; 96365; 96366; 96375; 96376; 99285; A9270; J0131; J1885; J2550; J7030; J7050; 82040; 82247; 82310; 82374; 82435; 82565; 82947; 84075; 84132; 84155; 84295; 84450; 84460; 84520; J1815

== ENCOUNTER → 2018-12-10 | Outpatient (CLI) | payer MEDICARE, MEDICAID ==
[2018-12-06 08:24] VITALS: BMI 19.9
== END ==
LOC: AMB 01:37
PROVIDERS: ATTEND Nurse Practitioner
DX: E10.10 Type 1 diabetes mellitus with ketoacidosis without coma (principal); R11.10 Vomiting, unspecified
CPT/HCPCS: A0425; A0434; A0888

== ENCOUNTER 2019-04-09 10:02 | Emergency (ER) | payer MEDICARE, MEDICAID ==
[2018-12-06 08:24] VITALS: Wt 59.0 kg
[2019-04-09] MEDS ORDERED: ONDANSETRON 4 MG/2 ML VIAL ONE (10:05)
--- NOTE | 2019-04-09 10:37 | ER Report ---
History and Physical Time Seen By MD: 10:35 Hx. of Stated Complaint: WOKE UP WITH SEVERE GENERALIZED ABD PAIN AND VOMITTIND. STATES THIS IS JUST LIKE HIS PREVIOUS EXPERIENCE WITH DKA HPI/ROS CHIEF COMPLAINT: Nausea and vomiting HISTORY OF PRESENT ILLNESS: This is a well-known 33-year-old male who presents to the emergency department for nausea and vomiting. Patient has a history of ketoacidosis and pancreatitis. He states that today he woke up with severe generalized abdominal pain, has been vomiting since. He had a soft stool this morning, no blood. No dysuria. No flank pain. No fevers however he is grossly diaphoretic emergency department. States last time he is smoked marijuana was on the March and less time any alcohol consider wound was on the March. Denies chest pain or shortness of breath. REVIEW OF SYSTEMS: Constitutional: As above. Eyes: No discharge. ENT: No sore throat. Cardiovascular: No chest pain, no palpitations. Respiratory: No cough, no shortness of breath. Gastrointestinal: As above. Genitourinary: No hematuria. Musculoskeletal: No back pain. Skin: No rashes. Neurological: No headache. Allergies: Coded Allergies: hydrocodone (Verified Allergy, Unknown, 12/09/18) oxycodone (Verified Allergy, Unknown, 12/09/18) Uncoded Allergies: beestings (Adverse Reaction, Unknown, 08/11/17) Home Meds Active Scripts Promethazine Hcl (PROMETHAZINE HCL) 25 Mg Tablet, 25 MG PO Q8H, #12 TAB 0 Re fills Prov:LADI NORTONP-BC 04/09/19 Ondansetron Hcl (ZOFRAN) 4 Mg Tablet, 4 MG PO Q4-6H PRN for prn, #20 TAB Prov:LADI NORTONP-BC 04/09/19 Insulin Glargine 100 Un/Ml Pen (LANTUS SOLOSTAR PEN) 100 Unit/1 Ml Insuln.pen, 34 UNIT SUBQ QDAY, #5 BOX 1 Refill Prov:ESA EMERY MD 01/27/19 Gabapentin (GABAPENTIN) 300 Mg Capsule, 300 MG PO QHS, #30 CAPSULE 6 Refills Prov:ESA EMERY MD 12/23/18 Flash Glucose Sensor (Freestyle Felicity 14 Day Sensor) 1 Each Kit, UNIT Q2WK, #2 11 Refills Prov:ESA EMERY MD 11/04/18 Flash Glucose Scanning Reliance (Freestyle Felicity 14 Day Reliance) 1 Each Each, UNIT TD DIRECTED, #1 Prov:ESA EMERY MD 11/04/18 Lisinopril (LISINOPRIL) 5 Mg Tablet, 5 MG PO QDAY, #30 TAB 6 Refills Prov:ESA EMERY MD 09/18/18 Reported Medications Insulin Lispro 100 Un/Ml Vial (HUMALOG 100 U/ML VIAL) 100 Unit/1 Ml Vial, 0 SQ PRN for SLIDING SCALE INSULIN, VIAL takes Humalog Insulin at Home as per SS 10/02/17 Discontinued Reported Medications Pantoprazole Sodium (PANTOPRAZOLE SODIUM) 40 Mg Tablet.dr, 40 MG PO QDAY, TAB.SR 12/23/18 Discontinued Scripts Promethazine Hcl (PROMETHAZINE HCL) 25 Mg Tablet, 12.5 MG PO Q8H PRN for NAUSEA, #12 TAB Prov:CARSON BOLANDP 12/09/18 Past Medical/Surgical History The patient has a past medical and surgical history of occasional headaches, hypertension, recurrent nausea, vomiting, gastroparesis, pancreatitis, acid reflux, no blood or disease, cholecystectomy, right hand fracture, diabetic retinopathy, type I diabetic, recurrent use of marijuana for cyclical vomiting, anxiety, right hand surgery, laser surgery to her eyes for retinopathy. Reviewed Nurses Notes: Yes Hx Smoking: Yes Smoking Status: Current: Every Day Smoker Exposure to Second Hand Smoke?: No Hx Substance Use Disorder: Yes (POT) Hx Alcohol Use: No Constitutional Vital Sign - Last 24 Hours 04/09/19 04/09/19 04/09/19 04/09/19 10:09 10:30 11:00 12:30 Temp 96.6 Pulse 90 92 93 100 Resp 30 B/P (MAP) 163/140 Pulse Ox 98 97 95 97 O2 Delivery Room Air 04/09/19 04/09/19 13:00 13:19 Pulse 94 B/P (MAP) 153/100 (117) Pulse Ox 94 Physical Exam General Appearance: The patient is alert, has no immediate need for airway protection and no signs of toxicity. Eyes: Pupils equal and round no pallor or injection. ENT, Mouth: Mucous membranes are moist. Respiratory: There are no retractions, lungs are clear to auscultation. Cardiovascular: Regular rate and rhythm. No murmurs, clicks or rubs. Gastrointestinal: Abdomen is soft, diffusely tender in all quadrants, increased discomfort to the epigastrium, hypoactive bowel sounds. No abdominal bruits. Neurological: Alert and oriented 4. Moving oximetry following all commands. No focal neuro deficits. Skin: Warm and dry, no rashes. Grossly diaphoretic. Musculoskeletal: Neck is supple non tender. Extremities are nontender, nonswollen and have full range of motion. DIFFERENTIAL DIAGNOSIS: After history and physical exam differential diagnosis was considered for abdominal pain including but not limited to appendicitis, cholecystitis, pancreatitis, withdrawals, gastritis and urinary tract infection. Medical Decision Making Data Points Result Diagram: 04/09/19 1008 04/09/19 1008 Laboratory Hematology Test 04/09/19 10:08 04/09/19 10:54 04/09/19 11:41 Red Blood Count 5.64 M/uL (4.00-5.60) Mean Corpuscular Volume 94.0 fL (80.0-96.0) Mean Corpuscular Hemoglobin 33.0 pg (26.0-33.0) Mean Corpuscular Hemoglobin Concent 35.1 g/dL (32.0-36.0) Red Cell Distribution Width 13.2 % (11.5-14.5) Mean Platelet Volume 8.0 fL (7.2-11.1) Neutrophils (%) (Auto) 76.8 % (39.4-72.5) Lymphocytes (%) (Auto) 15.2 % (17.6-49.6) Monocytes (%) (Auto) 4.9 % (4.1-12.4) Eosinophils (%) (Auto) 2.2 % (0.4-6.7) Basophils (%) (Auto) 0.9 % (0.3-1.4) Nucleated RBC Relative Count (auto) 0.1 /100WBC Neutrophils # (Auto) 9.9 K/uL (2.0-7.4) Lymphocytes # (Auto) 2.0 K/uL (1.3-3.6) Monocytes # (Auto) 0.6 K/uL (0.3-1.0) Eosinophils # (Auto) 0.3 K/uL (0.0-0.5) Basophils # (Auto) 0.1 K/uL (0.0-0.1) Nucleated RBC Absolute Count (auto) 0.02 K/uL Sodium Level 141 mmol/L (137-145) Potassium Level 4.2 mmol/L (3.5-5.0) Chloride Level 107 mmol/L (98-107) Carbon Dioxide Level 24 mmol/L (22-30) Blood Urea Nitrogen 15 mg/dl (9-21) Creatinine 0.70 mg/dl (0.66-1.25) Glomerular Filtration Rate Calc > 60.0 Random Glucose 229 mg/dl (75-110) Osmolality 299 mOSM/K (275-295) Calcium Level 10.0 mg/dl (8.4-10.2) Total Bilirubin 0.6 mg/dl (0.2-1.3) Aspartate Amino Transf (AST/SGOT) 36 U/L (0-35) Alanine Aminotransferase (ALT/SGPT) 39 U/L (0-56) Alkaline Phosphatase 83 U/L (0-126) Total Protein 7.7 g/dl (6.3-8.2) Albumin 4.5 g/dl (3.5-5.0) Lipase 28 U/L (23-300) Acetone, Qualitative Negative Blood Gas Patient Temperature 96.6 DEGREES Venous Blood pH 7.47 (7.31-7.41) Venous Blood Partial Pressure CO2 29 mmHg Venous Blood Partial Pressure O2 46 mmHg Venous Blood HCO3 21 mmol/L Venous Blood Oxygen Saturation 87 % Venous Blood Base Excess -3 mmol/L Oxygen Liters/Minute Room air Urine Color Yellow Urine Clarity Slightly-cloudy Urine pH 7.0 pH (4.8-9.5) Urine Specific [place] 1.031 Urine Protein 100 mg/dL (NEGATIVE) Urine Glucose (UA) 500 mg/dL (NEGATIVE) Urine Ketones Trace mg/dL (NEGATIVE) Urine Blood Small (NEGATIVE) Urine Nitrite Negative (NEGATIVE) Urine Bilirubin Negative (NEGATIVE) Urine Urobilinogen Negative mg/dL (0.2-1.9) Urine Leukocyte Esterase Negative (NEGATIVE) Urine RBC 51 /HPF (0-2/HPF) Urine WBC 6 /HPF (0-5/HPF) Urine Squamous Epithelial Cells None /LPF (</=FEW) Urine Bacteria Negative /HPF (NONE-FEW) Urine Mucus Few /HPF (NONE-FEW) Urine Opiates Screen Negative Urine Barbiturates Screen Negative Ur Tricyclic Antidepressants Screen Negative Urine Phencyclidine Screen Negative Urine Amphetamines Screen Negative Urine Benzodiazepines Screen Negative Urine Cocaine Screen Negative Urine Cannabinoids Screen Negative Chemistry Test 04/09/19 10:08 04/09/19 10:54 04/09/19 11:41 White Blood Count 12.9 k/uL (4.5-11.0) Red Blood Count 5.64 M/uL (4.00-5.60) Hemoglobin 18.6 g/dL (14.0-18.0) Hematocrit 53.0 % (42.0-52.0) Mean Corpuscular Volume 94.0 fL (80.0-96.0) Mean Corpuscular Hemoglobin 33.0 pg (26.0-33.0) Mean Corpuscular Hemoglobin Concent 35.1 g/dL (32.0-36.0) Red Cell Distribution Width 13.2 % (11.5-14.5) Platelet Count 332 K/uL (150-450) Mean Platelet Volume 8.0 fL (7.2-11.1) Neutrophils (%) (Auto) 76.8 % (39.4-72.5) Lymphocytes (%) (Auto) 15.2 % (17.6-49.6) Monocytes (%) (Auto) 4.9 % (4.1-12.4) Eosinophils (%) (Auto) 2.2 % (0.4-6.7) Basophils (%) (Auto) 0.9 % (0.3-1.4) Nucleated RBC Relative Count (auto) 0.1 /100WBC Neutrophils # (Auto) 9.9 K/uL (2.0-7.4) Lymphocytes # (Auto) 2.0 K/uL (1.3-3.6) Monocytes # (Auto) 0.6 K/uL (0.3-1.0) Eosinophils # (Auto) 0.3 K/uL (0.0-0.5) Basophils # (Auto) 0.1 K/uL (0.0-0.1) Nucleated RBC Absolute Count (auto) 0.02 K/uL Glomerular Filtration Rate Calc > 60.0 Osmolality 299 mOSM/K (275-295) Calcium Level 10.0 mg/dl (8.4-10.2) Total Bilirubin 0.6 mg/dl (0.2-1.3) Aspartate Amino Transf (AST/SGOT) 36 U/L (0-35) Alanine Aminotransferase (ALT/SGPT) 39 U/L (0-56) Alkaline Phosphatase 83 U/L (0-126) Total Protein 7.7 g/dl (6.3-8.2) Albumin 4.5 g/dl (3.5-5.0) Lipase 28 U/L (23-300) Acetone, Qualitative Negative Blood Gas Patient Temperature 96.6 DEGREES Venous Blood pH 7.47 (7.31-7.41) Venous Blood Partial Pressure CO2 29 mmHg Venous Blood Partial Pressure O2 46 mmHg Venous Blood HCO3 21 mmol/L Venous Blood Oxygen Saturation 87 % Venous Blood Base Excess -3 mmol/L Oxygen Liters/Minute Room air Urine Color Yellow Urine Clarity Slightly-cloudy Urine pH 7.0 pH (4.8-9.5) Urine Specific [place] 1.031 Urine Protein 100 mg/dL (NEGATIVE) Urine Glucose (UA) 500 mg/dL (NEGATIVE) Urine Ketones Trace mg/dL (NEGATIVE) Urine Blood Small (NEGATIVE) Urine Nitrite Negative (NEGATIVE) Urine Bilirubin Negative (NEGATIVE) Urine Urobilinogen Negative mg/dL (0.2-1.9) Urine Leukocyte Esterase Negative (NEGATIVE) Urine RBC 51 /HPF (0-2/HPF) Urine WBC 6 /HPF (0-5/HPF) Urine Squamous Epithelial Cells None /LPF (</=FEW) Urine Bacteria Negative /HPF (NONE-FEW) Urine Mucus Few /HPF (NONE-FEW) Urine Opiates Screen Negative Urine Barbiturates Screen Negative Ur Tricyclic Antidepressants Screen Negative Urine Phencyclidine Screen Negative Urine Amphetamines Screen Negative Urine Benzodiazepines Screen Negative Urine Cocaine Screen Negative Urine Cannabinoids Screen Negative Toxicology Test 04/09/19 10:08 04/09/19 11:41 Acetone, Qualitative Negative Urine Opiates Screen Negative Urine Barbiturates Screen Negative Ur Tricyclic Antidepressants Screen Negative Urine Phencyclidine Screen Negative Urine Amphetamines Screen Negative Urine Benzodiazepines Screen Negative Urine Cocaine Screen Negative Urine Cannabinoids Screen Negative Urinalysis Test 04/09/19 11:41 Urine Color Yellow Urine Clarity Slightly-cloudy Urine pH 7.0 pH (4.8-9.5) Urine Specific [place] 1.031 Urine Protein 100 mg/dL (NEGATIVE) Urine Glucose (UA) 500 mg/dL (NEGATIVE) Urine Ketones Trace mg/dL (NEGATIVE) Urine Blood Small (NEGATIVE) Urine Nitrite Negative (NEGATIVE) Urine Bilirubin Negative (NEGATIVE) Urine Urobilinogen Negative mg/dL (0.2-1.9) Urine Leukocyte Esterase Negative (NEGATIVE) Urine RBC 51 /HPF (0-2/HPF) Urine WBC 6 /HPF (0-5/HPF) Urine Squamous Epithelial Cells None /LPF (</=FEW) Urine Bacteria Negative /HPF (NONE-FEW) Urine Mucus Few /HPF (NONE-FEW) EKG/Imaging Imaging PATIENT NAME: Terrence Carson : 1985 MR: [id number] V: [id number] EXAM DATE: ORDERING PHYSICIAN: LADI NORTON TECHNOLOGIST: Location: [facility] - [place] Patient: Terrence Carson : 1985 Visit/Account:[id number] Date of Sevice: 04/09/2019 CT ABDOMEN PELVIS W/ CON HISTORY: abdominal pain, vomiting, hx pancreatitis TECHNIQUE: Following administration of IV contrast contiguous axial images acquired through the abdomen/pelvis. Coronal and sagittal reformatting also performed.Dose Lowering Technique One of the following dose optimization techniques was utilized in the performance of this exam: Automated exposure control; adjustment of the mA and/ or kV according to the patient's size; or use of an iterative reconstruction technique. Specific details can be referenced in the facility's radiology CT exam operational policy. CONTRAST: 75 mL Isovue-370 COMPARISON: November FINDINGS: Visualized lung bases: Negative. Hepatobiliary: Gallbladder is not visualized and apparently surgically absent Spleen: Negative. Adrenals: Negative. Pancreas: Negative. Kidneys ureters or bladder: Negative. Genitalia: Negative. GI: There postsurgical changes from an appendectomy. There suggestion of mild diffuse colonic wall thickening appearing similar to the prior study. As noted on prior examination this may simply be artifactual in nature due to the decompressed nature the colon Vessels/spaces/nodes: Negative. Bones/soft tissues: Mild disc space narrowing at L5-S1 Additional findings: None pertinent. IMPRESSION: Postsurgical changes from a cholecystectomy and appendectomy There suggestion of mild diffuse colonic wall thickening appearing similar to the prior study. As noted in the prior examination this may simply be artifactual in nature due to the decompressed nature of the colon. Clinical correlation needed Report Dictated By: Danielle Lozano MD at 04/09/2019 12:29 PM Report E-Signed By: Danielle Lozano MD at 04/09/2019 12:33 PM KENDRICKN:[email or web address] ED Course/Re-evaluation Clinical Indication for ER IV: Hydration, IV Access ED Course The patient was admitted to room. Strength is were obtained. Differential diagnoses were considered. An IV was started. A CBC, CMP, urine drug screen, as well as a were obtained. CBC showing white count of 12.9, H&H 18.6 and 53.0, elevated white blood cells likely due from stress response secondary to vomiting, chemistry showing fingerstick glucose 219, with a follow-up serum glucose of 229, osmolality 299, negative tox screen, VBG negative for acidosis. Concentrated UA showing glucose, trace ketones and small blood likely bladder irritation, otherwise unremarkable. I didn't was roomed to notify the patient of his laboratory studies, I did note that he was inducing vomiting, his finger was in his mouth as I walked in, I did tell the patient about his behavior, and I was concerned that he is self inducing the vomiting, he became tearful and said he is not he just wants to feel better. He did have some mild improvement after the initial Zofran and follow-up Phenergan. I did talk to the patient about his CT results which did not show any acute abnormalities. His affect is very similar to prior studies. I reviewed this with the patient, I did tell him I would send a prescription for Phenergan and Zofran to his pharmacy, patient was agreeable, he did receive a 1 L normal saline bolus of fluid. I did instruct the patient follow up with his primary care provider within one week, also talked about following up with gastroenterology or Dr. Mercado or Dr. Hadley for ongoing GI symptoms he should rest understanding was discharged home. I did recommend that he did not induce vomiting, clear liquid diet monitor his blood sugars very closely. He was agreeable. 04/09/2019 12:35:01 pm I entered the room to discuss the laboratory results with the patient, he noticed that he was leaning over the right side of the gurney over the radial, he did have his index finger in his mouth trying to elicit vomit, I did confront the patient, he did tell me that he is just trying to get some relief by inducing vomiting, he then began to cry. I did tell the patient that I'm currently waiting on the CT results, I did tell him that his lipase is normal, his blood work is okay at this time. Decision to Disposition Date: Apr 09, 2019 Decision to Disposition Time: 13:18 Depart Departure Latest Vital Signs Vital Signs Date Time Temp Pulse Resp B/P (MAP) Pulse Ox O2 Delivery O2 Flow Rate FiO2 04/09/19 13:19 153/100 (117) 04/09/19 13:00 94 94 04/09/19 10:09 96.6 30 Room Air Impression: Primary Impression: Vomiting Additional Impression: Abdominal pain Condition: Improved Disposition: HOME OR SELF-CARE Referrals: ESA EMERY MD (PCP) 1 Week SARAH HADLEY JOHN A MD New Scripts Promethazine Hcl (PROMETHAZINE HCL) 25 Mg Tablet 25 MG PO Q8H, #12 TAB 0 Refills Prov: LADI NORTON GASOLINE SERVICE ATTENDANT- 04/09/19 Ondansetron Hcl (ZOFRAN) 4 Mg Tablet 4 MG PO Q4-6H PRN for prn, #20 TAB Prov: BEVERLYLADI TESFAYE GASOLINE SERVICE ATTENDANT- 04/09/19 Departure Forms: ER Transition Record, Medications Reconciliation, Patient Portal Information Patient Instructions: Acute Nausea and Vomiting (ED), Chronic Abdominal Pain (ED), Clear Liquid Diet (ED) Additional Instructions: There were no concerning findings on her laboratory studies or CT scan today. The abdominal pain after experiencing could be secondary to a viral gastroenteritis. Please follow-up with your primary care provider within one week for re evaluation. You can use the Zofran or Phenergan prescriptions that have been provided. Clear liquid diet for the next 48 hours then progress to a soft diet and then progress into a normal diet. If you have continued abdominal pain I would recommend following up with a manager pacu, he can also follow-up with Dr. Mercado or Dr. Hadley for a discussion on colonoscopy and endoscopies. Problem Qualifiers Primary Impression: Vomiting Vomiting type: unspecified Vomiting Intractability: unspecified Nausea presence: with nausea Qualified Codes: R11.2 - Nausea with vomiting, unspecified Additional Impression: Abdominal pain Abdominal location: generalized Qualified Codes: R10.84 - Generalized abdominal pain LADI NORTONP- Apr 09, 2019 10:37
[2019-04-09] MEDS ORDERED: NS(*) 0.9% 1000 ML BAG 1,000 ML IV ONE (10:43)
[2019-04-09] MEDS ORDERED: PROMETHAZINE 25 MG/ML 1 ML AMP IVP ONE (10:45)
[2019-04-09 10:50] LABS: PLATELET COUNT, AUTOMATED 332 K/uL (150-450)
[2019-04-09] MEDS ORDERED: IOPAMIDOL 76% 100 ML INFUS BTL 100 ML ONE (10:57)
--- NOTE | 2019-04-09 12:39 | RADIOLOGY IMAGING REPORT ---
FACILITY: [facility] PATIENT NAME: Terrence Carson : 1985 MR: [id number] V: [id number] EXAM DATE: ORDERING PHYSICIAN: LADI NORTON TECHNOLOGIST: [place] [facility] [place]: Terrence Carson : 1985 Visit/Account:[id number] Date of Sevice: 04/09/2019 CT ABDOMEN PELVIS W/ CON HISTORY: abdominal pain, vomiting, hx pancreatitis TECHNIQUE: Following administration of IV contrast contiguous axial images acquired through the abdom en/pelvis. Coronal and sagittal reformatting also performed.Dose Lowering Technique One of the following dose optimization techniques was utilized in the performance of this exam: Autom ated exposure control; adjustment of the mA and/or kV according to the patient's size; or use of an i terative reconstruction technique. Specific details can be referenced in the facility's radiology C T exam operational policy. CONTRAST: 75 mL Isovue-370 COMPARISON: November FINDINGS: Visualized lung bases: Negative. Hepatobiliary: Gallbladder is not visualized and apparently surgically absent Spleen: Negative. Adrenals: Negative. Pancreas: Negative. Kidneys ureters or bladder: Negative. Genitalia: Negative. GI: There postsurgical changes from an appendectomy. There suggestion of mild diffuse colonic wall thickening appearing similar to the prior study. As noted on prior examination this may simply be ar tifactual in nature due to the decompressed nature the colon Vessels/spaces/nodes: Negative. Bones/soft tissues: Mild disc space narrowing at L5-S1 Additional findings: None pertinent. IMPRESSION: Postsurgical changes from a cholecystectomy and appendectomy There suggestion of mild diffuse colonic wall thickening appearing similar to the prior study. As no kalin in the prior examination this may simply be artifactual in nature due to the decompressed nature of the colon. Clinical correlation needed Report Dictated By: Danielle Lozano MD at 04/09/2019 12:29 PM Report E-Signed By: Danielle Lozano MD at 04/09/2019 12:33 PM WSN:[email or web address]
[2019-04-09] MEDS ORDERED: ONDA4TAB97 PO (12:53)
[2019-04-09] MEDS ORDERED: PROM-110 PO (12:53)
[2019-04-09 13:19] VITALS: BP 153/100
== END 2019-04-09 13:29 | disposition home or self-care (01) ==
LOC: ER 10:43
DX: R11.10 Vomiting, unspecified (principal); R10.84 Generalized abdominal pain
CPT/HCPCS: 74177; 80305; 81001; 82009; 82803; 83690; 83930; 85025; 96361; 96374; 99284; J2405; J2550; J7030; Q9967; 82040; 82247; 82310; 82374; 82435; 82565; 82947; 84075; 84132; 84155; 84295; 84450; 84460; 84520

== ENCOUNTER 2019-04-12 09:19 | Emergency (ER) | payer MEDICARE, MEDICAID ==
[2018-12-06 08:24] VITALS: Wt 59.0 kg
[~2019-04-12 09:19] MED LIST changes: +ONDA4TAB97 PO
[2019-04-12] MEDS ORDERED: NS(*) 0.9% 1000 ML BAG 1,000 ML IV ONE ×2 (09:22)
[2019-04-12] MEDS ORDERED: ONDANSETRON 4 MG/2 ML VIAL IVP ONE (09:25)
--- NOTE | 2019-04-12 09:40 | ER Report ---
History and Physical Time Seen By MD: 09:35 Hx. of Stated Complaint: abd pain HPI/ROS CHIEF COMPLAINT: Nausea vomiting abdominal pain HISTORY OF PRESENT ILLNESS: Patient is a 33-year-old diabetic returns back to the emergency Department today with complaint of nausea vomiting and abdominal discomfort. Patient was seen here less than 72 hours ago for the same complaint and negative CAT scan and negative workup patient is a known history of diabetic issues type I diabetes he says his sugars have been well controlled lately his sugars yesterday were 220 take his insulin this morning his sugar on arrival here was 125. Patient states that he was seen here 3 days ago was concerned about having DKA CAT scan was negative he has had 7 CAT scans performed in the last 2-1/2 years he's been here 33 times all for the same complaints cyclic vomiting gastroparesis vomiting issues and reportedly has had DKA in the past. Yesterday was seen at outside hospital in [place] still has a stickers on his chest on arrival to the emergency department patient was discharged was not in DKA was told "I think I may be close. Returns back to the emergency department here for cyclic vomiting and abdominal pain. Patient says his pain is aching cramping in sensation across his entire abdomen. This is his baseline when he has he's issues. REVIEW OF SYSTEMS: Respiratory: No cough, no dyspnea. Cardiovascular: No chest pain, no palpitations. Gastrointestinal: Vomiting abdominal pain Musculoskeletal: No back pain. Remainder of the 14 system rev: Yes Allergies: Coded Allergies: hydrocodone (Verified Allergy, Unknown, 04/12/19) oxycodone (Verified Allergy, Unknown, 04/12/19) Uncoded Allergies: beestings (Adverse Reaction, Unknown, 08/11/17) Home Meds Active Scripts Promethazine Hcl (PROMETHAZINE HCL) 25 Mg Tablet, 25 MG PO Q8H, #12 TAB 0 Refills Prov:LADI NORTON [employer] ADMINISTRATOR-BC 04/09/19 Ondansetron Hcl (ZOFRAN) 4 Mg Tablet, 4 MG PO Q4-6H PRN for prn, #20 TAB Prov:LADI NORTON [employer]MINISTRATOR-BC 04/09/19 Insulin Glargine 100 Un/Ml Pen (LANTUS SOLOSTAR PEN) 100 Unit/1 Ml Insuln.pen, 34 UNIT SUBQ QDAY, #5 BOX 1 Refill Prov:ESA EMERY MD 01/27/19 Gabapentin (GABAPENTIN) 300 Mg Capsule, 300 MG PO QHS, #30 CAPSULE 6 Refills Prov:ESA EMERY MD 12/23/18 Flash Glucose Sensor (Freestyle Felicity 14 Day Sensor) 1 Each Kit, UNIT Q2WK, #2 11 Refills Prov:ESA EMERY MD 11/04/18 Flash Glucose Scanning [place] (Freestyle Felicity 14 Day [place]) 1 Each Each, UNIT TD DIRECTED, #1 Prov:ESA EMERY MD 11/04/18 Lisinopril (LISINOPRIL) 5 Mg Tablet, 5 MG PO QDAY, #30 TAB 6 Refills Prov:ESA EMERY MD 09/18/18 Reported Medications Insulin Lispro 100 Un/Ml Vial (HUMALOG 100 U/ML VIAL) 100 Unit/1 Ml Vial, 0 SQ PRN for SLIDING SCALE INSULIN, VIAL takes Humalog Insulin at Home as per SS 10/02/17 Discontinued Reported Medications Pantoprazole Sodium (PANTOPRAZOLE SODIUM) 40 Mg Tablet.dr, 40 MG PO QDAY, TAB.SR 12/23/18 Discontinued Scripts Promethazine Hcl (PROMETHAZINE HCL) 25 Mg Tablet, 12.5 MG PO Q8H PRN for NAUSEA, #12 TAB Prov:CARSON BOLAND [employer] ADMINISTRATOR 12/09/18 Reviewed Nurses Notes: Yes Old Medical Records Reviewed: Yes Hx Smoking: Yes Smoking Status: Current: Every Day Smoker Exposure to Second Hand Smoke?: No Hx Substance Use Disorder: Yes (POT) Hx Alcohol Use: No Constitutional Vital Sign - Last 24 Hours 04/12/19 04/12/19 04/12/19 04/12/19 09:19 09:21 09:28 09:30 Temp 97.7 Pulse 99 99 Resp 22 B/P (MAP) 158/117 (131) 158/117 149/105 (120) Pulse Ox 96 O2 Delivery Room Air 04/12/19 04/12/19 04/12/19 04/12/19 09:49 10:00 10:19 10:30 Pulse 90 87 B/P (MAP) 153/105 (121) 160/103 (122) Pulse Ox 86 90 Physical Exam General Appearance: The patient is alert, has no immediate need for airway protection and no current signs of toxicity. Appears uncomfortable Eyes: Pupils equal and round no injection. Respiratory: Chest is non tender, lungs are clear to auscultation. Cardiac: regular rate and rhythm [ ] Gastrointestinal: Abdomen tender to palpation in all 4 quadrants rebound no guarding Musculoskeletal: Neck: Neck is supple and non tender. Extremities have full range of motion and are non tender. Skin: No rashes or lesions. [ ] DIFFERENTIAL DIAGNOSIS: After history and physical exam differential diagnosis was considered for cyclic vomiting gastroparesis DKA vomiting colitis enteritis dehydration Medical Decision Making Data Points Result Diagram: 04/12/19 0934 04/12/19 0934 Laboratory Hematology Test 04/12/19 09:34 White Blood Count 8.8 k/uL (4.5-11.0) Red Blood Count 5.39 M/uL (4.00-5.60) Hemoglobin 17.8 g/dL (14.0-18.0) Hematocrit 50.5 % (42.0-52.0) Mean Corpuscular Volume 93.7 fL (80.0-96.0) Mean Corpuscular Hemoglobin 33.1 pg (26.0-33.0) H Mean Corpuscular Hemoglobin Concent 35.3 g/dL (32.0-36.0) Red Cell Distribution Width 12.8 % (11.5-14.5) Platelet Count 279 K/uL (150-450) Mean Platelet Volume 7.7 fL (7.2-11.1) Neutrophils (%) (Auto) 74.2 % (39.4-72.5) H Lymphocytes (%) (Auto) 16.9 % (17.6-49.6) L Monocytes (%) (Auto) 6.9 % (4.1-12.4) Eosinophils (%) (Auto) 1.1 % (0.4-6.7) Basophils (%) (Auto) 0.9 % (0.3-1.4) Nucleated RBC Relative Count (auto) 0.0 /100WBC Neutrophils # (Auto) 6.5 K/uL (2.0-7.4) Lymphocytes # (Auto) 1.5 K/uL (1.3-3.6) Monocytes # (Auto) 0.6 K/uL (0.3-1.0) Eosinophils # (Auto) 0.1 K/uL (0.0-0.5) Basophils # (Auto) 0.1 K/uL (0.0-0.1) Nucleated RBC Absolute Count (auto) 0.00 K/uL Chemistry Test 04/12/19 09:34 Sodium Level 141 mmol/L (137-145) Potassium Level 4.4 mmol/L (3.5-5.0) Chloride Level 107 mmol/L (98-107) Carbon Dioxide Level 24 mmol/L (22-30) Blood Urea Nitrogen 25 mg/dl (9-21) Creatinine 0.60 mg/dl (0.66-1.25) Glomerular Filtration Rate Calc > 60.0 Random Glucose 142 mg/dl (75-110) Calcium Level 9.1 mg/dl (8.4-10.2) Total Bilirubin 0.9 mg/dl (0.2-1.3) Aspartate Amino Transf (AST/SGOT) 39 U/L (0-35) Alanine Aminotransferase (ALT/SGPT) 50 U/L (0-56) Alkaline Phosphatase 58 U/L (0-126) Total Protein 6.8 g/dl (6.3-8.2) Albumin 4.0 g/dl (3.5-5.0) Lipase 22 U/L (23-300) ED Course/Re-evaluation ED Course Patient is a [age] male who has been of the emergency department over 30 times for similar complaints patient has chronic vomiting cyclical vomiting gastroparesis is a history of DKA today's labs demonstrate no instance of DKA patient received several liters of fluid electrolytes within normal limits glucose level also within normal limits patient requested narcotic pain medication I did not give him narcotic a grade nonnarcotic pain medication patient agreed to this after fluid resuscitation patient did feel better and will be discharge diagnosis cyclical vomiting Decision to Disposition Date: Apr 12, 2019 Decision to Disposition Time: 10:47 Depart Departure Latest Vital Signs Vital Signs Date Time Temp Pulse Resp B/P (MAP) Pulse Ox O2 Delivery O2 Flow Rate FiO2 04/12/19 10:30 160/103 (122) 04/12/19 10:19 87 90 04/12/19 09:28 97.7 22 Room Air Impression: Primary Impression: Diabetic gastroparesis Condition: Improved Disposition: HOME OR SELF-CARE Referrals: ESA EMERY MD (PCP) Patient Instructions: Acute Nausea and Vomiting (DC) ROSANNE MELISSA MD Apr 12, 2019 09:40
[2019-04-12 09:49] LABS: PLATELET COUNT, AUTOMATED 279 K/uL (150-450)
[2019-04-12 10:30] VITALS: BP 160/103
[2019-04-12] MEDS ORDERED: KETOROLAC 30 MG/ML VIAL IVP ONE (10:35)
== END 2019-04-12 11:10 | disposition home or self-care (01) ==
LOC: ER 09:36
DX: E11.43 Type 2 diabetes mellitus with diabetic autonomic (poly)neuropathy (principal); K31.84 Gastroparesis
CPT/HCPCS: 83690; 85025; 96361; 96374; 96375; 99284; J1885; J2405; J7030; 82040; 82247; 82310; 82374; 82435; 82565; 82947; 84075; 84132; 84155; 84295; 84450; 84460; 84520

== ENCOUNTER 2019-04-14 13:45 | Emergency (ER) | payer MEDICAID, MEDICARE ==
[2018-12-06 08:24] VITALS: Wt 59.0 kg
[2019-04-14] MEDS ORDERED: NS(*) 0.9% 1000 ML BAG 1,000 ML IV ONE ×2 (13:48)
[2019-04-14] MEDS ORDERED: LORazepam 2 MG/ML VIAL IVP ONE (13:50)
[2019-04-14] MEDS ORDERED: ONDANSETRON 4 MG/2 ML VIAL IVP ONE (13:50)
--- NOTE | 2019-04-14 13:52 | ER Report ---
History and Physical Time Seen By MD: 13:48 Hx. of Stated Complaint: PATIENT REPORTS ABDOMINAL PAIN HPI/ROS CHIEF COMPLAINT: Abdominal pain HISTORY OF PRESENT ILLNESS: A she returns emergency Department 33-year-old male seen here less than 48 hours ago for abdominal pain discomfort is been to the emergency department numerous times this past series had countless scans and imaging done carries a diagnosis of presumed diabetic gastroparesis has history of diabetic DKA however he has not had in the last several visits comes in today via EMS as he still actively vomiting he smokes marijuana on a daily basis is been advised to stop is refused patient denies any chest pain at this time says his abdominal pain is cramping in nature associated parental vomiting but as he is sitting still as well REVIEW OF SYSTEMS: Respiratory: No cough, no dyspnea. Cardiovascular: No chest pain, no palpitations. Gastrointestinal: Vomiting abdominal pain Musculoskeletal: No back pain. Remainder of the 14 system rev: Yes Allergies: Coded Allergies: hydrocodone (Verified Allergy, Unknown, 04/12/19) oxycodone (Verified Allergy, Unknown, 04/12/19) Uncoded Allergies: beestings (Adverse Reaction, Unknown, 08/11/17) Home Meds Active Scripts Promethazine Hcl (PROMETHAZINE HCL) 25 Mg Tablet, 25 MG PO Q8H, #12 TAB 0 Refills Prov:LADI NORTON [facility] 04/09/19 Ondansetron Hcl (ZOFRAN) 4 Mg Tablet, 4 MG PO Q4-6H PRN for prn, #20 TAB Prov:LADI NORTON [facility] 04/09/19 Insulin Glargine 100 Un/Ml Pen (LANTUS SOLOSTAR PEN) 100 Unit/1 Ml Insuln.pen, 34 UNIT SUBQ QDAY, #5 BOX 1 Refill Prov:ESA EMERY MD 01/27/19 Gabapentin (GABAPENTIN) 300 Mg Capsule, 300 MG PO QHS, #30 CAPSULE 6 Refills Prov:ESA EMERY MD 12/23/18 Flash Glucose Sensor (Freestyle [place]icity 14 Day Sensor) 1 Each Kit, UNIT Q2WK, #2 11 Refills Prov:ESA EMERY MD 11/04/18 Flash Glucose Scanning [place] (Freestyle Felicity 14 Day [place]) 1 Each Each, UNIT TD DIRECTED, #1 Prov:ESA EMERY MD 11/04/18 Lisinopril (LISINOPRIL) 5 Mg Tablet, 5 MG PO QDAY, #30 TAB 6 Refills Prov:ESA EMERY MD 09/18/18 Reported Medications Insulin Lispro 100 Un/Ml Vial (HUMALOG 100 U/ML VIAL) 100 Unit/1 Ml Vial, 0 SQ PRN for SLIDING SCALE INSULIN, VIAL takes Humalog Insulin at Home as per SS 10/02/17 Discontinued Reported Medications Pantoprazole Sodium (PANTOPRAZOLE SODIUM) 40 Mg Tablet.dr, 40 MG PO QDAY, TAB.SR 12/23/18 Discontinued Scripts Promethazine Hcl (PROMETHAZINE HCL) 25 Mg Tablet, 12.5 MG PO Q8H PRN for NAUSEA, #12 TAB Prov:CARSON BOLAND [employer] SE[employer] COVERER 12/09/18 Reviewed Nurses Notes: Yes Old Medical Records Reviewed: Yes Hx Smoking: Yes Smoking Status: Current: Every Day Smoker Exposure to Second Hand Smoke?: No Hx Substance Use Disorder: Yes (POT) Hx Alcohol Use: No Constitutional Vital Sign - Last 24 Hours 04/14/19 04/14/19 04/14/19 04/14/19 13:45 13:46 14:15 14:40 Pulse 114 118 97 Resp 28 B/P (MAP) 155/102 138/97 (111) Pulse Ox 95 94 96 O2 Delivery Room Air 04/14/19 04/14/19 04/14/19 04/14/19 14:45 15:13 15:15 15:30 Pulse 100 97 B/P (MAP) 130/92 (105) 131/91 (104) Pulse Ox 97 93 Physical Exam General Appearance: The patient is alert, has no immediate need for airway protection and no current signs of toxicity. Crying appears uncomfortable Eyes: Pupils equal and round no injection. Respiratory: Chest is non tender, lungs are clear to auscultation. Cardiac: regular rate and rhythm [ ] Gastrointestinal: Abdomen tender to palpation in all 4 quadrants even slight palpation elicits response normal bowel sounds Musculoskeletal: Neck: Neck is supple and non tender. Extremities have full range of motion and are non tender. Skin: No rashes or lesions. [ ] DIFFERENTIAL DIAGNOSIS: After history and physical exam differential diagnosis was considered for gastroparesis gastroenteritis diabetic ketoacidosis diabetic gastroparesis chronic cyclical vomiting Medical Decision Making Data Points Result Diagram: 04/14/19 1330 04/14/19 1330 Laboratory Hematology Test 04/14/19 13:30 White Blood Count 11.8 k/uL (4.5-11.0) H Red Blood Count 5.42 M/uL (4.00-5.60) Hemoglobin 17.9 g/dL (14.0-18.0) Hematocrit 50.7 % (42.0-52.0) Mean Corpuscular Volume 93.6 fL (80.0-96.0) Mean Corpuscular Hemoglobin 33.0 pg (26.0-33.0) Mean Corpuscular Hemoglobin Concent 35.2 g/dL (32.0-36.0) Red Cell Distribution Width 12.8 % (11.5-14.5) Platelet Count 338 K/uL (150-450) Mean Platelet Volume 8.2 fL (7.2-11.1) Neutrophils (%) (Auto) 78.7 % (39.4-72.5) H Lymphocytes (%) (Auto) 15.2 % (17.6-49.6) L Monocytes (%) (Auto) 4.7 % (4.1-12.4) Eosinophils (%) (Auto) 0.6 % (0.4-6.7) Basophils (%) (Auto) 0.8 % (0.3-1.4) Nucleated RBC Relative Count (auto) 0.2 /100WBC Neutrophils # (Auto) 9.3 K/uL (2.0-7.4) H Lymphocytes # (Auto) 1.8 K/uL (1.3-3.6) Monocytes # (Auto) 0.6 K/uL (0.3-1.0) Eosinophils # (Auto) 0.1 K/uL (0.0-0.5) Basophils # (Auto) 0.1 K/uL (0.0-0.1) Nucleated RBC Absolute Count (auto) 0.02 K/uL Chemistry Test 04/14/19 13:30 Sodium Level 145 mmol/L (137-145) Potassium Level 3.8 mmol/L (3.5-5.0) Chloride Level 106 mmol/L (98-107) Carbon Dioxide Level 23 mmol/L (22-30) Blood Urea Nitrogen 14 mg/dl (9-21) Creatinine 0.70 mg/dl (0.66-1.25) Glomerular Filtration Rate Calc > 60.0 Random Glucose 116 mg/dl (75-110) Calcium Level 9.8 mg/dl (8.4-10.2) Total Bilirubin 0.6 mg/dl (0.2-1.3) Aspartate Amino Transf (AST/SGOT) 40 U/L (0-35) Alanine Aminotransferase (ALT/SGPT) 40 U/L (0-56) Alkaline Phosphatase 75 U/L (0-126) Total Protein 7.4 g/dl (6.3-8.2) Albumin 4.5 g/dl (3.5-5.0) Lipase 32 U/L (23-300) Urinalysis Test 04/14/19 14:54 Urine Color Yellow Urine Clarity Slightly-cloudy Urine pH 8.0 pH (4.8-9.5) Urine Specific [place] 1.020 Urine Protein 100 mg/dL (NEGATIVE) Urine Glucose (UA) 50 mg/dL (NEGATIVE) Urine Ketones Negative mg/dL (NEGATIVE) Urine Blood Small (NEGATIVE) Urine Nitrite Negative (NEGATIVE) Urine Bilirubin Negative (NEGATIVE) Urine Urobilinogen Negative mg/dL (0.2-1.9) Urine Leukocyte Esterase Negative (NEGATIVE) Urine RBC 20 /HPF (0-2/HPF) Urine WBC 1 /HPF (0-5/HPF) Urine Squamous Epithelial Cells None /LPF (</=FEW) Urine Bacteria Negative /HPF (NONE-FEW) Urine Mucus Few /HPF (NONE-FEW) ED Course/Re-evaluation ED Course ED clinical course 33-year-old male returns emergency department for the same complaint of hyperemesis has not vomited since she's been he received some antiemetics and some fluid labs are within normal limits diagnosis will be nausea Decision to Disposition Date: Apr 14, 2019 Decision to Disposition Time: 15:58 Depart Departure Latest Vital Signs Vital Signs Date Time Temp Pulse Resp B/P (MAP) Pulse Ox O2 Delivery O2 Flow Rate FiO2 04/14/19 15:30 131/91 (104) 04/14/19 15:15 97 93 04/14/19 13:46 28 Room Air Impression: Primary Impression: Nausea Condition: Improved Disposition: HOME OR SELF-CARE Referrals: ESA EMERY MD (PCP) 5 Days Patient Instructions: Acute Nausea and Vomiting (DC) ROSANNE MELISSA MD Apr 14, 2019 13:52
[2019-04-14 14:00] LABS: PLATELET COUNT, AUTOMATED 338 K/uL (150-450)
--- NOTE | 2019-04-14 14:24 | RADIOLOGY IMAGING REPORT ---
[place]AC[place] [facility] [place] NAME: Terrence Carson : 1985 MR: [id number] V: [id number] EXAM DATE: ORDERING PHYSICIAN: ROSANNE MELISSA TECHNOLOGIST: [place] [facility] [place] Terrence Carson : 1985 Visit/Account:[id number] Date of Sevice: 04/14/2019 KUB SINGLE VIEW ABDOMEN Indication: Abdominal pain is a belly button area. Comparison: Abdomen radiograph 12/05/2018. Findings: Normal bowel gas pattern is seen. The silhouettes of the liver, spleen, and kidneys are no rmal. Bones are unremarkable. IMPRESSION: Normal abdomen radiograph. Report Dictated By: Esteban Zhu at 04/14/2019 2:16 PM Report E-Signed By: Esteban Zhu at 04/14/2019 2:18 PM WSN:[email or web address]
[2019-04-14 16:00] VITALS: BP 146/86
== END 2019-04-14 16:26 | disposition home or self-care (01) ==
LOC: ER 13:58
DX: R11.0 Nausea (principal)
CPT/HCPCS: 74018; 81001; 83690; 85025; 96361; 96374; 99283; J2405; J7030; 82040; 82247; 82310; 82374; 82435; 82565; 82947; 84075; 84132; 84155; 84295; 84450; 84460; 84520

== ENCOUNTER → 2019-04-14 | Outpatient (CLI) | payer MEDICARE ==
[2018-12-06 08:24] VITALS: BMI 19.9
== END ==
LOC: AMB 13:09
PROVIDERS: ATTEND Nurse Practitioner
DX: R10.9 Unspecified abdominal pain (principal); R11.2 Nausea with vomiting, unspecified; R53.1 Weakness
CPT/HCPCS: A0425; A0427

== ENCOUNTER → 2019-05-07 | Outpatient (CLI) | payer MEDICARE, MEDICAID ==
[2018-12-06 08:24] VITALS: BMI 19.9
[2019-05-07 16:41] LABS: PLATELET COUNT, AUTOMATED 312 K/uL (150-450)
[2019-05-07 16:56] LABS: LDL CHOLESTEROL 59 mg/dl
--- NOTE | 2019-05-07 17:40 | RADIOLOGY IMAGING REPORT ---
FACILITY: [facility] PATIENT NAME: Terrence Carson : 1985 MR: [id number] V: [id number] EXAM DATE: ORDERING PHYSICIAN: ESA EMERY TECHNOLOGIST: Location: [facility] - [place] Patient: Terrence Carson : 1985 Visit/Account:[id number] Date of Sevice: 05/07/2019 SHOULDER MIN 2 VIEWS RIGHT HISTORY: Pain COMPARISON: None FINDINGS: AP views of the right shoulder in internal and external rotation as well as a Y view were o btained. There is no evidence of acute fracture or dislocation. There are no significant degenerativ e changes. The acromioclavicular joint is normal in appearance. IMPRESSION: No acute osseous abnormality Report Dictated By: Amando Carney at 05/07/2019 5:13 PM Report E-Signed By: Amando Carney at 05/07/2019 5:33 PM WSN:[id number]
== END ==
LOC: LAB 16:19
PROVIDERS: ATTEND Internal Medicine
DX: M25.511 Pain in right shoulder (principal); E11.40 Type 2 diabetes mellitus with diabetic neuropathy, unspecified
CPT/HCPCS: 36415; 81001; 82040; 82043; 82247; 82310; 82374; 82435; 82465; 82565; 82947; 83036; 83718; 84075; 84132; 84155; 84295; 84443; 84450; 84460; 84478; 84520; 85025

== ENCOUNTER 2019-05-22 11:50 | Emergency (ER) | payer MEDICARE, MEDICAID ==
[2018-12-06 08:24] VITALS: Wt 59.0 kg
[2019-05-22] MEDS ORDERED: ONDANSETRON 4 MG/2 ML VIAL ONE (12:08)
--- NOTE | 2019-05-22 12:08 | ER Report ---
History and Physical Time Seen By MD: 12:00 Hx. of Stated Complaint: NAUSEA AND VOMITING SINCE 0500, ABDOMINAL PAIN HPI/ROS CHIEF COMPLAINT: abdominal pain, nausea HISTORY OF PRESENT ILLNESS: Patient is a 33 year old M presenting to ED with severe diffuse abdominal pain and nausea that started at 5am this morning sudden ly. He has had symptoms similar to this in the past. Patient has a hx of uncontrolled diabetes. Has had too many bouts of vomiting that he can't count them, Diarrhea around 5 times and hasn't ate or drank anything since last night. Has not taken anything for the pain or nausea. Rates it 07/10. REVIEW OF SYSTEMS: Respiratory: No cough, no dyspnea. Cardiovascular: No chest pain, no palpitations. Gastrointestinal: vomiting, abdominal pain, diarrhea Musculoskeletal: No back pain. Allergies: Coded Allergies: hydrocodone (Verified Allergy, Unknown, 05/22/19) oxycodone (Verified Allergy, Unknown, 05/22/19) Uncoded Allergies: beestings (Adverse Reaction, Unknown, 08/11/17) Home Meds Active Scripts Promethazine HCl (Phenergan) 25 Mg Supp.rect, 25 MG CO TID PRN for NAUSEA/VOMITING, #12 SUPP.RECT Prov:ELIZABETH CONNORS [facility] 05/22/19 Metoclopramide Hcl (METOCLOPRAMIDE HCL) 10 Mg Tablet, 10 MG PO QID PRN for NAUSEA/VOMITING, #28 TAB Prov:ELIZABETH CONNORS [facility] 05/22/19 Ondansetron 4 Mg Odt (ONDANSETRON 4 MG ODT) 4 Mg Tab.rapdis, 4 MG PO Q6H PRN for NAUSEA/VOMITING, #20 TAB Prov:ELIZABETH CONNORSP 05/22/19 Insulin Glargine 100 Un/Ml Pen (LANTUS SOLOSTAR PEN) 100 Unit/1 Ml Insuln.pen, 34 UNIT SUBQ QDAY, #5 BOX 6 Refills Prov:ESA EMERY MD 05/07/19 Gabapentin (GABAPENTIN) 300 Mg Capsule, 300 MG PO BID, #60 CAPSULE 6 Refills Prov:ESA EMERY MD 05/07/19 Lisinopril (LISINOPRIL) 5 Mg Tablet, 5 MG PO QDAY, #30 TAB 6 Refills Prov:ESA EMERY MD 05/07/19 Flash Glucose Sensor (Freestyle [place] 14 Day Sensor) 1 Each Kit, UNIT Q2WK, #2 11 Refills Prov:ESA EMERY MD 11/04/18 Flash Glucose Scanning [place] (Freestyle [place]icity 14 Day [place]) 1 Each Each, UNIT TD DIRECTED, #1 Prov:ESA EMERY MD 11/04/18 Reported Medications Insulin Lispro 100 Un/Ml Vial (HUMALOG 100 U/ML VIAL) 100 Unit/1 Ml Vial, 0 SQ PRN for SLIDING SCALE INSULIN, VIAL takes Humalog Insulin at Home as per SS 10/02/17 Past Medical/Surgical History Past medical history of marijuana use Surgical history of cholecystectomy, appendectomy No other pertinent past medical history Reviewed Nurses Notes: Yes Hx Smoking: Yes Smoking Status: Current: Every Day Smoker Exposure to Second Hand Smoke?: No Hx Substance Use Disorder: Yes (POT) Hx Alcohol Use: No Constitutional Vital Sign - Last 24 Hours 05/22/19 05/22/19 05/22/19 05/22/19 11:54 12:00 12:03 12:30 Temp 95.7 Pulse 104 99 96 Resp 16 B/P (MAP) 142/103 152/99 (116) 166/103 (124) Pulse Ox 99 98 92 05/22/19 05/22/19 05/22/19 05/22/19 12:51 13:00 13:30 14:00 Pulse 113 110 Resp 12 18 12 B/P (MAP) 154/103 (120) 169/129 (142) 152/124 (133) Pulse Ox 99 99 98 O2 Flow Rate 2.0 05/22/19 05/22/19 05/22/19 05/22/19 14:30 15:00 15:30 16:00 Pulse 100 97 110 108 Resp 13 6 7 10 B/P (MAP) 154/109 (124) 155/110 (125) 155/105 (122) 162/106 (124) Pulse Ox 91 98 100 100 05/22/19 05/22/19 05/22/19 05/22/19 16:30 16:35 17:00 17:05 Pulse 110 117 118 Resp 8 22 9 B/P (MAP) 169/107 (127) 175/113 (133) Pulse Ox 96 92 97 Physical Exam General Appearance: The patient is alert, has no immediate need for airway protection and no current signs of toxicity. Eyes: Pupils equal and round no injection. Respiratory: Chest is non tender, lungs are clear to auscultation. Cardiac: regular rate and rhythm Gastrointestinal: Abdomen is soft, generalized tenderness, no masses, bowel sounds normal. Musculoskeletal: Neck: Neck is supple and non tender. Extremities have full range of motion and are non tender. Skin: No rashes or lesions. DIFFERENTIAL DIAGNOSIS: After history and physical exam differential diagnosis was considered for gastroenteritis, hypoglycemia, hyperglycemia, canabinoid hyperemesis syndrome Medical Decision Making Data Points Result Diagram: 05/22/19 1203 05/22/19 1203 Laboratory Hematology Test 05/22/19 12:03 White Blood Count 11.5 k/uL (4.5-11.0) H Red Blood Count 5.83 M/uL (4.00-5.60) H Hemoglobin 19.0 g/dL (14.0-18.0) H Hematocrit 53.8 % (42.0-52.0) H Mean Corpuscular Volume 92.3 fL (80.0-96.0) Mean Corpuscular Hemoglobin 32.6 pg (26.0-33.0) Mean Corpuscular Hemoglobin Concent 35.3 g/dL (32.0-36.0) Red Cell Distribution Width 12.2 % (11.5-14.5) Platelet Count 311 K/uL (150-450) Mean Platelet Volume 10.0 fL (7.2-11.1) Neutrophils (%) (Auto) 83.5 % (39.4-72.5) H Lymphocytes (%) (Auto) 11.9 % (17.6-49.6) L Monocytes (%) (Auto) 3.4 % (4.1-12.4) L Eosinophils (%) (Auto) 0.2 % (0.4-6.7) L Basophils (%) (Auto) 0.4 % (0.3-1.4) Nucleated RBC Relative Count (auto) 0.0 /100WBC Neutrophils # (Auto) 9.6 K/uL (2.0-7.4) H Lymphocytes # (Auto) 1.4 K/uL (1.3-3.6) Monocytes # (Auto) 0.4 K/uL (0.3-1.0) Eosinophils # (Auto) 0.0 K/uL (0.0-0.5) Basophils # (Auto) 0.1 K/uL (0.0-0.1) Nucleated RBC Absolute Count (auto) 0.00 K/uL Chemistry Test 05/22/19 12:03 Sodium Level 138 mmol/L (137-145) Potassium Level 4.2 mmol/L (3.5-5.0) Chloride Level 106 mmol/L (98-107) Carbon Dioxide Level 21 mmol/L (22-30) Blood Urea Nitrogen 18 mg/dl (9-21) Creatinine 0.60 mg/dl (0.66-1.25) Glomerular Filtration Rate Calc > 60.0 Random Glucose 304 mg/dl (75-110) Osmolality 307 mOSM/K (275-295) Calcium Level 9.9 mg/dl (8.4-10.2) Total Bilirubin 0.8 mg/dl (0.2-1.3) Aspartate Amino Transf (AST/SGOT) 35 U/L (0-35) Alanine Aminotransferase (ALT/SGPT) 42 U/L (0-56) Alkaline Phosphatase 96 U/L (0-126) Total Protein 7.6 g/dl (6.3-8.2) Albumin 4.5 g/dl (3.5-5.0) Amylase Level 102 U/L (0-110) Lipase 29 U/L (23-300) Serology Test 05/22/19 12:03 Helicobacter pylori IgG Antibody Negative (NEGATIVE) Toxicology Test 05/22/19 12:03 Acetone, Qualitative Negative Urinalysis Test 05/22/19 13:30 Urine Color Yellow Urine Clarity Clear Urine pH 7.0 pH (4.8-9.5) Urine Specific [place] 1.039 Urine Protein 500 mg/dL (NEGATIVE) Urine Glucose (UA) 500 mg/dL (NEGATIVE) Urine Ketones 80 mg/dL (NEGATIVE) Urine Blood Small (NEGATIVE) Urine Nitrite Negative (NEGATIVE) Urine Bilirubin Negative (NEGATIVE) Urine Urobilinogen Negative mg/dL (0.2-1.9) Urine Leukocyte Esterase Negative (NEGATIVE) Urine RBC 16 /HPF (0-2/HPF) Urine WBC 2 /HPF (0-5/HPF) Urine Squamous Epithelial Cells None /LPF (</=FEW) Urine Bacteria Negative /HPF (NONE-FEW) Urine Mucus None /HPF (NONE-FEW) ED Course/Re-evaluation ED Course Patient was monitored in exam room, history and physical were obtained. Differential diagnoses were considered. On examination lungs are clear, heart is regular, abdomen is soft and tender in the left upper quadrant. Lab work was done. Patient did have a slightly elevated white count with a left shift. White count was 11.5 and patient had 85% neutrophils. I believe that is likely secondary to the margination caused by the stress of vomiting. Patient did have some emesis here in the emergency room. He received 2 L of normal saline, his blood sugar was only 300 with an elevated osmolality. I did not feel that was necessary to do any imaging at this time. Patient received Zofran, fentanyl for pain. He also received Phenergan and a second dose of fentanyl for pain. Patient was complaining of persistent nausea. He did receive 10 mg of Reglan. He did have some persistent nausea. We did discuss this with the patient and we will go ahead and discharge him home. As we were getting everything ready for him to be discharged home he did have an episode of emesis. We will go ahead and discharge patient home at this time. He does have some concerns that he may be back tomorrow. With the patient receiving several bouts of medications for his nausea and no significant changes lab work I feel there is no reason to have him any longer in the emergency room. Patient verbalized understanding and agreement with plan. Decision to Disposition Date: May 22, 2019 Decision to Disposition Time: 16:54 Depart Departure Latest Vital Signs Vital Signs Date Time Temp Pulse Resp B/P (MAP) Pulse Ox O2 Delivery O2 Flow Rate FiO2 05/22/19 17:05 118 9 97 05/22/19 17:00 175/113 (133) 05/22/19 12:51 2.0 05/22/19 11:54 95.7 Impression: Primary Impression: Nausea & vomiting Condition: Improved Disposition: HOME OR SELF-CARE Referrals: ESA EMERY MD (PCP) New Scripts Promethazine HCl (Phenergan) 25 Mg Supp.rect 25 MG CO TID PRN for NAUSEA/VOMITING, #12 SUPP.RECT Prov: ELIZABETH CONNORS [facility] 05/22/19 Metoclopramide Hcl (METOCLOPRAMIDE HCL) 10 Mg Tablet 10 MG PO QID PRN for NAUSEA/VOMITING, #28 TAB Prov: WAYLONSIMIEric MARK 05/22/19 Ondansetron 4 Mg Odt (ONDANSETRON 4 MG ODT) 4 Mg Tab.rapdis 4 MG PO Q6H PRN for NAUSEA/VOMITING, #20 TAB Prov: SIMI CONNORSE [facility] 05/22/19 Patient Instructions: Acute Nausea and Vomiting (ED) Additional Instructions: Take medications as instructed for nausea. Rest and plenty of fluids, 2-3L daily. Follow up with primary care physician. Return to ED if symptoms worsen. Problem Qualifiers Primary Impression: Nausea & vomiting Vomiting type: cyclical vomiting Vomiting Intractability: non-intractable Qualified Codes: G43.A0 - Cyclical vomiting, not intractable [facility] May 22, 2019 12:08
[2019-05-22] MEDS ORDERED: NS(*) 0.9% 1000 ML BAG 1,000 ML IV ONE ×2 (12:10→14:00)
[2019-05-22] MEDS ORDERED: ONDANSETRON 4 MG/2 ML VIAL IVP ONE (12:10)
[2019-05-22] MEDS ORDERED: fentaNYL CITR 100 MCG/2 ML AMP IVP ONE ×2 (12:30→14:30)
[2019-05-22 13:35] LABS: PLATELET COUNT, AUTOMATED 311 K/uL (150-450)
[2019-05-22] MEDS ORDERED: PROMETHAZINE 25 MG/ML 1 ML AMP IVP ONE (15:10)
[2019-05-22] MEDS ORDERED: METOCLOPRAMIDE 10 MG TAB PO ONE (16:20)
[2019-05-22 17:00] VITALS: BP 175/113
[2019-05-22] MEDS ORDERED: METO-224 PO (17:06)
[2019-05-22] MEDS ORDERED: PROM25SU8 PR (17:06)
[2019-05-22] MEDS ORDERED: ONDA4TAB9 PO (17:06)
== END 2019-05-22 17:42 | disposition home or self-care (01) ==
LOC: ER 12:23
DX: G43.A0 Cyclical vomiting, in migraine, not intractable (principal)
CPT/HCPCS: 81001; 82009; 82150; 83690; 83930; 85025; 86677; 96361; 96374; 96375; 96376; 99284; J2405; J2550; J3010; J7030; J8597; 82040; 82247; 82310; 82374; 82435; 82565; 82947; 84075; 84132; 84155; 84295; 84450; 84460; 84520